=== PATIENT | male | born 1945 | race Caucasian/White ===

== ENCOUNTER 2019-01-15 09:08 | Inpatient (IN) | payer MEDICARE ==
[~2019-01-15] VITALS: Ht 180.3 cm; Wt 126.0 kg
[2019-01-15] MEDS ORDERED: diphenhydrAMINE 25 MG TAB (BENADRYL) PO PRN (09:45)
[2019-01-15] MEDS ORDERED: ALPRAZolam 0.25 MG (XANAX) TAB PO PRN (09:45)
[2019-01-15] MEDS ORDERED: CALCIUM CARBONATE 500 MG (TUMS) TAB.CHEW PO PRN (09:45)
[2019-01-15] MEDS ORDERED: guaiFENesin/CODEINE (ROBITUSSIN AC) 10ML UDC PO PRN (09:45)
[2019-01-15] MEDS ORDERED: LACTULOSE SYRUP 10GM/15ML (ENULOSE) 30ML UDC PO PRN (09:45)
[2019-01-15] MEDS ORDERED: HYDROcodone/APAP 5 MG/325 MG (LORTAB) TAB PO PRN (09:45)
[2019-01-15] MEDS ORDERED: LOPERAMIDE 2 MG (IMODIUM) TABLET PO PRN (09:45)
[2019-01-15] MEDS ORDERED: DOCUSATE SODIUM 100 MG (COLACE) CAP PO PRN (09:45)
[2019-01-15] MEDS ORDERED: FLEET ENEMA ADULT 1 EA BTL PR PRN (09:45)
[2019-01-15] MEDS ORDERED: BISACODYL 10 MG SUPP (DULCOLAX) PR PRN (09:45)
[2019-01-15] MEDS ORDERED: ONDANSETRON 4 MG (ZOFRAN) ORAL DISSOLVE TAB PO PRN (09:45)
[2019-01-15] MEDS ORDERED: MELATONIN 3 MG TABLET PO PRN (09:45)
--- NOTE | 2019-01-15 12:30 | NUR ---
Pt admitted to room 227 with an admitting diagnosis of S/P Back fusion from [facility], [place] via w/c, accompanied by , & PT. JODIE DONOHUE introduced to surroundings, call light, bed controls, phone, TV, temperature control, lights, meal times, smoking policy, visitor policy, side rail policy, bathrooms and showers. Patient Rights given to patient in the handbook. JODIE DONOHUE verbalizes understanding that [facility] is not responsible for the loss or damage to any personal effects or valuables that are kept in the patients posession during their hospitalization. The following Patient Care Plans were discussed with the PT: Discharge Planning, impaired Mobility, Self Care Deficit, Potential for fall/injury, Alteration in skin integrity. JODIE DONOHUE verbalizes understanding of Interdisciplinary Patient Education. Patient and/or family were informed about the Rapid Response Team and its purpose. Patient received Patient Rights Booklet, which includes Privacy Act Statement and Data Collection Information Summary.
[2019-01-15] MEDS ORDERED: OXYC1TAB87 PO (13:44)
[2019-01-15] MEDS ORDERED: BACL10TA PO (13:44)
[2019-01-15] MEDS ORDERED: LEVO25TA5 PO (13:44)
[2019-01-15] MEDS ORDERED: DOCU-244 PO (13:44)
[2019-01-15] MEDS ORDERED: GABA800T10 PO ×2 (13:44)
[2019-01-15] MEDS ORDERED: CHOL20003 PO (13:44)
--- NOTE | 2019-01-15 14:06 | NUR ---
UPDATED MED REC WITH THE DISCHARGE INSTRUCTIONS FROM [facility]. 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 I CALLED [facility] IN [place] AND THEY HAVE NOT FILLED ANYTHING MORE RECENTLY FOR THE PATIENT THAN WHAT IS SHOWN ON THE EXT MED HX. AT THIS TIME I WAS UNABLE TO VERIFY THE MEDS HE WAS FILLING PRIOR TO ADMISSION TO [facility] BUT REVIEWED THEM THEY WERE REPORTED AT THAT FACILITY.
--- NOTE | 2019-01-15 14:19 | Physical Therapy Evaluation ---
PT Evaluation-General Medical Diagnosis Admission Date Jan 15, 2019 at 12:30 Medical Diagnosis: Lumbar stenosis, L4-5, L5-S1, TLIF/laminectomy/bilateral facetectomies/PSIF Onset Date: Jan 13, 2019 Therapy Diagnosis Therapy Diagnosis: general weakness, abn gait, impaired balance Precautions Precautions/Isolations: Fall Prevention, Standard Precautions Referral Physician: Jackie Reason for Referral: Evaluation/Treatment Medical History Additional Medical History past cervical spine SX, psoriasis Reviewed History: Yes Social History Home: Single Level Current Living Status: Significant Other Entry Into Home: Stairs Without Railing PT Steps Into Home: 1 pt reports step into house is large enough to fit a walker on. Prior Prior Level of Function SCALE: Activities may be completed with or without assistive devices. 9-Wcxvgtaykp-tmtjdwm completes the activity by him/herself with no assistance from a helper. 5-Set-up or Clean-up Assistance-helper sets up or cleans up; patient completes activity. [place] assists only prior to or following the activity. 4-Supervision or Touching Assistance-helper provides verbal cues and/or touching/steadying and/or contact guard assistance as patient completes activity. Assistance may be provided throughout the activity or intermittently. 3-Partial/Moderate Assistance-helper does LESS THAN HALF the effort. [place] lifts, holds or supports trunk or limbs, but provides less than half the effort. 2-Substantial/Maximal Assistance-helper does MORE THAN HALF the effort. [place] lifts or holds trunk or limbs and provides more than half the effort. 9-Dllsyqehd-ankohw does ALL the effort. Patient does none of the effort to complete the activity. Or, the assistance of 2 or more helpers is required for the patient to complete the activity. If activity was not attempted, code reason: 7-Patient Refused. 9-Not Applicable-not attempted and the patient did not perform the activity before the current illness, exacerbation or injury. 10-Not Attempted due to Environmental Limitations-(lack of equipment, weather restraints, etc.). 88-Not Attempted due to Medical Conditions or Safety Concerns. Bed Mobility: 6 Transfers (B,C,W/C): 6 Gait: 3 Stairs: 3 Wheelchair Mobility: 6 Indoor Mobility (Ambulation): Needed Some Help Stairs: Needed Some Help Prior Devices Use: Manual wheelchair, Walker pt reports use of 4 wheel walker around the house as well as FWW and WC PT Evaluation-Current Subjective pt received from SO vehicle agrees to start therapy and reports 3-4/10 pain along the incisions in his back at this time. This session will be a CO-TX with OT secondary to pt's need for the skill of 2 therapists to maintain balance for functional activities as well as to coordinate UE and LE for proper placement for functional activities. Pt in recliner post-tx with SO present for duration of session. pt with call light, room phone, tray table in reach with all needs met at this time. Pt/Family Goals pt's goal is to decrease pain and get home to be indep. Objective Patient Orientation: Person, Place, Time, Situation Attachments: Drains, Bassett Catheter, IV [place] back brace ROM/Strength ROM Lower Extremities WFL, LLE slightly limited in dorsiflexion up to neutral Strength Lower Extremities B/L hip flexion about 3+/5 B/L knee extension 5/5 B/L knee flexion 4-/5 Integumentary/Posture Integumentary see nursing notes Bowel Incontinence: Yes Bladder Incontinence: Bassett Cath Sensory Vision: Functional Hearing: Functional Sensation Right Lower Extremit: Intact Sensation Left Lower Extremity: Intact Transfers Roll Left to Right (QC): 3 (modA) Sit to Lying (QC): 3 (modA) Lying to Sitting/Side of Bed(Q: 3 (modA) Sit to Stand (QC): 3 (maxA-CGA depending on surface height) Chair/Cnp-tv-Niwdk Xfer(QC): 3 (modA) Car Transfer (QC): 3 (modA) pt performs bed mobility using log roll technique with modA. Pt transfers bed to chair with standing and stepping modA Pt sit <-> stand was maxA from low surfaces and WC without pad but was improved to CGA when pad placed in WC or from lifted gym table height. Gait Does the Patient Walk?: Yes Mode of Locomotion: Both Anticipated Mode of Locomotion: Both Walk 10 feet (QC): 88 Walk 50 ft with 2 Turns(QC): 88 Walk 150 ft (QC): 88 Walking 10ft/uneven surface-QC: 88 Distance: 2' Gait Assistive Device: FWW Comments/Gait Description pt able to stand a take only a few shuffle steps from WC <-> bed/chair Wheelchair Training Does the Pt Use a Wheelchair?: Yes Distance: 150'x2 Wheel 50 ft with 2 turns (QC): 4 (SBA) Wheel 150 ft (QC): 4 (SBA) Type of Wheelchair: Manual Stairs 1 Step (curb) (QC): 88 4 Steps (QC): 88 12 Steps (QC): 88 Balance Sitting Static: Normal Sitting Dynamic: Good Standing Static: Fair Standing Dynamic: Fair Picking up an Object (QC): 88 Treatment pt performed transfer training, bed mobility training, wheelchair training, balance training, and education PT assisted with pt balance while OT accessed ADL, dressing, feeding. OT assisted with UE placement while PT assisted with LE placement for transfer and sit to stands. Assessment/Needs Pt had 2-3 episodes of L knee buckling while standing with the FWW this session. Pt has improved performance for sit to stands once the surface is raised but continues to need repeated cueing for UE placement for safety with transfers. Pt feels like twice he has had BM during session with once only being gas, pt reports incontinence in new since this surgery. Pt has dentures in place. Rehab Potential: Fair PT Short Term Goals Short Term Goals Time Frame: Jan 22, 2019 Sit to lyin (Cassie) Lying to sitting on side of be: 3 (Cassie) Sit to stand: 4 (CGA) Walk 10 feet: 3 (Cassie) PT Jail Goals Sample Steamer Goals PT Jail Goals Time Frame: Feb 05, 2019 Roll Left & Right (QC): 6 Sit to Lying (QC): 6 Lying-Sitting on Side/Bed(QC): 6 Sit to Stand (QC): 6 Chair/Whv-va-Rmujr Xfer(QC): 6 Toilet Transfer (QC): 6 Car Transfer (QC): 6 Does the Patient Walk: Yes Walk 10 feet (QC): 4 (CGA) Walk 50ft with 2 Turns (QC): 4 (CGA) Walk 150 ft (QC): 88 Walking 10ft on Uneven Surface: 4 (CGA) 1 Step (curb) (QC): 4 (CGA) 4 Steps (QC): 9 12 Steps (QC): 9 Picking up an Object (QC): 88 Does the Pt use WC or Scooter?: Yes Wheel 50 feet with 2 turns (QC: 6 Type: Manual Wheel 150 feet: 6 Type: Manual PT Plan Problem List Problem List: Activity Tolerance, Functional Strength, Safety, Balance, Gait, Transfer, Bed Mobility, ROM Treatment/Plan Treatment Plan: Continue Plan of Care Treatment Plan: Bed Mobility, Concurrent Therapy, Education, Functional Activity Xnader, Functional Strength, Group Therapy, Gait, Safety, Therapeutic Exercise, Transfers Treatment Duration: Feb 05, 2019 Frequency: At least 5 of 7 days/Wk (IRF) Estimated Hrs Per Day: 1.5 hours per day Patient and/or Family Agrees t: Yes Safety Risks/Education Patient Education: Gait Training, Transfer Techniques, Reviewed Precautions, Correct Positioning, W/C Management, Reviewed Don/Doff Brace, Safety Issues Teaching Recipient: Patient Teaching Methods: Demonstration, Discussion Response to Teaching: Return Demonstration, Reinforcement Needed Discharge Recommendations Plan pt will perform transfer and mobility training, balance training, skilled ambulation training, stair training, functional strength/endurance training, and education. Therapy Discharge Recommendati: Other, See Comments (home with SO) Time/GCodes Time In: 1200 Time Out: 1410 Total Billed Treatment Time: 90 Total Billed Treatment PT eval [id number] OT eval [id number] Co [place] 4571-3289 Co [place] 9037-3316 1 visit EVM 10' (1) [facility] 15' (1) FA 65' (4) IRENE MARTIN PT Jan 15, 2019 14:19 POS
--- NOTE | 2019-01-15 14:27 | Occupational Therapy Eval ---
OT Evaluation-General/PLF Medical Diagnosis Admission Date Jan 15, 2019 at 12:30 Medical Diagnosis: Lumbar stenosis, L4-5, L5-S1, TLIF/laminectomy/bilateral facetectomies/PSIF Onset Date: Jan 13, 2019 Therapy Diagnosis Therapy Diagnosis: Weakness, Decreased ADL skills Weight Bear Status Weight Bearing Restriction: Weight Bearing/Tolerated Back brace on when up. Back precautions. Referral Physician: Dr. Mejia Referral Reason: Activity Tolerance, Self Care, Evaluation/Treatment, Strengthening/ROM Medical History Additional Medical History Cervical surgery in 2016, psoriasis Current History Pt. sustained back surgery. Has back brace now to wear when OOB. Pt. has had weakness in right LE for some time. Pt. states that he is having less pain now since having surgery. Reviewed History: Yes Social History Home: Single Level Current Living Status: Significant Other Entry Into Home: Level Entry 1 curb step ADL-Prior Level of Function SCALE: Activities may be completed with or without assistive devices. 2-Bhixenxtfj-wcsaiuw completes the activity by him/herself with no assistance from a helper. 5-Set-up or Clean-up Assistance-helper sets up or cleans up; patient completes activity. [place] assists only prior to or following the activity. 4-Supervision or Touching Assistance-helper provides verbal cues and/or touching/steadying and/or contact guard assistance as patient completes activity. Assistance may be provided throughout the activity or intermittently. 3-Partial/Moderate Assistance-helper does LESS THAN HALF the effort. [place] lifts, holds or supports trunk or limbs, but provides less than half the effort. 2-Substantial/Maximal Assistance-helper does MORE THAN HALF the effort. [place] lifts or holds trunk or limbs and provides more than half the effort. 1-Wtvlednpp-sstqqk does ALL the effort. Patient does none of the effort to complete the activity. Or, the assistance of 2 or more helpers is required for the patient to complete the activity. If activity was not attempted, code reason: 7-Patient Refused. 9-Not Applicable-not attempted and the patient did not perform the activity before the current illness, exacerbation or injury. 10-Not Attempted due to Environmental Limitations-(lack of equipment, weather restraints, etc.). 88-Not Attempted due to Medical Conditions or Safety Concerns. ADL PLOF Comments Pt. states that he does not drive anymore. States that he has a technique at home that he uses to don socks and shoes. He uses a strong band to pull his feet up to him. However, he also has a sock aide that he uses sometimes. When he was having significant back pain, his significant other assists him. Self Care: Needed Some Help Functional Cognition: Independent DME/Equipment: Bath Chair, Tub/Shower DME/Equipment Comments Pt. uses 2 wheeled walker at home, but also has 4 wheeled walkers. 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 reports 3-10 in back. Appearance Pt. alert and oriented. Agrees to work with therapy. Mental Status/Objective Patient Orientation: Person, Place, Time, Situation Current Dentures/Partials: Yes Hand Dominance: Right Upper Extremity ROM Right UE- WFL Left UE- 90 degrees shoulder flexion. Upper Extremity Strength UE not tested due to back surgery. Pt missing distal half of left 2nd, third, fourth finger from previous accident. ADL-Treatment Eating (QC): 6 (Pt. took dentures out due to not fitting. No difficulty noted to eat full meal.) Oral Hygiene (QC): 5 (Pt. able to open fixodent tube and use on his dentures. Pt. able to apply teeth in mouth and fixate to roof. No difficulty noted.) Shower/Bathe Self (QC): 2 (Pt. incontinent of BM upon first arriving. Required max assistance to wash legs, rear bruno area, and feet. Pt. able to wash front p shaquille area and UE.) Upper Body Dressing (QC): 2 (Mod assist to doff shirt. Max assist to doff/don back brace.) Lower Body Dressing (QC): 2 (Max assist to doff/don slipper socks and brief. Max assist to doff pants.) On/Off Footwear (QC): 2 Toileting Hygiene (QC): 1 Toilet Transfer (QC): 2 Pt. participated in co-treatment due to skilled level of assistance needed. Pt. fatigued from car ride. At beginning of treatment, pt. required mod x 2 for sit-stand, but increasingly had easier time and required only min x 2. OT facilitated ADL treatment while PT focused on transfers and mobility. Pt. able to self propel wheelchair to and from gym. Pt. issued AE to practiced doffing/donning slipper socks. Required min assist for this. All needs met back in chair after propelling back to room. Education OT Patient Education: Correct positioning, Modified ADL techniques, Progress toward Goal/Update tx plan, Purpose of tx/functional activities, Reviewed precautions, Rehab process, Transfer techniques, Use of adapted equipment Teaching Recipient: Patient Teaching Methods: Demonstration, Discussion Response to Teaching: Verbalize Understanding, Return Demonstration OT Short Term Goals Short Term Goals Time Frame: Jan 22, 2019 Eatin Oral hygiene: 5 Toileting hygiene: 4 Shower/bathe self: 4 Upper body dressin Lower body dressin Putting on/taking off footwear: 4 OT Admissions Dean Goals Retirement Goals Time Frame: Jan 29, 2019 Eating (QC): 6 Oral Hygiene (QC): 6 Toileting Hygiene (QC): 6 Shower/Bathe Self (QC): 5 Upper Body Dressing (QC): 6 Lower Body Dressing (QC): 6 On/Off Footwear (QC): 6 Additional Goals: 1-Demonstrate ADL Tasks, 2-Verbalize Understanding, 3- ImproveStrength/Xander 1=Demonstrate adherence to instructed precautions during ADL tasks. 2=Patient will verbalize/demonstrate understanding of assistive devices/modifications for ADL. 3=Patient will improve strength/tolerance for activity to enable patient to perform ADL's. OT Education/Plan Problem List/Assessment Assessment: Decreased Activ Tolerance, Decreased UE Strength, Dependent Transfers, Impaired Bed Mobility, Impaired Funct Balance, Impaired I ADL's, Impaired Self-Care Skills, Restricted Funct UE ROM Discharge Recommendations Plan/Recommendations: Continue POC Therapy Discharge Recommendati: Post Acute OT Equpiment Recommendations-D/C: Hip Kit Treatment Plan/Plan of Care Treatment,Training & Education: Yes Patient would benefit from OT for education, treatment and training to promote independence in ADL's, mobility, safety and/or upper extremity function for ADL's. Plan of Care: ADL Retraining, Functional Mobility, Group Exercise/Act as Ind, UE Funct Exercise/Act Treatment Duration: Jan 29, 2019 Frequency: At least 5 of 7 days/Wk (IRF) Estimated Hrs Per Day: 1.5 hours per day Agreement: Yes Rehab Potential: Good Time/GCodes Start Time: 12:00 Stop Time: 14:10 Total Time Billed (hr/min): 90 Billed Treatment Time 6831-3955 PT eval, no charge [id number] 1, EVH x 10 minutes [id number] ADL x 10minutes- co-treat with PT [id number] 1, ADL x 35minutes, FA x 35minutes- co-treat with PT. Please see above note for findings and goals. JENNIFER ELLISON OT Jan 15, 2019 14:27 POS
--- NOTE | 2019-01-15 14:45 | ST Cognitive Linguistic Eval ---
Speech Evaluation-General Medical Diagnosis Lumbar Stenosis Onset Date: Jan 15, 2019 Therapy Diagnosis Therapy Diagnosis: Cognitive-communication Referral Referring Physician: Dr. Mejia Social History Current Living Status: Significant Other Speech PLF-Current Status Prior Level of Function Patient lived at home with his where she assisted him as needed with his daily needs. Subjective Patient was pleasant and cooperative with the cognitive assessment. Language Eval: Auditory Comprehends Simple Yes/No Ques: Functional Indent/Objects Multiple [place]: Functional Ident/Pics in Multiple [place]: Functional Follows 1-Step Commands: Functional Follows Complex Directions: Functional Follows General Conversations: Functional Language Eval: Verbal Language Completes Spontaneous Greeting: Functional Produces Auto, Serial Info: Functional Imitates Simple Words/Phrases: Functional Word Finding: Functional Requests Basic Needs: Functional States Basic Personal Info: Functional Expresses Complex Ideas: Functional Objective Cognitive Domain Attention: WNL Memory: Mild Problem Solving: Functional Executive Functions: WNL Visuospatial Skills: WNL Composite Severity Rating: WNL Clock Drawing Severity Rating: WNL Objective Formal/Standardized Tests [facility] Mental Status ([facility]) Results 27/30, within normal range of function Oral Motor/Speech Production Within Normal Limits Impression Patient is a pleasant 73 year old male who was admitted to the ARU s/p spinal surgery. Patient was given the UMS with a score of 27/30 obtained. This score falls in the normal range of function. Patient does not warrant further ST services at this time. Speech Patient Assess Expression of Ideas/Wants: Expression (4) Understanding Verbal Content: Understands (4) Brief Interview-Mental Status: Yes Repetition of Three Words: Three (3) Temporal Orientation: Year: Correct (3) Temporal Orientation: Month: Accurate within 5 days(2) Temporal Orientation: Day: Correct (1) Recall : Wear to say "Sock": Yes, no cue required (2) Recall : Color: Yes, no cue required (2) Recall : Bed: Yes, no cue required (2) Memory/Recall Ability: Current season, Location of own room, That he or she is in a hsp/hsp unit Speech-Plan Patient/Family Goals Patient/Family Goals: Patient plans on returning home with his upon rehab discharge. Treatment Plan Speech Therapy Treatment Plan: Discontinue ST Patient does not require further ST services. Treatment Duration: Jan 15, 2019 Frequency: 1 time per week Estimated Hrs Per Day: .25 hour per day Rehab Potential: Fair Barriers to Learning: None identified Pt/Family Agrees to Plan: Yes Safety Risks/Education Teaching Recipient: Patient, Significant Other Teaching Methods: Discussion Response to Teaching: Verbalize Understanding Education Topics Provided: Safety within his room, utilization of the call light as needed Time Speech Therapy Time In: 14:30 Speech Therapy Time Out: 14:45 Total Billed Time: 15 Billed Treatment Time 1, SPSNDMADELINE Abraham Jan 15, 2019 14:45 POS
[2019-01-15 14:55] VITALS: BP 112/72
[2019-01-15 16:28] VITALS: BP 97/59
[2019-01-15] MEDS: GABAPENTIN 400 MG (NEURONTIN) CAP PO SCH (20:17)
[2019-01-15] MEDS: VITAMIN D3 1,000 UNITS (CHOLECALCIFEROL) TABLET PO SCH (20:17)
[2019-01-15] MEDS: DOCUSATE SODIUM 100 MG (COLACE) CAP PO SCH (20:18)
[2019-01-15] MEDS: POLYETHYLENE GLYCOL 17 GM (MIRALAX) PACK PO SCH (20:18)
[2019-01-15] MEDS: SENNA W/DOCUSATE (SENOKOT S) TABLET PO SCH (20:18)
[2019-01-15] MEDS ORDERED: NON-FORMULARY MEDICATION 1 EA EA (Cholecalciferol (Vitamin D3) (Vitamin D3) 2,000 UNIT) PO SCH (21:00)
[2019-01-15] MEDS ORDERED: NON-FORMULARY MEDICATION 1 EA EA (Gabapentin 800 MG) PO SCH (21:00)
[2019-01-15] MEDS ORDERED: DOCUSATE SODIUM 100 MG (COLACE) CAP PO SCH (21:00)
[2019-01-15] MEDS ORDERED: NON-FORMULARY MEDICATION 1 EA EA (Docusate Sodium (Dok) 100 MG) PO SCH (21:00)
--- NOTE | 2019-01-15 22:24 | PM&R Post Admission Assessment ---
PM&R HP Date of Visit: Jan 15, 2019 Time of Visit: 12:50 History of Present Illness Chief complaint: Severe debility due to lumbar fusion and significant debility due to right leg radiculopathy prior to surgery. HPI: This is a 73yoWM who presents after an extensive lumbar fusion surgery by Dr. Smith at [facility] in [place], who presents to the inpatient rehab at POD# 3 in need of intensive therapy, in order to return home with his fiance. He does require the espinosa catheter maintain, due to resistant urinary retention following the surgery. Multiple meds were given, he will have the espinosa catheter maintained and Dr. Zimmerman will see him in consultation. He did have an early ileus that resolved with conservative management. Did not need a nasogastric tube but he is still having some watery stools with lack of substance so will monitor that aggressively. He denied any nausea. 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[employer]) Alcohol Use: Occasionally Uses Alcohol Beverage of Choice: Beer, Wine Recreational Drug Use: No Smoking Status: Former Smoker Former Smoker, Quit: Jan 15, 1989 Physical Abuse Screen: No Sexual Abuse: No Recent Foreign Travel: No Contact w/other who traveled: No Recent Hopitalizations: Yes Recent Infectious Disease Expo: No Immunizations Up To Date Date of Pneumonia Vaccine: Nov 14, 2018 Date of Influenza Vaccine: Nov 14, 2018 Seasonal Allergies Seasonal Allergies: Yes Past Medical History Surgeries: Orthopedic Currently Using CPAP: No Currently Using BIPAP: No Neurological: Neuropathy Gastrointestinal: Hepatitis Musculoskeletal: Degenerate Disk Disease, Arthritis, Chronic Back Pain, Fr actures Endocrine: Hypothyroidsim HEENT: Cataract Hearing Impairment: Denies History of Blood Disorders: No Adverse Reaction to Blood Stanley: No Family History Cardiovascular disease 19 FATHER (unknown) 19 MOTHER (unknown) Prior Level of Function Bed Mobility: 6 Transfers: 6 Gait: 3 Stairs: 3 Wheelchair Mobility: 6 Indoor Mobility (Ambulation): Needed Some Help Stairs: Needed Some Help Prior Devices Use: Manual wheelchair, Walker Self Care: Needed Some Help Functional Cognition: Independent 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 Drive Self: No Current Level of Fuctioning Roll Left to Right: 3 (modA) Sit to Lyin (modA LR) Lying to Sitting/Side of Bed: 3 (modA) Sit to Stand: 3 (maxA-CGA depending on surface height) Chair/Tjf-st-Slnwu Xfer: 3 (modA) Car Transfer: 3 (modA) Does the Patient Walk: Yes Mode of Locomotion: Both Anticipated Mode of Locomotion: Both Walk 10 feet: 88 Walk 50 ft with 2 Turns: 88 Walk 150 ft: 88 Walking 10ft on uneven surface: 88 Gait Assistive Device: FWW Does the Pt Use a Wheelchair: Yes Wheelchair Distance: 150'x2 Wheel 50 ft with 2 turns: 4 (SBA) Wheel 150 ft: 4 (SBA) Type of Wheelchair: Manual 1 Step (curb): 88 4 Steps: 88 12 Steps: 88 Picking up an Object: 88 Eatin (Pt. took dentures out due to not fitting. No difficulty noted to eat full meal.) Oral Hygiene: 5 (Pt. able to open fixodent tube and use on his dentures. Pt. able to apply teeth in mouth and fixate to roof. No difficulty noted.) Shower/Bathe Self: 2 (Pt. incontinent of BM upon first arriving. Required max assistance to wash legs, rear bruno area, and feet. Pt. able to wash front bruno area and UE.) Upper Body Dressin (Mod assist to doff shirt. Max assist to doff/don back brace.) Lower Body Dressin (Max assist to doff/don slipper socks and brief. Max assist to doff pants.) On/Off Footwear: 2 Toileting Hygiene: 1 Toilet Transfer: 2 PM&R Allergy/Meds/Data Review Allergies Coded Allergies: No Allergy Information Available (Unverified , 01/15/19) Home Medications Scheduled Cholecalciferol (Vitamin D3) (Vitamin D3), 2,000 UNIT PO BID, (Reported) Docusate Sodium (Dok), 100 MG PO BID, (Reported) Gabapentin (Gabapentin), 1,600 MG PO DAILY, (Reported) Gabapentin (Gabapentin), 800 MG PO 1200,2100, (Reported) Levothyroxine Sodium (Levothyroxine Sodium), 25 MCG PO DAILY, (Reported) Scheduled PRN Baclofen (Baclofen), 10 MG PO Q8H PRN for MUSCLE SPASMS, (Reported) Oxycodone HCl/Acetaminophen (Percocet 5-325 mg Tablet), 1-2 TAB PO Q6H PRN for PAIN-MODERATE (5-7), (Reported) Current Medications Current Medications Reviewed Review of Systems Constitutional: see HPI, malaise, weakness Gastrointestinal: constipation Genitourinary: other (retention requiring espinosa cath) Musculoskeletal: back pain Psychiatric/Neurological: Numbness All Other Systems Reviewed Negative Unless Noted: Yes Physical Exam Physical Exam Vital Signs Vital Signs - First Documented Capillary Refill : Height, Weight, BMI Height: '" Weight: lbs. oz. kg; 38.85 BMI Method: General Appearance: No Apparent Distress, WD/WN, Chronically ill, Obese Eyes: Bilateral Eye Normal Inspection, Bilateral Eye PERRL HEENT: PERRL/EOMI, Normal ENT Inspection, Pharynx Normal Neck: Full Range of Motion, Normal Inspection, Non Tender, Supple, Carotid Bruit Respiratory: Chest Non Tender, Lungs Clear, Normal Breath Sounds, No Accessory Muscle Use, No Respiratory Distress Cardiovascular: Regular Rate, Rhythm, No Edema, No Gallop, No JVD, No Murmur, Normal Peripheral Pulses Gastrointestinal: Normal Bowel Sounds, No Organomegaly, No Pulsatile Mass, Non Tender, Soft Back: Normal Inspection, No CVA Tenderness, No Vertebral Tenderness Extremity: Normal Capillary Refill, Normal Inspection, Normal Range of Motion, Non Tender, No Calf Tenderness, No Pedal Edema Neurologic/Psychiatric: Alert, Oriented x3, No Motor/Sensory Deficits, Normal 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/Affect, 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 as 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, Motor Weakness (leg weakness right greater than left 3/5) Skin: Normal Color, Warm/Dry Lymphatic: No Adenopathy PM&R Medical Assessment & Plan REHAB/MEDICAL ASSESSMENT AND PLAN: REHAB IMPAIRMENT GROUP: Lumbar fusion with severe neurological deficit ETIOLOGIC DIAGNOSIS: Lumbar fusion with severe neurological deficit The comorbidities that impact the patients function and/or functional outcome by: Severe neuropathy, hypothyroidism, urinary retention requiring espinosa cath REHAB PLAN: The patient is being admitted to our comprehensive inpatient rehabilitation facility and can tolerate the intensity of service consisting of at least: 180 minutes of therapy a day, 5 out of 7 days a week Rehab treatment will consist of: PT will help regain the ability to ambulate and OT will help regain independence in ADL's in order to return home The patient/family has a good understanding of our discharge process and will benefit from an interdisciplinary inpatient rehabilitation program. The patient has potential to make improvement and is in need of at least two of the following multidisciplinary therapies including but not limited to physical, occupational, speech, and prosthetics and orthotics. Additionally the patient will need services from respiratory, nutritional services, wound care, psychology, etc. (Customize this to each patient). Given the patients complex condition and risk of further medical complications, rehabilitation services cannot be safely or effectively provided at a lower level of care such as a [place] [facility] facility. BARRIERS TO DISCHARGE: Ability to ambulate due to large stature ESTIMATED LOS: 10 days DISPOSITION: Home RELEVANT CHANGES SINCE PREADMISSION SCREENING: I have compared the patients medical and functional status at the time of the preadmission screening and there are: no changes PROGNOSIS: Good REHABILITATION GOALS: 1. PT will help regain the ability to walk with walker and prevent falls and OT will help with the use of assistive devices in order to be able to return home All the above goals were reviewed with the patient and he/she is in agreement. By signing this document, I acknowledge that I have personally performed a full physical examination on this patient within 24 hours of admission to this inpatient rehabilitation facility and have determined the patient to be able to tolerate the above course of treatment at an intensive level for a reasonable period of time. I will be completing a detailed individualized Plan of Care for this patient by day #4 of the patients stay based upon the Preadmission Screen, the Post-Admission Evaluation, and the therapy evaluations. Admission Dx/Comorbidities: (1) S/P lumbar fusion ICD Codes: Z98.1 - Arthrodesis status (2) Hypothyroidism ICD Codes: E03.9 - Hypothyroidism, unspecified (3) Urinary retention ICD Codes: R33.9 - Retention of urine, unspecified (4) Espinosa catheter in place ICD Codes: Z96.0 - Presence of urogenital implants (5) Constipation ICD Codes: K59.00 - Constipation, unspecified (6) Neuropathy ICD Codes: G62.9 - Polyneuropathy, unspecified KEVIN FOX DO Jan 15, 2019 22:24 POS
[2019-01-16] MEDS: LEVOTHYROXINE 25 MCG (LEVOTHROID) TAB PO SCH (05:43)
[2019-01-16] MEDS: oxyCODONE/APAP 5/325MG (PERCOCET 5) TABLET PO PRN ×2 (05:46→18:29)
[2019-01-16 06:06] VITALS: BP 101/67
[2019-01-16 06:56] LABS: BASOPHILS % (AUTO) 1 % (0-10); EOSINOPHILS # (AUTO) 0.2 10^3/uL (0.0-0.3); EOSINOPHILS % (AUTO) 2 % (0-10); HEMATOCRIT 33 % (40-54); HEMOGLOBIN 10.7 G/DL (13.3-17.7); LYMPHOCYTES # (AUTO) 1.8 X 10^3 (1.0-4.0); LYMPHOCYTES % (AUTO) 21 % (12-44); MEAN CORPUSCULAR HEMOGLOBIN 31 PG (25-34); MEAN CORPUSCULAR HGB CONC 33 G/DL (32-36); MEAN CORPUSCULAR VOLUME 95 FL (80-99); MEAN PLATELET VOLUME 11.7 FL (7.4-10.4); MONOCYTES # (AUTO) 1.3 X 10^3 (0.0-1.0); MONOCYTES % (AUTO) 15 % (0-12); NEUTROPHILS # (AUTO) 5.3 X 10^3 (1.8-7.8); NEUTROPHILS % (AUTO) 62 % (42-75); PLATELET COUNT 167 10^3/uL (130-400); RED CELL DISTRIBUTION WIDTH 13.1 % (10.0-14.5); WHITE BLOOD COUNT 8.6 10^3/uL (4.3-11.0)
[2019-01-16 07:11] LABS: ALANINE AMINOTRANSFERASE 31 U/L (0-55); ALBUMIN 3.2 GM/DL (3.2-4.5); ALKALINE PHOSPHATASE 53 U/L (40-136); BILIRUBIN,TOTAL 0.6 MG/DL (0.1-1.0); BUN/CREATININE RATIO 25; CALCIUM 8.3 MG/DL (8.5-10.1); CARBON DIOXIDE 23 MMOL/L (21-32); CHLORIDE 102 MMOL/L (98-107); CREATININE SERUM 0.68 MG/DL (0.60-1.30); GFR ESTIMATED > 60; GLUCOSE 100 MG/DL (70-105); POTASSIUM 3.3 MMOL/L (3.6-5.0); SODIUM 134 MMOL/L (135-145); TOTAL PROTEIN 5.8 GM/DL (6.4-8.2)
[2019-01-16] MEDS ORDERED: NON-FORMULARY MEDICATION 1 EA EA (Gabapentin 1,600 MG) PO SCH (09:00)
--- NOTE | 2019-01-16 10:14 | Occupational Ther Daily Note ---
OT Current Status-Daily Note Subjective Pt seen supine in bed, alert/ oriented. Pt agreeable to OT tx session. Pt denies pain, states had pain meds prior to session. Mental Status/Objective Patient Orientation: Normal For Age Attachments: Drains, Bassett Catheter ADL-Treatment Therapy Code Descriptions/Definitions Functional [place] Measure: 0=Not Assessed/NA 4=Minimal Assistance 1=Total Assistance 5=Supervision or Setup 2=Maximal Assistance 6=Modified [place] 3=Moderate Assistance 7=Complete IndependenceSCALE: Activities may be completed with or without assistive devices. 0-Nhorlacthj-uargknr completes the activity by him/herself with no assistance from a helper. 5-Set-up or Clean-up Assistance-helper sets up or cleans up; patient completes activity. [place] assists only prior to or following the activity. 4-Supervision or Touching Assistance-helper provides verbal cues and/or touching/steadying and/or contact guard assistance as patient completes activity. Assistance may be provided throughout the activity or intermittently. 3-Partial/Moderate Assistance-helper does LESS THAN HALF the effort. [place] lifts, holds or supports trunk or limbs, but provides less than half the effort. 2-Substantial/Maximal Assistance-helper does MORE THAN HALF the effort. [place] lifts or holds trunk or limbs and provides more than half the effort. 7-Tdxrwulnx-qexjoj does ALL the effort. Patient does none of the effort to complete the activity. Or, the assistance of 2 or more helpers is required for the patient to complete the activity. If activity was not attempted, code reason: 7-Patient Refused. 9-Not Applicable-not attempted and the patient did not perform the activity before the current illness, exacerbation or injury. 10-Not Attempted due to Environmental Limitations-(lack of equipment, weather restraints, etc.). 88-Not Attempted due to Medical Conditions or Safety Concerns. Shower/Bathe Self (QC): 3 (Pt transfers to commode within shower, completes with CGA with FWW. Pt completes showering with long handled sponge, able to reach all areas excluding back and bottom. Pt requires assist drying BLE and back/ bottom.) Upper Body Dressing (QC): 4 (intermittent assist for back brace- requires cues for no twisting and modified donning educated. Pt demonstrates back with IND.) Lower Body Dressing (QC): 3 (Pt requires assist threading catheter through breif, completes breif donning with cheese grader while maintaining back precautions. Completes sit to stand and min A for pulling pants up in back in stance) Toileting Hygiene (QC): 2 (Pt completes toilet transfer, states need to BM. Pt compeltes, no BM just "gas". Pt completes sit to stand with min A from standard toilet, completes bottom hygiene with max A while pt standing at FWW. Clear mucous wiped from pt's bottom with wipes.) Toilet Transfer (QC): 3 (Min A to standard toilet. CGA from commode in shower.) on/ off footwear: 4 intermittent assist for sock aide management as pt not able to pull more than 5lbs of force. Sock aide had increased friction due to damp skin. Other Treatment Pt agreeable to OT tx session, requests showering. Nursing notified due to drain in back.Nursing states okay to shower without coverage. Pt states 2/3 back precautions, requires min cueing for lifting/ pulling precaution. Pt completes log roll, requires mod A from side lying to sit. Pt scoots EOB with increased time. Pt dons back brace with intermittent assist and cues. Pt completes sit to stand to FWW with min A x2 (nursing present), completes toileting and showering in bathroom. Pt requests shave, completes in w/c. Pt completes sit to stand from w/c to FWW, sits in recliner chair with CGA. Pt adjusted with pillows, call light in reach, all needs met. Education OT Patient Education: Correct positioning, Modified ADL techniques, Purpose of tx/functional activities, Reviewed precautions, Safety issues, Transfer techniques, Use of adapted equipment Teaching Recipient: Patient Teaching Methods: Demonstration, Discussion Response to Teaching: Verbalize Understanding, Return Demonstration OT Short Term Goals Short Term Goals Time Frame: Jan 22, 2019 Eatin Oral hygiene: 5 Toileting hygiene: 4 Shower/bathe self: 4 Upper body dressin Lower body dressin Putting on/taking off footwear: 4 OT Halfway Goals Halfway Goals Time Frame: Jan 29, 2019 Eating (QC): 6 Oral Hygiene (QC): 6 Toileting Hygiene (QC): 6 Shower/Bathe Self (QC): 5 Upper Body Dressing (QC): 6 Lower Body Dressing (QC): 6 On/Off Footwear (QC): 6 Additional Goals: 1-Demonstrate ADL Tasks, 2-Verbalize Understanding, 3- ImproveStrength/Xander 1=Demonstrate adherence to instructed precautions during ADL tasks. 2=Patient will verbalize/demonstrate understanding of assistive devices/modifications for ADL. 3=Patient will improve strength/tolerance for activity to enable patient to perform ADL's. OT Education/Plan Problem List/Assessment Assessment: Decreased Activ Tolerance, Decreased UE Strength, Dependent Tr ansfers, Impaired Bed Mobility, Impaired Coordination, Impaired Funct Balance, Impaired I ADL's, Impaired Self-Care Skills Discharge Recommendations Plan/Recommendations: Continue POC Equpiment Recommendations-D/C: Hip Kit Treatment Plan/Plan of Care Treatment,Training & Education: Yes Patient would benefit from OT for education, treatment and training to promote independence in ADL's, mobility, safety and/or upper extremity function for ADL's. Plan of Care: ADL Retraining, Functional Mobility, Group Exercise/Act as Ind, U E Funct Exercise/Act Treatment Duration: Jan 29, 2019 Frequency: At least 5 of 7 days/Wk (IRF) Estimated Hrs Per Day: 1.5 hours per day Agreement: Yes Rehab Potential: Good Time/GCodes Start Time: 08:00 Stop Time: 09:00 Total Time Billed (hr/min): 60 Billed Treatment Time 1, ADL 4 (60) CLARENCE BLAIR OTR Jan 16, 2019 10:14 POS
[2019-01-16] MEDS: VITAMIN D3 1,000 UNITS (CHOLECALCIFEROL) TABLET PO SCH ×2 (10:54→20:33)
[2019-01-16] MEDS: SENNA W/DOCUSATE (SENOKOT S) TABLET PO SCH ×2 (10:54→20:34)
[2019-01-16] MEDS: DOCUSATE SODIUM 100 MG (COLACE) CAP PO SCH ×2 (10:55→20:33)
[2019-01-16] MEDS: GABAPENTIN 400 MG (NEURONTIN) CAP PO SCH ×3 (10:55→20:33)
--- NOTE | 2019-01-16 10:57 | Physical Therapy Daily Note ---
PT Daily Note-Current Subjective pt in recliner pre-tx agrees to therapy and denies pain at this time. Appearance pt in bed post-tx with call light, phone, tray table in reach with all needs met at this time. Mental Status Patient Orientation: Person, Place, Time, Situation Attachments: Drains, Bassett Catheter aspen brace, Transfers SCALE: Activities may be completed with or without assistive devices. 7-Iohcnjknnw-ooxvxsd completes the activity by him/herself with no assistance from a helper. 5-Set-up or Clean-up Assistance-helper sets up or cleans up; patient completes activity. [place] assists only prior to or following the activity. 4-Supervision or Touching Assistance-helper provides verbal cues and/or touching/steadying and/or contact guard assistance as patient completes activity. Assistance may be provided throughout the activity or intermittently. 3-Partial/Moderate Assistance-helper does LESS THAN HALF the effort. [place] lifts, holds or supports trunk or limbs, but provides less than half the effort. 2-Substantial/Maximal Assistance-helper does MORE THAN HALF the effort. [place] lifts or holds trunk or limbs and provides more than half the effort. 9-Yqtdppliv-gakepu does ALL the effort. Patient does none of the effort to com plete the activity. Or, the assistance of 2 or more helpers is required for the patient to complete the activity. If activity was not attempted, code reason: 7-Patient Refused. 9-Not Applicable-not attempted and the patient did not perform the activity before the current illness, exacerbation or injury. 10-Not Attempted due to Environmental Limitations-(lack of equipment, weather restraints, etc.). 88-Not Attempted due to Medical Conditions or Safety Concerns. Sit to Lying (QC): 3 (modA) Sit to Stand (QC): 3 (Cassie-CGA) Toilet Transfer (QC): 4 (CGA) pt continues to have difficulty with standing from lower surfaces with improved ability from a raised surface. Gait Training Does the Patient Walk?: Yes Distance: 10'x3 Walk 10 feet (QC): 4 (CGA) Gait Assistive Device: Parallel Bars pt takes slow steps with narrow CONI and lands with foot flat contact. Wheelchair Training Does the Pt Use a Wheelchair?: Yes Wheel 50 ft with 2 turns (QC): 3 (min A for help around obstacles and doorways) Wheel 150 ft (QC): 3 (min A for help around obstacles and doorways) Type of Wheelchair: Manual Exercises Seated Therapy Exercises: Ankle pumps, Long arc quads, Hip flexion Seated Reps: 20 (10reps 2 sets) Treatments pt performed bed mobility and transfer training, skilled ambulation training, functional LE strengthening, and education. Assessment Current Status: Fair Progress pt is upset to his stomach and has a clear BM of about 20ml fluid, RN notified. pt had 2 episodes of each knee buckling during transfers. pt uses increased WB through UE into // bars but has no knee buckling during ambulation and is stable although he takes short choppy steps. PT Short Term Goals Short Term Goals Time Frame: Jan 22, 2019 Sit to lyin (Cassie) Lying to sitting on side of be: 3 (Cassie) Sit to stand: 4 (CGA) Walk 10 feet: 3 (Cassie) PT Sexual Assault Social Worker Goals Sexual Assault Social Worker Goals PT Sexual Assault Social Worker Goals Time Frame: Feb 05, 2019 Roll Left & Right (QC): 6 Sit to Lying (QC): 6 Lying-Sitting on Side/Bed(QC): 6 Sit to Stand (QC): 6 Chair/Whw-jk-Tfcna Xfer(QC): 6 Toilet Transfer (QC): 6 Car Transfer (QC): 6 Does the Patient Walk: Yes Walk 10 feet (QC): 4 (CGA) Walk 50ft with 2 Turns (QC): 4 (CGA) Walk 150 ft (QC): 88 Walking 10ft on Uneven Surface: 4 (CGA) 1 Step (curb) (QC): 4 (CGA) 4 Steps (QC): 9 12 Steps (QC): 9 Picking up an Object (QC): 88 Does the Pt use WC or Scooter?: Yes Wheel 50 feet with 2 turns (QC: 6 Type: Manual Wheel 150 feet: 6 Type: Manual PT Plan Problem List Problem List: Activity Tolerance, Functional Strength, Safety, Balance, Gait, Transfer, Bed Mobility, ROM Treatment/Plan Treatment Plan: Continue Plan of Care Treatment Plan: Bed Mobility, Concurrent Therapy, Education, Functional Activity Xander, Functional Strength, Group Therapy, Gait, Safety, Therapeutic Exercise, Transfers Treatment Duration: Feb 05, 2019 Frequency: At least 5 of 7 days/Wk (IRF) Estimated Hrs Per Day: 1.5 hours per day Patient and/or Family Agrees t: Yes Safety Risks/Education Patient Education: Gait Training, Transfer Techniques, Reviewed Precautions, Correct Positioning, W/C Management, Safety Issues Teaching Recipient: Patient Teaching Methods: Demonstration, Discussion Response to Teaching: Return Demonstration, Reinforcement Needed Time/GCodes Time In: 1000 Time Out: 1100 Total Billed Treatment Time: 60 Total Billed Treatment 1 visit [facility] 15' EX 15' FA 15' GT 15' IRENE MARTIN PT Jan 16, 2019 10:57 POS
--- NOTE | 2019-01-16 12:17 | Diagnostic Imaging Report ---
EXAMINATION: Abdomen supine and erect. INDICATION: Nausea. FINDINGS: Supine and erect views were obtained. There are no prior studies available for comparison. There is a fair amount of gas in the transverse colon and in the splenic flexure. There is some gas in the small bowel as well. The bowel gas pattern is nonspecific. This could be related to an ileus. Reportedly, the patient did have lumbar spine surgery on Saturday of this week. There is also a fair amount of fecal material in the ascending colon. There is no sign of fecal impaction, however. There is no mass or organomegaly identified. Four laminated gallstones are seen in the right mid abdomen. There are bilateral pedicle screws in place and interbody devices at what appears to be L4-L5 and L5-S1. Correlation with patient's history would be recommended. There is also a radiopaque line overlying the right mid abdomen. This is of uncertain etiology. The osseous structures are intact. There is a healed malaligned fracture of the proximal right femur. IMPRESSION: 1. The transverse colon and splenic flexure are distended by gas and there is some gas in the small bowel. This appearance is nonspecific but may be related to an ileus as opposed to bowel obstruction. If further evaluation is desired, then CT would be recommended. 2. There is cholelithiasis. If further evaluation of the gallbladder is desired, then ultrasound would be recommended. 3. There are postoperative changes involving the lumbosacral junction. There is also a radiopaque line overlying the right abdomen. Dictated by: Dictated on workstation # [id number]
--- NOTE | 2019-01-16 13:01 | PM&R Progress Note ---
Subjective HPI/CC On Admission Date Seen by Provider: Jan 16, 2019 Time Seen by Provider: 10:00 Subjective/Events-last exam Pt doing pretty well Bassett catheter maintained Dr. Ledezma consulted Bowels are just moving with water so will obtain an abdominal x ray and consult Dr. Ruiz for possible partial obstruction but denies any significant pain Feels like he is doing pretty well participating Reviewed labs Restarted all home meds Conferred with oriented Spoke with urology Review therapy notes Checked meds and labs Review of Systems General: Fatigue Gastrointestinal: Abdominal Pain, Constipation Objective Exam Vital Signs Vital Signs Date Time Temp Pulse Resp B/P (MAP) Pulse Ox O2 Delivery O2 Flow Rate FiO2 01/17/19 05:37 36.6 57 18 112/64 (80) 96 Room Air Capillary Refill : General Appearance: No Apparent Distress, WD/WN, Chronically ill, Obese HEENT: PERRL/EOMI, Normal ENT Inspection, Pharynx Normal Neck: Full Range of Motion, Normal Inspection, Non Tender, Supple, Carotid Bruit Respiratory: Chest Non Tender, Lungs Clear, Normal Breath Sounds, No Accessory Muscle Use, No Respiratory Distress Cardiovascular: Regular Rate, Rhythm, No Edema, No Gallop, No JVD, No Murmur, Normal Peripheral Pulses Gastrointestinal: Normal Bowel Sounds, No Organomegaly, No Pulsatile Mass, Non Tender, Soft Back: Normal Inspection, No CVA Tenderness, No Vertebral Tenderness Extremity: Normal Capillary Refill, Normal Inspection, Normal Range of Motion, Non Tender, No Calf Tenderness, No Pedal Edema Neurologic/Psychiatric: Alert, Oriented x3, No Motor/Sensory Deficits, Normal 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 FIM Transfers Therapy Code Descriptions/Definitions Functional [place] Measure: 0=Not Assessed/NA 4=Minimal Assistance 1=Total Assistance 5=Supervision or Setup 2=Maximal Assistance 6=Modified [place] 3=Moderate Assistance 7=Complete IndependenceSCALE: Activities may be completed with or without assistive devices. 8-Cagdeaqnka-rjgnyni completes the activity by him/herself with no assistance from a helper. 5-Set-up or Clean-up Assistance-helper sets up or cleans up; patient completes activity. [place] assists only prior to or following the activity. 4-Supervision or Touching Assistance-helper provides verbal cues and/or touching/steadying and/or contact guard assistance as patient completes activity. Assistance may be provided throughout the activity or intermittently. 3-Partial/Moderate Assistance-helper does LESS THAN HALF the effort. [place] lifts, holds or supports trunk or limbs, but provides less than half the effort. 2-Substantial/Maximal Assistance-helper does MORE THAN HALF the effort. [place] lifts or holds trunk or limbs and provides more than half the effort. 1-Blgomdhvj-fsfjoh does ALL the effort. Patient does none of the effort to comp lete the activity. Or, the assistance of 2 or more helpers is required for the patient to complete the activity. If activity was not attempted, code reason: 7-Patient Refused. 9-Not Applicable-not attempted and the patient did not perform the activity before the current illness, exacerbation or injury. 10-Not Attempted due to Environmental Limitations-(lack of equipment, weather restraints, etc.). 88-Not Attempted due to Medical Conditions or Safety Concerns. Roll Left to Right (QC): 3 (modA) Sit to Lying (QC): 3 (modA) Sit to Stand (QC): 3 (Cassie-CGA) Chair/Vwj-og-Xhgsv Xfer(QC): 3 (modA) Car Transfer (QC): 3 (modA) Gait Training Does the Patient Walk?: Yes Distance: 10'x3 Walk 10 feet (QC): 4 (CGA) Walk 50 ft with 2 Turns(QC): 88 Walk 150 ft (QC): 88 Walking 10ft/uneven surface-QC: 88 Gait Assistive Device: Parallel Bars Wheelchair Training Does the Pt Use a Wheelchair?: Yes Distance: 150'x2 Wheel 50 ft with 2 turns (QC): 3 (min A for help around obstacles and doorways) Wheel 150 ft (QC): 3 (min A for help around obstacles and doorways) Type of Wheelchair: Manual Stair Training 1 Step (curb) (QC): 88 4 Steps (QC): 88 12 Steps (QC): 88 Balance Picking up an Object (QC): 88 ADL-Treatment Oral Hygiene (QC): 5 (Pt. able to open fixodent tube and use on his dentures. Pt. able to apply teeth in mouth and fixate to roof. No difficulty noted.) Shower/Bathe Self (QC): 3 (Pt transfers to commode within shower, completes with CGA with FWW. Pt completes showering with long handled sponge, able to reach all areas excluding back and bottom. Pt requires assist drying BLE and back/ bottom.) Upper Body Dressing (QC): 4 (intermittent assist for back brace- requires cues for no twisting and modified donning educated. Pt demonstrates back with IND.) Lower Body Dressing (QC): 3 (Pt requires assist threading catheter through breif, completes breif donning with supervisor mold yard while maintaining back precautions. Completes sit to stand and min A for pulling pants up in back in stance) On/Off Footwear (QC): 2 Toileting Hygiene (QC): 2 (Pt completes toilet transfer, states need to BM. Pt compeltes, no BM just "gas". Pt completes sit to stand with min A from standard toilet, completes bottom hygiene with max A while pt standing at FWW. Clear mucous wiped from pt's bottom with wipes.) Toilet Transfer (QC): 3 (Min A to standard toilet. CGA from commode in shower.) Assessment/Plan Assessment and Plan Assess & Plan/Chief Complaint Assessment: Lumbar spine status post extensive surgery Postop ileus Urinary retention requiring Bassett catheter and urology consultation Severe neuropathy Hypothyroidism Chronic pain Plan: Bowel regimen per general surgery recommendations Pain control Home meds Urology is appreciated also Inpatient rehabilitation protocol (1) S/P lumbar fusion (2) Hypothyroidism (3) Urinary retention (4) Bassett catheter in place (5) Constipation (6) Neuropathy (7) Ileus KEVIN FOX DO Jan 16, 2019 13:01 POS
--- NOTE | 2019-01-16 13:02 | Individualized Plan of Care ---
Individualized Plan of Care Rehab Nursing IPOC Order Admission Date Jan 15, 2019 at 12:30 Current Orders Orders Admission Order(Inpt,Obs,Sdc) (01/15/19 09:43) Vital Signs: Per Unit Policy ( 08,16,00 (01/15/19 09:43) Andry Vo 09,21 (01/15/19 09:43) Sequential Compression Device Q4H (01/15/19 09:43) Bar Tender-Inpt Rehab Con (01/15/19 09:43) Rehab Nursing Orders-Ipoc (01/15/19 09:43) Physical Therapy Rehab Orders (01/15/19 09:43) Occupational Therapy Rehab Ord (01/15/19 09:43) Speech Therapy Rehab Orders (01/15/19 09:43) Cbc With Automated Diff (01/16/19 06:00) Comprehensive Metabolic Panel (01/16/19 06:00) General/Regular (01/15/19 Lunch) Intake & Output 06,14,22 (01/15/19 09:43) Precautions (Aru) (01/15/19 09:43) Weekly Weight WEEK (01/15/19 09:43) Rehab-Intensity Of Therapy (01/15/19 09:43) Acetaminophen Tablet (Tylenol Tablet) (01/15/19 09:45) Alprazolam Tablet (Xanax Tablet) (01/15/19 09:45) Calcium Carbonate Chew Tablet (Antacid C (01/15/19 09:45) Diphenhydramine Tablet (Benadryl Tablet) (01/15/19 09:45) Docusate Sodium Capsule (Colace Capsule) (01/15/19 21:00) Docusate Sodium Capsule (Colace Capsule) (01/15/19 09:45) Bisacodyl Suppository (Dulcolax Supposit (01/15/19 09:45) Lactulose Oral Solution (Enulose Oral So (01/15/19 09:45) Na Phos/Na Biphos Enema (Fleet Enema Levar (01/15/19 09:45) Guaifenesin/Codeine Syrup (Robitussin Ac (01/15/19 09:45) Hydrocodone/Apap 5/325 Tablet (Lortab 5 (01/15/19 09:45) Loperamide Tablet (Imodium Tablet) (01/15/19 09:45) Melatonin Tablet (Melatonin Tablet) (01/15/19 09:45) Polyethylene Glycol Powder Pkt (Miralax (01/15/19 21:00) Ondansetron Oral Dissolve Tab (Zofran (01/15/19 09:45) Senna S Tablet (Senokot S Tablet) (01/15/19 21:00) Tramadol Tablet (Ultram Tablet) (01/15/19 09:45) Initiate Admission Nursing Pro .admission (01/15/19 09:43) Code/Resuscitation (01/15/19 09:43) Consult Urology (01/15/19 09:43) Admission Arrival Bed Request (01/15/19 12:41) Patient Visit (01/15/19 ) Speech Sound Lang Comp (01/15/19 ) Patient Visit (01/15/19 ) Pt Eval Moderate Complexity (01/15/19 ) Wheelchair Mgmt/Propulsn 15min (01/15/19 ) Functional Activities, Ea 15 (01/15/19 ) Baclofen Tablet (Lioresal Tablet) (01/15/19 17:30) Levothyroxine Tablet (Synthroid Tablet) (01/16/19 06:30) Oxycodone/Apap 5/325mg Tablet (Percocet (01/15/19 17:30) (Nf) Cholecalciferol (Vitamin D3) (Vitam (01/15/19 21:00) (Nf) Docusate Sodium (Dok) (01/15/19 21:00) (Nf) Gabapentin (01/16/19 09:00) (Nf) Gabapentin (01/15/19 21:00) Gabapentin Capsule/Tablet (Neurontin Cap (01/16/19 09:00) Cholecalciferol Capsule/Tablet (Vitamin (01/15/19 21:00) Docusate Sodium Capsule (Colace Capsule) (01/15/19 21:00) Gabapentin Capsule/Tablet (Neurontin Cap (01/15/19 21:00) Ambulate 08,12,20 (01/15/19 18:18) Sequential Compression Device Q4H (01/15/19 18:18) Dvt/Vte Risk - Notifiy Physici Q4H (01/15/19 18:18) Abdomen, Flat & Upright/Decub (01/16/19 11:09) Patient Visit (01/16/19 ) Wheelchair Mgmt/Propulsn 15min (01/16/19 ) Functional Activities, Ea 15 (01/16/19 ) Exercise Therap, Ea 15 Min (01/16/19 ) Gait Training, Ea 15 Min (01/16/19 ) Tamsulosin Capsule (Flomax Capsule) (01/16/19 18:00) Consult General Surgery (01/16/19 14:51) Patient Visit (01/16/19 ) Therapeutic, Group (01/16/19 ) Rehab Nursing Orders: Ongoing Assess. of Cognitive Status, Ongoing Assess. of Function Status, Bladder Management, Bladder Scan, Bladder Training, Bowel Management, Bowel Training, Disease Management & Educaiton, DVT Prophylaxis, Fall Prevention, Fluid/Electrolyte/Nutrition Mgmt, Infection Prevention, Medication Management & Education, Management of Risks & Complications, Management of Skin Intergrity, Nutrition Management, Pain Management, Patient/Family Support, Safety Management Intensity of Therapy to be met Patient to be seen: 15 hrs over 7 cons. days PT IPOC Problem List: Activity Tolerance, Functional Strength, Safety, Balance, Gait, Transfer, Bed Mobility, ROM Treatment Plan: Continue Plan of Care Bed Mobility, Concurrent Therapy, Education, Functional Activity Xander, Functional Strength, Group Therapy, Gait, Safety, Therapeutic Exercise, Transfers Treatment Duration: Feb 05, 2019 Frequency: At least 5 of 7 days/Wk (IRF) Estimated Hrs Per Day: 1.5 hours per day OT IPOC Problems: Decreased Activ Tolerance, Decreased UE Strength, Dependent Transfers, Impaired Bed Mobility, Impaired Coordination, Impaired Funct Balance, Impaired I ADL's, Impaired Self-Care Skills OT Treatment, Training and Edu: Yes Plan of Care: ADL Retraining, Functional Mobility, Group Exercise/Act as Ind, UE Funct Exercise/Act Treatment Duration: Jan 29, 2019 Frequency: At least 5 of 7 days/Wk (IRF) Estimated Hrs Per Day: 1.[address] IPOC Speech Therapy Treatment Plan: Discontinue ST Treatment Duration: Jan 15, 2019 Frequency: 1 time per week Estimated Hrs Per Day: .25 hour per day Bar Tender/Case Mgmt Bar Tender/Case Managemen: Discharge Planning Dietitian/Textile Chemist Dietitian/Textile Chemist to monitor nutritional status and make changes and/or recommendations as needed and work with speech pathology on dietary upgrades as the occur. Physician IPOC Medical Issues being managed closely and that require the 24 hour availability of a physician: Recent complex spine surgery now with ileus and urinary retention requiring espinosa cath Medical Issues: Bowel/Bladder Function, DVT Prophylaxis, Falls Precautions, Fluid/Electrolyte/Nutrition Balance, Infection Protection, Pain Management Brief Synthesis of Preadmission Screen, Post-Admission Evaluation, and Therapy Evaluations: PT will help regain strength to be able to ambulate with walker OT will focus on regaining ADL's Medical Prognosis: Good Anticipated Length of Stay: 10 days KEVIN FOX DO Jan 16, 2019 13:02 POS
--- NOTE | 2019-01-16 13:56 | NUR ---
"RD ASSESSMENT PMHx: hypothyroidism; hepatitis PT INTERACTION: Pt was awake and pleasant during nutrition assessment. Pt states current appetite is pretty good and has been for some time. Note pt avg PO intake of 100% x1d, per chart review. Pt states following a regular diet at home, and has no issues with chewing/swallowing food at this time. Pt states some episodes of nausea that occur when he wakes in the morning. Pt states some episodes of constipation. Note last BM was 01/15, and pt currently on bowel regimen of colace BID; miralax BID; senna BID; and bisacodyl PRN, per chart review. Pt states recent intentional 22# wt loss x2-3mon. Note unable to determine recent wt hx, per chart review. ABNORMAL NUTRITION-RELATED LAB VALUES LOW: Na 134; K 3.3; Ca 8.3; Pro 5.8 HIGH: Est. kcal needs: 2397-5441 kcal | 15-18 kcal/kg Est. Pro needs: 126-152 g Pro | 1.0-1.2 g Pro/kg PES STATEMENT: Given pt's current PO intake, no nutrition diagnosis at this time (NO-1.1) INTERVENTION: Continue with current diet order of Regular diet. Will continue to follow and reassess as pt needs and status change. MONITOR/EVALUATE: PO Intake; Plan of Care; Hydration Status; Weight Status; Lab Values Enrique Hargrove, MS, RD, LD"
--- NOTE | 2019-01-16 14:27 | NUR ---
Pt and his , Megan are Oriental Orthodox and shared warmly about their dynamic dirk and various experiences of God being present with them in their suffering. Offered active listening and engaged in rapport building.
--- NOTE | 2019-01-16 14:39 | Therapy Group Daily Note ---
Therapy Daily Group Note Patient Education Topic Other List Below (proper handwashing, prevention of communicable disease, memory activity and stategies, ARU orientation and expectations) Exercises LE Seated Exercise, UE Exercise (bag toss) Session Ratio (pt:therapist): 4:1 Goal of Session: Education on ARU Expectations, Other (list) (educ proper handwashing, memory strategies and activity) Goal Met for this Session: Yes Pt Benefit of Group: Contributions to Others, Increased Functional Strength, Recognition of Peers, Socialization Other/Notes Pt. participated in group PT OT session. Pt. came and went via w/c and assist . Pts. introduced selves and shared their favorite Donna bardales . Pts were educated about the ARU practices and requirements. Education focused on proper handwashing and how to prevent communicable disease. Pts. enjoyed participating in a game requiring bag toss to images on floor and interacting to remember the matching image on opposing area of floor. Pt. to room with assist to bed , montemayor at hand and needs met Start Time: 13:00 Stop Time: 14:15 Total Billed Treatment Time: 75 Total Billed Treatment 1,GRP ADALBERTO CARMONA ALLIGATOR HUNTER Jan 16, 2019 14:39 POS
[2019-01-16] MEDS: POLYETHYLENE GLYCOL 17 GM (MIRALAX) PACK PO SCH ×2 (14:41→19:59)
[2019-01-16] MEDS: ACETAMINOPHEN 500 MG TAB (TYLENOL) PO PRN (16:02)
[2019-01-16 16:11] VITALS: BP 108/69
--- NOTE | 2019-01-16 16:26 | NUR ---
Initial assessment. Met patient and his spouse Ladan Mclean. Patient was admitted to ARU 01/15/19 post op lumbar fusion. Prior to hospitalization he was residing with Ladan and was independent with ADL's. DME: Has FWW and 4WW, BSC, shower chair, grab bars. Has TLSO post op. HHC: Initial discussion about agencies in service area in case this care plan is recommended. PCP: Dr. Fili Layne, [facility]. [phone] INSURED: Medicare. ADVANCED DIRECTIVE: Patient does not have one now, verbalized interest. Answered their questions to their satisfaction, continue to explore with them. The purpose of the weekly team conference was discussed, both displayed understanding. Continue intermittent review, visits, post hospital care planning.
--- NOTE | 2019-01-16 16:27 | Consultation - Surgery ---
History of Present Illness History of Present Illness Patient Consulted On(ana rosa/time) 01/16/19 16:21 Date Seen by Provider: Jan 16, 2019 Time Seen by Provider: 16:21 History of Present Illness consult requested by Dr. Mejia for abdominal distention. Patient is a 73 year old male who had lumbar spinal fusion 4 days ago. Patient states he has been doing well. patient has had slight increase of abdominal distention. Patient is not having any abdominal pain. He is passing some flatus and a small amount of clear liquid stool. 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 He is tolerating diet. Patient had abdominal x ray demonstrating slight distention of transverse colon and small bowel consistent with ileus. On occasion has a small amount of nausea, which resolves with drinking some sprite. Denies fever sweats chills shortness of breath or chest pain. Allergies and Home Medications Allergies Coded Allergies: No Allergy Information Available (Unverified , 01/15/19) Home Medications Cholecalciferol (Vitamin D3) 2,000 Unit Capsule, 2,000 UNIT PO BID, (Reported) Gabapentin 800 Mg Tablet, 1,600 MG PO DAILY, (Reported) TAKES 2 (800MG) TABLETS Gabapentin 800 Mg Tablet, 800 MG PO 1200,2100, (Reported) Levothyroxine Sodium 25 Mcg Tablet, 25 MCG PO DAILY, (Reported) Patient Home Medication List Home Medication List Reviewed: Yes Past Kusqwio-Hrtcui-Knemjh Hx Patient Social History Alcohol Use: Occasionally Uses Recreational Drug Use: No Smoking Status: Former Smoker Former Smoker, Quit: Jan 15, 1989 Recent Foreign Travel: No Contact w/Someone Who Travel: No Recent Infectious Disease Expo: No Recent Hopitalizations: Yes Physical Abuse Screen: No Sexual Abuse: No Immunizations Up To Date Date of Pneumonia Vaccine: Nov 14, 2018 Date of Influenza Vaccine: Nov 14, 2018 Seasonal Allergies Seasonal Allergies: Yes Surgeries Surgeries: Orthopedic Respiratory History of Respiratory Disorde: Yes (asthma as a child) Respiratory Disorders: Asthma Cardiovascular History of Cardiac Disorders: Yes Neurological History of Neurological Disord: No Neurological Disorders: Neuropathy Genitourinary History of Genitourinary Disor: Yes (enlarged prostate) Gastrointestinal History of Gastrointestinal Di: Yes (diarrhrea recently, hepatitis A age 23) Gastrointestinal Disorders: Hepatitis Musculoskeletal History of Musculoskeletal Dis: Yes (fx Rt leg, foot, neck) Musculoskeletal Disorders: Degenerate Disk Disease, Arthritis, Chronic Back Pain, Fractures Endocrine History of Endocrine Disorders: Yes Endocrine Disorders: Hypothyroidsim HEENT History of HEENT Disorders: Yes (cataract surgery OU) HEENT Disorders: Cataract Hearing Impairment: Denies Cancer History of Cancer: No Psychosocial History of Psychiatric Problem: No Integumentary History of Skin or Integumenta: No Blood Transfusions History of Blood Disorders: No Adverse Reaction to a Blood Tr: No Reviewed Nursing Assessment Reviewed/Agree w Nursing PMH: Yes Family Medical History Significant Family History: No Pertinent Family Hx Family Medial History: Cardiovascular disease 19 FATHER (unknown) 19 MOTHER (unknown) Review of Systems-General Constitutional: no symptoms reported EENTM: no symptoms reported Respiratory: no symptoms reported Cardiovascular: no symptoms reported Gastrointestinal: see HPI Genitourinary: see HPI Musculoskeletal: no symptoms reported Skin: no symptoms reported Psychiatric/Neurological: No Symptoms Reported Physical Exam-General Problems Physical Exam Vital Signs Vital Signs - First Documented Capillary Refill : General Appearance: WD/WN, no apparent distress, obese HEENT: PERRL/EOMI Neck: non-tender, supple Respiratory: chest non-tender, no respiratory distress, no accessory muscle use Cardiovascular: regular rate, rhythm Gastrointestinal: non tender, soft, no organomegaly, distended (minimally); No tenderness Rectal: deferred Extremities: non-tender, normal inspection, no pedal edema Neurologic/Psychiatric: alert, normal mood/affect, oriented x 3 Skin: normal color, warm/dry Lymphatic: no adenopathy Data Review Labs Laboratory Tests 01/16/19 06:37: White Blood Count 8.6, Red Blood Count 3.46L, Hemoglobin 10.7L, Hematocrit 33L, Mean Corpuscular Volume 95, Mean Corpuscular Hemoglobin 31, Mean Corpuscular Hemoglobin Concent 33, Red Cell Distribution Width 13.1, Platelet Count 167, Mean Platelet Volume 11.7H, Neutrophils (%) (Auto) 62, Lymphocytes (%) (Auto) 21, Monocytes (%) (Auto) 15H, Eosinophils (%) (Auto) 2, Basophils (%) (Auto) 1, Neutrophils # (Auto) 5.3, Lymphocytes # (Auto) 1.8, Monocytes # (Auto) 1.3H, Eosinophils # (Auto) 0.2, Basophils # (Auto) 0.0, Sodium Level 134L, Potassium Level 3.3L, Chloride Level 102, Carbon Dioxide Level 23, Anion Gap 9, Blood Urea Nitrogen 17, Creatinine 0.68, Estimat Glomerular Filtration Rate > 60, BUN/Creatinine Ratio 25, Glucose Level 100, Calcium Level 8.3L, Corrected Calcium 8.9, Total Bilirubin 0.6, Aspartate Amino Transf (AST/SGOT) 31, Alanine Aminotransferase (ALT/SGPT) 31, Alkaline Phosphatase 53, Total Protein 5.8L, Albumin 3.2 Assessment/Plan Assessment/Plan Assessment/Plan s/p lumbar fusion l4-s1 abdominal distention ileus urinary retention patient x ray reviewed and likely ileus post surgical. he is passing flatus with more activity likely will improved symptomatic management instructed patient to stick more to liquids for a day or so and advance, but if having nausea or emesis should back off. no surgical intervention espinosa for urinary retention Clinical Quality Measures DVT/VTE Risk/Contraindication: Risk Factor Score Per Nursin RFS Level Per Nursing on Admit: 4+=Very High TANIYA ARRIAGA DO Jan 16, 2019 16:27 POS
[2019-01-16 17:04] VITALS: BP 104/63
--- NOTE | 2019-01-16 18:23 | CONSULTATION REPORT ---
DATE OF SERVICE: 01/16/2019 ATTENDING PHYSICIAN: Chloe Mejia DO. SUMMARY: This 73-year-old white man recovering from extensive lumbar fusion in [facility] the intense rehabilitation therapy. He has been having persistent urinary retention and a catheter was placed in. He also has issues with his constipation. IMPRESSION: Urinary retention, obstructive and/or neurogenic. PLAN: Start him on Flomax today. Then, either Saturday or Saturday, we will do cystoscopy and we will examine him at that time. Job ID: [id number] DocumentID: [id number] Dictated Date: 01/16/2019 13:38:54 Clinical Research Administrator Date: 01/16/2019 18:23:14 Dictated By: HIPOLITO BOWENS MD
[2019-01-16] MEDS: TAMSULOSIN 0.4 MG (FLOMAX) CAP PO SCH (18:28)
[2019-01-17] MEDS: oxyCODONE/APAP 5/325MG (PERCOCET 5) TABLET PO PRN ×2 (02:58→11:25)
[2019-01-17] MEDS: LEVOTHYROXINE 25 MCG (LEVOTHROID) TAB PO SCH (05:25)
[2019-01-17 05:37] VITALS: BP 112/64
[2019-01-17] MEDS: SENNA W/DOCUSATE (SENOKOT S) TABLET PO SCH ×2 (08:58→20:38)
[2019-01-17] MEDS: DOCUSATE SODIUM 100 MG (COLACE) CAP PO SCH ×2 (08:58→20:38)
[2019-01-17] MEDS: GABAPENTIN 400 MG (NEURONTIN) CAP PO SCH ×3 (08:59→20:38)
[2019-01-17] MEDS: VITAMIN D3 1,000 UNITS (CHOLECALCIFEROL) TABLET PO SCH ×2 (08:59→20:42)
[2019-01-17] MEDS: POLYETHYLENE GLYCOL 17 GM (MIRALAX) PACK PO SCH ×2 (09:00→20:38)
--- NOTE | 2019-01-17 09:16 | Physical Therapy Daily Note ---
PT Daily Note-Current Subjective Pt agreeable to PT session. States he feels he is getting better and better every day. States he woke up this morning and could tell his R leg was much better and requesting to walk with walker today. Pain Numeric Pain Scale: 6 Comment: middle of back where incision is Appearance Pt sitting up in recliner with back brace on upon arrival. At end of session, pt supine in bed watching TV, call light, phone and bedside table within reach Mental Status Patient Orientation: Person, Place, Time, Eyes Open, Situation Attachments: Drains, Bassett Catheter back brace Transfers SCALE: Activities may be completed with or without assistive devices. 8-Fzfiqrpfil-rjsapth completes the activity by him/herself with no assistance from a helper. 5-Set-up or Clean-up Assistance-helper sets up or cleans up; patient completes activity. [place] assists only prior to or following the activity. 4-Supervision or Touching Assistance-helper provides verbal cues and/or touching/steadying and/or contact guard assistance as patient completes activity. Assistance may be provided throughout the activity or intermittently. 3-Partial/Moderate Assistance-helper does LESS THAN HALF the effort. [place] lifts, holds or supports trunk or limbs, but provides less than half the effort. 2-Substantial/Maximal Assistance-helper does MORE THAN HALF the effort. [place] lifts or holds trunk or limbs and provides more than half the effort. 2-Ivescjnpj-ijslmp does ALL the effort. Patient does none of the effort to complete the activity. Or, the assistance of 2 or more helpers is required for the patient to complete the activity. If activity was not attempted, code reason: 7-Patient Refused. 9-Not Applicable-not attempted and the patient did not perform the activity before the current illness, exacerbation or injury. 10-Not Attempted due to Environmental Limitations-(lack of equipment, weather restraints, etc.). 88-Not Attempted due to Medical Conditions or Safety Concerns. Roll Left & Right (QC): 4 (inst in log roll) Sit to Lying (QC): 3 (physical assist required with LE's, inst in log roll for back precautions) Sit to Stand (QC): 4 Gait Training Does the Patient Walk?: Yes Distance: 160 x2 Walk 10 feet (QC): 4 Walk 50 ft with 2 Turns(QC): 3 (scissoring cross over steps with turns, able to correctect with skilled verb inst) Walk 150 ft (QC): 4 Gait Persons Needed: 1 (had 2nd person following with w/c but ended not needed) Gait Assistive Device: FWW slight ataxic, min scissoring gait and crossover but able to correct self and be more aware throughout rest of gait distance Treatments education, safety, don/doff back brace, transfers, gait, balance, bed mobility, activity tolerance, functional mobility Assessment Current Status: Good Progress PT Short Term Goals Short Term Goals Time Frame: Jan 22, 2019 Sit to lyin (Cassie) Lying to sitting on side of be: 3 (Cassie) Sit to stand: 4 (CGA) Walk 10 feet: 3 (Cassie) PT Alf Goals Radial Arm Saw Operator Goals PT Radial Arm Saw Operator Goals Time Frame: Feb 05, 2019 Roll Left & Right (QC): 6 Sit to Lying (QC): 6 Lying-Sitting on Side/Bed(QC): 6 Sit to Stand (QC): 6 Chair/Xjk-sn-Vgvqa Xfer(QC): 6 Toilet Transfer (QC): 6 Car Transfer (QC): 6 Does the Patient Walk: Yes Walk 10 feet (QC): 4 (CGA) Walk 50ft with 2 Turns (QC): 4 (CGA) Walk 150 ft (QC): 88 Walking 10ft on Uneven Surface: 4 (CGA) 1 Step (curb) (QC): 4 (CGA) 4 Steps (QC): 9 12 Steps (QC): 9 Picking up an Object (QC): 88 Does the Pt use WC or Scooter?: Yes Wheel 50 feet with 2 turns (QC: 6 Type: Manual Wheel 150 feet: 6 Type: Manual PT Plan Treatment/Plan Treatment Plan: Continue Plan of Care Treatment Plan: Bed Mobility, Concurrent Therapy, Education, Functional Activity Xander, Functional Strength, Group Therapy, Gait, Safety, Therapeutic Exercise, Transfers Treatment Duration: Feb 05, 2019 Frequency: At least 5 of 7 days/Wk (IRF) Estimated Hrs Per Day: 1.5 hours per day Patient and/or Family Agrees t: Yes Safety Risks/Education Patient Education: Gait Training, Transfer Techniques, Reviewed Precautions, Correct Positioning, Safety Issues Teaching Recipient: Patient Teaching Methods: Demonstration, Discussion Response to Teaching: Verbalize Understanding, Return Demonstration Time/GCodes Time In: 914 Time Out: 938 Total Billed Treatment Time: 24 Total Billed Treatment 1 visit, GT x14 min, FA x10 min GRIS OLGUIN PTA Jan 17, 2019 09:16 POS
--- NOTE | 2019-01-17 10:00 | NUR ---
Pt states lower right leg has marked improvement in strength since surgery. Salazar wraps started due to edema.
[2019-01-17] MEDS: KCL 10 MEQ TAB (MICRO K) PO SCH (11:23)
--- NOTE | 2019-01-17 12:14 | PM&R Progress Note ---
Subjective HPI/CC On Admission Date Seen by Provider: Jan 17, 2019 Time Seen by Provider: 10:00 Subjective/Events-last exam Pt doing pretty well overall Bassett catheter maintained Dr. Ledezma consulted and will maintain Flomax and then DC catheter at the first of the week Bowels are still not really moving, Dr Khan will touch base Feels like he is doing pretty well participating in therapies Reviewed labs Restarted all home meds Conferred with oriented Spoke with urology Review therapy notes Checked meds and labs Review of Systems Gastrointestinal: Constipation Musculoskeletal: back pain Objective Exam Vital Signs Vital Signs Date Time Temp Pulse Resp B/P (MAP) Pulse Ox O2 Delivery O2 Flow Rate FiO2 01/18/19 09:00 Room Air 01/18/19 05:47 37.8 70 20 114/68 (83) 96 Capillary Refill : General Appearance: No Apparent Distress, WD/WN, Chronically ill, Obese HEENT: PERRL/EOMI, Normal ENT Inspection, Pharynx Normal Neck: Full Range of Motion, Normal Inspection, Non Tender, Supple, Carotid Bruit Respiratory: Chest Non Tender, Lungs Clear, Normal Breath Sounds, No Accessory Muscle Use, No Respiratory Distress Cardiovascular: Regular Rate, Rhythm, No Edema, No Gallop, No JVD, No Murmur, Normal Peripheral Pulses Gastrointestinal: Normal Bowel Sounds, No Organomegaly, No Pulsatile Mass, Non Tender, Soft Back: Normal Inspection, No CVA Tenderness, No Vertebral Tenderness Extremity: Normal Capillary Refill, Normal Inspection, Normal Range of Motion, Non Tender, No Calf Tenderness, No Pedal Edema Neurologic/Psychiatric: Alert, Oriented x3, No Motor/Sensory Deficits, Normal Mood/Affect, 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 FIM Transfers Therapy Code Descriptions/Definitions Functional [place] Measure: 0=Not Assessed/NA 4=Minimal Assistance 1=Total Assistance 5=Supervision or Setup 2=Maximal Assistance 6=Modified [place] 3=Moderate Assistance 7=Complete IndependenceSCALE: Activities may be completed with or without assistive devices. 8-Vhvibfbehf-miysxgq completes the activity by him/herself with no assistance fr om a helper. 5-Set-up or Clean-up Assistance-helper sets up or cleans up; patient completes activity. [place] assists only prior to or following the activity. 4-Supervision or Touching Assistance-helper provides verbal cues and/or touching/steadying and/or contact guard assistance as patient completes activity. Assistance may be provided throughout the activity or intermittently. 3-Partial/Moderate Assistance-helper does LESS THAN HALF the effort. [place] lifts, holds or supports trunk or limbs, but provides less than half the effort. 2-Substantial/Maximal Assistance-helper does MORE THAN HALF the effort. [place] lifts or holds trunk or limbs and provides more than half the effort. 8-Nlvsplgus-kslqzw does ALL the effort. Patient does none of the effort to complete the activity. Or, the assistance of 2 or more helpers is required for the patient to complete the activity. If activity was not attempted, code reason: 7-Patient Refused. 9-Not Applicable-not attempted and the patient did not perform the activity before the current illness, exacerbation or injury. 10-Not Attempted due to Environmental Limitations-(lack of equipment, weather restraints, etc.). 88-Not Attempted due to Medical Conditions or Safety Concerns. Roll Left to Right (QC): 4 (inst in log roll) Sit to Lying (QC): 3 (physical assist required with LE's, inst in log roll for back precautions) Sit to Stand (QC): 4 Chair/Ahn-is-Qkcce Xfer(QC): 3 (modA) Car Transfer (QC): 3 (modA) Gait Training Does the Patient Walk?: Yes Distance: 160 x2 Walk 10 feet (QC): 4 Walk 50 ft with 2 Turns(QC): 3 (scissoring cross over steps with turns, able to correctect with skilled verb inst) Walk 150 ft (QC): 4 Walking 10ft/uneven surface-QC: 88 Gait Persons Needed: 1 (had 2nd person following with w/c but ended not needed) Gait Assistive Device: FWW Wheelchair Training Does the Pt Use a Wheelchair?: Yes Distance: 150'x2 Wheel 50 ft with 2 turns (QC): 3 (min A for help around obstacles and doorways) Wheel 150 ft (QC): 3 (min A for help around obstacles and doorways) Type of Wheelchair: Manual Stair Training 1 Step (curb) (QC): 88 4 Steps (QC): 88 12 Steps (QC): 88 Balance Picking up an Object (QC): 88 ADL-Treatment Oral Hygiene (QC): 5 (Pt. able to open fixodent tube and use on his dentures. Pt. able to apply teeth in mouth and fixate to roof. No difficulty noted.) Shower/Bathe Self (QC): 3 (Pt transfers to commode within shower, completes with CGA with FWW. Pt completes showering with long handled sponge, able to reach all areas excluding back and bottom. Pt requires assist drying BLE and back/ bottom.) Upper Body Dressing (QC): 4 (intermittent assist for back brace- requires cues for no twisting and modified donning educated. Pt demonstrates back with IND.) Lower Body Dressing (QC): 3 (Pt requires assist threading catheter through breif, completes breif donning with toy painter while maintaining back precautions. Completes sit to stand and min A for pulling pants up in back in stance) On/Off Footwear (QC): 2 Toileting Hygiene (QC): 2 (Pt completes toilet transfer, states need to BM. Pt compeltes, no BM just "gas". Pt completes sit to stand with min A from standard toilet, completes bottom hygiene with max A while pt standing at FWW. Clear mucous wiped from pt's bottom with wipes.) Toilet Transfer (QC): 3 (Min A to standard toilet. CGA from commode in shower.) Assessment/Plan Assessment and Plan Assess & Plan/Chief Complaint Assessment: Lumbar spine status post extensive surgery Postop ileus Urinary retention requiring Bassett catheter and urology consultation Severe neuropathy Hypothyroidism Chronic pain Plan: Bowel regimen per general surgery recommendations Pain control Home meds Urology is appreciated also Inpatient rehabilitation protocol Cath DC on Saturday? (1) S/P lumbar fusion (2) Hypothyroidism (3) Urinary retention (4) Bassett catheter in place (5) Constipation (6) Neuropathy (7) Ileus KEVIN FOX DO Jan 17, 2019 12:14 POS
--- NOTE | 2019-01-17 12:29 | Progress Note - Surgery ---
Subjective Time Seen by a Provider: 12:14 Subjective/Events-last exam Pt seen and examined, states his belly is "a little tight" but doesn't think it is distended more than normal. He started passing some gas once he started walking and is having some clear liquid stools. Tolerating diet without nausea or vomiting. Review of Systems General: No Chills, No Night Sweats Pulmonary: No Dyspnea, No Cough Cardiovascular: No: Chest Pain, Palpitations Gastrointestinal: No: Nausea, Vomiting Genitourinary: Other (pt has espinosa in place because of retention) Objective Exam Vital Signs Date Time Temp Pulse Resp B/P (MAP) Pulse Ox O2 Delivery O2 Flow Rate FiO2 01/17/19 09:00 Room Air 01/17/19 05:37 36.6 57 18 112/64 (80) 96 Room Air 01/16/19 20:30 Room Air 01/16/19 17:04 38.2 74 18 104/63 (77) 95 01/16/19 16:11 38.0 67 16 108/69 (82) 93 Room Air 01/16/19 16:02 38.0 I & O 01/17/19 07:00 Intake Total 2330 ml Output Total 2950 ml Balance -620 ml Capillary Refill : General Appearance: No Apparent Distress, WD/WN, Obese HEENT: PERRL/EOMI, Pharynx Normal Respiratory: Chest Non Tender, Lungs Clear, Normal Breath Sounds, No Accessory Muscle Use, No Respiratory Distress Cardiovascular: Regular Rate, Rhythm, No Edema, No Murmur Gastrointestinal: non tender, soft, no organomegaly, distended (minimally); No tenderness Extremity: No Calf Tenderness, No Pedal Edema Neurologic/Psychiatric: Alert, Oriented x3, card 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 He is eating full diet without difficulty, should go back to liquids if he begins having nausea or emesis. Continue espinosa for urinary retention. Clinical Quality Measures DVT/VTE Risk/Contraindication: Risk Factor Score Per Nursin RFS Level Per Nursing on Admit: 4+=Very High SORAYA VASQUEZ DO Jan 17, 2019 12:29 POS
--- NOTE | 2019-01-17 13:30 | NUR ---
Dr Khan here to see pt. Order obtained to ambulate frequently due to aide in bowel motility.Pt states large amount of flatus/clear fluid from rectum, but no stool.
[2019-01-17 16:26] VITALS: BP 93/57
--- NOTE | 2019-01-17 16:30 | NUR ---
Notified Dr Mejia of Results. No new orders given. Family has brought in food for supper. Informed family that nurse needs to see food because of dysphagia diet. Addendum: 01/17/19 at 1840 by GRANT HUGHES RN wrong pt
[2019-01-17] MEDS: TAMSULOSIN 0.4 MG (FLOMAX) CAP PO SCH (17:50)
--- NOTE | 2019-01-17 18:00 | NUR ---
only small results from Ducolax Suppository. An SS enema given (300cc) with good results. Addendum: 01/17/19 at 1840 by GRANT HUGHES RN wrong pt
[2019-01-17] MEDS: BACLOFEN 10 MG (LIORESAL) TAB PO PRN (18:49)
[2019-01-18] MEDS: oxyCODONE/APAP 5/325MG (PERCOCET 5) TABLET PO PRN ×3 (00:40→20:09)
[2019-01-18 05:47] VITALS: BP 114/68
[2019-01-18] MEDS: LEVOTHYROXINE 25 MCG (LEVOTHROID) TAB PO SCH (06:02)
[2019-01-18] MEDS: KCL 10 MEQ TAB (MICRO K) PO SCH (06:02)
--- NOTE | 2019-01-18 08:00 | NUR ---
Krysten care done at this time. Penile foreskin swelling has increased at head of penis. Swollen/sore/reddened. Catheter is draining/patent/funmi urine/clear. Pt up to chair to eat breakfast. pt tolerated well. Vital signs taken. Linen changed. 02 reduced from 2.5l/m via nc to 2.0 l/m nc. with a 98% pulse ox. Addendum: 01/18/19 at 1052 by GRANT HUGHES RN wrong patient
[2019-01-18] MEDS: VITAMIN D3 1,000 UNITS (CHOLECALCIFEROL) TABLET PO SCH ×2 (09:48→20:10)
[2019-01-18] MEDS: DOCUSATE SODIUM 100 MG (COLACE) CAP PO SCH ×2 (09:48→20:10)
[2019-01-18] MEDS: SENNA W/DOCUSATE (SENOKOT S) TABLET PO SCH ×2 (09:48→20:09)
[2019-01-18] MEDS: GABAPENTIN 400 MG (NEURONTIN) CAP PO SCH ×3 (09:49→20:09)
[2019-01-18] MEDS: POLYETHYLENE GLYCOL 17 GM (MIRALAX) PACK PO SCH ×2 (09:50→20:10)
--- NOTE | 2019-01-18 10:00 | NUR ---
pt sleeping supine in bed. Pt denies pain at this time, but states he will take a pain med with shower. Pt has wraps to lower extremities. Edema non pitting +2 to lower extremities noted.
--- NOTE | 2019-01-18 11:46 | NUR ---
Dr Mejia here to see pt. Dr Mejia requested Dr Smith to be notified of continued drainage from Hemovac. Dr Smith was notified. New orders were given from Dr Smith to pull drain today. Dr Khan called to notify of continued flatus but no stool.
--- NOTE | 2019-01-18 12:04 | NUR ---
Dr Ledezma here to see pt at this time. Pt will be given consent for signature that allows Dr Ledezma to do Cystoscopy/Prostate Check on Saturday.
--- NOTE | 2019-01-18 12:06 | NUR ---
Dr Khan here to see pt. Order for SS enema to be done for aide in BM.
--- NOTE | 2019-01-18 12:13 | Progress Note - Surgery ---
Subjective Time Seen by a Provider: 12:05 Subjective/Events-last exam Pt seen and examined, eating lunch and denies abdominal pain. States still no BM, but passing gas and "no more of that mucous stuff". Review of Systems General: No Chills, No Night Sweats Pulmonary: No Dyspnea, No Cough Cardiovascular: No: Chest Pain Gastrointestinal: No: Nausea, Vomiting, Abdominal Pain Objective Exam Vital Signs Date Time Temp Pulse Resp B/P (MAP) Pulse Ox O2 Delivery O2 Flow Rate FiO2 01/18/19 09:00 Room Air 01/18/19 05:47 37.8 70 20 114/68 (83) 96 Room Air 01/17/19 20:30 Room Air 01/17/19 18:28 Room Air 01/17/19 16:26 37.4 72 14 93/57 (69) 97 Room Air I & O 01/18/19 07:00 Intake Total 3430 ml Output Total 4575 ml Balance -1145 ml Capillary Refill : General Appearance: No Apparent Distress, WD/WN, Obese HEENT: PERRL/EOMI, Pharynx Normal Respiratory: Lungs Clear, Normal Breath Sounds, No Accessory Muscle Use, No Re spiratory Distress Cardiovascular: Regular Rate, Rhythm, No Murmur Gastrointestinal: non tender, soft, no organomegaly, distended (minimally) Extremity: No Calf Tenderness, No Pedal Edema Neurologic/Psychiatric: Alert, Oriented x3, steam bone press tender II-XII Norm as Tested, Motor Weakness (leg weakness right greater than left 3/5) Skin: Normal Color, Warm/Dry, Tattoos/Piercings (multiple tattoos on his arms) Assessment/Plan Assessment/Plan Assessment/Plan Abdominal distention - most likely secondary to Ileus S/P lumbar fusion l4-s1 Urinary retention Will try a soap suds enema today and may benefit from Dulcolax suppository. Will contineu with Miralax and colace, pt again reminded to ambulate and can chew gum, both will help with Ileus. Continue espinosa for urinary retention. Clinical Quality Measures DVT/VTE Risk/Contraindication: Risk Factor Score Per Nursin RFS Level Per Nursing on Admit: 4+=Very High SORAYA VASQUEZ DO Jan 18, 2019 12:13 POS
--- NOTE | 2019-01-18 12:16 | Progress Note - Urology ---
Progress Note-Urology Progress Notes/Assess & Plan Progress/Assessment & Plan TOLERATES FLOMAX WELL. PLAN CYSTOSCOPY SATURDAY. FULLY EXPLAINED TO PATIENT Final Diagnosis URINE RETENTION HIPOLITO BWOENS MD Jan 18, 2019 12:16 POS
--- NOTE | 2019-01-18 12:19 | PM&R Progress Note ---
Subjective HPI/CC On Admission Date Seen by Provider: Jan 18, 2019 Time Seen by Provider: 11:00 Subjective/Events-last exam Leg edema much improved Hemovac is still draining quite a bit and will be updated to Dr. Smith 2+ edema persist Salazar wraps will be maintained General surgery recommends extensive walking to help with the ileus Soapsuds enema may be required will reach out to general surgery Reviewed labs Review therapy notes Checked meds and labs Review of Systems General: Fatigue Gastrointestinal: Constipation Musculoskeletal: back pain Objective Exam Vital Signs Vital Signs Date Time Temp Pulse Resp B/P (MAP) Pulse Ox O2 Delivery O2 Flow Rate FiO2 01/18/19 20:53 Room Air 01/18/19 17:17 37.2 66 18 109/67 (81) 95 Capillary Refill : General Appearance: No Apparent Distress, WD/WN, Chronically ill, Obese HEENT: PERRL/EOMI, Normal ENT Inspection, Pharynx Normal Neck: Full Range of Motion, Normal Inspection, Non Tender, Supple Respiratory: Chest Non Tender, Lungs Clear, Normal Breath Sounds, No Accessory Muscle Use, No Respiratory Distress Cardiovascular: Regular Rate, Rhythm, No Murmur Gastrointestinal: Normal Bowel Sounds, No Organomegaly, No Pulsatile Mass, Non Tender, Soft Back: Decreased Range of Motion Extremity: Normal Capillary Refill, Normal Inspection, Normal Range of Motion (decreased ROM legs), Non Tender, No Calf Tenderness, Pedal Edema Neurologic/Psychiatric: Alert, Oriented x3, Normal 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 FIM Transfers Therapy Code Descriptions/Definitions Functional [place] Measure: 0=Not Assessed/NA 4=Minimal Assistance 1=Total Assistance 5=Supervision or Setup 2=Maximal Assistance 6=Modified [place] 3=Moderate Assistance 7=Complete IndependenceSCALE: Activities may be completed with or without assistive devices. 8-Glrcmvevrk-ztenhvi completes the activity by him/herself with no assistance from a helper. 5-Set-up or Clean-up Assistance-helper sets up or cleans up; patient completes activity. [place] assists only prior to or following the activity. 4-Supervision or Touching Assistance-helper provides verbal cues and/or touching/steadying and/or contact guard assistance as patient completes activity. Assistance may be provided throughout the activity or intermittently. 3-Partial/Moderate Assistance-helper does LESS THAN HALF the effort. [place] lifts, holds or supports trunk or limbs, but provides less than half the effort. 2-Substantial/Maximal Assistance-helper does MORE THAN HALF the effort. [place] lifts or holds trunk or limbs and provides more than half the effort. 6-Pqptwdylc-edcatf does ALL the effort. Patient does none of the effort to com plete the activity. Or, the assistance of 2 or more helpers is required for the patient to complete the activity. If activity was not attempted, code reason: 7-Patient Refused. 9-Not Applicable-not attempted and the patient did not perform the activity before the current illness, exacerbation or injury. 10-Not Attempted due to Environmental Limitations-(lack of equipment, weather restraints, etc.). 88-Not Attempted due to Medical Conditions or Safety Concerns. Roll Left to Right (QC): 4 (inst in log roll) Sit to Lying (QC): 3 (physical assist required with LE's, inst in log roll for back precautions) Sit to Stand (QC): 4 Chair/Qku-ze-Huypv Xfer(QC): 3 (modA) Car Transfer (QC): 3 (modA) Gait Training Does the Patient Walk?: Yes Distance: 160 x2 Walk 10 feet (QC): 4 Walk 50 ft with 2 Turns(QC): 3 (scissoring cross over steps with turns, able to correctect with skilled verb inst) Walk 150 ft (QC): 4 Walking 10ft/uneven surface-QC: 88 Gait Persons Needed: 1 (had 2nd person following with w/c but ended not needed) Gait Assistive Device: FWW Wheelchair Training Does the Pt Use a Wheelchair?: Yes Distance: 150'x2 Wheel 50 ft with 2 turns (QC): 3 (min A for help around obstacles and doorways) Wheel 150 ft (QC): 3 (min A for help around obstacles and doorways) Type of Wheelchair: Manual Stair Training 1 Step (curb) (QC): 88 4 Steps (QC): 88 12 Steps (QC): 88 Balance Picking up an Object (QC): 88 ADL-Treatment Oral Hygiene (QC): 5 (Pt. able to open fixodent tube and use on his dentures. Pt. able to apply teeth in mouth and fixate to roof. No difficulty noted.) Shower/Bathe Self (QC): 3 (Pt transfers to commode within shower, completes with CGA with FWW. Pt completes showering with long handled sponge, able to reach all areas excluding back and bottom. Pt requires assist drying BLE and back/ bottom.) Upper Body Dressing (QC): 4 (intermittent assist for back brace- requires cues for no twisting and modified donning educated. Pt demonstrates back with IND.) Lower Body Dressing (QC): 3 (Pt requires assist threading catheter through breif, completes breif donning with chemical packager while maintaining back precautions. Completes sit to stand and min A for pulling pants up in back in stance) On/Off Footwear (QC): 2 Toileting Hygiene (QC): 2 (Pt completes toilet transfer, states need to BM. Pt compeltes, no BM just "gas". Pt completes sit to stand with min A from standard toilet, completes bottom hygiene with max A while pt standing at FWW. Clear mucous wiped from pt's bottom with wipes.) Toilet Transfer (QC): 3 (Min A to standard toilet. CGA from commode in shower.) Assessment/Plan Assessment and Plan Assess & Plan/Chief Complaint Assessment: Lumbar spine status post extensive surgery Postop ileus Urinary retention requiring Bassett catheter and urology consultation Severe neuropathy Hypothyroidism Chronic pain Plan: Bowel regimen per general surgery recommendations Pain control Home meds Urology is appreciated also Inpatient rehabilitation protocol (1) S/P lumbar fusion (2) Hypothyroidism (3) Urinary retention (4) Bassett catheter in place (5) Constipation (6) Neuropathy (7) Ileus KEVIN FOX DO Jan 18, 2019 12:18 POS
--- NOTE | 2019-01-18 15:21 | NUR ---
PT AMBULATING IN HALLS X 1 ASSIST. PT TOLERATED WELL
--- NOTE | 2019-01-18 15:58 | NUR ---
PT GIVEN SS ENEMA TO IMPROVE BM OUTPUT. PT TOLERATED WELL. PT HAD SMALL AMOUNT OF STOOL. PT BACK TO BED/STATES HE IS TIRED. PT WILL BE MONITORED FOR FURTHER BM OUTPUT.
[2019-01-18] MEDS: TAMSULOSIN 0.4 MG (FLOMAX) CAP PO SCH (17:06)
[2019-01-18] MEDS: BACLOFEN 10 MG (LIORESAL) TAB PO PRN (17:06)
[2019-01-18 17:17] VITALS: BP 109/67
[2019-01-19] MEDS: oxyCODONE/APAP 5/325MG (PERCOCET 5) TABLET PO PRN ×3 (04:34→17:34)
[2019-01-19] MEDS: KCL 10 MEQ TAB (MICRO K) PO SCH (06:05)
[2019-01-19] MEDS: LEVOTHYROXINE 25 MCG (LEVOTHROID) TAB PO SCH (06:05)
[2019-01-19 06:07] VITALS: BP 148/76
[2019-01-19 06:52] LABS: BASOPHILS % (AUTO) 0 % (0-10); EOSINOPHILS # (AUTO) 0.4 10^3/uL (0.0-0.3); EOSINOPHILS % (AUTO) 5 % (0-10); HEMATOCRIT 33 % (40-54); HEMOGLOBIN 10.5 G/DL (13.3-17.7); LYMPHOCYTES # (AUTO) 1.4 X 10^3 (1.0-4.0); LYMPHOCYTES % (AUTO) 15 % (12-44); MEAN CORPUSCULAR HEMOGLOBIN 30 PG (25-34); MEAN CORPUSCULAR HGB CONC 32 G/DL (32-36); MEAN CORPUSCULAR VOLUME 95 FL (80-99); MEAN PLATELET VOLUME 11.2 FL (7.4-10.4); MONOCYTES # (AUTO) 1.5 X 10^3 (0.0-1.0); MONOCYTES % (AUTO) 16 % (0-12); NEUTROPHILS % (AUTO) 64 % (42-75); PLATELET COUNT 258 10^3/uL (130-400); RED CELL DISTRIBUTION WIDTH 13.3 % (10.0-14.5); WHITE BLOOD COUNT 9.4 10^3/uL (4.3-11.0)
[2019-01-19 07:10] LABS: ALANINE AMINOTRANSFERASE 58 U/L (0-55); ALBUMIN 3.2 GM/DL (3.2-4.5); ALKALINE PHOSPHATASE 63 U/L (40-136); BILIRUBIN,TOTAL 0.4 MG/DL (0.1-1.0); BUN/CREATININE RATIO 16; CALCIUM 8.2 MG/DL (8.5-10.1); CARBON DIOXIDE 26 MMOL/L (21-32); CHLORIDE 99 MMOL/L (98-107); CREATININE SERUM 0.79 MG/DL (0.60-1.30); GFR ESTIMATED > 60; GLUCOSE 116 MG/DL (70-105); POTASSIUM 3.8 MMOL/L (3.6-5.0); SODIUM 134 MMOL/L (135-145); TOTAL PROTEIN 5.7 GM/DL (6.4-8.2)
[2019-01-19] MEDS: VITAMIN D3 1,000 UNITS (CHOLECALCIFEROL) TABLET PO SCH ×2 (08:50→21:29)
[2019-01-19] MEDS: BACLOFEN 10 MG (LIORESAL) TAB PO PRN ×2 (08:50→21:29)
[2019-01-19] MEDS: GABAPENTIN 400 MG (NEURONTIN) CAP PO SCH ×3 (08:50→21:30)
[2019-01-19] MEDS: DOCUSATE SODIUM 100 MG (COLACE) CAP PO SCH ×2 (09:47→21:29)
[2019-01-19] MEDS: POLYETHYLENE GLYCOL 17 GM (MIRALAX) PACK PO SCH ×2 (09:48→21:31)
[2019-01-19] MEDS: SENNA W/DOCUSATE (SENOKOT S) TABLET PO SCH ×2 (09:48→21:29)
--- NOTE | 2019-01-19 09:49 | PM&R Progress Note ---
Subjective HPI/CC On Admission Date Seen by Provider: Jan 19, 2019 Time Seen by Provider: 08:30 Subjective/Events-last exam Bowels are significantly n moving now Multiple bowels and complete evacuation after soap suds Sodium level 134 Baclofen helps more than narcotics Edema is much improved Overall progressing nicely Reviewed labs Review therapy notes Checked meds and labs Review of Systems General: Fatigue Musculoskeletal: back pain Neurological: Weakness, Numbness, Incoordination Objective Exam Vital Signs Vital Signs Date Time Temp Pulse Resp B/P (MAP) Pulse Ox O2 Delivery O2 Flow Rate FiO2 01/19/19 16:00 37.2 67 14 101/62 (75) 90 Room Air Capillary Refill : General Appearance: No Apparent Distress, WD/WN, Chronically ill, Obese HEENT: PERRL/EOMI, Normal ENT Inspection, Pharynx Normal Neck: Full Range of Motion, Normal Inspection, Non Tender, Supple Respiratory: Chest Non Tender, Lungs Clear, Normal Breath Sounds, No Accessory Muscle Use, No Respiratory Distress Cardiovascular: Regular Rate, Rhythm, No Edema, No Gallop, No JVD, No Murmur Gastrointestinal: Normal Bowel Sounds, No Organomegaly, No Pulsatile Mass, Non Tender, Soft Back: Decreased Range of Motion Extremity: Normal Capillary Refill, Normal Inspection, Normal Range of Motion (decreased ROM legs), Non Tender, No Calf Tenderness, Pedal Edema Neurologic/Psychiatric: Alert, Oriented x3, Normal Mood/Affect, event technician II-XII Norm as Tested, Motor Weakness (leg weakness right greater than left 3/5) Skin: Normal Color, Warm/Dry, Tattoos/Piercings (multiple tattoos on his arms) Lymphatic: No Adenopathy Results/Procedures Lab Laboratory Tests 01/19/19 05:38 Patient resulted labs reviewed. FIM Transfers Therapy Code Descriptions/Definitions Functional [place] Measure: 0=Not Assessed/NA 4=Minimal Assistance 1=Total Assistance 5=Supervision or Setup 2=Maximal Assistance 6=Modified [place] 3=Moderate Assistance 7=Complete IndependenceSCALE: Activities may be completed with or without assistive devices. 1-Euqozrazcc-ojiuvgs completes the activity by him/herself with no assistance from a helper. 5-Set-up or Clean-up Assistance-helper sets up or cleans up; patient completes a ctivity. [place] assists only prior to or following the activity. 4-Supervision or Touching Assistance-helper provides verbal cues and/or touching/steadying and/or contact guard assistance as patient completes activity. Assistance may be provided throughout the activity or intermittently. 3-Partial/Moderate Assistance-helper does LESS THAN HALF the effort. [place] lifts, holds or supports trunk or limbs, but provides less than half the effort. 2-Substantial/Maximal Assistance-helper does MORE THAN HALF the effort. [place] lifts or holds trunk or limbs and provides more than half the effort. 9-Sszughzdw-ghbsbn does ALL the effort. Patient does none of the effort to complete the activity. Or, the assistance of 2 or more helpers is required for the patient to complete the activity. If activity was not attempted, code reason: 7-Patient Refused. 9-Not Applicable-not attempted and the patient did not perform the activity before the current illness, exacerbation or injury. 10-Not Attempted due to Environmental Limitations-(lack of equipment, weather restraints, etc.). 88-Not Attempted due to Medical Conditions or Safety Concerns. Roll Left to Right (QC): 4 (inst in log roll) Sit to Lying (QC): 3 (physical assist required with LE's, inst in log roll for back precautions) Sit to Stand (QC): 4 Chair/Caj-ip-Sarzw Xfer(QC): 3 (modA) Car Transfer (QC): 3 (modA) Gait Training Does the Patient Walk?: Yes Distance: 160 x2 Walk 10 feet (QC): 4 Walk 50 ft with 2 Turns(QC): 3 (scissoring cross over steps with turns, able to correctect with skilled verb inst) Walk 150 ft (QC): 4 Walking 10ft/uneven surface-QC: 88 Gait Persons Needed: 1 (had 2nd person following with w/c but ended not needed) Gait Assistive Device: FWW Wheelchair Training Does the Pt Use a Wheelchair?: Yes Distance: 150'x2 Wheel 50 ft with 2 turns (QC): 3 (min A for help around obstacles and doorways) Wheel 150 ft (QC): 3 (min A for help around obstacles and doorways) Type of Wheelchair: Manual Stair Training 1 Step (curb) (QC): 88 4 Steps (QC): 88 12 Steps (QC): 88 Balance Picking up an Object (QC): 88 ADL-Treatment Oral Hygiene (QC): 5 (Pt. able to open fixodent tube and use on his dentures. Pt. able to apply teeth in mouth and fixate to roof. No difficulty noted.) Shower/Bathe Self (QC): 3 (Pt transfers to commode within shower, completes with CGA with FWW. Pt completes showering with long handled sponge, able to reach all areas excluding back and bottom. Pt requires assist drying BLE and back/ bottom.) Upper Body Dressing (QC): 4 (intermittent assist for back brace- requires cues for no twisting and modified donning educated. Pt demonstrates back with IND.) Lower Body Dressing (QC): 3 (Pt requires assist threading catheter through breif, completes breif donning with cover seamer while maintaining back precautions. Completes sit to stand and min A for pulling pants up in back in stance) On/Off Footwear (QC): 2 Toileting Hygiene (QC): 2 (Pt completes toilet transfer, states need to BM. Pt compeltes, no BM just "gas". Pt completes sit to stand with min A from standard toilet, completes bottom hygiene with max A while pt standing at FWW. Clear mucous wiped from pt's bottom with wipes.) Toilet Transfer (QC): 3 (Min A to standard toilet. CGA from commode in shower.) Assessment/Plan Assessment and Plan Assess & Plan/Chief Complaint Assessment: Lumbar spine status post extensive surgery Postop ileus now resolved after SSE Urinary retention requiring Bassett catheter and urology consultation Severe neuropathy Hypothyroidism Chronic pain Plan: Bowel regimen maintained Pain control Home meds Urology is appreciated also Inpatient rehabilitation protocol Cath DC after cystoscopy (1) S/P lumbar fusion (2) Hypothyroidism (3) Urinary retention (4) Bassett catheter in place (5) Constipation (6) Neuropathy (7) Ileus KEVIN FOX DO Jan 19, 2019 09:49 POS
--- NOTE | 2019-01-19 10:44 | Progress Note ---
RYAN CRUZ [employer] [facility] 01/19/19 1044: Progress Note Time: 0750 Subjective: Patient States that he is feeling good. Patient did not sleep well, due to interventions throughout the night to have BM Patient did have BM. Patient is ambulating. States it is going good but might have over done it and is sore in his hip. Patient will have cystoscopy Saturday Patient denies CV, Resp, GI, , HEENT symptoms Objective: General: W/N, W/D, No distress CV: RRR, Radial pulses 2/4 bilaterally, edema appears decreased. Resp: CTAB, No accessory Muscle Use, No respiratory distress GI: Not TTP, no distension, soft. Assessment: Resolved Post op Ileus decreased Edema S/P Fusion L4-S1 Urine Retention Plan: Continue pain management with baclofen Continue PT/OT with ambulation Cystoscopy Saturday to plan Catheter Removal Barriers To Home: - Patients goal is to decrease pain and return home independently. - Patients home is a 1 level house with a step large enough for walker. - Patient does report using walker and wheel chair around house. - Patient currently supine to sit does not require assisstance. - Patient leans heavily on walker. Overall, increasing ambulation and LE strength - Patient should continue strength training and education for proper form lifting and bending over. CHLOE FOX DO 01/19/192036: Supervisory-Addendum Brief Verification & Attestation Participated in pt care: history, MDM, physical Personally performed: exam, history, MDM, supervision of care Care discussed with: Medical Student Procedures: n/a Results interpretation: Verified all documentation Verification and Attestation of Medical Student E/M Service A medical student performed and documented this service in my presence. I reviewed and verified all information documented by the medical student and made modifications to such information, when appropriate. I personally performed the physical exam and medical decision making. Chloe Fox, Jan 19, 2019,20:36 RYAN CRUZ [employer] [facility] Jan 19, 2019 10:44 CHLOE JOHNSTON DO Jan 19, 2019 20:37 POS
--- NOTE | 2019-01-19 10:54 | Physical Therapy Daily Note ---
PT Daily Note-Current Subjective Patient in bed pre tx, agrees to PT, has 8/10 pain in his back but states he doesn't needs to ask nurse for pain meds, needs dressed lowers. During therapy he needs to have a BM, ambulates back to his room, needs max assist for pants down and up and for wiping. Appearance Patient in recliner post tx with nurse call, phone, tray, all needs met. Mental Status Patient Orientation: Person, Place, Situation Attachments: Bassett Catheter back brace Transfers SCALE: Activities may be completed with or without assistive devices. 7-Ccgmksktjr-qmpmqry completes the activity by him/herself with no assistance from a helper. 5-Set-up or Clean-up Assistance-helper sets up or cleans up; patient completes activity. [place] assists only prior to or following the activity. 4-Supervision or Touching Assistance-helper provides verbal cues and/or touc giorgi/steadying and/or contact guard assistance as patient completes activity. Assistance may be provided throughout the activity or intermittently. 3-Partial/Moderate Assistance-helper does LESS THAN HALF the effort. [place] lifts, holds or supports trunk or limbs, but provides less than half the effort. 2-Substantial/Maximal Assistance-helper does MORE THAN HALF the effort. [place] lifts or holds trunk or limbs and provides more than half the effort. 4-Zzvgsjlss-ksmuqc does ALL the effort. Patient does none of the effort to complete the activity. Or, the assistance of 2 or more helpers is required for the patient to complete the activity. If activity was not attempted, code reason: 7-Patient Refused. 9-Not Applicable-not attempted and the patient did not perform the activity before the current illness, exacerbation or injury. 10-Not Attempted due to Environmental Limitations-(lack of equipment, weather restraints, etc.). 88-Not Attempted due to Medical Conditions or Safety Concerns. Roll Left & Right (QC): 4 Lying to Sitting/Side of Bed(Q: 4 Sit to Stand (QC): 4 Chair/Qsg-xo-Jtqyz Xfer(QC): 4 Toilet Transfer (QC): 4 SBA for supine to sit, CGA for sit to stand and transfers. Patient required a lot of effort for supine to sit and cues but he could do it without assist. Gait Training Distance: 150'x2 Walk 10 feet (QC): 4 Walk 50 ft with 2 Turns(QC): 4 Walk 150 ft (QC): 4 Gait Persons Needed: 1 Gait Assistive Device: FWW CGA, slow, leans heavily on walker, uncoordinated steps bilaterally Exercises sit to stand x5 NuStep Minutes: 15 NuStep Workload: 5 Treatments dressing, toileting for BM, ambulation, LE strengthening Assessment Current Status: Fair Progress improving ambulation and LE strength PT Short Term Goals Short Term Goals Time Frame: Jan 22, 2019 Sit to lyin (Cassie) Lying to sitting on side of be: 3 (Cassie) Sit to stand: 4 (CGA) Walk 10 feet: 3 (Cassie) PT Usp Goals Geographic Information Scientist Goals PT Usp Goals Time Frame: Feb 05, 2019 Roll Left & Right (QC): 6 Sit to Lying (QC): 6 Lying-Sitting on Side/Bed(QC): 6 Sit to Stand (QC): 6 Chair/Mmo-ej-Qqzwj Xfer(QC): 6 Toilet Transfer (QC): 6 Car Transfer (QC): 6 Does the Patient Walk: Yes Walk 10 feet (QC): 4 (CGA) Walk 50ft with 2 Turns (QC): 4 (CGA) Walk 150 ft (QC): 88 Walking 10ft on Uneven Surface: 4 (CGA) 1 Step (curb) (QC): 4 (CGA) 4 Steps (QC): 9 12 Steps (QC): 9 Picking up an Object (QC): 88 Does the Pt use WC or Scooter?: Yes Wheel 50 feet with 2 turns (QC: 6 Type: Manual Wheel 150 feet: 6 Type: Manual PT Plan Problem List Problem List: Activity Tolerance, Functional Strength, Safety, Balance, Gait, Transfer, Bed Mobility, ROM Treatment/Plan Treatment Plan: Continue Plan of Care Treatment Plan: Bed Mobility, Concurrent Therapy, Education, Functional Activity Xander, Functional Strength, Group Therapy, Gait, Safety, Therapeutic E xercise, Transfers Treatment Duration: Feb 05, 2019 Frequency: At least 5 of 7 days/Wk (IRF) Estimated Hrs Per Day: 1.5 hours per day Patient and/or Family Agrees t: Yes Safety Risks/Education Patient Education: Gait Training, Transfer Techniques, Reviewed Precautions, Correct Positioning, Reviewed Don/Doff Brace, Safety Issues Teaching Recipient: Patient Teaching Methods: Demonstration, Discussion Response to Teaching: Reinforcement Needed Time/GCodes Time In: 1000 Time Out: 1100 Total Billed Treatment Time: 60 Total Billed Treatment 1 visit GT 15' EX 20' FA 25' IRENE MARTIN PT Jan 19, 2019 10:54 POS
--- NOTE | 2019-01-19 15:15 | Occupational Ther Daily Note ---
OT Current Status-Daily Note Subjective Pt. reports 10/10 back pain at one point during transfer. Nursing notified and gave pt. pain medication. Appearance Pt. up in chair. Agrees to work with OT. Mental Status/Objective Patient Orientation: Person, Place, Time, Situation ADL-Treatment Therapy Code Descriptions/Definitions Functional [place] Measure: 0=Not Assessed/NA 4=Minimal Assistance 1=Total Assistance 5=Supervision or Setup 2=Maximal Assistance 6=Modified [place] 3=Moderate Assistance 7=Complete IndependenceSCALE: Activities may be completed with or without assistive devices. 2-Enwabkgjbf-fhpfuks completes the activity by him/herself with no assistance from a helper. 5-Set-up or Clean-up Assistance-helper sets up or cleans up; patient completes activity. [place] assists only prior to or following the activity. 4-Supervision or Touching Assistance-helper provides verbal cues and/or touching/steadying and/or contact guard assistance as patient completes activity. Assistance may be provided throughout the activity or intermittently. 3-Partial/Moderate Assistance-helper does LESS THAN HALF the effort. [place] lifts, holds or supports trunk or limbs, but provides less than half the effort. 2-Substantial/Maximal Assistance-helper does MORE THAN HALF the effort. [place] lifts or holds trunk or limbs and provides more than half the effort. 5-Xsidxdekm-wowtwf does ALL the effort. Patient does none of the effort to complete the activity. Or, the assistance of 2 or more helpers is required for the patient to complete the activity. If activity was not attempted, code reason: 7-Patient Refused. 9-Not Applicable-not attempted and the patient did not perform the activity before the current illness, exacerbation or injury. 10-Not Attempted due to Environmental Limitations-(lack of equipment, weather restraints, etc.). 88-Not Attempted due to Medical Conditions or Safety Concerns. Oral Hygiene (QC): 5 (Set up while seated at sink to complete oral care.) Shower/Bathe Self (QC): 7 Upper Body Dressing (QC): 7 (Already dressed) Lower Body Dressing (QC): 7 Pt. sitting in chair when OT comes into room. Declines showering and dressing, as he is already dressed. Agrees to work with OT. Pt. reports that he rolled onto his left hip yesterday, and has had some aching pain since. Pt. stood and began to report pain in same area. Stood with mod assist and transferred to wheelchair with min assist. Pt. self propelled wheelchair to therapy gym. Tolerated this well. Practiced standing at parallel bar with cues to push from his wheelchair and stand upright. Pt. stands approximately 4 times, standing 1- 2 minutes each time. Cues given to stand upright, tuck bottom in, and bring shoulders back. Pt. has some difficulty getting out of "hunched" posture. Cues also given to reach back slowly and sit gently. Pt. self propelled back to room and transferred sit-stand with min assist, and to bed with min assist. Max assist given to transfer sit-supine. All needs met and pt. in bed. Education OT Patient Education: Correct positioning, Modified ADL techniques, Progress toward Goal/Update tx plan, Purpose of tx/functional activities, Reviewed precautions, Rehab process, Transfer techniques Teaching Recipient: Patient Teaching Methods: Demonstration, Discussion Response to Teaching: Verbalize Understanding, Return Demonstration OT Short Term Goals Short Term Goals Time Frame: Jan 22, 2019 Eatin Oral hygiene: 5 Toileting hygiene: 4 Shower/bathe self: 4 Upper body dressin Lower body dressin Putting on/taking off footwear: 4 OT Funeral Car Driver Goals Assisted Goals Time Frame: Jan 29, 2019 Eating (QC): 6 Oral Hygiene (QC): 6 Toileting Hygiene (QC): 6 Shower/Bathe Self (QC): 5 Upper Body Dressing (QC): 6 Lower Body Dressing (QC): 6 On/Off Footwear (QC): 6 Additional Goals: 1-Demonstrate ADL Tasks, 2-Verbalize Understanding, 3- ImproveStrength/Xander 1=Demonstrate adherence to instructed precautions during ADL tasks. 2=Patient will verbalize/demonstrate understanding of assistive devices/modifications for ADL. 3=Patient will improve strength/tolerance for activity to enable patient to perform ADL's. OT Education/Plan Problem List/Assessment Assessment: Decreased Activ Tolerance, Decreased UE Strength, Dependent Transfers, Impaired Bed Mobility, Impaired Funct Balance, Impaired I ADL's, Impaired Self-Care Skills Discharge Recommendations Plan/Recommendations: Continue POC Therapy Discharge Recommendati: Post Acute OT Equpiment Recommendations-D/C: Hip Kit Treatment Plan/Plan of Care Treatment,Training & Education: Yes Patient would benefit from OT for education, treatment and training to promote independence in ADL's, mobility, safety and/or upper extremity function for ADL's. Plan of Care: ADL Retraining, Functional Mobility, Group Exercise/Act as Ind, UE Funct Exercise/Act Treatment Duration: Jan 29, 2019 Frequency: At least 5 of 7 days/Wk (IRF) Estimated Hrs Per Day: 1.5 hours per day Agreement: Yes Rehab Potential: Good Time/GCodes Start Time: 11:00 Stop Time: 11:50 Total Time Billed (hr/min): 50 Billed Treatment Time 1, ADL x 30minutes, FA x 20minutes JENNIFER ELLISON OT Jan 19, 2019 15:15 POS
--- NOTE | 2019-01-19 15:23 | Occupational Ther Daily Note ---
OT Current Status-Daily Note Subjective No pain reported. Appearance Pt. in bed. Agrees to work with OT. Mental Status/Objective Patient Orientation: Person, Place, Time, Situation ADL-Treatment Therapy Code Descriptions/Definitions Functional [place] Measure: 0=Not Assessed/NA 4=Minimal Assistance 1=Total Assistance 5=Supervision or Setup 2=Maximal Assistance 6=Modified [place] 3=Moderate Assistance 7=Complete IndependenceSCALE: Activities may be completed with or without assistive devices. 3-Fzlzhomjmi-qmdbtqe completes the activity by him/herself with no assistance from a helper. 5-Set-up or Clean-up Assistance-helper sets up or cleans up; patient completes activity. [place] assists only prior to or following the activity. 4-Supervision or Touching Assistance-helper provides verbal cues and/or touching/steadying and/or contact guard assistance as patient completes activity. Assistance may be provided throughout the activity or intermittently. 3-Partial/Moderate Assistance-helper does LESS THAN HALF the effort. [place] lifts, holds or supports trunk or limbs, but provides less than half the effort. 2-Substantial/Maximal Assistance-helper does MORE THAN HALF the effort. [place] lifts or holds trunk or limbs and provides more than half the effort. 7-Cdzfuvhuo-pdmcmj does ALL the effort. Patient does none of the effort to complete the activity. Or, the assistance of 2 or more helpers is required for the patient to complete the activity. If activity was not attempted, code reason: 7-Patient Refused. 9-Not Applicable-not attempted and the patient did not perform the activity before the current illness, exacerbation or injury. 10-Not Attempted due to Environmental Limitations-(lack of equipment, weather restraints, etc.). 88-Not Attempted due to Medical Conditions or Safety Concerns. Other Treatment Pt. transferred supine-sit with SBA and increased time needed. Stood with walker and min assist and transferred to wheelchair with min assist. Pt. self propelled wheelchair to therapy gym and worked on sit-stands from walker level. OT raised walker approximately 5 inches. Placed mirror in front of him. Stood with cues to push up from wheelchair, and take his time. Pt. stands approximately 4 times, 1-2 minutes each time. Pt. is able to cue self to stand into upright posture in front of mirror with walker in front of him. Worked on weight shifts and taking steps in place. Transferred back to wheelchair and all needs met. Propelled back to room. Education OT Patient Education: Correct positioning, Modified ADL techniques, Progress toward Goal/Update tx plan, Purpose of tx/functional activities, Reviewed precautions, Rehab process, Transfer techniques Teaching Recipient: Patient Teaching Methods: Demonstration, Discussion Response to Teaching: Verbalize Understanding, Return Demonstration OT Short Term Goals Short Term Goals Time Frame: Jan 22, 2019 Eatin Oral hygiene: 5 Toileting hygiene: 4 Shower/bathe self: 4 Upper body dressin Lower body dressin Putting on/taking off footwear: 4 OT Custodial Goals Branding Machine Tender Goals Time Frame: Jan 29, 2019 Eating (QC): 6 Oral Hygiene (QC): 6 Toileting Hygiene (QC): 6 Shower/Bathe Self (QC): 5 Upper Body Dressing (QC): 6 Lower Body Dressing (QC): 6 On/Off Footwear (QC): 6 Additional Goals: 1-Demonstrate ADL Tasks, 2-Verbalize Understanding, 3- ImproveStrength/[place] 1=Demonstrate adherence to instructed precautions during ADL tasks. 2=Patient will verbalize/demonstrate understanding of assistive devices/modifications for ADL. 3=Patient will improve strength/tolerance for activity to enable patient to perform ADL's. OT Education/Plan Problem List/Assessment Assessment: Decreased Activ Tolerance, Decreased UE Strength, Dependent Transfers, Impaired Bed Mobility, Impaired I ADL's, Impaired Self-Care Skills Discharge Recommendations Plan/Recommendations: Continue POC Therapy Discharge Recommendati: Post Acute OT Equpiment Recommendations-D/C: Hip Kit Treatment Plan/Plan of Care Treatment,Training & Education: Yes Patient would benefit from OT for education, treatment and training to promote independence in ADL's, mobility, safety and/or upper extremity function for ADL's. Plan of Care: ADL Retraining, Functional Mobility, Group Exercise/Act as Ind, UE Funct Exercise/Act Treatment Duration: Jan 29, 2019 Frequency: At least 5 of 7 days/Wk (IRF) Estimated Hrs Per Day: 1.5 hours per day Agreement: Yes Rehab Potential: Good Time/GCodes Start Time: 13:20 Stop Time: 14:00 Total Time Billed (hr/min): 40 Billed Treatment Time 1, FA x 40minutes JENNIFER ELLISON OT Jan 19, 2019 15:23 POS
--- NOTE | 2019-01-19 15:28 | Physical Therapy Daily Note ---
PT Daily Note-Current Subjective Pt agreeable to PT session. States he is felling "pretty spiffy" at beginning of session, at end of session stating he is feeling pretty wiped out. Pain Numeric Pain Scale: 0-No Pain Appearance Pt sitting up in w/c at beginning of session, family member in pt's room. At end of session, per pt request, in bed with family member in room, call light, phone and bedside table within reach Mental Status Patient Orientation: Person, Place, Time, Eyes Open, Situation Transfers SCALE: Activities may be completed with or without assistive devices. 1-Wtquowmmlz-kifqbii completes the activity by him/herself with no assistance from a helper. 5-Set-up or Clean-up Assistance-helper sets up or cleans up; patient completes activity. [place] assists only prior to or following the activity. 4-Supervision or Touching Assistance-helper provides verbal cues and/or touching/steadying and/or contact guard assistance as patient completes activity. Assistance may be provided throughout the activity or intermittently. 3-Partial/Moderate Assistance-helper does LESS THAN HALF the effort. [place] lifts, holds or supports trunk or limbs, but provides less than half the effort. 2-Substantial/Maximal Assistance-helper does MORE THAN HALF the effort. [place] lifts or holds trunk or limbs and provides more than half the effort. 4-Fysinxumm-nxpmik does ALL the effort. Patient does none of the effort to complete the activity. Or, the assistance of 2 or more helpers is required for the patient to complete the activity. If activity was not attempted, code reason: 7-Patient Refused. 9-Not Applicable-not attempted and the patient did not perform the activity before the current illness, exacerbation or injury. 10-Not Attempted due to Environmental Limitations-(lack of equipment, weather restraints, etc.). 88-Not Attempted due to Medical Conditions or Safety Concerns. Roll Left & Right (QC): 5 Sit to Lying (QC): 3 Sit to Stand (QC): 4 Chair/Bxx-ab-Zbzbu Xfer(QC): 4 Gait Training Does the Patient Walk?: Yes Distance: 160 Walk 10 feet (QC): 4 Walk 50 ft with 2 Turns(QC): 4 Walk 150 ft (QC): 4 Gait Persons Needed: 1 Gait Assistive Device: FWW CGA, slow, leans heavily on walker, uncoordinated steps bilaterally Wheelchair Training Does the Pt Use a Wheelchair?: Yes Wheel 50 ft with 2 turns (QC): 5 Wheel 150 ft (QC): 5 Type of Wheelchair: Manual 160 ft, pt demonstrating proper and safe use of brakes, able to maneuver around furniture and objects, adjust and move foot pedals with increased time and effo rt required Exercises Standing: Heel/toe raises, Marching, Mini squats, Sit to Stand Standing Reps: 10 (x2 requiring rest breaks) Treatments education, safety, transfers, gait, strength, balance, WC mobility, activity tolerance, functional mobility, bed mobility, doffing back brace Assessment pt is very motivated but did fatigue quickly this session PT Short Term Goals Short Term Goals Time Frame: Jan 22, 2019 Sit to lyin (Cassie) Lying to sitting on side of be: 3 (Cassie) Sit to stand: 4 (CGA) Walk 10 feet: 3 (Cassie) PT Residential Goals Welt Butter Hand Goals PT Welt Butter Hand Goals Time Frame: Feb 05, 2019 Roll Left & Right (QC): 6 Sit to Lying (QC): 6 Lying-Sitting on Side/Bed(QC): 6 Sit to Stand (QC): 6 Chair/Cqh-fl-Odixe Xfer(QC): 6 Toilet Transfer (QC): 6 Car Transfer (QC): 6 Does the Patient Walk: Yes Walk 10 feet (QC): 4 (CGA) Walk 50ft with 2 Turns (QC): 4 (CGA) Walk 150 ft (QC): 88 Walking 10ft on Uneven Surface: 4 (CGA) 1 Step (curb) (QC): 4 (CGA) 4 Steps (QC): 9 12 Steps (QC): 9 Picking up an Object (QC): 88 Does the Pt use WC or Scooter?: Yes Wheel 50 feet with 2 turns (QC: 6 Type: Manual Wheel 150 feet: 6 Type: Manual PT Plan Treatment/Plan Treatment Plan: Continue Plan of Care Treatment Plan: Bed Mobility, Concurrent Therapy, Education, Functional Activity Xander, Functional Strength, Group Therapy, Gait, Safety, Therapeutic Exercise, Transfers Treatment Duration: Feb 05, 2019 Frequency: At least 5 of 7 days/Wk (IRF) Estimated Hrs Per Day: 1.5 hours per day Patient and/or Family Agrees t: Yes Safety Risks/Education Patient Education: Gait Training, Transfer Techniques, Reviewed Precautions, W/C Management, Safety Issues Teaching Recipient: Patient Teaching Methods: Discussion Response to Teaching: Verbalize Understanding Time/GCodes Time In: 1400 Time Out: 1430 Total Billed Treatment Time: 30 Total Billed Treatment 1 visit, EX x15 min, GT x15 min GRIS OLGUIN PTA Jan 19, 2019 15:28 POS
[2019-01-19 16:00] VITALS: BP 101/62
[2019-01-19] MEDS: TAMSULOSIN 0.4 MG (FLOMAX) CAP PO SCH (17:33)
--- NOTE | 2019-01-19 18:53 | Progress Note - Surgery ---
Subjective Time Seen by a Provider: 17:42 Subjective/Events-last exam Pt seen and examined, states he had multiple BM's today. Still tolerating diet and denies abdominal pain. Review of Systems General: No Chills, No Night Sweats Pulmonary: No Dyspnea, No Cough Cardiovascular: No: Chest Pain, Palpitations Gastrointestinal: No: Nausea, Vomiting Objective Exam Vital Signs Date Time Temp Pulse Resp B/P (MAP) Pulse Ox O2 Delivery O2 Flow Rate FiO2 01/19/19 16:00 37.2 67 14 101/62 (75) 90 Room Air 01/19/19 09:00 Room Air 01/19/19 06:07 37.8 67 22 148/76 (100) 97 Room Air 01/18/19 20:53 Room Air I & O 01/19/19 07:00 Intake Total 2560 ml Output Total 3450 ml Balance -890 ml Capillary Refill : General Appearance: No Apparent Distress, WD/WN, Obese HEENT: PERRL/EOMI, Pharynx Normal Respiratory: Chest Non Tender, Lungs Clear, Normal Breath Sounds, No Accessory Muscle Use, No Respiratory Distress Cardiovascular: Regular Rate, Rhythm, No Murmur Gastrointestinal: non tender, soft, no organomegaly Extremity: No Calf Tenderness, Pedal Edema Neurologic/Psychiatric: Alert, Oriented x3, Normal Mood/Affect, 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 as Tested, Motor Weakness (leg weakness right greater than left 3/5) Skin: Tattoos/Piercings (multiple tattoos on his arms) Results Lab Laboratory Tests 01/19/19 05:38: White Blood Count 9.4, Red Blood Count 3.51L, Hemoglobin 10.5L, Hematocrit 33L, Mean Corpuscular Volume 95, Mean Corpuscular Hemoglobin 30, Mean Corpuscular Hemoglobin Concent 32, Red Cell Distribution Width 13.3, Platelet Count 258, Mean Platelet Volume 11.2H, Neutrophils (%) (Auto) 64, Lymphocytes (%) (Auto) 15, Monocytes (%) (Auto) 16H, Eosinophils (%) (Auto) 5, Basophils (%) (Auto) 0, Neutrophils # (Auto) 6.0, Lymphocytes # (Auto) 1.4, Monocytes # (Auto) 1.5H, Eosinophils # (Auto) 0.4H, Basophils # (Auto) 0.0, Sodium Level 134L, Potassium Level 3.8, Chloride Level 99, Carbon Dioxide Level 26, Anion Gap 9, Blood Urea Nitrogen 13, Creatinine 0.79, Estimat Glomerular Filtration Rate > 60, BUN/Creatinine Ratio 16, Glucose Level 116H, Calcium Level 8.2L, Corrected Calcium 8.8, Total Bilirubin 0.4, Aspartate Amino Transf (AST/SGOT) 27, Alanine Aminotransferase (ALT/SGPT) 58H, Alkaline Phosphatase 63, Total Protein 5.7L, Albumin 3.2 Assessment/Plan Assessment/Plan Assessment/Plan Abdominal distention and Ileus - resolved S/P lumbar fusion l4-s1 Urinary retention Pt is finally having BM's, told to continue ambulation and ok to chew gum. Continue espinosa for urinary retention. I will sign off. Clinical Quality Measures DVT/VTE Risk/Contraindication: Risk Factor Score Per Nursin RFS Level Per Nursing on Admit: 4+=Very High SORAYA VASQUEZ DO Jan 19, 2019 18:53 POS
--- NOTE | 2019-01-19 21:30 | NUR ---
TOO EARLY FOR PERCOCET, SO MEDICATED WITH BACLOFEN FOR COMFORT. LEG EDEMA IMPROVED AND PATIENT REQUESTED MAURIZIO WRAPS BE REMOVED FOR THE NIGHT. FEELS BOWELS ARE FINALLY CLEANED OUT SINCE ENEMA YESTERDAY.
--- NOTE | 2019-01-20 01:15 | NUR ---
RECEIVED REPORT FROM PERLA RAGSDALE. THIS RN TO ASSUME CARE OF PT AT THIS TIME.
[2019-01-20] MEDS: oxyCODONE/APAP 5/325MG (PERCOCET 5) TABLET PO PRN ×3 (03:28→18:51)
[2019-01-20 05:56] VITALS: BP 113/67
--- NOTE | 2019-01-20 05:59 | Progress Note ---
[facility] 01/20/19 0559: Progress Note TIme: 0730 Subjective: Patient is doing good. Does complain of pain. Rates it as a 7 or 8 out of 10 Therapy notes states patient was fatigued after therapy. Patient did not get much sleep the night before Dr. Khan has signed off on patient. Patient is having cystoscopy procedure by Dr. Zimmerman today Objective: General: W/N, W/D, No acute distress. Pleasant male CV: RRR, 2/4 radial pulse bilaterally, Minimal edema (1+).. Resp: CTAB, no accessory muscle use, No respiratory distress GI: SOft, non distended, non-ttp Assessment: S/P L4-S1 lumbar fusion Urinary Retention Post - op ileus resolved Post-operative pain Plan: Continue Catheter Review Cystoscopy COntinue Pain management and monitor vitals Barriers: -Pain management - Exercises at home to maintain strength and endurance - removal of rugs an carpets CHLOE FOX DO 01/20/192057: Supervisory-Addendum Brief Verification & Attestation Participated in pt care: history, MDM, physical Personally performed: exam, history, MDM, supervision of care Care discussed with: Medical Student Procedures: n/a Results interpretation: Verified all documentation Verification and Attestation of Medical Student E/M Service A medical student performed and documented this service in my presence. I reviewed and verified all information documented by the medical student and made modifications to such information, when appropriate. I personally performed the physical exam and medical decision making. Chloe Fox, Jan 20, 2019,20:58 [facility] Jan 20, 2019 05:59 HCLOE JOHNSTON DO Jan 20, 2019 20:58 POS
[2019-01-20] MEDS: KCL 10 MEQ TAB (MICRO K) PO SCH (06:02)
[2019-01-20] MEDS: LEVOTHYROXINE 25 MCG (LEVOTHROID) TAB PO SCH (06:02)
--- NOTE | 2019-01-20 07:15 | Progress Note-Pre Operative ---
Pre-Operative Progress Note H&P Reviewed The H&P was reviewed, patient examined and no changes noted. Date Seen by Provider: Jan 20, 2019 Time Seen by Provider: 07:15 Date H&P Reviewed: Jan 20, 2019 Time H&P Reviewed: 07:15 Pre-Operative Diagnosis: URINE RETENTION HIPOLITO BOWENS MD Jan 20, 2019 07:15 POS
--- NOTE | 2019-01-20 07:21 | Progress Note-Post Operative ---
Post-Operative Progess Note Surgeon (s)/Commercial Credit Analyst (s) Surgeon HIPOLITO BOWENS MD Commercial Credit Analyst: NONE Pre-Operative Diagnosis URINE RETENTION Post-Operative Diagnosis SAME Procedure & Operative Findings Date of Procedure 01/20/19 Procedure Performed/Findings CYSTOSCOPY Anesthesia Type LOCAL Estimated Blood Loss Estimated blood loss (mL): NONE Specimens/Packing Specimens Removed NONE Packing: NONE HIPOLITO BOWENS MD Jan 20, 2019 07:21 POS
[2019-01-20] MEDS: SENNA W/DOCUSATE (SENOKOT S) TABLET PO SCH ×2 (08:06→21:33)
[2019-01-20] MEDS: DOCUSATE SODIUM 100 MG (COLACE) CAP PO SCH ×2 (08:06→21:33)
[2019-01-20] MEDS: BACLOFEN 10 MG (LIORESAL) TAB PO PRN ×2 (08:06→21:37)
[2019-01-20] MEDS: VITAMIN D3 1,000 UNITS (CHOLECALCIFEROL) TABLET PO SCH ×2 (08:06→21:33)
[2019-01-20] MEDS: GABAPENTIN 400 MG (NEURONTIN) CAP PO SCH ×3 (08:06→21:33)
[2019-01-20] MEDS: POLYETHYLENE GLYCOL 17 GM (MIRALAX) PACK PO SCH ×2 (09:07→21:37)
--- NOTE | 2019-01-20 09:56 | PM&R Progress Note ---
Subjective HPI/CC On Admission Date Seen by Provider: Jan 20, 2019 Time Seen by Provider: 08:30 Subjective/Events-last exam Cystoscopy today performed by Dr. Zimmerman, everything within normal limits and espinosa catheter was discontinued. Had a BM yesterday morning. Senna and Colace maintained. Baclofen and Percocet seem to be doing very well for the Pt. No drainage from the incision. Very appreciative of the care he has obtained while being in the inpatient rehab unit. Reviewed labs Review therapy notes Checked meds and labs Review of Systems General: Fatigue Genitourinary: Retention Musculoskeletal: back pain, leg pain Neurological: Weakness, Numbness, Incoordination Objective Exam Vital Signs Vital Signs Date Time Temp Pulse Resp B/P (MAP) Pulse Ox O2 Delivery O2 Flow Rate FiO2 01/20/19 15:50 37.4 69 16 117/72 (87) 94 Room Air Capillary Refill : General Appearance: No Apparent Distress, WD/WN, Chronically ill, Obese HEENT: PERRL/EOMI, Normal ENT Inspection, Pharynx Normal Neck: Full Range of Motion, Normal Inspection, Non Tender, Supple Respiratory: Chest Non Tender, Lungs Clear, Normal Breath Sounds, No Accessory Muscle Use, No Respiratory Distress Cardiovascular: Regular Rate, Rhythm, No Edema, No Gallop, No JVD, No Murmur Gastrointestinal: Normal Bowel Sounds, No Organomegaly, No Pulsatile Mass, Non Tender, Soft Back: Decreased Range of Motion Extremity: Normal Capillary Refill, Normal Inspection, Normal Range of Motion (decreased ROM legs), Non Tender, No Calf Tenderness, Pedal Edema Neurologic/Psychiatric: Alert, Oriented x3, Normal Mood/Affect, 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 FIM Transfers Therapy Code Descriptions/Definitions Functional [place] Measure: 0=Not Assessed/NA 4=Minimal Assistance 1=Total Assistance 5=Supervision or Setup 2=Maximal Assistance 6=Modified [place] 3=Moderate Assistance 7=Complete IndependenceSCALE: Activities may be completed with or without assistive devices. 6-Vdilkpjfad-vjhbgln completes the activity by him/herself with no assistance from a helper. 5-Set-up or Clean-up Assistance-helper sets up or cleans up; patient completes activity. [place] assists only prior to or following the activity. 4-Supervision or Touching Assistance-helper provides verbal cues and/or touching/steadying and/or contact guard assistance as patient completes activity. Assistance may be provided throughout the activity or intermittently. 3-Partial/Moderate Assistance-helper does LESS THAN HALF the effort. [place] lifts, holds or supports trunk or limbs, but provides less than half the effort. 2-Substantial/Maximal Assistance-helper does MORE THAN HALF the effort. [place] lifts or holds trunk or limbs and provides more than half the effort. 7-Hvwyibsvd-bvzgll does ALL the effort. Patient does none of the effort to complete the activity. Or, the assistance of 2 or more helpers is required for the patient to complete the activity. If activity was not attempted, code reason: 7-Patient Refused. 9-Not Applicable-not attempted and the patient did not perform the activity before the current illness, exacerbation or injury. 10-Not Attempted due to Environmental Limitations-(lack of equipment, weather restraints, etc.). 88-Not Attempted due to Medical Conditions or Safety Concerns. Roll Left to Right (QC): 5 Sit to Lying (QC): 3 Sit to Stand (QC): 4 Chair/Ajr-be-Qxmxr Xfer(QC): 4 Car Transfer (QC): 3 (modA) Gait Training Does the Patient Walk?: Yes Distance: 160 Walk 10 feet (QC): 4 Walk 50 ft with 2 Turns(QC): 4 Walk 150 ft (QC): 4 Walking 10ft/uneven surface-QC: 88 Gait Persons Needed: 1 Gait Assistive Device: FWW Wheelchair Training Does the Pt Use a Wheelchair?: Yes Distance: 150'x2 Wheel 50 ft with 2 turns (QC): 5 Wheel 150 ft (QC): 5 Type of Wheelchair: Manual Stair Training 1 Step (curb) (QC): 88 4 Steps (QC): 88 12 Steps (QC): 88 Balance Picking up an Object (QC): 88 ADL-Treatment Oral Hygiene (QC): 5 (Set up while seated at sink to complete oral care.) Shower/Bathe Self (QC): 7 Upper Body Dressing (QC): 7 (Already dressed) Lower Body Dressing (QC): 7 On/Off Footwear (QC): 2 Toileting Hygiene (QC): 2 (Pt completes toilet transfer, states need to BM. Pt compeltes, no BM just "gas". Pt completes sit to stand with min A from standard toilet, completes bottom hygiene with max A while pt standing at FWW. Clear mucous wiped from pt's bottom with wipes.) Toilet Transfer (QC): 3 (Min A to standard toilet. CGA from commode in shower.) Assessment/Plan Assessment and Plan Assess & Plan/Chief Complaint Assessment: Lumbar spine status post extensive surgery Postop ileus now resolved after SSE Urinary retention requiring Espinosa catheter and urology consultation Severe neuropathy Hypothyroidism Chronic pain Plan: Bowel regimen maintained Pain control Home meds Urology is appreciated also Inpatient rehabilitation protocol Cath DC after cystoscopy today Dramatic improvement in his overall status (1) S/P lumbar fusion (2) Hypothyroidism (3) Urinary retention (4) Espinosa catheter in place (5) Constipation (6) Neuropathy (7) Ileus KEVIN FOX DO Jan 20, 2019 09:56 POS
--- NOTE | 2019-01-20 10:36 | Occupational Ther Daily Note ---
OT Current Status-Daily Note Subjective [id number]: Pt seen in bed, agreeable to OT tx session. Pt denies current pain, expresses he had pain throughout the night but pain meds "kicked in" and he was able to sleep. Meds given prior to session. [id number]: Pt seen in bed, states no pain. States desire to shave this am. Mental Status/Objective Patient Orientation: Normal For Age Attachments: Bassett Catheter (first session, no longer 2nd session) ADL-Treatment Therapy Code Descriptions/Definitions Functional [place] Measure: 0=Not Assessed/NA 4=Minimal Assistance 1=Total Assistance 5=Supervision or Setup 2=Maximal Assistance 6=Modified [place] 3=Moderate Assistance 7=Complete IndependenceSCALE: Activities may be completed with or without assistive devices. 7-Sbtdrtsjyw-kwktjfy completes the activity by him/herself with no assistance from a helper. 5-Set-up or Clean-up Assistance-helper sets up or cleans up; patient completes activity. [place] assists only prior to or following the activity. 4-Supervision or Touching Assistance-helper provides verbal cues and/or touching/steadying and/or contact guard assistance as patient completes activity. Assistance may be provided throughout the activity or intermittently. 3-Partial/Moderate Assistance-helper does LESS THAN HALF the effort. [place] lifts, holds or supports trunk or limbs, but provides less than half the effort. 2-Substantial/Maximal Assistance-helper does MORE THAN HALF the effort. [place] lifts or holds trunk or limbs and provides more than half the effort. 4-Mytbvcslv-hlkxmn does ALL the effort. Patient does none of the effort to complete the activity. Or, the assistance of 2 or more helpers is required for the patient to complete the activity. If activity was not attempted, code reason: 7-Patient Refused. 9-Not Applicable-not attempted and the patient did not perform the activity before the current illness, exacerbation or injury. 10-Not Attempted due to Environmental Limitations-(lack of equipment, weather restraints, etc.). 88-Not Attempted due to Medical Conditions or Safety Concerns. Eating (QC): 6 (finished breakfast prior to session per pt. ) Oral Hygiene (QC): 7 (denies at the moment) Shower/Bathe Self (QC): 3 (Pt compeltes on commode within the shower. Pt able to reach all areas with LHS, requires additional assist with bottom hygiene due to BM prior to showering. ) Upper Body Dressing (QC): 5 (s/u) Lower Body Dressing (QC): 3 (Pt requires assist with LB dressing with threading catheter and bringing breifs past feet.) Toileting Hygiene (QC): 3 (Requires mod A for thoroughness of BM) Toilet Transfer (QC): 3 (Mod A for sit to stand from standard toilet with use of grab bars.) Other Treatment [id number]: Pt completes ADLs within room and returns to bed, bed mob with min A for LE movements. Pt reclines in bed, all needs met, call light in reach. 3668-3978: Bassett cath no longer present. Pt completes bed mob supine to sit with cues for correct log rolling techniques. Dons back brace with IND. Completes sit to stand to FWW and sit in w/c with CGA. Pt pushes chair to sink with IND, completes shaving task with IND. Pt pushed in w/c to therapy gym, completes UE exercises with 3# weights. Pt completes back flies with one arm at a time, shoulder int/ ext rotations, and wrist flexion/ ext exercises at 15 reps, 1 set. Pt returns to room, requests to lay down in bed. Pt completes bed mob with min A for LE [id number], sits reclined, call light in reach, all needs met. Education OT Patient Education: Correct positioning, Modified ADL techniques, Reviewed precautions, Safety issues, Transfer techniques, Use of adapted equipment Teaching Recipient: Patient Teaching Methods: Demonstration, Discussion Response to Teaching: Verbalize Understanding, Return Demonstration OT Short Term Goals Short Term Goals Time Frame: Jan 22, 2019 Eatin Oral hygiene: 5 Toileting hygiene: 4 Shower/bathe self: 4 Upper body dressin Lower body dressin Putting on/taking off footwear: 4 OT It Audit Manager Goals It Audit Manager Goals Time Frame: Jan 29, 2019 Eating (QC): 6 Oral Hygiene (QC): 6 Toileting Hygiene (QC): 6 Shower/Bathe Self (QC): 5 Upper Body Dressing (QC): 6 Lower Body Dressing (QC): 6 On/Off Footwear (QC): 6 Additional Goals: 1-Demonstrate ADL Tasks, 2-Verbalize Understanding, 3- ImproveStrength/Xander 1=Demonstrate adherence to instructed precautions during ADL tasks. 2=Patient will verbalize/demonstrate understanding of assistive devic es/modifications for ADL. 3=Patient will improve strength/tolerance for activity to enable patient to perform ADL's. OT Education/Plan Problem List/Assessment Assessment: Decreased Activ Tolerance, Impaired Bed Mobility, Impaired Funct Balance, Impaired I ADL's, Impaired Self-Care Skills Discharge Recommendations Plan/Recommendations: Continue POC Treatment Plan/Plan of Care Treatment,Training & Education: Yes Patient would benefit from OT for education, treatment and training to promote independence in ADL's, mobility, safety and/or upper extremity function for ADL's. Plan of Care: ADL Retraining, Functional Mobility, Group Exercise/Act as Ind, UE Funct Exercise/Act Treatment Duration: Jan 29, 2019 Frequency: At least 5 of 7 days/Wk (IRF) Estimated Hrs Per Day: 1.5 hours per day Agreement: Yes Rehab Potential: Good Time/GCodes Start Time: 08:00 (2nd start time: 1100) Stop Time: 09:00 (2nd stop time: 1130) Total Time Billed (hr/min): 90 Billed Treatment Time [id number]: 1, ADL 4 (60) [id number]: 1, ADL, EX (30) CLARENCE BLAIR OTR Jan 20, 2019 10:36 POS
--- NOTE | 2019-01-20 10:57 | Physical Therapy Daily Note ---
PT Daily Note-Current Subjective Patient in bed pre tx, agrees to PT, has 8/10 pain and nurse notified and he got pain meds. Patient needs dressed lowers. He needs to have a BM, ambulates to the restroom, max assist for pants and wiping. Appearance Patient in bed post tx with nurse call, phone, tray, all needs met. Mental Status Patient Orientation: Person, Place, Situation back brace Transfers SCALE: Activities may be completed with or without assistive devices. 8-Lftndozqoo-epuqqxm completes the activity by him/herself with no assistance from a helper. 5-Set-up or Clean-up Assistance-helper sets up or cleans up; patient completes activity. [place] assists only prior to or following the activity. 4-Supervision or Touching Assistance-helper provides verbal cues and/or touching/steadying and/or contact guard assistance as patient completes activity. Assistance may be provided throughout the activity or intermittently. 3-Partial/Moderate Assistance-helper does LESS THAN HALF the effort. [place] lifts, holds or supports trunk or limbs, but provides less than half the effort. 2-Substantial/Maximal Assistance-helper does MORE THAN HALF the effort. [place] lifts or holds trunk or limbs and provides more than half the effort. 2-Sgjlamcya-shemql does ALL the effort. Patient does none of the effort to complete the activity. Or, the assistance of 2 or more helpers is required for the patient to complete the activity. If activity was not attempted, code reason: 7-Patient Refused. 9-Not Applicable-not attempted and the patient did not perform the activity before the current illness, exacerbation or injury. 10-Not Attempted due to Environmental Limitations-(lack of equipment, weather restraints, etc.). 88-Not Attempted due to Medical Conditions or Safety Concerns. Roll Left & Right (QC): 4 Sit to Lying (QC): 3 Sit to Stand (QC): 4 Chair/Rtk-ux-Lnnxa Xfer(QC): 4 Toilet Transfer (QC): 4 occasional cues for hand placement and safety Gait Training Distance: 100', 50' Walk 10 feet (QC): 4 Walk 50 ft with 2 Turns(QC): 4 Gait Assistive Device: FWW CGA, slow and uncoordinated stepping Wheelchair Training Does the Pt Use a Wheelchair?: Yes Wheel 50 ft with 2 turns (QC): 4 Type of Wheelchair: Manual 150' SBA Exercises NuStep Minutes: 12 NuStep Workload: 5 Treatments bed mobility and transfers, ambulation, LE exercise, toileting, dressing Assessment Current Status: Fair Progress improving ambulation and transfers, however he had a harder time today due to pain PT Short Term Goals Short Term Goals Time Frame: Jan 22, 2019 Sit to lyin (Cassie) Lying to sitting on side of be: 3 (Cassie) Sit to stand: 4 (CGA) Walk 10 feet: 3 (Cassie) PT Mcfp Goals Mail Clerk Bills Goals PT Mail Clerk Bills Goals Time Frame: Feb 05, 2019 Roll Left & Right (QC): 6 Sit to Lying (QC): 6 Lying-Sitting on Side/Bed(QC): 6 Sit to Stand (QC): 6 Chair/Wyg-bb-Kodqz Xfer(QC): 6 Toilet Transfer (QC): 6 Car Transfer (QC): 6 Does the Patient Walk: Yes Walk 10 feet (QC): 4 (CGA) Walk 50ft with 2 Turns (QC): 4 (CGA) Walk 150 ft (QC): 88 Walking 10ft on Uneven Surface: 4 (CGA) 1 Step (curb) (QC): 4 (CGA) 4 Steps (QC): 9 12 Steps (QC): 9 Picking up an Object (QC): 88 Does the Pt use WC or Scooter?: Yes Wheel 50 feet with 2 turns (QC: 6 Type: Manual Wheel 150 feet: 6 Type: Manual PT Plan Problem List Problem List: Activity Tolerance, Functional Strength, Safety, Balance, Gait, Transfer, Bed Mobility, ROM Treatment/Plan Treatment Plan: Continue Plan of Care Treatment Plan: Bed Mobility, Concurrent Therapy, Education, Functional Activity Xander, Functional Strength, Group Therapy, Gait, Safety, Therapeutic Exercise, Transfers Treatment Duration: Feb 05, 2019 Frequency: At least 5 of 7 days/Wk (IRF) Estimated Hrs Per Day: 1.5 hours per day Patient and/or Family Agrees t: Yes Safety Risks/Education Patient Education: Gait Training, Transfer Techniques, Correct Positioning, W/C Management, Reviewed Don/Doff Brace, Safety Issues Teaching Recipient: Patient Teaching Methods: Demonstration, Discussion Response to Teaching: Reinforcement Needed Time/GCodes Time In: 1000 Time Out: 1100 Total Billed Treatment Time: 60 Total Billed Treatment 1 visit EX 12' FA 48' IRENE MARTIN PT Jan 20, 2019 10:57 POS
--- NOTE | 2019-01-20 13:26 | Physical Therapy Daily Note ---
PT Daily Note-Current Subjective Patient in bed pre tx, agrees to PT, has 7/10 pain in back. Appearance Patient in recliner post tx with nurse call, phone, tray, in room. Mental Status Patient Orientation: Normal For Age back brace Transfers SCALE: Activities may be completed with or without assistive devices. 0-Xboxcdazmr-jitjrwc completes the activity by him/herself with no assistance from a helper. 5-Set-up or Clean-up Assistance-helper sets up or cleans up; patient completes activity. [place] assists only prior to or following the activity. 4-Supervision or Touching Assistance-helper provides verbal cues and/or touching/steadying and/or contact guard assistance as patient completes activity. Assistance may be provided throughout the activity or intermittently. 3-Partial/Moderate Assistance-helper does LESS THAN HALF the effort. [place] lifts, holds or supports trunk or limbs, but provides less than half the effort. 2-Substantial/Maximal Assistance-helper does MORE THAN HALF the effort. [place] l ifts or holds trunk or limbs and provides more than half the effort. 2-Bjsokjwrg-fwwiij does ALL the effort. Patient does none of the effort to complete the activity. Or, the assistance of 2 or more helpers is required for the patient to complete the activity. If activity was not attempted, code reason: 7-Patient Refused. 9-Not Applicable-not attempted and the patient did not perform the activity before the current illness, exacerbation or injury. 10-Not Attempted due to Environmental Limitations-(lack of equipment, weather restraints, etc.). 88-Not Attempted due to Medical Conditions or Safety Concerns. Roll Left & Right (QC): 3 Lying to Sitting/Side of Bed(Q: 3 Sit to Stand (QC): 4 Chair/Ffg-py-Lnvlk Xfer(QC): 4 Toilet Transfer (QC): 4 After coming back to his room, patient needs to use the restroom to try to have a BM, needs max assist with pants and wiping. Gait Training Distance: 150'x2 Walk 10 feet (QC): 4 Walk 50 ft with 2 Turns(QC): 4 Walk 150 ft (QC): 4 Gait Assistive Device: FWW CGA, slow, antalgic, uncoordinated steps, some scissoring, leans heavily on walker Treatments ambulation, bed mobility and transfers, toileting Assessment Current Status: Fair Progress improving ambulation PT Short Term Goals Short Term Goals Time Frame: Jan 22, 2019 Sit to lyin (Cassie) Lying to sitting on side of be: 3 (Cassie) Sit to stand: 4 (CGA) Walk 10 feet: 3 (Cassie) PT Periodontal Assistant Goals Periodontal Assistant Goals PT Periodontal Assistant Goals Time Frame: Feb 05, 2019 Roll Left & Right (QC): 6 Sit to Lying (QC): 6 Lying-Sitting on Side/Bed(QC): 6 Sit to Stand (QC): 6 Chair/Jdk-uz-Cncoe Xfer(QC): 6 Toilet Transfer (QC): 6 Car Transfer (QC): 6 Does the Patient Walk: Yes Walk 10 feet (QC): 4 (CGA) Walk 50ft with 2 Turns (QC): 4 (CGA) Walk 150 ft (QC): 88 Walking 10ft on Uneven Surface: 4 (CGA) 1 Step (curb) (QC): 4 (CGA) 4 Steps (QC): 9 12 Steps (QC): 9 Picking up an Object (QC): 88 Does the Pt use WC or Scooter?: Yes Wheel 50 feet with 2 turns (QC: 6 Type: Manual Wheel 150 feet: 6 Type: Manual PT Plan Problem List Problem List: Activity Tolerance, Functional Strength, Safety, Balance, Gait, Transfer, Bed Mobility, ROM Treatment/Plan Treatment Plan: Continue Plan of Care Treatment Plan: Bed Mobility, Concurrent Therapy, Education, Functional Activity Xander, Functional Strength, Group Therapy, Gait, Safety, Therapeutic Exercise, Transfers Treatment Duration: Feb 05, 2019 Frequency: At least 5 of 7 days/Wk (IRF) Estimated Hrs Per Day: 1.5 hours per day Patient and/or Family Agrees t: Yes Safety Risks/Education Patient Education: Gait Training, Transfer Techniques, Correct Positioning, Reviewed Don/Doff Brace, Safety Issues Teaching Recipient: Patient Teaching Methods: Demonstration, Discussion Response to Teaching: Reinforcement Needed Time/GCodes Time In: 1300 Time Out: 1330 Total Billed Treatment Time: 30 Total Billed Treatment 1 visit GT 20' FA 10' IRENE MARTIN PT Jan 20, 2019 13:26 POS
[2019-01-20 15:50] VITALS: BP 117/72
[2019-01-20] MEDS: TAMSULOSIN 0.4 MG (FLOMAX) CAP PO SCH (18:20)
[2019-01-21] MEDS: oxyCODONE/APAP 5/325MG (PERCOCET 5) TABLET PO PRN ×3 (02:59→17:05)
[2019-01-21 05:13] VITALS: BP 138/74
[2019-01-21] MEDS: LEVOTHYROXINE 25 MCG (LEVOTHROID) TAB PO SCH (06:30)
[2019-01-21] MEDS: KCL 10 MEQ TAB (MICRO K) PO SCH (06:30)
--- NOTE | 2019-01-21 06:49 | Progress Note ---
[facility] 01/21/19 0649: Progress Note Time: 0750 Subjective: Patient reports feeling better and heading in the right direction Patient does have pain rated 7 or 8 out of 10 Patient denies pain on urination Patient still passing sánchez Cystoscopy post-op diagnosis - urinary retention. Patient reports improvement in urination Objective: General: Alert and Oriented x3, no acute distress, W/N, W/D, Pleasant, Good mood CV: RRR, no murmurs, Radial pulses 2/4 bilaterally, edema decreased. Resp: CTAB, No respiratory distress, no accessory muscle use, Chest nontender GI: Soft, non distended, non tender Assessment: S/P lumbar fusion Post op ileus resolved Urinary retention Resolved, post op pain Plan: Continue pain management Continue laxatives Discharge. Unsure of discharge date. Will be discharged at home with spouse. Patient needs more time. CHLOE FOX DO 01/21/197: Supervisory-Addendum Brief Verification & Attestation Participated in pt care: history, MDM, physical Personally performed: exam, history, MDM, supervision of care Care discussed with: Medical Student Procedures: n/a Results interpretation: Verified all documentation Verification and Attestation of Medical Student E/M Service A medical student performed and documented this service in my presence. I reviewed and verified all information documented by the medical student and made modifications to such information, when appropriate. I personally performed the physical exam and medical decision making. Chloe Fox, Jan 21, 2019,21:07 [facility] Jan 21, 2019 06:49 CHLOE JOHNSTON DO Jan 21, 2019 21:07 POS
[2019-01-21] MEDS: VITAMIN D3 1,000 UNITS (CHOLECALCIFEROL) TABLET PO SCH ×2 (08:31→21:17)
[2019-01-21] MEDS: GABAPENTIN 400 MG (NEURONTIN) CAP PO SCH ×3 (08:32→21:18)
[2019-01-21] MEDS: DOCUSATE SODIUM 100 MG (COLACE) CAP PO SCH ×2 (08:32→21:17)
[2019-01-21] MEDS: BACLOFEN 10 MG (LIORESAL) TAB PO PRN ×2 (08:32→21:20)
[2019-01-21] MEDS: SENNA W/DOCUSATE (SENOKOT S) TABLET PO SCH ×2 (08:32→21:17)
[2019-01-21] MEDS: POLYETHYLENE GLYCOL 17 GM (MIRALAX) PACK PO SCH ×2 (09:00→11:26)
--- NOTE | 2019-01-21 09:19 | Progress Note - Urology ---
Progress Note-Urology Progress Notes/Assess & Plan Progress/Assessment & Plan VOIDING WELL. PVR 22CC. WE WILL SEE PRN Final Diagnosis URINE RETENTION HIPOLITO BOWENS MD Jan 21, 2019 09:19 POS
--- NOTE | 2019-01-21 09:55 | PM&R Progress Note ---
Subjective HPI/CC On Admission Date Seen by Provider: Jan 21, 2019 Time Seen by Provider: 08:45 Subjective/Events-last exam Pt voiding well without catheter now after cystectomy and espinosa catheter discontinuation after cystectomy Hip pain is significant probably due to walking differently after surgery Voltaren gel and K pad will be started Will recheck him since he had made major improvements Percocet and Ultram seem to be helping Reviewed labs Review therapy notes Checked meds and labs Review of Systems General: Fatigue Musculoskeletal: back pain, leg pain Objective Exam Vital Signs Vital Signs Date Time Temp Pulse Resp B/P (MAP) Pulse Ox O2 Delivery O2 Flow Rate FiO2 01/21/19 18:23 37.8 63 18 106/65 (79) 98 Room Air Capillary Refill : General Appearance: No Apparent Distress, WD/WN, Chronically ill, Obese HEENT: PERRL/EOMI, Normal ENT Inspection, Pharynx Normal Neck: Full Range of Motion, Normal Inspection, Non Tender, Supple Respiratory: Chest Non Tender, Lungs Clear, Normal Breath Sounds, No Accessory Muscle Use, No Respiratory Distress Cardiovascular: Regular Rate, Rhythm, No Edema, No Gallop, No JVD, No Murmur Gastrointestinal: Normal Bowel Sounds, No Organomegaly, No Pulsatile Mass, Non Tender, Soft Back: Decreased Range of Motion Extremity: Normal Capillary Refill, Normal Inspection, Normal Range of Motion (decreased ROM legs), Non Tender, No Calf Tenderness, Pedal Edema Neurologic/Psychiatric: Alert, Oriented x3, Normal Mood/Affect, hitting coach II-XII Norm as Tested, Motor Weakness (leg weakness right greater than left 3/5) Skin: Normal Color, Warm/Dry, Tattoos/Piercings (multiple tattoos on his arms) Lymphatic: No Adenopathy Results/Procedures Lab Patient resulted labs reviewed. FIM Transfers Therapy Code Descriptions/Definitions Functional [place] Measure: 0=Not Assessed/NA 4=Minimal Assistance 1=Total Assistance 5=Supervision or Setup 2=Maximal Assistance 6=Modified [place] 3=Moderate Assistance 7=Complete IndependenceSCALE: Activities may be completed with or without assistive devices. 2-Qcrdhgqcys-eoqxzvc completes the activity by him/herself with no assistance from a helper. 5-Set-up or Clean-up Assistance-helper sets up or cleans up; patient completes activity. [place] assists only prior to or following the activity. 4-Supervision or Touching Assistance-helper provides verbal cues and/or touching/steadying and/or contact guard assistance as patient completes activity. Assistance may be provided throughout the activity or intermittently. 3-Partial/Moderate Assistance-helper does LESS THAN HALF the effort. [place] lifts, holds or supports trunk or limbs, but provides less than half the effort. 2-Substantial/Maximal Assistance-helper does MORE THAN HALF the effort. [place] lifts or holds trunk or limbs and provides more than half the effort. 7-Hzcxkcbto-rtynlw does ALL the effort. Patient does none of the effort to complete the activity. Or, the assistance of 2 or more helpers is required for the patient to complete the activity. If activity was not attempted, code reason: 7-Patient Refused. 9-Not Applicable-not attempted and the patient did not perform the activity before the current illness, exacerbation or injury. 10-Not Attempted due to Environmental Limitations-(lack of equipment, weather restraints, etc.). 88-Not Attempted due to Medical Conditions or Safety Concerns. Roll Left to Right (QC): 3 Sit to Lying (QC): 3 Sit to Stand (QC): 4 Chair/Grg-rv-Lgdgw Xfer(QC): 4 Car Transfer (QC): 3 (modA) Gait Training Does the Patient Walk?: Yes Distance: 150'x2 Walk 10 feet (QC): 4 Walk 50 ft with 2 Turns(QC): 4 Walk 150 ft (QC): 4 Walking 10ft/uneven surface-QC: 88 Gait Persons Needed: 1 Gait Assistive Device: FWW Wheelchair Training Does the Pt Use a Wheelchair?: Yes Distance: 150'x2 Wheel 50 ft with 2 turns (QC): 4 Wheel 150 ft (QC): 5 Type of Wheelchair: Manual Stair Training 1 Step (curb) (QC): 88 4 Steps (QC): 88 12 Steps (QC): 88 Balance Picking up an Object (QC): 88 ADL-Treatment Eating (QC): 6 (finished breakfast prior to session per pt. ) Oral Hygiene (QC): 7 (denies at the moment) Shower/Bathe Self (QC): 3 (Pt compeltes on commode within the shower. Pt able to reach all areas with LHS, requires additional assist with bottom hygiene due to BM prior to showering. ) Upper Body Dressing (QC): 5 (s/u) Lower Body Dressing (QC): 3 (Pt requires assist with LB dressing with threading catheter and bringing breifs past feet.) On/Off Footwear (QC): 2 Toileting Hygiene (QC): 3 (Requires mod A for thoroughness of BM) Toilet Transfer (QC): 3 (Mod A for sit to stand from standard toilet with use of grab bars.) Assessment/Plan Assessment and Plan Assess & Plan/Chief Complaint Assessment: Lumbar spine status post extensive surgery Postop ileus now resolved after SSE Urinary retention requiring Espinosa catheter and urology consultation Severe neuropathy Hypothyroidism Chronic pain Hip and back pain Plan: Bowel regimen maintained Pain control Home meds Urology is appreciated also Inpatient rehabilitation protocol Cath DC after cystoscopy 2 days ago Dramatic improvement in his overall status Kpad and Voltaren gel prn to hip (1) S/P lumbar fusion (2) Hypothyroidism (3) Urinary retention (4) Espinosa catheter in place (5) Constipation (6) Neuropathy (7) Ileus KEVIN FOX DO Jan 21, 2019 09:55 POS
--- NOTE | 2019-01-21 10:07 | Occupational Ther Daily Note ---
OT Current Status-Daily Note Subjective Pt seen supine in bed, breakfast completed. Pt states minimal pain in pelvis, states he has been working a lot of different mm and been working on posture. Pt agreeable to OT tx session. Mental Status/Objective Patient Orientation: Normal For Age ADL-Treatment Therapy Code Descriptions/Definitions Functional [place] Measure: 0=Not Assessed/NA 4=Minimal Assistance 1=Total Assistance 5=Supervision or Setup 2=Maximal Assistance 6=Modified [place] 3=Moderate Assistance 7=Complete IndependenceSCALE: Activities may be completed with or without assistive devices. 1-Eduqxxlopm-bxmfrzj completes the activity by him/herself with no assistance from a helper. 5-Set-up or Clean-up Assistance-helper sets up or cleans up; patient completes activity. [place] assists only prior to or following the activity. 4-Supervision or Touching Assistance-helper provides verbal cues and/or touching/steadying and/or contact guard assistance as patient completes activity. Assistance may be provided throughout the activity or intermittently. 3-Partial/Moderate Assistance-helper does LESS THAN HALF the effort. [place] lifts, holds or supports trunk or limbs, but provides less than half the effort. 2-Substantial/Maximal Assistance-helper does MORE THAN HALF the effort. [place] lifts or holds trunk or limbs and provides more than half the effort. 8-Ullqjlqvz-qllhkb does ALL the effort. Patient does none of the effort to complete the activity. Or, the assistance of 2 or more helpers is required for the patient to complete the activity. If activity was not attempted, code reason: 7-Patient Refused. 9-Not Applicable-not attempted and the patient did not perform the activity before the current illness, exacerbation or injury. 10-Not Attempted due to Environmental Limitations-(lack of equipment, weather restraints, etc.). 88-Not Attempted due to Medical Conditions or Safety Concerns. Eating (QC): 6 Oral Hygiene (QC): 6 (completes while seated in w/c.) Shower/Bathe Self (QC): 7 Upper Body Dressing (QC): 5 (s/u. pt able to don/ doff shirt and back brace with items handed to pt) Lower Body Dressing (QC): 4 (CGA in stance (pants)) Toileting Hygiene (QC): 2 (Pt requires assist with wiping after attempted BM) Toilet Transfer (QC): 3 (min A from commode to stand, utilization of grab bars.) on/off footwear: 6- use of sock aide. Other Treatment Pt completes ADLs in room, dressing EOB and oral hygiene in w/c in front of mirror. Pt completes with c/o pain after attempted BM, states pain in pelvis. Pt returns to sit in recliner chair, completes PROM to full range/ AAROM up wall and use of other UE/ AROM of LUE to warm up for theraband exercises. Pt comple ira 10 sets of back flies, bicep curls, triceps, and shoulder flexion/ scaption exercises while seated in recliner chair. pt demonstrates ability to complete with min verbal/ gestural cues. Pt remains in recliner chair, call light in reach, all needs met. Education OT Patient Education: Correct positioning, Exercise program, Home exercise program, Modified ADL techniques, Purpose of tx/functional activities, Reviewed precautions, Safety issues, Use of adapted equipment Teaching Recipient: Patient Teaching Methods: Demonstration, Discussion Response to Teaching: Verbalize Understanding, Return Demonstration OT Short Term Goals Short Term Goals Time Frame: Jan 22, 2019 Eatin (met) Oral hygiene: 5 (met) Toileting hygiene: 4 Shower/bathe self: 4 Upper body dressin Lower body dressin Putting on/taking off footwear: 4 OT Fpc Goals Fpc Goals Time Frame: Jan 29, 2019 Eating (QC): 6 (met) Oral Hygiene (QC): 6 (met) Toileting Hygiene (QC): 6 Shower/Bathe Self (QC): 5 Upper Body Dressing (QC): 6 Lower Body Dressing (QC): 6 On/Off Footwear (QC): 6 (met) Additional Goals: 1-Demonstrate ADL Tasks, 2-Verbalize Understanding, 3- ImproveStrength/Xander 1=Demonstrate adherence to instructed precautions during ADL tasks. 2=Patient will verbalize/demonstrate understanding of assistive devices/modifications for ADL. 3=Patient will improve strength/tolerance for activity to enable patient to perform ADL's. OT Education/Plan Problem List/Assessment Assessment: Decreased Activ Tolerance, Dependent Transfers, Impaired Funct Balance, Impaired I ADL's, Impaired Self-Care Skills Discharge Recommendations Plan/Recommendations: Continue POC Equpiment Recommendations-D/C: Records Clerk, Sock Aide Treatment Plan/Plan of Care Treatment,Training & Education: Yes Patient would benefit from OT for education, treatment and training to promote independence in ADL's, mobility, safety and/or upper extremity function for ADL's. Plan of Care: ADL Retraining, Functional Mobility, Group Exercise/Act as Ind, UE Funct Exercise/Act Treatment Duration: Jan 29, 2019 Frequency: At least 5 of 7 days/Wk (IRF) Estimated Hrs Per Day: 1.5 hours per day Agreement: Yes Rehab Potential: Good Time/GCodes Start Time: 08:00 Stop Time: 09:00 Total Time Billed (hr/min): 60 Billed Treatment Time 1, ADL 3 (45), EX (15)=60 CLARENCE BLAIR OTR Jan 21, 2019 10:07 POS
--- NOTE | 2019-01-21 11:03 | Physical Therapy Daily Note ---
PT Daily Note-Current Subjective Pt. agrees to Rx. C/o he is having pain in his pelvis and down his leg today maranda with gait and weight bearing. Pt. had difficulty and could not get all the way back to the room after the Rx and needed to w/c back Pain Numeric Pain Scale: 4 Location: Left Location Body Site: Hip Pain Description: Stabbing Mental Status Patient Orientation: Normal For Age Transfers SCALE: Activities may be completed with or without assistive devices. 1-Ouppzxmywz-vynlnao completes the activity by him/herself with no assistance from a helper. 5-Set-up or Clean-up Assistance-helper sets up or cleans up; patient completes activity. [place] assists only prior to or following the activity. 4-Supervision or Touching Assistance-helper provides verbal cues and/or touching/steadying and/or contact guard assistance as patient completes activity. Assistance may be provided throughout the activity or intermittently. 3-Partial/Moderate Assistance-helper does LESS THAN HALF the effort. [place] lifts, holds or supports trunk or limbs, but provides less than half the effort. 2-Substantial/Maximal Assistance-helper does MORE THAN HALF the effort. [place] lifts or holds trunk or limbs and provides more than half the effort. 1-Auegrlglr-txenlf does ALL the effort. Patient does none of the effort to complete the activity. Or, the assistance of 2 or more helpers is required for the patient to complete the activity. If activity was not attempted, code reason: 7-Patient Refused. 9-Not Applicable-not attempted and the patient did not perform the activity before the current illness, exacerbation or injury. 10-Not Attempted due to Environmental Limitations-(lack of equipment, weather restraints, etc.). 88-Not Attempted due to Medical Conditions or Safety Concerns. Roll Left & Right (QC): 5 Sit to Lying (QC): 4 Lying to Sitting/Side of Bed(Q: 4 Sit to Stand (QC): 5 Chair/Qjw-gh-Xhmiu Xfer(QC): 4 Toilet Transfer (QC): 4 emphasis on sit to sup log roll and safety Gait Training Does the Patient Walk?: Yes Walk 10 feet (QC): 4 Walk 50 ft with 2 Turns(QC): 4 Walk 150 ft (QC): 3 Gait Persons Needed: 1 Gait Assistive Device: FWW Pt. with antalgic gait and narrow CONI and crossovers at times with noted instability at times as pt. suddenly drops and needs assist to prevent fall and w/ was needed Wheelchair Training Does the Pt Use a Wheelchair?: Yes Wheel 50 ft with 2 turns (QC): 5 Exercises Supine Ex: Bridging, Ankle pumps, Quad Set, Rolling, Glut sets, Heel Slides, Scooting (ssist), Hip abd/add Supine Reps: 15 Seated Therapy Exercises: Ankle pumps, Sit to stand, Chair press-ups, Hip flexion Seated Reps: 15 NuStep Minutes: 10 NuStep Workload: 5 Treatments on toilet after Rx with assist for pants down Assessment Current Status: Good Progress limited gait this date by pain that suddenly causes pt. to lose strength and control in LEs and have dropping episode requiring him to sit quickly PT Short Term Goals Short Term Goals Time Frame: Jan 22, 2019 Sit to lyin (Cassie) Lying to sitting on side of be: 3 (Cassie) Sit to stand: 4 (CGA) Walk 10 feet: 3 (Cassie) PT Correction Goals Correction Goals PT Correction Goals Time Frame: Feb 05, 2019 Roll Left & Right (QC): 6 Sit to Lying (QC): 6 Lying-Sitting on Side/Bed(QC): 6 Sit to Stand (QC): 6 Chair/Swg-uh-Hgimu Xfer(QC): 6 Toilet Transfer (QC): 6 Car Transfer (QC): 6 Does the Patient Walk: Yes Walk 10 feet (QC): 4 (CGA) Walk 50ft with 2 Turns (QC): 4 (CGA) Walk 150 ft (QC): 88 Walking 10ft on Uneven Surface: 4 (CGA) 1 Step (curb) (QC): 4 (CGA) 4 Steps (QC): 9 12 Steps (QC): 9 Picking up an Object (QC): 88 Does the Pt use WC or Scooter?: Yes Wheel 50 feet with 2 turns (QC: 6 Type: Manual Wheel 150 feet: 6 Type: Manual PT Plan Treatment/Plan Treatment Plan: Continue Plan of Care Treatment Plan: Bed Mobility, Concurrent Therapy, Education, Functional Activity Xander, Functional Strength, Group Therapy, Gait, Safety, Therapeutic Exercise, Transfers Treatment Duration: Feb 05, 2019 Frequency: At least 5 of 7 days/Wk (IRF) Estimated Hrs Per Day: 1.5 hours per day Patient and/or Family Agrees t: Yes Safety Risks/Education Patient Education: Gait Training, Transfer Techniques, Correct Positioning, Disease Process, Safety Issues Teaching Recipient: Patient Teaching Methods: Demonstration, Discussion Response to Teaching: Verbalize Understanding, Return Demonstration, Reinforcement Needed Time/GCodes Time In: 1000 Time Out: 1100 Total Billed Treatment Time: 60 Total Billed Treatment 1,EX30m,Gt15m,FA15m ADALBERTO [place]A [place] COUNCILMAN Jan 21, 2019 11:03 POS
--- NOTE | 2019-01-21 14:43 | Therapy Group Daily Note ---
Therapy Daily Group Note Patient Education Topic Other List Below (transfers) Exercises LE Seated Exercise, UE Exercise Session Ratio (pt:therapist): 4:1 Goal of Session: UE/LE Strengthing, Safety with Transfers Goal Met for this Session: Yes Pt Benefit of Group: Contributions to Others, F/U Use of Strategies @Home, Increased Functional Safety, Increased Functional Strength, Improved Cognition, Recognition of Peers, Socialization Other/Notes Pt maneuvered w/c to <--> from [facility] for OT/PT group. Group consisted of introductions (name, place living, [place] memory), socialization, pt led UE/LE seated exercises and education for safe transfers. Pt introduced self appropriately and actively listened to peers. 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 Pt able to read exercise card and lead peers in one exercise then was able to complete other exercises. Pt acknowledged understanding of safe transfers utilizing AE for bathroom, automobile and chairs by contributing ideas and own experiences. After therapy, pt lying in bed with call light/phone in reach. All needs met in room. Start Time: 13:00 Stop Time: 14:15 Total Billed Treatment Time: 75 Total Billed Treatment 1-GRP ASHER DRIVER Jan 21, 2019 14:43 POS
--- NOTE | 2019-01-21 15:02 | NUR ---
Weekly Team Conference Met with patient to review rehab team conference summary, he is in agreement to a continued stay with next review 01/28/19. Continue intermittent assessment of patient LOF and needs relative to post hospital care plan.
[2019-01-21] MEDS: TAMSULOSIN 0.4 MG (FLOMAX) CAP PO SCH (17:04)
[2019-01-21 18:23] VITALS: BP 106/65
[2019-01-22] MEDS: oxyCODONE/APAP 5/325MG (PERCOCET 5) TABLET PO PRN ×4 (01:58→23:56)
[2019-01-22 06:13] VITALS: BP 113/57
[2019-01-22] MEDS: LEVOTHYROXINE 25 MCG (LEVOTHROID) TAB PO SCH (06:45)
[2019-01-22] MEDS: KCL 10 MEQ TAB (MICRO K) PO SCH (06:45)
--- NOTE | 2019-01-22 08:30 | NUR ---
DR. FOX NOTIFIED OF INTERMITTENT FEVERS. LAB WORK, UA, AND I.S. ORDERED.
[2019-01-22] MEDS: VITAMIN D3 1,000 UNITS (CHOLECALCIFEROL) TABLET PO SCH ×2 (08:52→21:26)
[2019-01-22] MEDS: GABAPENTIN 400 MG (NEURONTIN) CAP PO SCH ×3 (08:52→21:26)
[2019-01-22] MEDS: SENNA W/DOCUSATE (SENOKOT S) TABLET PO SCH ×2 (08:53→21:39)
[2019-01-22] MEDS: DOCUSATE SODIUM 100 MG (COLACE) CAP PO SCH ×2 (08:53→21:39)
[2019-01-22] MEDS: POLYETHYLENE GLYCOL 17 GM (MIRALAX) PACK PO SCH ×2 (08:53→21:39)
[2019-01-22 09:25] LABS: HEMOGLOBIN 11.2 G/DL (13.3-17.7); RED CELL DISTRIBUTION WIDTH 13.1 % (10.0-14.5); WHITE BLOOD COUNT 7.2 10^3/uL (4.3-11.0)
--- NOTE | 2019-01-22 09:37 | PM&R Progress Note ---
Subjective HPI/CC On Admission Date Seen by Provider: Jan 22, 2019 Time Seen by Provider: 08:30 Subjective/Events-last exam Pt voiding well but doesn't feel well. Occasional incontinence since the espinosa was removed. Will wrap legs with wide ivan wraps since they weren't wrapped yesterday. Has had an isolated fever and he just doesn't feel right so will check labs including a UA. Using IS of which he didn't really use much yesterday. Reviewed labs Review therapy notes Checked meds and labs Review of Systems General: Fatigue Musculoskeletal: back pain, leg pain Neurological: Weakness, Numbness, Incoordination Objective Exam Vital Signs Vital Signs Date Time Temp Pulse Resp B/P (MAP) Pulse Ox O2 Delivery O2 Flow Rate FiO2 01/23/19 18:36 37.8 80 20 129/76 (93) 97 Room Air Capillary Refill : General Appearance: No Apparent Distress, WD/WN, Chronically ill, Obese HEENT: PERRL/EOMI, Normal ENT Inspection, Pharynx Normal Neck: Full Range of Motion, Normal Inspection, Non Tender, Supple Respiratory: Chest Non Tender, Lungs Clear, Normal Breath Sounds, No Accessory Muscle Use, No Respiratory Distress Cardiovascular: Regular Rate, Rhythm, No Edema, No Gallop, No JVD, No Murmur Gastrointestinal: Normal Bowel Sounds, No Organomegaly, No Pulsatile Mass, Non Tender, Soft Back: Decreased Range of Motion Extremity: Normal Capillary Refill, Normal Inspection, Normal Range of Motion (decreased ROM legs), Non Tender, No Calf Tenderness, Pedal Edema Neurologic/Psychiatric: Alert, Oriented x3, Normal Mood/Affect, hog raiser II-XII Norm as Tested, Motor Weakness (leg weakness right greater than left 3/5) Skin: Normal Color, Warm/Dry, Tattoos/Piercings (multiple tattoos on his arms) Lymphatic: No Adenopathy Results/Procedures Lab Patient resulted labs reviewed. FIM Transfers Therapy Code Descriptions/Definitions Functional [place] Measure: 0=Not Assessed/NA 4=Minimal Assistance 1=Total Assistance 5=Supervision or Setup 2=Maximal Assistance 6=Modified [place] 3=Moderate Assistance 7=Complete IndependenceSCALE: Activities may be completed with or without assistive devices. 6-Seqyzfjqnx-nznfopb completes the activity by him/herself with no assistance from a helper. 5-Set-up or Clean-up Assistance-helper sets up or cleans up; patient completes activity. [place] assists only prior to or following the activity. 4-Supervision or Touching Assistance-helper provides verbal cues and/or touching/steadying and/or contact guard assistance as patient completes activity. Assistance may be provided throughout the activity or intermittently. 3-Partial/Moderate Assistance-helper does LESS THAN HALF the effort. [place] lifts, holds or supports trunk or limbs, but provides less than half the effort. 2-Substantial/Maximal Assistance-helper does MORE THAN HALF the effort. [place] lifts or holds trunk or limbs and provides more than half the effort. 1-Blpxecmro-eapjah does ALL the effort. Patient does none of the effort to complete the activity. Or, the assistance of 2 or more helpers is required for the patient to complete the activity. If activity was not attempted, code reason: 7-Patient Refused. 9-Not Applicable-not attempted and the patient did not perform the activity b efore the current illness, exacerbation or injury. 10-Not Attempted due to Environmental Limitations-(lack of equipment, weather restraints, etc.). 88-Not Attempted due to Medical Conditions or Safety Concerns. Roll Left to Right (QC): 5 Sit to Lying (QC): 4 Sit to Stand (QC): 5 Chair/Zmj-ka-Aoagr Xfer(QC): 4 Car Transfer (QC): 3 (modA) Gait Training Does the Patient Walk?: Yes Distance: 150'x2 Walk 10 feet (QC): 4 Walk 50 ft with 2 Turns(QC): 4 Walk 150 ft (QC): 3 Walking 10ft/uneven surface-QC: 88 Gait Persons Needed: 1 Gait Assistive Device: FWW Wheelchair Training Does the Pt Use a Wheelchair?: Yes Distance: 150'x2 Wheel 50 ft with 2 turns (QC): 5 Wheel 150 ft (QC): 5 Type of Wheelchair: Manual Stair Training 1 Step (curb) (QC): 88 4 Steps (QC): 88 12 Steps (QC): 88 Balance Picking up an Object (QC): 88 ADL-Treatment Eating (QC): 6 Oral Hygiene (QC): 6 (completes while seated in w/c.) Shower/Bathe Self (QC): 7 Upper Body Dressing (QC): 5 (s/u. pt able to don/ doff shirt and back brace with items handed to pt) Lower Body Dressing (QC): 4 (CGA in stance (pants)) On/Off Footwear (QC): 2 Toileting Hygiene (QC): 2 (Pt requires assist with wiping after attempted BM) Toilet Transfer (QC): 3 (min A from commode to stand, utilization of grab bars.) Assessment/Plan Assessment and Plan Assess & Plan/Chief Complaint Assessment: Lumbar spine status post extensive surgery Postop ileus now resolved after SSE Urinary retention requiring Espinosa catheter and urology consultation Severe neuropathy Hypothyroidism Chronic pain Hip and back pain increasing Plan: Bowel regimen maintained Pain control Home meds Urology is appreciated also Inpatient rehabilitation protocol Cath DC after cystoscopy 2 days ago Dramatic improvement in his overall status Kpad and Voltaren gel prn to hip (1) S/P lumbar fusion (2) Hypothyroidism (3) Urinary retention (4) Espniosa catheter in place (5) Constipation (6) Neuropathy (7) Ileus KEVIN FOX DO Jan 22, 2019 09:37 POS
[2019-01-22 09:40] LABS: ALANINE AMINOTRANSFERASE 46 U/L (0-55); ALBUMIN 3.4 GM/DL (3.2-4.5); ALKALINE PHOSPHATASE 78 U/L (40-136); BILIRUBIN,TOTAL 0.5 MG/DL (0.1-1.0); BUN/CREATININE RATIO 16; CALCIUM 8.7 MG/DL (8.5-10.1); CARBON DIOXIDE 27 MMOL/L (21-32); CHLORIDE 100 MMOL/L (98-107); GFR ESTIMATED > 60; GLUCOSE 129 MG/DL (70-105); POTASSIUM 4.1 MMOL/L (3.6-5.0); SODIUM 137 MMOL/L (135-145); TOTAL PROTEIN 6.3 GM/DL (6.4-8.2)
--- NOTE | 2019-01-22 11:02 | Occupational Ther Daily Note ---
OT Current Status-Daily Note Subjective Pt seen in bed, agreeable to OT tx session though states "stiffness" of hip. Mental Status/Objective Patient Orientation: Normal For Age ADL-Treatment Therapy Code Descriptions/Definitions Functional [place] Measure: 0=Not Assessed/NA 4=Minimal Assistance 1=Total Assistance 5=Supervision or Setup 2=Maximal Assistance 6=Modified [place] 3=Moderate Assistance 7=Complete IndependenceSCALE: Activities may be completed with or without assistive devices. 2-Zidvrchqus-nqqtyzk completes the activity by him/herself with no assistance from a helper. 5-Set-up or Clean-up Assistance-helper sets up or cleans up; patient completes activity. [place] assists only prior to or following the activity. 4-Supervision or Touching Assistance-helper provides verbal cues and/or touching/steadying and/or contact guard assistance as patient completes activity. Assistance may be provided throughout the activity or intermittently. 3-Partial/Moderate Assistance-helper does LESS THAN HALF the effort. [place] lifts, holds or supports trunk or limbs, but provides less than half the effort. 2-Substantial/Maximal Assistance-helper does MORE THAN HALF the effort. [place] lifts or holds trunk or limbs and provides more than half the effort. 4-Hogrwzykl-ovhihn does ALL the effort. Patient does none of the effort to complete the activity. Or, the assistance of 2 or more helpers is required for the patient to complete the activity. If activity was not attempted, code reason: 7-Patient Refused. 9-Not Applicable-not attempted and the patient did not perform the activity before the current illness, exacerbation or injury. 10-Not Attempted due to Environmental Limitations-(lack of equipment, weather restraints, etc.). 88-Not Attempted due to Medical Conditions or Safety Concerns. Eating (QC): 6 Oral Hygiene (QC): 6 (completes while seated in w/c.) Shower/Bathe Self (QC): 4 (Pt completes on shower chair, no assist with showering on this date. Pt requires cues for utilization of semiconductor processing group leader to dry legs with towel and maintenance of back precautions while drying off.) Upper Body Dressing (QC): 5 (s/u) Lower Body Dressing (QC): 3 (Pt requires cues for use of semiconductor processing group leader for breif and pant donning. Pt requires assist with pulling up over hips due to fatigue.) Toileting Hygiene (QC): 4 (CGA in stance.) Toilet Transfer (QC): 4 (SBA) on/ off footwear: 4- intermittent assist and cues for use of sock aide and semiconductor processing group leader to line sock aide up. Pt requires cues at initiation for maintenance of back precautions. Other Treatment Pt completes bed mob with IND, sit to stand with CGA. Pt toilets and requests shower bench rather than commode in shower. Pt completes shower, dries with min A. Pt dresses brief/ sock / UB donning in shower, requires max cues for problem- solving on sit to stand out of shower, pt able to mobilize feet/ hips while maintaining back precautions to edge of shower chair and sit to stand with min A with use of grab bar. Pt returns to w/c to complete pant donning. Pt sit to stand from w/c with CGA. Pt completes dentures while in sit in w/c, nursing requests back to bed for nursing. Pt returns to bed with mod A for LE mobility and maintenance of log-roll technique. Pt states increased fatigue, situated to comfort, call light in reach, all needs met. Education OT Patient Education: Correct positioning, Modified ADL techniques, Purpose of tx/functional activities, Reviewed precautions, Safety issues, Transfer techniques, Use of adapted equipment Teaching Recipient: Patient Teaching Methods: Demonstration, Discussion Response to Teaching: Verbalize Understanding, Return Demonstration, Reinforcement Needed OT Short Term Goals Short Term Goals Time Frame: Jan 22, 2019 Eatin (met) Oral hygiene: 5 (met) Toileting hygiene: 4 (met) Shower/bathe self: 4 (met) Upper body dressin (met) Lower body dressin Putting on/taking off footwear: 4 (met) OT Benefits Representative Goals [facility] Goals Time Frame: Jan 29, 2019 Eating (QC): 6 (met) Oral Hygiene (QC): 6 (met) Toileting Hygiene (QC): 6 Shower/Bathe Self (QC): 5 Upper Body Dressing (QC): 6 Lower Body Dressing (QC): 6 On/Off Footwear (QC): 6 (met) Additional Goals: 1-Demonstrate ADL Tasks, 2-Verbalize Understanding, 3- ImproveStrength/Xander 1=Demonstrate adherence to instructed precautions during ADL tasks. 2=Patient will verbalize/demonstrate understanding of assistive devices/modifications for ADL. 3=Patient will improve strength/tolerance for activity to enable patient to perform ADL's. OT Education/Plan Problem List/Assessment Assessment: Decreased Activ Tolerance, Decreased UE Strength, Dependent Transfers, Impaired Bed Mobility, Impaired Funct Balance, Impaired I ADL's, Impaired Self-Care Skills Discharge Recommendations Plan/Recommendations: Continue POC Treatment Plan/Plan of Care Treatment,Training & Education: Yes Patient would benefit from OT for education, treatment and training to promote independence in ADL's, mobility, safety and/or upper extremity function for ADL's. Plan of Care: ADL Retraining, Functional Mobility, Group Exercise/Act as Ind, UE Funct Exercise/Act Treatment Duration: Jan 29, 2019 Frequency: At least 5 of 7 days/Wk (IRF) Estimated Hrs Per Day: 1.5 hours per day Agreement: Yes Rehab Potential: Good Time/GCodes Start Time: 09:30 Stop Time: 11:00 Total Time Billed (hr/min): 90 Billed Treatment Time 1, ADL 6 (90) CLARENCE BLAIR OTR Jan 22, 2019 11:02 POS
[2019-01-22] MEDS: BACLOFEN 10 MG (LIORESAL) TAB PO PRN ×2 (11:15→21:26)
--- NOTE | 2019-01-22 11:57 | Physical Therapy Daily Note ---
PT Daily Note-Current Subjective Patient in bed pre tx, agrees to PT, has 8-9/10 pain, states he has already had pain meds, nurse is going to check to see if he can have anything else. Appearance Patient in WC at bedside post tx with nurse call, phone, tray, all needs met. Mental Status Patient Orientation: Normal For Age back brace Transfers SCALE: Activities may be completed with or without assistive devices. 4-Yxgccvcjfw-wkdroub completes the activity by him/herself with no assistance from a helper. 5-Set-up or Clean-up Assistance-helper sets up or cleans up; patient completes activity. [place] assists only prior to or following the activity. 4-Supervision or Touching Assistance-helper provides verbal cues and/or touching/steadying and/or contact guard assistance as patient completes activity. Assistance may be provided throughout the activity or intermittently. 3-Partial/Moderate Assistance-helper does LESS THAN HALF the effort. [place] lifts, holds or supports trunk or limbs, but provides less than half the effort. 2-Substantial/Maximal Assistance-helper does MORE THAN HALF the effort. [place] lifts or holds trunk or limbs and provides more than half the effort. 4-[place]-anoulu does ALL the effort. Patient does none of the effort to complete the activity. Or, the assistance of 2 or more helpers is required for the patient to complete the activity. If activity was not attempted, code reason: 7-Patient Refused. 9-Not Applicable-not attempted and the patient did not perform the activity before the current illness, exacerbation or injury. 10-Not Attempted due to Environmental Limitations-(lack of equipment, weather restraints, etc.). 88-Not Attempted due to Medical Conditions or Safety Concerns. Roll Left & Right (QC): 4 Lying to Sitting/Side of Bed(Q: 3 Sit to Stand (QC): 4 Chair/Gic-wd-Ufboh Xfer(QC): 4 CGA for sit to stand and transfers, min assist for supine to sit, much more pain with movement today Gait Training Distance: 40' Walk 10 feet (QC): 4 Gait Assistive Device: FWW Very antalgic, patient could not ambulate more than 40' due to the pain. Wheelchair Training Does the Pt Use a Wheelchair?: Yes Wheel 50 ft with 2 turns (QC): 4 Wheel 150 ft (QC): 4 Type of Wheelchair: Manual 150'x2 Exercises Seated Therapy Exercises: Ankle pumps, Long arc quads (alternating for 3 min), Hip flexion, Hip abd/add (with RTB and pillow) NuStep Minutes: 15 NuStep Workload: 5 Treatments bed mobility and transfers, ambulation, LE exercise, WC mobility Assessment Current Status: Fair Progress improving but had trouble with general mobility today due to pain PT Short Term Goals Short Term Goals Time Frame: Jan 22, 2019 Sit to lyin (Cassie) Lying to sitting on side of be: 3 (Cassie) Sit to stand: 4 (CGA) Walk 10 feet: 3 (Cassie) PT Jail Goals Jail Goals PT Jail Goals Time Frame: Feb 05, 2019 Roll Left & Right (QC): 6 Sit to Lying (QC): 6 Lying-Sitting on Side/Bed(QC): 6 Sit to Stand (QC): 6 Chair/Daa-io-Kflkj Xfer(QC): 6 Toilet Transfer (QC): 6 Car Transfer (QC): 6 Does the Patient Walk: Yes Walk 10 feet (QC): 4 (CGA) Walk 50ft with 2 Turns (QC): 4 (CGA) Walk 150 ft (QC): 88 Walking 10ft on Uneven Surface: 4 (CGA) 1 Step (curb) (QC): 4 (CGA) 4 Steps (QC): 9 12 Steps (QC): 9 Picking up an Object (QC): 88 Does the Pt use WC or Scooter?: Yes Wheel 50 feet with 2 turns (QC: 6 Type: Manual Wheel 150 feet: 6 Type: Manual PT Plan Problem List Problem List: Activity Tolerance, Functional Strength, Safety, Balance, Gait, Transfer, Bed Mobility, ROM Treatment/Plan Treatment Plan: Continue Plan of Care Treatment Plan: Bed Mobility, Concurrent Therapy, Education, Functional Activity Xander, Functional Strength, Group Therapy, Gait, Safety, Therapeutic Exercise, Transfers Treatment Duration: Feb 05, 2019 Frequency: At least 5 of 7 days/Wk (IRF) Estimated Hrs Per Day: 1.5 hours per day Patient and/or Family Agrees t: Yes Safety Risks/Education Patient Education: Gait Training, Transfer Techniques, Correct Positioning, W/C Management, Reviewed Don/Doff Brace, Safety Issues Teaching Recipient: Patient Teaching Methods: Demonstration, Discussion Response to Teaching: Reinforcement Needed Time/GCodes Time In: 1100 Time Out: 1200 Total Billed Treatment Time: 60 Total Billed Treatment 1 visit [facility] 15' FA 15' EX 30' IRENE MARTIN PT Jan 22, 2019 11:57 POS
[2019-01-22 11:58] LABS: BILIRUBIN,URINE NEGATIVE (NEGATIVE); CLARITY,URINE CLEAR; COLOR,URINE YELLOW; GLUCOSE, URINE (UA) NEGATIVE (NEGATIVE); KETONES,URINE NEGATIVE (NEGATIVE); LEUKOCYTE ESTERASE ,URINE NEGATIVE (NEGATIVE); NITRITE,URINE NEGATIVE (NEGATIVE); PH,URINE 6.5 (5-9); PROTEIN,URINE NEGATIVE (NEGATIVE)
--- NOTE | 2019-01-22 12:05 | Progress Note-Pre Operative ---
Pre-Operative Progress Note H&P Reviewed The H&P was reviewed, patient examined and no changes noted. Date Seen by Provider: Jan 22, 2019 Time Seen by Provider: 11:45 Date H&P Reviewed: Jan 20, 2019 Time H&P Reviewed: 07:15 Pre-Operative Diagnosis: URINE RETENTION HIPOLITO BOWENS MD Jan 22, 2019 12:05 POS
--- NOTE | 2019-01-22 12:05 | Progress Note-Post Operative ---
Post-Operative Progess Note Surgeon (s)/Stock Room Manager (s) Surgeon HIPOLITO BOWENS MD Stock Room Manager: NONE Pre-Operative Diagnosis URINE RETENTION Post-Operative Diagnosis SAME Procedure & Operative Findings Date of Procedure 01/22/19 Procedure Performed/Findings CYSTOSCOPY Anesthesia Type LOCAL Estimated Blood Loss Estimated blood loss (mL): NONE Specimens/Packing Specimens Removed NONE Packing: NONE HIPOLITO BOWENS MD Jan 22, 2019 12:05 POS
[2019-01-22 12:10] LABS: BACTERIA,URINE NEGATIVE /HPF; WBC,URINE RARE /HPF
--- NOTE | 2019-01-22 14:00 | NUR ---
DR. BOWENS NOTIFIED OF 97 CC POST VOID RESIDUAL. NO NEW ORDERS.
--- NOTE | 2019-01-22 14:03 | Physical Therapy Daily Note ---
PT Daily Note-Current Subjective Patient in wheelchair pre tx, agrees to PT, has 8/10 pain in back with activity. Appearance Patient BTB post tx with nurse call, phone, tray, all needs met. Mental Status Patient Orientation: Person, Place, Situation back brace Transfers SCALE: Activities may be completed with or without assistive devices. 8-Umrfyicxha-nknlghc completes the activity by him/herself with no assistance from a helper. 5-Set-up or Clean-up Assistance-helper sets up or cleans up; patient completes activity. [place] assists only prior to or following the activity. 4-Supervision or Touching Assistance-helper provides verbal cues and/or touching/steadying and/or contact guard assistance as patient completes activity. Assistance may be provided throughout the activity or intermittently. 3-Partial/Moderate Assistance-helper does LESS THAN HALF the effort. [place] lifts, holds or supports trunk or limbs, but provides less than half the effort. 2-Substantial/Maximal Assistance-helper does MORE THAN HALF the effort. [place] lifts or holds trunk or limbs and provides more than half the effort. 0-Lzvjzubvc-yekluw does ALL the effort. Patient does none of the effort to complete the activity. Or, the assistance of 2 or more helpers is required for the patient to complete the activity. If activity was not attempted, code reason: 7-Patient Refused. 9-Not Applicable-not attempted and the patient did not perform the activity before the current illness, exacerbation or injury. 10-Not Attempted due to Environmental Limitations-(lack of equipment, weather restraints, etc.). 88-Not Attempted due to Medical Conditions or Safety Concerns. Roll Left & Right (QC): 4 Sit to Lying (QC): 3 (mod A) Sit to Stand (QC): 3 Chair/Tlq-yv-Ehbgd Xfer(QC): 3 Toilet Transfer (QC): 3 Patient propelled WC to therapy gym, states he has to use the restroom, propels back to his room and transfers to toilet. Patient has a much harder time with transfers today, has knee buckling but he is able to catch himself with his arms. Needs max assist for pants Gait Training attempted ambulation from his toilet back to the bed but knee buckling prevented this Wheelchair Training Does the Pt Use a Wheelchair?: Yes Wheel 50 ft with 2 turns (QC): 4 Wheel 150 ft (QC): 4 Type of Wheelchair: Manual SBA, 150'x2 Treatments WC mobility, toileting, transfers, bed mobility Assessment Current Status: Poor Progress patient has developed knee buckling, making ambulation impossible PT Short Term Goals Short Term Goals Time Frame: Jan 22, 2019 Sit to lyin (Cassie) Lying to sitting on side of be: 3 (Cassie) Sit to stand: 4 (CGA) Walk 10 feet: 3 (Cassie) PT Roving Inspector Goals Roving Inspector Goals PT Nursing Home Goals Time Frame: Feb 05, 2019 Roll Left & Right (QC): 6 Sit to Lying (QC): 6 Lying-Sitting on Side/Bed(QC): 6 Sit to Stand (QC): 6 Chair/Rwk-vw-Ynyfu Xfer(QC): 6 Toilet Transfer (QC): 6 Car Transfer (QC): 6 Does the Patient Walk: Yes Walk 10 feet (QC): 4 (CGA) Walk 50ft with 2 Turns (QC): 4 (CGA) Walk 150 ft (QC): 88 Walking 10ft on Uneven Surface: 4 (CGA) 1 Step (curb) (QC): 4 (CGA) 4 Steps (QC): 9 12 Steps (QC): 9 Picking up an Object (QC): 88 Does the Pt use WC or Scooter?: Yes Wheel 50 feet with 2 turns (QC: 6 Type: Manual Wheel 150 feet: 6 Type: Manual PT Plan Problem List Problem List: Activity Tolerance, Functional Strength, Safety, Balance, Gait, Transfer, Bed Mobility, ROM Treatment/Plan Treatment Plan: Continue Plan of Care Treatment Plan: Bed Mobility, Concurrent Therapy, Education, Functional Activity Xander, Functional Strength, Group Therapy, Gait, Safety, Therapeutic Exercise, Transfers Treatment Duration: Feb 05, 2019 Frequency: At least 5 of 7 days/Wk (IRF) Estimated Hrs Per Day: 1.5 hours per day Patient and/or Family Agrees t: Yes Safety Risks/Education Patient Education: Transfer Techniques, Correct Positioning, W/C Management, Safety Issues Teaching Recipient: Patient Teaching Methods: Demonstration, Discussion Response to Teaching: Reinforcement Needed Time/GCodes Time In: 1330 Time Out: 1400 Total Billed Treatment Time: 30 Total Billed Treatment 1 visit [facility] 15' FA 15' IRENE MARTIN PT Jan 22, 2019 14:03 POS
--- NOTE | 2019-01-22 15:30 | NUR ---
DR. DOWNS NOTIFIED OF P.T.'S CONCERN THAT PATIENT IS HAVING SHARP, SHOOTING LOW BACK PAINS UPON AMBULATION AND IT'S CAUSING KNEES TO BUCKLE. STATES NO NEED FOR IMAGES AT THIS TIME. NO NEW ORDERS.
[2019-01-22 17:00] VITALS: BP 113/72
[2019-01-22] MEDS: TAMSULOSIN 0.4 MG (FLOMAX) CAP PO SCH (17:07)
[2019-01-22] MEDS ORDERED: methylPREDNISolone 125 MG (Solu-MEDROL) VIAL IM NR (18:30)
--- NOTE | 2019-01-22 18:30 | NUR ---
COMPLAIN BACK PAIN SO SEVERE WAS NOT ABLE TO AMBULATE TO BATHROOM. USED BEDSIDE COMMODE. STATES "IF I FEEL LIKE THIS IN THE MORNING, I WON'T BE ABLE TO DO THERAPY". DR. FOX NOTIFIED AND ORDER RECEIVED FOR SOLUMEDROL.
--- NOTE | 2019-01-23 06:08 | Progress Note ---
[facility] 01/23/19 0608: Progress Note Time: 0800 Subjective: Patient feels much better today after receiving a steroid shot. Patient is still urinating and having bowel movements Patient was having an episode of pain before having weakness Patient states pain is above and below waistline Objective: General: Alert and orientedx3, Pleasant mood, W/N, W/D, CV: RRR, No edema, Radial Pulse 2/4 bilaterally. Resp: CTAB, No accessory Muscle Use, GI: Soft, Non distended, no TTP Assessment: Post op inflammation resolved with steroid injection post op ileus resolved post op urinary retention resolved post op back pain Plan: Continue PT and OT Continue pain management. CHLOE FOX DO 01/23/19 2144: Supervisory-Addendum Brief Verification & Attestation Participated in pt care: history, MDM, physical Personally performed: exam, history, MDM, supervision of care Care discussed with: Medical Student Procedures: n/a Results interpretation: Verified all documentation Verification and Attestation of Medical Student E/M Service A medical student performed and documented this service in my presence. I reviewed and verified all information documented by the medical student and made modifications to such information, when appropriate. I personally performed the physical exam and medical decision making. Chloe Fox, Jan 23, 2019,21:44 [facility] Jan 23, 2019 06:08 CHLOE JOHNSTON DO Jan 23, 2019 21:44 POS
[2019-01-23] MEDS: KCL 10 MEQ TAB (MICRO K) PO SCH (06:18)
[2019-01-23] MEDS: oxyCODONE/APAP 5/325MG (PERCOCET 5) TABLET PO PRN ×2 (06:18→14:51)
[2019-01-23] MEDS: LEVOTHYROXINE 25 MCG (LEVOTHROID) TAB PO SCH (06:18)
[2019-01-23 06:22] VITALS: BP 137/77
[2019-01-23] MEDS: VITAMIN D3 1,000 UNITS (CHOLECALCIFEROL) TABLET PO SCH ×2 (08:40→21:15)
[2019-01-23] MEDS: GABAPENTIN 400 MG (NEURONTIN) CAP PO SCH ×3 (08:40→21:15)
[2019-01-23] MEDS: DOCUSATE SODIUM 100 MG (COLACE) CAP PO SCH ×2 (08:40→21:15)
[2019-01-23] MEDS: BACLOFEN 10 MG (LIORESAL) TAB PO PRN ×2 (08:40→21:25)
[2019-01-23] MEDS: POLYETHYLENE GLYCOL 17 GM (MIRALAX) PACK PO SCH ×2 (08:43→21:15)
[2019-01-23] MEDS: SENNA W/DOCUSATE (SENOKOT S) TABLET PO SCH ×2 (08:44→21:16)
--- NOTE | 2019-01-23 09:00 | NUR ---
STATES LOW BACK PAIN MUCH IMPROVED SINCE SOLUMEDROL YESTERDAY EVENING. STATES SLEPT GOOD AND READY TO TRY THERAPY AGAIN TODAY. LOW GRADE TEMP.
--- NOTE | 2019-01-23 09:37 | Occupational Ther Daily Note ---
OT Current Status-Daily Note Subjective Pt seen in bed, agreeable to OT tx session. Pt states he was very fatigued yesterday afternoon and could hardly make it to the commode, states he is feeling much better on this date. Mental Status/Objective Patient Orientation: Normal For Age ADL-Treatment Therapy Code Descriptions/Definitions Functional [place] Measure: 0=Not Assessed/NA 4=Minimal Assistance 1=Total Assistance 5=Supervision or Setup 2=Maximal Assistance 6=Modified [place] 3=Moderate Assistance 7=Complete IndependenceSCALE: Activities may be completed with or without assistive devices. 4-Zkhlbisqch-ljqhcyi completes the activity by him/herself with no assistance from a helper. 5-Set-up or Clean-up Assistance-helper sets up or cleans up; patient completes activity. [place] assists only prior to or following the activity. 4-Supervision or Touching Assistance-helper provides verbal cues and/or touching/steadying and/or contact guard assistance as patient completes activity. Assistance may be provided throughout the activity or intermittently. 3-Partial/Moderate Assistance-helper does LESS THAN HALF the effort. [place] lifts, holds or supports trunk or limbs, but provides less than half the effort. 2-Substantial/Maximal Assistance-helper does MORE THAN HALF the effort. [place] lifts or holds trunk or limbs and provides more than half the effort. 2-Ntfhfgbbt-zaezri does ALL the effort. Patient does none of the effort to complete the activity. Or, the assistance of 2 or more helpers is required for the patient to complete the activity. If activity was not attempted, code reason: 7-Patient Refused. 9-Not Applicable-not attempted and the patient did not perform the activity before the current illness, exacerbation or injury. 10-Not Attempted due to Environmental Limitations-(lack of equipment, weather restraints, etc.). 88-Not Attempted due to Medical Conditions or Safety Concerns. 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 ) on/ off footwear: 6 with sock aide. Other Treatment Pt states works from home and is available for assist when needed. Pt states she is getting a new sock aide and commode for pt. Pt explains bedroom s/u, states has bed rail on R side of bed which assists him in lowering down with control and situating self in bed. Pt completes dressing EOB, desires oral hygiene and shaving. Pt walks with FWW to sink, sits in w/c for grooming tasks. Pt pushed in w/c to therapy gym, completes standing tolerance exercise while complete fine motor/ pincer activity. Pt reaches with R hand to complete R sided gathering of pegs, pt maintains back precautions. Pt states difficulty with fine motor movements, able to complete 3 pegs within the time period. Pt requests sit, states L posterior hip had sharp pain; pt requests to lay down. Pt pushed back to room, states he is in pain but denies OT request pain medications. Pt sit to stand with CGA to bed, returns to bed with mod A for LE return to bed. Pt denies need for drink, left in bed with call light in reach, all needs met. Education OT Patient Education: Correct positioning, Exercise program, Reviewed precautions, Safety issues, Transfer techniques Teaching Recipient: Patient Teaching Methods: Demonstration, Discussion Response to Teaching: Verbalize Understanding, Return Demonstration OT Short Term Goals Short Term Goals Time Frame: Jan 22, 2019 Eatin (met) Oral hygiene: 5 (met) Toileting hygiene: 4 (met) Shower/bathe self: 4 (met) Upper body dressin (met) Lower body dressin Putting on/taking off footwear: 4 (met) OT Cad Administrator Goals Halfway Goals Time Frame: Jan 29, 2019 Eating (QC): 6 (met) Oral Hygiene (QC): 6 (met) Toileting Hygiene (QC): 6 Shower/Bathe Self (QC): 5 Upper Body Dressing (QC): 6 Lower Body Dressing (QC): 6 On/Off Footwear (QC): 6 (met) Additional Goals: 1-Demonstrate ADL Tasks, 2-Verbalize Understanding, 3- ImproveStrength/Xander 1=Demonstrate adherence to instructed precautions during ADL tasks. 2=Patient will verbalize/demonstrate understanding of assistive devices/modifications for ADL. 3=Patient will improve strength/tolerance for activity to enable patient to perform ADL's. OT Education/Plan Problem List/Assessment Assessment: Decreased Activ Tolerance, Impaired Coordination, Impaired Funct Balance, Impaired I ADL's, Impaired Self-Care Skills Discharge Recommendations Plan/Recommendations: Continue POC Therapy Discharge Recommendati: Home & Family Treatment Plan/Plan of Care Treatment,Training & Education: Yes Patient would benefit from OT for education, treatment and training to promote independence in ADL's, mobility, safety and/or upper extremity function for ADL's. Plan of Care: ADL Retraining, Functional Mobility, Group Exercise/Act as Ind, UE Funct Exercise/Act Treatment Duration: Jan 29, 2019 Frequency: At least 5 of 7 days/Wk (IRF) Estimated Hrs Per Day: 1.5 hours per day Agreement: Yes Rehab Potential: Good Time/GCodes Start Time: 09:00 Stop Time: 10:00 Total Time Billed (hr/min): 60 Billed Treatment Time 1, ADL 3 (45), EX (15)= 60 CLARENCE BLAIR OTR Jan 23, 2019 09:37 POS
--- NOTE | 2019-01-23 10:51 | PM&R Progress Note ---
Subjective HPI/CC On Admission Date Seen by Provider: Jan 23, 2019 Time Seen by Provider: 09:30 Subjective/Events-last exam Solu-Medrol injection of 125 mg really helped him I had conferred with Dr. Smith and that is what he recommended Patient feels much better and feels like he is really progressing Incentive spirometer is helpful Very low-grade sporadic fever noted but no source Check meds and labs Reviewed therapies Reviewed labs Review therapy notes Checked meds and labs Review of Systems Musculoskeletal: neck pain, back pain, leg pain Objective Exam Vital Signs Vital Signs Date Time Temp Pulse Resp B/P (MAP) Pulse Ox O2 Delivery O2 Flow Rate FiO2 01/23/19 18:36 37.8 80 20 129/76 (93) 97 Room Air Capillary Refill : General Appearance: No Apparent Distress, WD/WN, Chronically ill, Obese HEENT: PERRL/EOMI, Normal ENT Inspection, Pharynx Normal Neck: Full Range of Motion, Normal Inspection, Non Tender, Supple Respiratory: Chest Non Tender, Lungs Clear, Normal Breath Sounds, No Accessory Muscle Use, No Respiratory Distress Cardiovascular: Regular Rate, Rhythm, No Edema, No Gallop, No JVD, No Murmur Gastrointestinal: Normal Bowel Sounds, No Organomegaly, No Pulsatile Mass, Non Tender, Soft Back: Decreased Range of Motion Extremity: Normal Capillary Refill, Normal Inspection, Normal Range of Motion (decreased ROM legs), Non Tender, No Calf Tenderness, Pedal Edema Neurologic/Psychiatric: Alert, Oriented x3, Normal Mood/Affect, 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 FIM Transfers Therapy Code Descriptions/Definitions Functional [place] Measure: 0=Not Assessed/NA 4=Minimal Assistance 1=Total Assistance 5=Supervision or Setup 2=Maximal Assistance 6=Modified [place] 3=Moderate Assistance 7=Complete IndependenceSCALE: Activities may be completed with or without assistive devices. 6-Rxlhjxxyig-qpsabuu completes the activity by him/herself with no assistance from a helper. 5-Set-up or Clean-up Assistance-helper sets up or cleans up; patient completes activity. [place] assists only prior to or following the activity. 4-Supervision or Touching Assistance-helper provides verbal cues and/or touching/steadying and/or contact guard assistance as patient completes activity. Assistance may be provided throughout the activity or intermittently. 3-Partial/Moderate Assistance-helper does LESS THAN HALF the effort. [place] lifts, holds or supports trunk or limbs, but provides less than half the effort. 2-Substantial/Maximal Assistance-helper does MORE THAN HALF the effort. [place] lifts or holds trunk or limbs and provides more than half the effort. 1-Proyvruvf-qfzyer does ALL the effort. Patient does none of the effort to complete the activity. Or, the assistance of 2 or more helpers is required for the patient to complete the activity. If activity was not attempted, code reason: 7-Patient Refused. 9-Not Applicable-not attempted and the patient did not perform the activity before the current illness, exacerbation or injury. 10-Not Attempted due to Environmental Limitations-(lack of equipment, weather restraints, etc.). 88-Not Attempted due to Medical Conditions or Safety Concerns. Roll Left to Right (QC): 4 Sit to Lying (QC): 3 (mod A) Sit to Stand (QC): 3 Chair/Zai-kv-Blqah Xfer(QC): 3 Car Transfer (QC): 3 (modA) Gait Training Does the Patient Walk?: Yes Distance: 40' Walk 10 feet (QC): 4 Walk 50 ft with 2 Turns(QC): 4 Walk 150 ft (QC): 3 Walking 10ft/uneven surface-QC: 88 Gait Persons Needed: 1 Gait Assistive Device: FWW Wheelchair Training Does the Pt Use a Wheelchair?: Yes Distance: 150'x2 Wheel 50 ft with 2 turns (QC): 4 Wheel 150 ft (QC): 4 Type of Wheelchair: Manual Stair Training 1 Step (curb) (QC): 88 4 Steps (QC): 88 12 Steps (QC): 88 Balance Picking up an Object (QC): 88 ADL-Treatment Eating (QC): 6 (completed eating prior to session.) Oral Hygiene (QC): 6 (completes in w/c in front of sink.) Shower/Bathe Self (QC): 7 Upper Body Dressing (QC): 6 (chooses clothing items, completes with ind.) Lower Body Dressing (QC): 3 (Pt requires mod A for cues for back precautions and 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 ) On/Off Footwear (QC): 2 Toileting Hygiene (QC): 4 (CGA in stance.) Toilet Transfer (QC): 4 (SBA) Assessment/Plan Assessment and Plan Assess & Plan/Chief Complaint Assessment: Lumbar spine status post extensive surgery Postop ileus now resolved after SSE Urinary retention requiring Bassett catheter and urology consultation Severe neuropathy Hypothyroidism Chronic pain Hip and back pain improved with steroid injection Plan: Bowel regimen maintained Pain control Home meds Urology is appreciated also Inpatient rehabilitation protocol Cath DC after cystoscopy 2 days ago Dramatic improvement in his overall status Kpad and Voltaren gel prn to hip Steroid injection was very helpful and I updated Dr Smith (1) S/P lumbar fusion (2) Hypothyroidism (3) Urinary retention (4) Bassett catheter in place (5) Constipation (6) Neuropathy (7) Ileus KEVIN FOX DO Jan 23, 2019 10:50 POS
--- NOTE | 2019-01-23 11:11 | Physical Therapy Daily Note ---
PT Daily Note-Current Subjective Pt agreeable to PT session. States he feels like he tweeked or pulled something in post L hip area earlier during OT session. Appearance Pt in bed awake and alert upon arrival. Pt requesting and assisted to bathroom. Mental Status Patient Orientation: Person, Place, Time, Eyes Open, Situation Transfers SCALE: Activities may be completed with or without assistive devices. 6-Psrmxgqknu-rqipkby completes the activity by him/herself with no assistance from a helper. 5-Set-up or Clean-up Assistance-helper sets up or cleans up; patient completes activity. [place] assists only prior to or following the activity. 4-Supervision or Touching Assistance-helper provides verbal cues and/or touching/steadying and/or contact guard assistance as patient completes activity. Assistance may be provided throughout the activity or intermittently. 3-Partial/Moderate Assistance-helper does LESS THAN HALF the effort. [place] lifts, holds or supports trunk or limbs, but provides less than half the effort. 2-Substantial/Maximal Assistance-helper does MORE THAN HALF the effort. [place] lifts or holds trunk or limbs and provides more than half the effort. 3-Cevxblgvm-vjgixz does ALL the effort. Patient does none of the effort to complete the activity. Or, the assistance of 2 or more helpers is required for the patient to complete the activity. If activity was not attempted, code reason: 7-Patient Refused. 9-Not Applicable-not attempted and the patient did not perform the activity before the current illness, exacerbation or injury. 10-Not Attempted due to Environmental Limitations-(lack of equipment, weather restraints, etc.). 88-Not Attempted due to Medical Conditions or Safety Concerns. Sit to Lying (QC): 3 (requiring physical A with LE's) Lying to Sitting/Side of Bed(Q: 4 (HOB slightly elevated, use of bedrail, increased effort required) Sit to Stand (QC): 4 Gait Training Does the Patient Walk?: Yes Distance: 160 x2 Walk 10 feet (QC): 4 Walk 50 ft with 2 Turns(QC): 4 Walk 150 ft (QC): 4 Gait Persons Needed: 1 Gait Assistive Device: FWW heavily relying upon walker with UE's, NBOS, occasional scissoring gait, knees flexed, unsteady Exercises Seated Therapy Exercises: Ankle pumps (decreased strength PF), Sit to stand, Long arc quads, Hip flexion, Hip abd/add Seated Reps: 10 (x2) NuStep Minutes: 15 (inst to decrease ER LLE) NuStep Workload: 5 (seat 10, arms 12) Treatments education, safety, transfers, gait, toileting, strength, balance, activity tolerance, functional mobility Assessment Current Status: Good Progress PT Short Term Goals Short Term Goals Time Frame: Jan 22, 2019 Sit to lyin (Cassie) Lying to sitting on side of be: 3 (Cassie) Sit to stand: 4 (CGA) Walk 10 feet: 3 (Cassie) PT Chcf Goals Chcf Goals PT Chcf Goals Time Frame: Feb 05, 2019 Roll Left & Right (QC): 6 Sit to Lying (QC): 6 Lying-Sitting on Side/Bed(QC): 6 Sit to Stand (QC): 6 Chair/Eth-nu-Wkdjo Xfer(QC): 6 Toilet Transfer (QC): 6 Car Transfer (QC): 6 Does the Patient Walk: Yes Walk 10 feet (QC): 4 (CGA) Walk 50ft with 2 Turns (QC): 4 (CGA) Walk 150 ft (QC): 88 Walking 10ft on Uneven Surface: 4 (CGA) 1 Step (curb) (QC): 4 (CGA) 4 Steps (QC): 9 12 Steps (QC): 9 Picking up an Object (QC): 88 Does the Pt use WC or Scooter?: Yes Wheel 50 feet with 2 turns (QC: 6 Type: Manual Wheel 150 feet: 6 Type: Manual PT Plan Treatment/Plan Treatment Plan: Continue Plan of Care Treatment Plan: Bed Mobility, Concurrent Therapy, Education, Functional Activity Xander, Functional Strength, Group Therapy, Gait, Safety, Therapeutic Exercise, Transfers Treatment Duration: Feb 05, 2019 Frequency: At least 5 of 7 days/Wk (IRF) Estimated Hrs Per Day: 1.5 hours per day Patient and/or Family Agrees t: Yes Safety Risks/Education Patient Education: Gait Training, Transfer Techniques, Reviewed Precautions, Reviewed Don/Doff Brace, Safety Issues Teaching Recipient: Patient Teaching Methods: Demonstration, Discussion Response to Teaching: Verbalize Understanding, Return Demonstration Time/GCodes Time In: 1100 Time Out: 1200 Total Billed Treatment Time: 60 Total Billed Treatment 1 visit, EX x25 min, GT x20 min, FA x15 min CLAU,[employer] TE[employer] Jan 23, 2019 11:10 POS
--- NOTE | 2019-01-23 11:39 | NUR ---
provided prayer and Communion.
--- NOTE | 2019-01-23 13:48 | NUR ---
"RD ASSESSMENT PMHx: hypothyroidism; hepatitis PT INTERACTION: Pt was awake and pleasant for nutrition follow-up. Pt states he is eating well. Note pt avg PO intake of 92% x5d, per chart review. Pt states no recent issues with n/v/c/d since last assessment. Note last BM was 01/22 (x2), and pt currently on bowel regimen of miralax BID; senna BID; colace BID; and bisacodyl PRN, per chart review. ABNORMAL NUTRITION-RELATED LAB VALUES LOW: Pro 6.3 HIGH: glu 129 Est. kcal needs: 6729-4779 kcal | 15-18 kcal/kg Est. Pro needs: 100-124 g Pro | 0.8-1.0 g Pro/kg PES STATEMENT: Given pt's current PO intake, no nutrition diagnosis at this time (NO-1.1) INTERVENTION: Continue with current diet order of Regular diet. Will continue to follow and reassess as pt needs and status change. MONITOR/EVALUATE: PO Intake; Plan of Care; Hydration Status; Weight Status; Lab Values Enrique Hargrove, MS, RD, LD"
--- NOTE | 2019-01-23 14:45 | NUR ---
BACK PAIN REMAINS IMPROVED, BUT STILL GETTING "HITCHES" IN BACK. DR. FOX NOTIFIED AND SOLUMEDROL WILL BE REPEATED.
[2019-01-23] MEDS ORDERED: methylPREDNISolone 125 MG (Solu-MEDROL) VIAL IM NR (15:00)
--- NOTE | 2019-01-23 15:52 | Therapy Group Daily Note ---
Therapy Daily Group Note Patient Education Topic Other List Below (pain) Exercises LE Seated Exercise, UE Exercise Session Ratio (pt:therapist): 3:1 Goal of Session: UE/LE Strengthing, Other (list) (pain) Goal Met for this Session: Yes Pt Benefit of Group: Contributions to Others, Increased Functional Strength, Improved Cognition, Recognition of Peers, Socialization Other/Notes Pt ambulated using FWW to [facility] for OT/PT group. Group consisted of introductions (name, place, life challenges), socialization, UE/LE seated exercises and education on pain. Pt introduced self appropriately and listened to peers. Pt listened attentively and contributed to conversations. Pt able to acknowledge understanding of topics by personal stories and own strategies. Pt complete UE/LE seated exercises. After therapy, pt lying in bed with call light/phone reach. All needs met in room. Start Time: 13:00 Stop Time: 14:15 Total Billed Treatment Time: 75 Total Billed Treatment 1-GRP ASHER DRIVER Jan 23, 2019 15:52 POS
--- NOTE | 2019-01-23 18:30 | NUR ---
STATES BACK PAIN "ABOUT BACK TO WHERE IT WAS BEFORE". NO FURTHER SHARP PAINS. A MUCH BETTER DAY.
[2019-01-23 18:36] VITALS: BP 129/76
[2019-01-23] MEDS: TAMSULOSIN 0.4 MG (FLOMAX) CAP PO SCH (19:04)
[2019-01-24] MEDS: oxyCODONE/APAP 5/325MG (PERCOCET 5) TABLET PO PRN ×2 (02:37→17:50)
[2019-01-24] MEDS: KCL 10 MEQ TAB (MICRO K) PO SCH (06:00)
[2019-01-24] MEDS: LEVOTHYROXINE 25 MCG (LEVOTHROID) TAB PO SCH (06:00)
[2019-01-24 06:07] VITALS: BP 127/70
--- NOTE | 2019-01-24 08:47 | Physical Therapy Daily Note ---
PT Daily Note-Current Subjective No pain per pt. Agreeable to PT. Pt states his (R) LE strength has already improved a lot since his surgery. Pt requests BR privileges. Pt requests to be left on toilet at this time. Nurse aid notified pt on on toilet Transfers SCALE: Activities may be completed with or without assistive devices. 1-Uxbsdrxkfc-aetvstf completes the activity by him/herself with no assistance from a helper. 5-Set-up or Clean-up Assistance-helper sets up or cleans up; patient completes activity. [place] assists only prior to or following the activity. 4-Supervision or Touching Assistance-helper provides verbal cues and/or touching/steadying and/or contact guard assistance as patient completes activity. Assistance may be provided throughout the activity or intermittently. 3-Partial/Moderate Assistance-helper does LESS THAN HALF the effort. [place] lifts, holds or supports trunk or limbs, but provides less than half the effort. 2-Substantial/Maximal Assistance-helper does MORE THAN HALF the effort. [place] lifts or holds trunk or limbs and provides more than half the effort. 0-Adsprpezk-stploq does ALL the effort. Patient does none of the effort to complete the activity. Or, the assistance of 2 or more helpers is required for the patient to complete the activity. If activity was not attempted, code reason: 7-Patient Refused. 9-Not Applicable-not attempted and the patient did not perform the activity before the current illness, exacerbation or injury. 10-Not Attempted due to Environmental Limitations-(lack of equipment, weather restraints, etc.). 88-Not Attempted due to Medical Conditions or Safety Concerns. Gait Training Gait Assistive Device: FWW Exercises Seated Therapy Exercises: Ankle pumps, Long arc quads Treatments Pt transfered to EOB mod (I). Pt donned sweats and back brace at EOB with min A. Pt stood CGA and ambulated with FWW to toilet x 15ft. Pt doffed pants and undergarment (I). Pt requested time on toilet. Pt instructed to pull cord when done. Nurse aid notified and agreeable to help pt. Assessment Current Status: Good Progress Pt mobility improving per pt. Pt continues to be a fall risk due to weakness in (R) LE and narrow CONI. Pt in BR with plan to pull call light when done. Nurse aid aware and is to help pt. PT Short Term Goals Short Term Goals Time Frame: Jan 22, 2019 Sit to lyin (Cassie) Lying to sitting on side of be: 3 (Cassie) Sit to stand: 4 (CGA) Walk 10 feet: 3 (Cassie) PT Mobile Ui Designer Goals Mobile Ui Designer Goals PT Mobile Ui Designer Goals Time Frame: Feb 05, 2019 Roll Left & Right (QC): 6 Sit to Lying (QC): 6 Lying-Sitting on Side/Bed(QC): 6 Sit to Stand (QC): 6 Chair/Rpb-kb-Yehbk Xfer(QC): 6 Toilet Transfer (QC): 6 Car Transfer (QC): 6 Does the Patient Walk: Yes Walk 10 feet (QC): 4 (CGA) Walk 50ft with 2 Turns (QC): 4 (CGA) Walk 150 ft (QC): 88 Walking 10ft on Uneven Surface: 4 (CGA) 1 Step (curb) (QC): 4 (CGA) 4 Steps (QC): 9 12 Steps (QC): 9 Picking up an Object (QC): 88 Does the Pt use WC or Scooter?: Yes Wheel 50 feet with 2 turns (QC: 6 Type: Manual Wheel 150 feet: 6 Type: Manual PT Plan Treatment/Plan Treatment Plan: Continue Plan of Care Treatment Plan: Bed Mobility, Concurrent Therapy, Education, Functional Activity Xander, Functional Strength, Group Therapy, Gait, Safety, Therapeutic Exercise, Transfers Treatment Duration: Feb 05, 2019 Frequency: At least 5 of 7 days/Wk (IRF) Estimated Hrs Per Day: 1.5 hours per day Patient and/or Family Agrees t: Yes Time/GCodes Time In: 815 Time Out: 830 Total Billed Treatment Time: 15 Total Billed Treatment 1, 15min DVAE SALAS CPTA Jan 24, 2019 08:47 POS
[2019-01-24] MEDS: VITAMIN D3 1,000 UNITS (CHOLECALCIFEROL) TABLET PO SCH ×2 (09:52→20:01)
[2019-01-24] MEDS: DOCUSATE SODIUM 100 MG (COLACE) CAP PO SCH ×3 (09:52→20:02)
[2019-01-24] MEDS: SENNA W/DOCUSATE (SENOKOT S) TABLET PO SCH ×3 (09:52→20:01)
[2019-01-24] MEDS: GABAPENTIN 400 MG (NEURONTIN) CAP PO SCH ×3 (09:52→20:01)
[2019-01-24] MEDS: POLYETHYLENE GLYCOL 17 GM (MIRALAX) PACK PO SCH ×2 (10:52→20:02)
--- NOTE | 2019-01-24 12:44 | PM&R Progress Note ---
Subjective HPI/CC On Admission Date Seen by Provider: Jan 24, 2019 Time Seen by Provider: 12:15 Subjective/Events-last exam Solu-Medrol injection of 125 mg really helped him so I gave him another one yesterday evening too and that really helped him also I had conferred with Dr. Smith and updated him on his improvement Patient feels much better and feels like he is really progressing Incentive spirometer is helpful and he is using it regularly Very low-grade sporadic fever noted but no source Appt with Dr Smith Saturday and we will likely change that due to disruption in his therapy hours since he is gaining so much ground Edema improved BM 01/24/19 Check meds and labs Reviewed therapies Reviewed labs Review therapy notes Checked meds and labs Review of Systems General: Fatigue Musculoskeletal: back pain, leg pain Objective Exam Vital Signs Vital Signs Date Time Temp Pulse Resp B/P (MAP) Pulse Ox O2 Delivery O2 Flow Rate FiO2 01/24/19 17:34 37.4 63 18 113/69 (84) 97 Room Air Capillary Refill : General Appearance: No Apparent Distress, WD/WN, Chronically ill, Obese HEENT: PERRL/EOMI, Normal ENT Inspection, Pharynx Normal Neck: Full Range of Motion, Normal Inspection, Non Tender, Supple Respiratory: Chest Non Tender, Lungs Clear, Normal Breath Sounds, No Accessory Muscle Use, No Respiratory Distress Cardiovascular: Regular Rate, Rhythm, No Edema, No Gallop, No JVD, No Murmur Gastrointestinal: Normal Bowel Sounds, No Organomegaly, No Pulsatile Mass, Non Tender, Soft Back: Decreased Range of Motion Extremity: Normal Capillary Refill, Normal Inspection, Normal Range of Motion (decreased ROM legs), Non Tender, No Calf Tenderness, Pedal Edema Neurologic/Psychiatric: Alert, Oriented x3, Normal 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 FIM Transfers Therapy Code Descriptions/Definitions Functional [place] Measure: 0=Not Assessed/NA 4=Minimal Assistance 1=Total Assistance 5=Supervision or Setup 2=Maximal Assistance 6=Modified [place] 3=Moderate Assistance 7=Complete IndependenceSCALE: Activities may be completed with or without assistive devices. 0-Ylpcfujsed-hglhmak completes the activity by him/herself with no assistance from a helper. 5-Set-up or Clean-up Assistance-helper sets up or cleans up; patient completes activity. [place] assists only prior to or following the activity. 4-Supervision or Touching Assistance-helper provides verbal cues and/or touching/steadying and/or contact guard assistance as patient completes activity. Assistance may be provided throughout the activity or intermittently. 3-Partial/Moderate Assistance-helper does LESS THAN HALF the effort. [place] lifts, holds or supports trunk or limbs, but provides less than half the effort. 2-Substantial/Maximal Assistance-helper does MORE THAN HALF the effort. [place] lifts or holds trunk or limbs and provides more than half the effort. 1-Uueiwmnbt-kqifze does ALL the effort. Patient does none of the effort to complete the activity. Or, the assistance of 2 or more helpers is required for the patient to complete the activity. If activity was not attempted, code reason: 7-Patient Refused. 9-Not Applicable-not attempted and the patient did not perform the activity before the current illness, exacerbation or injury. 10-Not Attempted due to Environmental Limitations-(lack of equipment, weather restraints, etc.). 88-Not Attempted due to Medical Conditions or Safety Concerns. Roll Left to Right (QC): 4 Sit to Lying (QC): 3 (requiring physical A with LE's) Sit to Stand (QC): 4 Chair/Noj-na-Exvet Xfer(QC): 3 Car Transfer (QC): 3 (modA) Gait Training Does the Patient Walk?: Yes Distance: 160 x2 Walk 10 feet (QC): 4 Walk 50 ft with 2 Turns(QC): 4 Walk 150 ft (QC): 4 Walking 10ft/uneven surface-QC: 88 Gait Persons Needed: 1 Gait Assistive Device: FWW Wheelchair Training Does the Pt Use a Wheelchair?: Yes Distance: 150'x2 Wheel 50 ft with 2 turns (QC): 4 Wheel 150 ft (QC): 4 Type of Wheelchair: Manual Stair Training 1 Step (curb) (QC): 88 4 Steps (QC): 88 12 Steps (QC): 88 Balance Picking up an Object (QC): 88 ADL-Treatment Eating (QC): 6 (completed eating prior to session.) Oral Hygiene (QC): 6 (completes in w/c in front of sink.) Shower/Bathe Self (QC): 7 Upper Body Dressing (QC): 6 (chooses clothing items, completes with ind.) Lower Body Dressing (QC): 3 (Pt requires mod A for cues for back precautions and use of shuttle repairer and pulling pants towards knees once threaded due to socks and pulling up over hips. ) On/Off Footwear (QC): 2 Toileting Hygiene (QC): 4 (CGA in stance.) Toilet Transfer (QC): 4 (SBA) Assessment/Plan Assessment and Plan Assess & Plan/Chief Complaint Assessment: Lumbar spine status post extensive surgery Postop ileus now resolved after SSE Urinary retention requiring Bassett catheter and urology consultation Severe neuropathy Hypothyroidism Chronic pain Hip and back pain improved with steroid injection x 2 Plan: Bowel regimen maintained Pain control Home meds Urology is appreciated also Inpatient rehabilitation protocol Cath DC after cystoscopy 2 days ago Dramatic improvement in his overall status Kpad and Voltaren gel prn to hip Steroid injection was very helpful and I updated Dr Smith (1) S/P lumbar fusion (2) Hypothyroidism (3) Urinary retention (4) Bassett catheter in place (5) Constipation (6) Neuropathy (7) Ileus KEVIN FOX DO Jan 24, 2019 12:44 POS
[2019-01-24] MEDS: DICLOFENAC 1% GEL 100 GM (VOLTAREN) TUBE TOP PRN (12:55)
[2019-01-24] MEDS: BACLOFEN 10 MG (LIORESAL) TAB PO PRN (17:00)
[2019-01-24 17:34] VITALS: BP 113/69
[2019-01-24] MEDS: TAMSULOSIN 0.4 MG (FLOMAX) CAP PO SCH (17:45)
[2019-01-25] MEDS: KCL 10 MEQ TAB (MICRO K) PO SCH (05:42)
[2019-01-25] MEDS: LEVOTHYROXINE 25 MCG (LEVOTHROID) TAB PO SCH (05:42)
[2019-01-25] MEDS: oxyCODONE/APAP 5/325MG (PERCOCET 5) TABLET PO PRN ×3 (05:43→18:25)
[2019-01-25 06:05] VITALS: BP 110/68
[2019-01-25] MEDS: POLYETHYLENE GLYCOL 17 GM (MIRALAX) PACK PO SCH ×2 (09:00→21:42)
[2019-01-25] MEDS: GABAPENTIN 400 MG (NEURONTIN) CAP PO SCH ×3 (09:58→21:38)
[2019-01-25] MEDS: SENNA W/DOCUSATE (SENOKOT S) TABLET PO SCH ×2 (09:58→21:42)
[2019-01-25] MEDS: DOCUSATE SODIUM 100 MG (COLACE) CAP PO SCH ×2 (09:58→21:41)
[2019-01-25] MEDS: BACLOFEN 10 MG (LIORESAL) TAB PO PRN (09:59)
[2019-01-25] MEDS: VITAMIN D3 1,000 UNITS (CHOLECALCIFEROL) TABLET PO SCH ×2 (09:59→21:38)
--- NOTE | 2019-01-25 11:25 | PM&R Progress Note ---
Subjective HPI/CC On Admission Date Seen by Provider: Jan 25, 2019 Time Seen by Provider: 11:30 Subjective/Events-last exam Patient doing pretty well, still having periodic pain left hip but tolerated well Appt with Dr Smith Leni and we will likely change that due to disruption in his therapy hours since he is gaining so much ground Edema improved no MAURIZIO wraps on today BM 01/25/19 today Check meds and labs Reviewed therapies Reviewed labs Review therapy notes Review of Systems General: Fatigue Musculoskeletal: back pain, leg pain Objective Exam Vital Signs Vital Signs Date Time Temp Pulse Resp B/P (MAP) Pulse Ox O2 Delivery O2 Flow Rate FiO2 01/25/19 18:00 37.2 59 18 114/70 (85) 95 Room Air Capillary Refill : General Appearance: No Apparent Distress, WD/WN, Chronically ill, Obese HEENT: PERRL/EOMI, Normal ENT Inspection, Pharynx Normal Neck: Full Range of Motion, Normal Inspection, Non Tender, Supple Respiratory: Chest Non Tender, Lungs Clear, Normal Breath Sounds, No Accessory Muscle Use, No Respiratory Distress Cardiovascular: Regular Rate, Rhythm, No Edema, No Gallop, No JVD, No Murmur Gastrointestinal: Normal Bowel Sounds, No Organomegaly, No Pulsatile Mass, Non Tender, Soft Back: Decreased Range of Motion Extremity: Normal Capillary Refill, Normal Inspection, Normal Range of Motion (decreased ROM legs), Non Tender, No Calf Tenderness, Pedal Edema Neurologic/Psychiatric: Alert, Oriented x3, Normal Mood/Affect, 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 FIM Transfers Therapy Code Descriptions/Definitions Functional [place] Measure: 0=Not Assessed/NA 4=Minimal Assistance 1=Total Assistance 5=Supervision or Setup 2=Maximal Assistance 6=Modified [place] 3=Moderate Assistance 7=Complete IndependenceSCALE: Activities may be completed with or without assistive devices. 6-Lxdemjosjb-dcsrxaj completes the activity by him/herself with no assistance from a helper. 5-Set-up or Clean-up Assistance-helper sets up or cleans up; patient completes activity. [place] assists only prior to or following the activity. 4-Supervision or Touching Assistance-helper provides verbal cues and/or touching /steadying and/or contact guard assistance as patient completes activity. Assistance may be provided throughout the activity or intermittently. 3-Partial/Moderate Assistance-helper does LESS THAN HALF the effort. [place] lifts, holds or supports trunk or limbs, but provides less than half the effort. 2-Substantial/Maximal Assistance-helper does MORE THAN HALF the effort. [place] lifts or holds trunk or limbs and provides more than half the effort. 9-Fflpkcmzc-pcjudu does ALL the effort. Patient does none of the effort to complete the activity. Or, the assistance of 2 or more helpers is required for the patient to complete the activity. If activity was not attempted, code reason: 7-Patient Refused. 9-Not Applicable-not attempted and the patient did not perform the activity before the current illness, exacerbation or injury. 10-Not Attempted due to Environmental Limitations-(lack of equipment, weather restraints, etc.). 88-Not Attempted due to Medical Conditions or Safety Concerns. Roll Left to Right (QC): 4 Sit to Lying (QC): 3 (requiring physical A with LE's) Sit to Stand (QC): 4 Chair/Jos-ev-Leumh Xfer(QC): 3 Car Transfer (QC): 3 (modA) Gait Training Does the Patient Walk?: Yes Distance: 160 x2 Walk 10 feet (QC): 4 Walk 50 ft with 2 Turns(QC): 4 Walk 150 ft (QC): 4 Walking 10ft/uneven surface-QC: 88 Gait Persons Needed: 1 Gait Assistive Device: FWW Wheelchair Training Does the Pt Use a Wheelchair?: Yes Distance: 150'x2 Wheel 50 ft with 2 turns (QC): 4 Wheel 150 ft (QC): 4 Type of Wheelchair: Manual Stair Training 1 Step (curb) (QC): 88 4 Steps (QC): 88 12 Steps (QC): 88 Balance Picking up an Object (QC): 88 ADL-Treatment Eating (QC): 6 (completed eating prior to session.) Oral Hygiene (QC): 6 (completes in w/c in front of sink.) Shower/Bathe Self (QC): 7 Upper Body Dressing (QC): 6 (chooses clothing items, completes with ind.) Lower Body Dressing (QC): 3 (Pt requires mod A for cues for back precautions and use of group sales coordinator and pulling pants towards knees once threaded due to socks and pulling up over hips. ) On/Off Footwear (QC): 2 Toileting Hygiene (QC): 4 (CGA in stance.) Toilet Transfer (QC): 4 (SBA) Assessment/Plan Assessment and Plan Assess & Plan/Chief Complaint Assessment: Lumbar spine status post extensive surgery Postop ileus now resolved after SSE Urinary retention requiring Bassett catheter and urology consultation Severe neuropathy Hypothyroidism Chronic pain Hip and back pain improved with steroid injection x 2 Plan: Bowel regimen maintained Pain control Home meds Urology is appreciated also Inpatient rehabilitation protocol Cath DC after cystoscopy 2 days ago Dramatic improvement in his overall status Kpad and Voltaren gel prn to hip Steroid injection was very helpful and I updated Dr Smith (1) S/P lumbar fusion (2) Hypothyroidism (3) Urinary retention (4) Bassett catheter in place (5) Constipation (6) Neuropathy (7) Ileus KEVIN FOX DO Jan 25, 2019 11:25 POS
[2019-01-25 18:00] VITALS: BP 114/70
[2019-01-25] MEDS: TAMSULOSIN 0.4 MG (FLOMAX) CAP PO SCH (18:24)
[2019-01-25] MEDS: DICLOFENAC 1% GEL 100 GM (VOLTAREN) TUBE TOP PRN (18:26)
--- NOTE | 2019-01-25 19:05 | NUR ---
resting quietly in bed, pain level 0/10 on flacc scale
--- NOTE | 2019-01-25 19:33 | NUR ---
bedside report received from MARINO DUNCAN, assume care of pt
--- NOTE | 2019-01-25 21:38 | NUR ---
pt refused miralax, Colace & Senthonyot
[2019-01-26] MEDS: LEVOTHYROXINE 25 MCG (LEVOTHROID) TAB PO SCH (06:25)
[2019-01-26] MEDS: KCL 10 MEQ TAB (MICRO K) PO SCH (06:25)
[2019-01-26] MEDS: oxyCODONE/APAP 5/325MG (PERCOCET 5) TABLET PO PRN ×3 (06:26→22:03)
--- NOTE | 2019-01-26 06:26 | NUR ---
pt c/o pain level 7/10 on numeric scale, Percocet 2 tab given
[2019-01-26 06:27] LABS: BASOPHILS % (AUTO) 0 % (0-10); EOSINOPHILS # (AUTO) 0.5 10^3/uL (0.0-0.3); EOSINOPHILS % (AUTO) 4 % (0-10); HEMATOCRIT 38 % (40-54); HEMOGLOBIN 11.7 G/DL (13.3-17.7); LYMPHOCYTES # (AUTO) 2.1 X 10^3 (1.0-4.0); LYMPHOCYTES % (AUTO) 20 % (12-44); MEAN CORPUSCULAR HEMOGLOBIN 30 PG (25-34); MEAN CORPUSCULAR HGB CONC 31 G/DL (32-36); MEAN CORPUSCULAR VOLUME 99 FL (80-99); MEAN PLATELET VOLUME 10.1 FL (7.4-10.4); MONOCYTES # (AUTO) 1.4 X 10^3 (0.0-1.0); MONOCYTES % (AUTO) 13 % (0-12); NEUTROPHILS # (AUTO) 6.7 X 10^3 (1.8-7.8); NEUTROPHILS % (AUTO) 63 % (42-75); PLATELET COUNT 399 10^3/uL (130-400); RED CELL DISTRIBUTION WIDTH 13.5 % (10.0-14.5); WHITE BLOOD COUNT 10.6 10^3/uL (4.3-11.0)
[2019-01-26 06:42] VITALS: BP 124/80
[2019-01-26 06:45] LABS: ALANINE AMINOTRANSFERASE 53 U/L (0-55); ALBUMIN 3.4 GM/DL (3.2-4.5); ALKALINE PHOSPHATASE 103 U/L (40-136); BILIRUBIN,TOTAL 0.4 MG/DL (0.1-1.0); BUN/CREATININE RATIO 24; CALCIUM 8.7 MG/DL (8.5-10.1); CARBON DIOXIDE 29 MMOL/L (21-32); CHLORIDE 102 MMOL/L (98-107); GFR ESTIMATED > 60; GLUCOSE 83 MG/DL (70-105); POTASSIUM 4.2 MMOL/L (3.6-5.0); SODIUM 139 MMOL/L (135-145)
--- NOTE | 2019-01-26 07:16 | NUR ---
rates pain level 3/10 on numeric scale
--- NOTE | 2019-01-26 07:30 | NUR ---
bedside report given to CAS DUNCAN
--- NOTE | 2019-01-26 08:22 | PM&R Progress Note ---
Subjective HPI/CC On Admission Date Seen by Provider: Jan 26, 2019 Time Seen by Provider: 08:30 Subjective/Events-last exam Appointment with Dr. Smith tomorrow and we will evaluate whether he needs to go to that appointment and disrupt his therapy schedule or if Dr. Smith wants to see him Feels like he's got a lot more to do but he is working very hard Dr. Zimmerman will see him for his urinary frequency Labs were normal Check meds and labs Reviewed therapies Reviewed labs Review therapy notes Review of Systems General: Fatigue Genitourinary: Frequency Musculoskeletal: back pain, leg pain Objective Exam Vital Signs Vital Signs Date Time Temp Pulse Resp B/P (MAP) Pulse Ox O2 Delivery O2 Flow Rate FiO2 01/26/19 21:00 Room Air 01/26/19 18:00 37.4 63 18 123/68 (86) 95 Capillary Refill : General Appearance: No Apparent Distress, WD/WN, Chronically ill, Obese HEENT: PERRL/EOMI, Normal ENT Inspection, Pharynx Normal Neck: Full Range of Motion, Normal Inspection, Non Tender, Supple Respiratory: Chest Non Tender, Lungs Clear, Normal Breath Sounds, No Accessory Muscle Use, No Respiratory Distress Cardiovascular: Regular Rate, Rhythm, No Edema, No Gallop, No JVD, No Murmur Gastrointestinal: Normal Bowel Sounds, No Organomegaly, No Pulsatile Mass, Non Tender, Soft Back: Decreased Range of Motion Extremity: Normal Capillary Refill, Normal Inspection, Normal Range of Motion (decreased ROM legs), Non Tender, No Calf Tenderness, Pedal Edema Neurologic/Psychiatric: Alert, Oriented x3, Normal Mood/Affect, 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 FIM Transfers Therapy Code Descriptions/Definitions Functional [place] Measure: 0=Not Assessed/NA 4=Minimal Assistance 1=Total Assistance 5=Supervision or Setup 2=Maximal Assistance 6=Modified [place] 3=Moderate Assistance 7=Complete IndependenceSCALE: Activities may be completed with or without assistive devices. 2-Vpdxwdkhpt-swmezbn completes the activity by him/herself with no assistance from a helper. 5-Set-up or Clean-up Assistance-helper sets up or cleans up; patient completes activity. [place] assists only prior to or following the activity. 4-Supervision or Touching Assistance-helper provides verbal cues and/or touching/steadying and/or contact guard assistance as patient completes activity. Assistance may be provided throughout the activity or intermittently. 3-Partial/Moderate Assistance-helper does LESS THAN HALF the effort. [place] lifts, holds or supports trunk or limbs, but provides less than half the effort. 2-Substantial/Maximal Assistance-helper does MORE THAN HALF the effort. [place] lifts or holds trunk or limbs and provides more than half the effort. 3-Rbapfgkhr-jyshal does ALL the effort. Patient does none of the effort to complete the activity. Or, the assistance of 2 or more helpers is required for the patient to complete the activity. If activity was not attempted, code reason: 7-Patient Refused. 9-Not Applicable-not attempted and the patient did not perform the activity before the current illness, exacerbation or injury. 10-Not Attempted due to Environmental Limitations-(lack of equipment, weather restraints, etc.). 88-Not Attempted due to Medical Conditions or Safety Concerns. Roll Left to Right (QC): 4 Sit to Lying (QC): 3 (requiring physical A with LE's) Sit to Stand (QC): 4 Chair/Prd-bo-Fzrfn Xfer(QC): 3 Car Transfer (QC): 3 (modA) Gait Training Does the Patient Walk?: Yes Distance: 160 x2 Walk 10 feet (QC): 4 Walk 50 ft with 2 Turns(QC): 4 Walk 150 ft (QC): 4 Walking 10ft/uneven surface-QC: 88 Gait Persons Needed: 1 Gait Assistive Device: FWW Wheelchair Training Does the Pt Use a Wheelchair?: Yes Distance: 150'x2 Wheel 50 ft with 2 turns (QC): 4 Wheel 150 ft (QC): 4 Type of Wheelchair: Manual Stair Training 1 Step (curb) (QC): 88 4 Steps (QC): 88 12 Steps (QC): 88 Balance Picking up an Object (QC): 88 ADL-Treatment Eating (QC): 6 (completed eating prior to session.) Oral Hygiene (QC): 6 (completes in w/c in front of sink.) Shower/Bathe Self (QC): 7 Upper Body Dressing (QC): 6 (chooses clothing items, completes with ind.) Lower Body Dressing (QC): 3 (Pt requires mod A for cues for back precautions and use of fish rod maker and pulling pants towards knees once threaded due to socks and pulling up over hips. ) On/Off Footwear (QC): 2 Toileting Hygiene (QC): 4 (CGA in stance.) Toilet Transfer (QC): 4 (SBA) Assessment/Plan Assessment and Plan Assess & Plan/Chief Complaint Assessment: Lumbar spine status post extensive surgery Postop ileus now resolved after SSE Urinary retention requiring Bassett catheter and urology consultation Severe neuropathy Hypothyroidism Chronic pain Hip and back pain improved with steroid injection x 2 Urinary frequency Plan: Bowel regimen maintained Pain control Home meds Urology is appreciated also Inpatient rehabilitation protocol Cath DC after cystoscopy 2 days ago Dramatic improvement in his overall status Kpad and Voltaren gel prn to hip Steroid injection was very helpful and I updated Dr Smith (1) S/P lumbar fusion (2) Hypothyroidism (3) Urinary retention (4) Bassett catheter in place (5) Constipation (6) Neuropathy (7) Ileus KEVIN FOX DO Jan 26, 2019 08:22 POS
[2019-01-26] MEDS: BACLOFEN 10 MG (LIORESAL) TAB PO PRN ×2 (09:22→18:43)
[2019-01-26] MEDS: GABAPENTIN 400 MG (NEURONTIN) CAP PO SCH ×3 (09:22→20:59)
[2019-01-26] MEDS: VITAMIN D3 1,000 UNITS (CHOLECALCIFEROL) TABLET PO SCH ×2 (09:22→20:58)
[2019-01-26] MEDS: SENNA W/DOCUSATE (SENOKOT S) TABLET PO SCH ×2 (09:23→21:01)
[2019-01-26] MEDS: DOCUSATE SODIUM 100 MG (COLACE) CAP PO SCH ×2 (09:23→21:01)
[2019-01-26] MEDS: POLYETHYLENE GLYCOL 17 GM (MIRALAX) PACK PO SCH ×2 (09:23→21:00)
--- NOTE | 2019-01-26 09:30 | Occupational Ther Daily Note ---
OT Current Status-Daily Note Subjective Pt seen in bed, agreeable to OT tx session. Pt states anxiousness over potentially soon d/c date, states he would like to continue working on ADLs. Mental Status/Objective Patient Orientation: Normal For Age ADL-Treatment Therapy Code Descriptions/Definitions Functional [place] Measure: 0=Not Assessed/NA 4=Minimal Assistance 1=Total Assistance 5=Supervision or Setup 2=Maximal Assistance 6=Modified [place] 3=Moderate Assistance 7=Complete IndependenceSCALE: Activities may be completed with or without assistive devices. 1-Nrjsivfylr-sgvysqp completes the activity by him/herself with no assistance from a helper. 5-Set-up or Clean-up Assistance-helper sets up or cleans up; patient completes activity. [place] assists only prior to or following the activity. 4-Supervision or Touching Assistance-helper provides verbal cues and/or touching/steadying and/or contact guard assistance as patient completes activity. Assistance may be provided throughout the activity or intermittently. 3-Partial/Moderate Assistance-helper does LESS THAN HALF the effort. [place] lifts, holds or supports trunk or limbs, but provides less than half the effort. 2-Substantial/Maximal Assistance-helper does MORE THAN HALF the effort. [place] lifts or holds trunk or limbs and provides more than half the effort. 0-Fthljoqxd-hdxufr does ALL the effort. Patient does none of the effort to complete the activity. Or, the assistance of 2 or more helpers is required for the patient to complete the activity. If activity was not attempted, code reason: 7-Patient Refused. 9-Not Applicable-not attempted and the patient did not perform the activity before the current illness, exacerbation or injury. 10-Not Attempted due to Environmental Limitations-(lack of equipment, weather restraints, etc.). 88-Not Attempted due to Medical Conditions or Safety Concerns. Eating (QC): 6 Shower/Bathe Self (QC): 5 (Pt completes showering tasks on shower chair with s/u. Dries self with IND.) Upper Body Dressing (QC): 6 (In shower chair, completes UB dressing and back brace with IND.) Lower Body Dressing (QC): 4 (Pt completes breif doff/ donning with sprinkler installer/ dressing stick with SBA; requires intermittent assist with sock aide due to damp skin. Pt educated on use of slippers with backs for safety post-showering due to increased time and difficulty with sock aide donning. Use of corn starch attempted to ease donning- difficulty donning continued. Pt completes pant donning with SBA.) Toileting Hygiene (QC): 2 (Pt states main concern is toilet hygiene, pt attempts to reach bottom post-BM with hands, then educated on toilet tongs. Pt attempts but due to fatigue and mentality, pt states he would rather wait till tomorrow to tackle toileting. Pt cleaned up with max A in stance.) Toilet Transfer (QC): 4 (SBA to commode.) Other Treatment Pt requests assist with urinal, pt urinates ~25 ml. Pt completes, and requests again, urinates an additional 75ml. Pt log roll from bed with IND. Sit to stand with back brace on with SUP. Pt requests showering and toileting tasks. Pt completes all with increased time, increased fatigue post-showering. Pt requires cues for use of AE for pant donning. Pt anxious about home environment, states he wants to be IND with toilet hygiene before home. Pt educated on AE, denies use at the moment. Pt requires reminders of his progress throughout tx. Pt left in bed with call light in reach, all needs met, nursing present. Education OT Patient Education: Correct positioning, Energy conservation, Modified ADL techniques, Progress toward Goal/Update tx plan, Transfer techniques, Use of adapted equipment Teaching Recipient: Patient Teaching Methods: Demonstration, Discussion Response to Teaching: Verbalize Understanding, Return Demonstration OT Short Term Goals Short Term Goals Time Frame: Jan 22, 2019 Eatin (met) Oral hygiene: 5 (met) Toileting hygiene: 4 (met) Shower/bathe self: 4 (met) Upper body dressin (met) Lower body dressin Putting on/taking off footwear: 4 (met) OT Half-Way Goals Half-Way Goals Time Frame: Jan 29, 2019 Eating (QC): 6 (met) Oral Hygiene (QC): 6 (met) Toileting Hygiene (QC): 6 Shower/Bathe Self (QC): 5 (met) Upper Body Dressing (QC): 6 (et) Lower Body Dressing (QC): 6 On/Off Footwear (QC): 6 (met) Additional Goals: 1-Demonstrate ADL Tasks, 2-Verbalize Understanding, 3-Im proveStrength/Xander 1=Demonstrate adherence to instructed precautions during ADL tasks. 2=Patient will verbalize/demonstrate understanding of assistive devices/modifications for ADL. 3=Patient will improve strength/tolerance for activity to enable patient to perform ADL's. OT Education/Plan Problem List/Assessment Assessment: Decreased Activ Tolerance, Impaired Funct Balance, Impaired I ADL's, Impaired Self-Care Skills Discharge Recommendations Plan/Recommendations: Continue POC Treatment Plan/Plan of Care Treatment,Training & Education: Yes Patient would benefit from OT for education, treatment and training to promote independence in ADL's, mobility, safety and/or upper extremity function for ADL's. Plan of Care: ADL Retraining, Functional Mobility, Group Exercise/Act as Ind, UE Funct Exercise/Act Treatment Duration: Jan 29, 2019 Frequency: At least 5 of 7 days/Wk (IRF) Estimated Hrs Per Day: 1.5 hours per day Agreement: Yes Rehab Potential: Good Time/GCodes Start Time: 08:00 Stop Time: 09:30 Total Time Billed (hr/min): 90 Billed Treatment Time 1, ADL 6 (90) CLARENCE BLAIR OTR Jan 26, 2019 09:30 POS
--- NOTE | 2019-01-26 10:08 | Physical Therapy Daily Note ---
PT Daily Note-Current Subjective Patient in bed pre tx, agrees to PT, has 7/10 pain in back. Appearance Patient BTB post tx with nurse call, phone, tray, all needs met. Mental Status Patient Orientation: Person, Place, Situation back brace Transfers SCALE: Activities may be completed with or without assistive devices. 7-Dprrtjwudv-aoksfsy completes the activity by him/herself with no assistance from a helper. 5-Set-up or Clean-up Assistance-helper sets up or cleans up; patient completes activity. [place] assists only prior to or following the activity. 4-Supervision or Touching Assistance-helper provides verbal cues and/or touching/steadying and/or contact guard assistance as patient completes activity. Assistance may be provided throughout the activity or intermittently. 3-Partial/Moderate Assistance-helper does LESS THAN HALF the effort. [place] lifts, holds or supports trunk or limbs, but provides less than half the effort. 2-Substantial/Maximal Assistance-helper does MORE THAN HALF the effort. [place] lifts or holds trunk or limbs and provides more than half the effort. 1-Qmcrhlfgm-zzamma does ALL the effort. Patient does none of the effort to complete the activity. Or, the assistance of 2 or more helpers is required for the patient to complete the activity. If activity was not attempted, code reason: 7-Patient Refused. 9-Not Applicable-not attempted and the patient did not perform the activity before the current illness, exacerbation or injury. 10-Not Attempted due to Environmental Limitations-(lack of equipment, weather restraints, etc.). 88-Not Attempted due to Medical Conditions or Safety Concerns. Roll Left & Right (QC): 3 Sit to Lying (QC): 3 (mod A) Lying to Sitting/Side of Bed(Q: 3 Sit to Stand (QC): 4 Chair/Nyk-cr-Xmwjk Xfer(QC): 4 sit to stand and transfers CGA, cues for hand placement Gait Training Distance: 150'x2 Walk 10 feet (QC): 4 Walk 50 ft with 2 Turns(QC): 4 Walk 150 ft (QC): 4 Gait Assistive Device: FWW CGA, slow, leans heavily on walker, uncoordinated steps, slides feet across the floor Exercises NuStep Minutes: 15 NuStep Workload: 5 Treatments bed mobility and transfers, ambulation, LE exercises Assessment Current Status: Fair Progress improved ambulation PT Short Term Goals Short Term Goals Time Frame: Jan 22, 2019 Sit to lyin (Cassie) Lying to sitting on side of be: 3 (Cassie) Sit to stand: 4 (CGA) Walk 10 feet: 3 (Cassie) PT Jail Goals Jail Goals PT Condenser Cleaner Goals Time Frame: Feb 05, 2019 Roll Left & Right (QC): 6 Sit to Lying (QC): 6 Lying-Sitting on Side/Bed(QC): 6 Sit to Stand (QC): 6 Chair/Rob-ow-Xmhru Xfer(QC): 6 Toilet Transfer (QC): 6 Car Transfer (QC): 6 Does the Patient Walk: Yes Walk 10 feet (QC): 4 (CGA) Walk 50ft with 2 Turns (QC): 4 (CGA) Walk 150 ft (QC): 88 Walking 10ft on Uneven Surface: 4 (CGA) 1 Step (curb) (QC): 4 (CGA) 4 Steps (QC): 9 12 Steps (QC): 9 Picking up an Object (QC): 88 Does the Pt use WC or Scooter?: Yes Wheel 50 feet with 2 turns (QC: 6 Type: Manual Wheel 150 feet: 6 Type: Manual PT Plan Problem List Problem List: Activity Tolerance, Functional Strength, Safety, Balance, Gait, Transfer Treatment/Plan Treatment Plan: Continue Plan of Care Treatment Plan: Bed Mobility, Concurrent Therapy, Education, Functional Activity Xander, Functional Strength, Group Therapy, Gait, Safety, Therapeutic Exercise, Transfers Treatment Duration: Feb 05, 2019 Frequency: At least 5 of 7 days/Wk (IRF) Estimated Hrs Per Day: 1.5 hours per day Patient and/or Family Agrees t: Yes Safety Risks/Education Patient Education: Gait Training, Transfer Techniques, Correct Positioning, Reviewed Don/Doff Brace, Safety Issues Teaching Recipient: Patient Teaching Methods: Demonstration, Discussion Response to Teaching: Reinforcement Needed Time/GCodes Time In: 0930 Time Out: 1015 Total Billed Treatment Time: 45 Total Billed Treatment 1 visit EX 15' FA 10' GT 20' IRENE MARTIN PT Jan 26, 2019 10:08 POS
--- NOTE | 2019-01-26 13:28 | NUR ---
provided prayer and Communion.
--- NOTE | 2019-01-26 16:13 | Physical Therapy Daily Note ---
PT Daily Note-Current Subjective Agrees to PT. Reports he feels he is getting stronger. Transfers SCALE: Activities may be completed with or without assistive devices. 5-Fpknimqnbo-twuqjeo completes the activity by him/herself with no assistance from a helper. 5-Set-up or Clean-up Assistance-helper sets up or cleans up; patient completes activity. [place] assists only prior to or following the activity. 4-Supervision or Touching Assistance-helper provides verbal cues and/or touching/steadying and/or contact guard assistance as patient completes activity. Assistance may be provided throughout the activity or intermittently. 3-Partial/Moderate Assistance-helper does LESS THAN HALF the effort. [place] lifts, holds or supports trunk or limbs, but provides less than half the effort. 2-Substantial/Maximal Assistance-helper does MORE THAN HALF the effort. [place] lifts or holds trunk or limbs and provides more than half the effort. 9-Tddtfmywb-maxdjc does ALL the effort. Patient does none of the effort to complete the activity. Or, the assistance of 2 or more helpers is required for the patient to complete the activity. If activity was not attempted, code reason: 7-Patient Refused. 9-Not Applicable-not attempted and the patient did not perform the activity before the current illness, exacerbation or injury. 10-Not Attempted due to Environmental Limitations-(lack of equipment, weather restraints, etc.). 88-Not Attempted due to Medical Conditions or Safety Concerns. Treatments Gait training 150 ft x 4 reps with FWW with CGA. Sit to stand x 5 x 2 sets with FWw with skilled cues for safety and sequencing. Education on progression of activity. Toileted with SBA for toilet transfer and dep for bruno care. Sit to supine with min assist for legs. Pt in bed post treatment with needs met. Assessment Current Status: Good Progress Narrow CONI with gait with occas scissoring, which SO reports is improved. PT Short Term Goals Short Term Goals Time Frame: Jan 22, 2019 Sit to lyin (Cassie) Lying to sitting on side of be: 3 (Cassie) Sit to stand: 4 (CGA) Walk 10 feet: 3 (Cassie) PT Paper Products Inspector Goals Paper Products Inspector Goals PT Senior Care Goals Time Frame: Feb 05, 2019 Roll Left & Right (QC): 6 Sit to Lying (QC): 6 Lying-Sitting on Side/Bed(QC): 6 Sit to Stand (QC): 6 Chair/Xfl-sg-Cmeyg Xfer(QC): 6 Toilet Transfer (QC): 6 Car Transfer (QC): 6 Does the Patient Walk: Yes Walk 10 feet (QC): 4 (CGA) Walk 50ft with 2 Turns (QC): 4 (CGA) Walk 150 ft (QC): 88 Walking 10ft on Uneven Surface: 4 (CGA) 1 Step (curb) (QC): 4 (CGA) 4 Steps (QC): 9 12 Steps (QC): 9 Picking up an Object (QC): 88 Does the Pt use WC or Scooter?: Yes Wheel 50 feet with 2 turns (QC: 6 Type: Manual Wheel 150 feet: 6 Type: Manual PT Plan Problem List Problem List: Activity Tolerance, Functional Strength, Safety, Balance, Gait, Transfer, Bed Mobility Treatment/Plan Treatment Plan: Continue Plan of Care Treatment Plan: Bed Mobility, Concurrent Therapy, Education, Functional Acti vity X[place], Functional Strength, Group Therapy, Gait, Safety, Therapeutic Exercise, Transfers Treatment Duration: Feb 05, 2019 Frequency: At least 5 of 7 days/Wk (IRF) Estimated Hrs Per Day: 1.5 hours per day Patient and/or Family Agrees t: Yes Safety Risks/Education Patient Education: Safety Issues Teaching Recipient: Patient Teaching Methods: Discussion Response to Teaching: Return Demonstration Time/GCodes Time In: 1345 Time Out: 1430 Total Billed Treatment Time: 45 Total Billed Treatment visit GT 15 EX 15 FA 15 ASHER ALEJANDRE PT Jan 26, 2019 16:13 POS
[2019-01-26 18:00] VITALS: BP 123/68
[2019-01-26] MEDS: TAMSULOSIN 0.4 MG (FLOMAX) CAP PO SCH (18:40)
--- NOTE | 2019-01-26 19:38 | NUR ---
bedside report received from CAS DUNCAN, assume care of pt
--- NOTE | 2019-01-26 20:58 | NUR ---
pt refused Colace, mirlenyx & Valerieot
--- NOTE | 2019-01-26 22:03 | NUR ---
c/o hip pain level 5/10 on numeric scale, Percocet 2 tabs given
--- NOTE | 2019-01-26 22:40 | NUR ---
rates pain at 2/10 on numeric scale
[2019-01-27] MEDS: oxyCODONE/APAP 5/325MG (PERCOCET 5) TABLET PO PRN ×3 (05:04→19:56)
--- NOTE | 2019-01-27 05:04 | NUR ---
c/o back & hip pain level 7/10 on numeric scale, Percocet 2 tabs given
--- NOTE | 2019-01-27 05:40 | NUR ---
resting quietly in bed, pain level 0/10 on flacc scale
[2019-01-27 06:00] VITALS: BP 111/63
[2019-01-27] MEDS: LEVOTHYROXINE 25 MCG (LEVOTHROID) TAB PO SCH (06:27)
[2019-01-27] MEDS: KCL 10 MEQ TAB (MICRO K) PO SCH (06:27)
--- NOTE | 2019-01-27 07:27 | NUR ---
bedside report given to NELLIE DUNCAN
[2019-01-27] MEDS: SENNA W/DOCUSATE (SENOKOT S) TABLET PO SCH ×2 (08:07→20:09)
[2019-01-27] MEDS: DOCUSATE SODIUM 100 MG (COLACE) CAP PO SCH ×2 (08:07→20:08)
[2019-01-27] MEDS: POLYETHYLENE GLYCOL 17 GM (MIRALAX) PACK PO SCH ×2 (08:07→20:08)
[2019-01-27] MEDS: VITAMIN D3 1,000 UNITS (CHOLECALCIFEROL) TABLET PO SCH ×2 (08:07→20:07)
[2019-01-27] MEDS: GABAPENTIN 400 MG (NEURONTIN) CAP PO SCH ×3 (08:07→20:08)
--- NOTE | 2019-01-27 09:34 | Physical Therapy Daily Note ---
PT Daily Note-Current Subjective Pt agreeable to PT session. States he is feeling more confident. Pain Numeric Pain Scale: 6 (has had pain meds) Comment: "just above my glutes but not all the way up into my lower back" Appearance Pt sitting up in recliner just finished with OT upon arrival. Pt requesting and assisted to restroom, SBA to CGA, min A only with pulling down brief. At end of session, pt supine in bed with call light, phone and bedside table within reach. Mental Status Patient Orientation: Person, Place, Time, Eyes Open, Situation back support brace Transfers SCALE: Activities may be completed with or without assistive devices. 1-Dwbwidzerw-tgplrdt completes the activity by him/herself with no assistance from a helper. 5-Set-up or Clean-up Assistance-helper sets up or cleans up; patient completes activity. [place] assists only prior to or following the activity. 4-Supervision or Touching Assistance-helper provides verbal cues and/or touching/steadying and/or contact guard assistance as patient completes activity. Assistance may be provided throughout the activity or intermittently. 3-Partial/Moderate Assistance-helper does LESS THAN HALF the effort. [place] lifts, holds or supports trunk or limbs, but provides less than half the effort. 2-Substantial/Maximal Assistance-helper does MORE THAN HALF the effort. [place] lifts or holds trunk or limbs and provides more than half the effort. 7-Swmajybat-loljeu does ALL the effort. Patient does none of the effort to complete the activity. Or, the assistance of 2 or more helpers is required for the patient to complete the activity. If activity was not attempted, code reason: 7-Patient Refused. 9-Not Applicable-not attempted and the patient did not perform the activity before the current illness, exacerbation or injury. 10-Not Attempted due to Environmental Limitations-(lack of equipment, weather restraints, etc.). 88-Not Attempted due to Medical Conditions or Safety Concerns. Roll Left & Right (QC): 5 Sit to Lying (QC): 3 (physical A required with BLE's into bed) Sit to Stand (QC): 4 skilled inst required for hand placement and safety during sit to and from stand transfers Gait Training Does the Patient Walk?: Yes Distance: 250, 150 Walk 10 feet (QC): 4 Walk 50 ft with 2 Turns(QC): 4 Walk 150 ft (QC): 4 Gait Persons Needed: 1 Gait Assistive Device: FWW heavily relying on walker with UE's, slight fwd flexed trunk, decreased step height, fatigue with increased gait distance, NBOS, scissoring gait episode x1 self corrected Exercises NuStep Minutes: 15 NuStep Workload: 6 (seat 9, arms 9, A with LE's onto pedals, inst to decrease L hip ER) Treatments education, safety, transfers, gait, bed mobility, toileting, activity tolerance, balance, strength, functional mobility Assessment Current Status: Good Progress PT Short Term Goals Short Term Goals Time Frame: Jan 22, 2019 Sit to lyin (Cassie) Lying to sitting on side of be: 3 (Cassie) Sit to stand: 4 (CGA) Walk 10 feet: 3 (Cassie) PT Well Tender Goals Assisted Goals PT Well Tender Goals Time Frame: Feb 05, 2019 Roll Left & Right (QC): 6 Sit to Lying (QC): 6 Lying-Sitting on Side/Bed(QC): 6 Sit to Stand (QC): 6 Chair/Lfs-id-Aduyv Xfer(QC): 6 Toilet Transfer (QC): 6 Car Transfer (QC): 6 Does the Patient Walk: Yes Walk 10 feet (QC): 4 (CGA) Walk 50ft with 2 Turns (QC): 4 (CGA) Walk 150 ft (QC): 88 Walking 10ft on Uneven Surface: 4 (CGA) 1 Step (curb) (QC): 4 (CGA) 4 Steps (QC): 9 12 Steps (QC): 9 Picking up an Object (QC): 88 Does the Pt use WC or Scooter?: Yes Wheel 50 feet with 2 turns (QC: 6 Type: Manual Wheel 150 feet: 6 Type: Manual PT Plan Treatment/Plan Treatment Plan: Continue Plan of Care Treatment Plan: Bed Mobility, Concurrent Therapy, Education, Functional Act ivity [place], Functional Strength, Group Therapy, Gait, Safety, Therapeutic Exercise, Transfers Treatment Duration: Feb 05, 2019 Frequency: At least 5 of 7 days/Wk (IRF) Estimated Hrs Per Day: 1.5 hours per day Patient and/or Family Agrees t: Yes Safety Risks/Education Patient Education: Gait Training, Transfer Techniques, Reviewed Precautions, Correct Positioning, Reviewed Don/Doff Brace, Safety Issues Teaching Recipient: Patient Teaching Methods: Demonstration, Discussion Response to Teaching: Verbalize Understanding, Return Demonstration, Reinforcement Needed Time/GCodes Time In: 930 Time Out: 1015 Total Billed Treatment Time: 45 Total Billed Treatment 1 visit, GT x15 min, EX x15 min, FA x15 min GRIS OLGUIN PTA Jan 27, 2019 09:34 POS
--- NOTE | 2019-01-27 10:33 | PM&R Progress Note ---
Subjective HPI/CC On Admission Date Seen by Provider: Jan 27, 2019 Time Seen by Provider: 09:00 Subjective/Events-last exam Rescheduled Appt with Dr. Smith. Bowels are moving okay. Left hip better but stretching it out. Overall dramatically improved from admission. Check meds and labs Reviewed therapies Reviewed labs Review therapy notes Review of Systems General: Fatigue Genitourinary: Frequency Musculoskeletal: back pain, leg pain Objective Exam Vital Signs Vital Signs Date Time Temp Pulse Resp B/P (MAP) Pulse Ox O2 Delivery O2 Flow Rate FiO2 01/28/19 09:00 Room Air 01/28/19 06:24 37.0 67 22 108/68 (81) 97 Capillary Refill : General Appearance: No Apparent Distress, WD/WN, Chronically ill, Obese HEENT: PERRL/EOMI, Normal ENT Inspection, Pharynx Normal Neck: Full Range of Motion, Normal Inspection, Non Tender, Supple Respiratory: Chest Non Tender, Lungs Clear, Normal Breath Sounds, No Accessory Muscle Use, No Respiratory Distress Cardiovascular: Regular Rate, Rhythm, No Edema, No Gallop, No JVD, No Murmur Gastrointestinal: Normal Bowel Sounds, No Organomegaly, No Pulsatile Mass, Non Tender, Soft Back: Decreased Range of Motion Extremity: Normal Capillary Refill, Normal Inspection, Normal Range of Motion (decreased ROM legs), Non Tender, No Calf Tenderness, Pedal Edema Neurologic/Psychiatric: Alert, Oriented x3, Normal Mood/Affect, 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 FIM Transfers Therapy Code Descriptions/Definitions Functional [place] Measure: 0=Not Assessed/NA 4=Minimal Assistance 1=Total Assistance 5=Supervision or Setup 2=Maximal Assistance 6=Modified [place] 3=Moderate Assistance 7=Complete IndependenceSCALE: Activities may be completed with or without assistive devices. 8-Ljytcyzdie-xjncuhx completes the activity by him/herself with no assistance from a helper. 5-Set-up or Clean-up Assistance-helper sets up or cleans up; patient completes activity. [place] assists only prior to or following the activity. 4-Supervision or Touching Assistance-helper provides verbal cues and/or touching/steadying and/or contact guard assistance as patient completes activity. Assistance may be provided throughout the activity or intermittently. 3-Partial/Moderate Assistance-helper does LESS THAN HALF the effort. [place] lifts, holds or supports trunk or limbs, but provides less than half the effort. 2-Substantial/Maximal Assistance-helper does MORE THAN HALF the effort. [place] lifts or holds trunk or limbs and provides more than half the effort. 6-Eeusyujsm-bebuos does ALL the effort. Patient does none of the effort to complete the activity. Or, the assistance of 2 or more helpers is required for the patient to complete the activity. If activity was not attempted, code reason: 7-Patient Refused. 9-Not Applicable-not attempted and the patient did not perform the activity before the current illness, exacerbation or injury. 10-Not Attempted due to Environmental Limitations-(lack of equipment, weather restraints, etc.). 88-Not Attempted due to Medical Conditions or Safety Concerns. Roll Left to Right (QC): 5 Sit to Lying (QC): 3 (physical A required with BLE's into bed) Sit to Stand (QC): 4 Chair/Zxs-zq-Izzdk Xfer(QC): 4 Car Transfer (QC): 3 (modA) Gait Training Does the Patient Walk?: Yes Distance: 150'x2 Walk 10 feet (QC): 4 Walk 50 ft with 2 Turns(QC): 4 Walk 150 ft (QC): 4 Walking 10ft/uneven surface-QC: 88 Gait Persons Needed: 1 Gait Assistive Device: FWW Wheelchair Training Does the Pt Use a Wheelchair?: Yes Distance: 150'x2 Wheel 50 ft with 2 turns (QC): 4 Wheel 150 ft (QC): 4 Type of Wheelchair: Manual Stair Training 1 Step (curb) (QC): 88 4 Steps (QC): 88 12 Steps (QC): 88 Balance Picking up an Object (QC): 88 ADL-Treatment Eating (QC): 6 Oral Hygiene (QC): 6 (completes in w/c in front of sink.) Shower/Bathe Self (QC): 5 (Pt completes showering tasks on shower chair with s/u. Dries self with IND.) Upper Body Dressing (QC): 6 (In shower chair, completes UB dressing and back brace with IND.) Lower Body Dressing (QC): 4 (Pt completes breif doff/ donning with framing inspector/ dressing stick with SBA; requires intermittent assist with sock aide due to damp skin. Pt educated on use of slippers with backs for safety post-showering due to increased time and difficulty with sock aide donning. Use of corn starch attempted to ease donning- difficulty donning continued. Pt completes pant donni ng with SBA.) On/Off Footwear (QC): 2 Toileting Hygiene (QC): 2 (Pt states main concern is toilet hygiene, pt attempts to reach bottom post-BM with hands, then educated on toilet tongs. Pt attempts but due to fatigue and mentality, pt states he would rather wait till tomorrow to tackle toileting. Pt cleaned up with max A in stance.) Toilet Transfer (QC): 4 (SBA to commode.) Assessment/Plan Assessment and Plan Assess & Plan/Chief Complaint Assessment: Lumbar spine status post extensive surgery Postop ileus now resolved after SSE Urinary retention requiring Bassett catheter and urology consultation Severe neuropathy Hypothyroidism Chronic pain Hip and back pain improved with steroid injection x 2 Urinary frequency Plan: Bowel regimen maintained Pain control Home meds Urology is appreciated also Inpatient rehabilitation protocol Cath DC after cystoscopy Dramatic improvement in his overall status Kpad and Voltaren gel prn to hip Steroid injection was very helpful and I updated Dr Smith Rescheduled appointment with Dr. Smith (1) S/P lumbar fusion (2) Hypothyroidism (3) Urinary retention (4) Bassett catheter in place (5) Constipation (6) Neuropathy (7) Ileus KEVIN FOX DO Jan 27, 2019 10:33
--- NOTE | 2019-01-27 11:14 | Occupational Ther Daily Note ---
OT Current Status-Daily Note Subjective Pt agreeable to therapy. Reports 6/10 pain in left hip and low back ADL-Treatment Pt in restroom when therapist arrives. Pt sit to stand from toilet with SBA. Pt sat at sink to complete grooming tasks. Pt washed hands, completed oral care, and shaved independently. Pt declined shower this morning, states he had one yesterday.Pt already has clean shirt and brace in place. Pt donned pants using mass communications professor to start over feet. Stood with supervision for balance during pant hike. Pt also completed toileting at end of session. Reviewed use of toileting aid. Pt able to complete toileting hygiene with toileting aid, but requested assist to ensure thorough hygiene. Pt able to manage clothing with SBA. Therapy Code Descriptions/Definitions Functional [place] Measure: 0=Not Assessed/NA 4=Minimal Assistance 1=Total Assistance 5=Supervision or Setup 2=Maximal Assistance 6=Modified [place] 3=Moderate Assistance 7=Complete IndependenceSCALE: Activities may be completed with or without assistive devices. 7-Jvpcvilcfa-pgrvdzk completes the activity by him/herself with no assistance from a helper. 5-Set-up or Clean-up Assistance-helper sets up or cleans up; patient completes activity. [place] assists only prior to or following the activity. 4-Supervision or Touching Assistance-helper provides verbal cues and/or touching/steadying and/or contact guard assistance as patient completes activity. Assistance may be provided throughout the activity or intermittently. 3-Partial/Moderate Assistance-helper does LESS THAN HALF the effort. [place] lifts, holds or supports trunk or limbs, but provides less than half the effort. 2-Substantial/Maximal Assistance-helper does MORE THAN HALF the effort. [place] lifts or holds trunk or limbs and provides more than half the effort. 9-Zaiurlcqt-aojszm does ALL the effort. Patient does none of the effort to complete the activity. Or, the assistance of 2 or more helpers is required for the patient to complete the activity. If activity was not attempted, code reason: 7-Patient Refused. 9-Not Applicable-not attempted and the patient did not perform the activity before the current illness, exacerbation or injury. 10-Not Attempted due to Environmental Limitations-(lack of equipment, weather restraints, etc.). 88-Not Attempted due to Medical Conditions or Safety Concerns. Oral Hygiene (QC): 6 Lower Body Dressing (QC): 4 Toileting Hygiene (QC): 3 Toilet Transfer (QC): 4 Other Treatment Gait to therapy gym with FWW, slow pace. Skilled cues for walker use and safety. Arm bike x8 minutes to increase overall strength and activity tolerance needed for functional task completion. Pt performed task with minimal resistance and slow pace. No rest breaks needed. Pt completed four bilateral UE exercises x10 reps with dowel maria luz to increase AROM and strength for ADL tasks. Rest breaks between exercises. Graded clothespins task with bilateral hands to increase diversional therapist's assistant/pinch strength. Pt completed task with increased time. Pt completed standing ha bag toss to increase standing balance needed for functional tasks. Pt completed task with CGA for balance. One seated rest break taken. Pt returned to room, sitting in chair with needs met after session, PT present. Education OT Patient Education: Modified ADL techniques Teaching Recipient: Patient Teaching Methods: Discussion Response to Teaching: Verbalize Understanding OT Short Term Goals Short Term Goals Time Frame: Jan 22, 2019 Eatin (met) Oral hygiene: 5 (met) Toileting hygiene: 4 (met) Shower/bathe self: 4 (met) Upper body dressin (met) Lower body dressin Putting on/taking off footwear: 4 (met) OT Choir Leader Goals Choir Leader Goals Time Frame: Jan 29, 2019 Eating (QC): 6 (met) Oral Hygiene (QC): 6 (met) Toileting Hygiene (QC): 6 Shower/Bathe Self (QC): 5 (met) Upper Body Dressing (QC): 6 (et) Lower Body Dressing (QC): 6 On/Off Footwear (QC): 6 (met) Additional Goals: 1-Demonstrate ADL Tasks, 2-Verbalize Understanding, 3- ImproveStrength/Xander 1=Demonstrate adherence to instructed precautions during ADL tasks. 2=Patient will verbalize/demonstrate understanding of assistive devices/modifications for ADL. 3=Patient will improve strength/tolerance for activity to enable patient to perform ADL's. OT Education/Plan Discharge Recommendations Plan/Recommendations: Continue POC Treatment Plan/Plan of Care Patient would benefit from OT for education, treatment and training to promote independence in ADL's, mobility, safety and/or upper extremity function for ADL's. Plan of Care: ADL Retraining, Functional Mobility, Group Exercise/Act as Ind, UE Funct Exercise/Act Treatment Duration: Jan 29, 2019 Frequency: At least 5 of 7 days/Wk (IRF) Estimated Hrs Per Day: 1.5 hours per day Agreement: Yes Rehab Potential: Good Time/GCodes Start Time: 08:00 Stop Time: 09:30 Total Time Billed (hr/min): 90 Billed Treatment Time 1 visit, ADLx3(40minutes), EXx2(30minutes), FA(20minutes) BENJAMIN THOMPSON OT Jan 27, 2019 11:14 POS
--- NOTE | 2019-01-27 12:39 | NUR ---
APPOINTMENT WITH DR. DOWNS RESCHEDULED FOR 02/10/19 AT 1:45 PM IN [place].
--- NOTE | 2019-01-27 13:50 | Physical Therapy Daily Note ---
PT Daily Note-Current Subjective Pt agreeable to PT session. Pain Numeric Pain Scale: 3 Comment: low back Appearance Pt supine in bed, easily aroused, upon arrival. Pt requesting and assisted to bathroom. At end of session, pt in bed with call light, phone and bedside table within reach Mental Status Patient Orientation: Normal For Age back support brace Transfers SCALE: Activities may be completed with or without assistive devices. 0-Tzmmomycxl-ezcfmcd completes the activity by him/herself with no assistance from a helper. 5-Set-up or Clean-up Assistance-helper sets up or cleans up; patient completes activity. [place] assists only prior to or following the activity. 4-Supervision or Touching Assistance-helper provides verbal cues and/or touching/steadying and/or contact guard assistance as patient completes act ivity. Assistance may be provided throughout the activity or intermittently. 3-Partial/Moderate Assistance-helper does LESS THAN HALF the effort. [place] lifts, holds or supports trunk or limbs, but provides less than half the effort. 2-Substantial/Maximal Assistance-helper does MORE THAN HALF the effort. [place] lifts or holds trunk or limbs and provides more than half the effort. 3-Aqkhnlfbw-znyiwu does ALL the effort. Patient does none of the effort to complete the activity. Or, the assistance of 2 or more helpers is required for the patient to complete the activity. If activity was not attempted, code reason: 7-Patient Refused. 9-Not Applicable-not attempted and the patient did not perform the activity before the current illness, exacerbation or injury. 10-Not Attempted due to Environmental Limitations-(lack of equipment, weather restraints, etc.). 88-Not Attempted due to Medical Conditions or Safety Concerns. Roll Left & Right (QC): 5 Sit to Lying (QC): 3 Lying to Sitting/Side of Bed(Q: 4 Sit to Stand (QC): 4 Toilet Transfer (QC): 4 Gait Training Does the Patient Walk?: Yes Distance: 150 x2 Walk 10 feet (QC): 4 Walk 50 ft with 2 Turns(QC): 4 Walk 150 ft (QC): 4 Gait Persons Needed: 1 Gait Assistive Device: FWW occasional episodes of knee buckling this session, increased fatigue noted, x3 episodes of scissoring gait, NBOS, briefly follows skilled instruction to increase CONI and step height Exercises Supine Ex: Ankle pumps Seated Therapy Exercises: Ankle pumps, Long arc quads, Hip flexion, Hip abd/add Seated Reps: 20 Standing: Hip Abduction, Heel/toe raises, Marching, Mini squats Standing Reps: 10 (x2 sets) Treatments education, safety, bed mobility, toileting, bruno care supervision, dressing of paints and brief with min A, transfers, gait, activity tolerance, functional mobility, strength, balance Assessment Current Status: Good Progress PT Short Term Goals Short Term Goals Time Frame: Jan 22, 2019 Sit to lyin (Cassie) Lying to sitting on side of be: 3 (Cassie) Sit to stand: 4 (CGA) Walk 10 feet: 3 (Cassie) PT Chcf Goals Chcf Goals PT Clothes Wringer Goals Time Frame: Feb 05, 2019 Roll Left & Right (QC): 6 Sit to Lying (QC): 6 Lying-Sitting on Side/Bed(QC): 6 Sit to Stand (QC): 6 Chair/Ptf-fv-Rpwfy Xfer(QC): 6 Toilet Transfer (QC): 6 Car Transfer (QC): 6 Does the Patient Walk: Yes Walk 10 feet (QC): 4 (CGA) Walk 50ft with 2 Turns (QC): 4 (CGA) Walk 150 ft (QC): 88 Walking 10ft on Uneven Surface: 4 (CGA) 1 Step (curb) (QC): 4 (CGA) 4 Steps (QC): 9 12 Steps (QC): 9 Picking up an Object (QC): 88 Does the Pt use WC or Scooter?: Yes Wheel 50 feet with 2 turns (QC: 6 Type: Manual Wheel 150 feet: 6 Type: Manual PT Plan Treatment/Plan Treatment Plan: Continue Plan of Care Treatment Plan: Bed Mobility, Concurrent Therapy, Education, Functional Ac tivity X[place], Functional Strength, Group Therapy, Gait, Safety, Therapeutic Exercise, Transfers Treatment Duration: Feb 05, 2019 Frequency: At least 5 of 7 days/Wk (IRF) Estimated Hrs Per Day: 1.5 hours per day Patient and/or Family Agrees t: Yes Safety Risks/Education Patient Education: Gait Training, Transfer Techniques, Reviewed Precautions, Reviewed Don/Doff Brace, Safety Issues Teaching Recipient: Patient Teaching Methods: Demonstration, Discussion Response to Teaching: Verbalize Understanding, Return Demonstration, Reinforcement Needed Time/GCodes Time In: 1345 Time Out: 1430 Total Billed Treatment Time: 45 Total Billed Treatment 1 visit, FA x10 min, GT x15 min, EX x20 min GRIS OLGUIN CLINICAL SPECIALIST MEDICAL DEVICE Jan 27, 2019 13:50 POS
[2019-01-27] MEDS: TAMSULOSIN 0.4 MG (FLOMAX) CAP PO SCH (17:15)
[2019-01-27 18:00] VITALS: BP 115/70
--- NOTE | 2019-01-27 19:19 | NUR ---
bedside report received from NELLIE DUNCAN, assume care of pt
--- NOTE | 2019-01-27 19:56 | NUR ---
c/o back & hip pain level 7/10 on numeric scale, percocet 5/325 2 tabs given, pt refused Colace, miralax & Senokot
--- NOTE | 2019-01-27 20:20 | NUR ---
rates pain level 3/10 on numeric scale
--- NOTE | 2019-01-27 22:11 | NUR ---
pt anxious over voiding tried to bladder scan pt but pt would not lie still, xanax 0.25mg given, pt taked to bathroom having alot of gas belching & passing gas
--- NOTE | 2019-01-27 23:00 | NUR ---
back from bathroom, bladder scan shows 93ml, pt calmer now
[2019-01-28 06:24] VITALS: BP 108/68
[2019-01-28] MEDS: KCL 10 MEQ TAB (MICRO K) PO SCH (06:25)
[2019-01-28] MEDS: LEVOTHYROXINE 25 MCG (LEVOTHROID) TAB PO SCH (06:25)
[2019-01-28] MEDS: GABAPENTIN 400 MG (NEURONTIN) CAP PO SCH ×3 (08:48→21:33)
[2019-01-28] MEDS: VITAMIN D3 1,000 UNITS (CHOLECALCIFEROL) TABLET PO SCH ×2 (08:48→21:33)
[2019-01-28] MEDS: oxyCODONE/APAP 5/325MG (PERCOCET 5) TABLET PO PRN ×2 (08:49→18:41)
[2019-01-28] MEDS: BACLOFEN 10 MG (LIORESAL) TAB PO PRN (08:49)
[2019-01-28] MEDS: SENNA W/DOCUSATE (SENOKOT S) TABLET PO SCH ×2 (09:00→21:31)
[2019-01-28] MEDS: POLYETHYLENE GLYCOL 17 GM (MIRALAX) PACK PO SCH ×2 (09:00→21:32)
[2019-01-28] MEDS: DOCUSATE SODIUM 100 MG (COLACE) CAP PO SCH ×2 (09:00→21:32)
--- NOTE | 2019-01-28 10:11 | Occupational Ther Daily Note ---
OT Current Status-Daily Note Subjective Pt agreeable to treatment. Reports 7/10 back pain. RN provided pain medication. ADL-Treatment Pt in restroom when therapist arrives. Pt requires assist for thorough toileting hygiene. Transfer to walk in shower with supervision for safety. Pt completed seated bathing using hand held shower and long handled sponge. Pt able to wash all areas after set up. Pt donned pullover shirt and back brace with set up. Pt used dental ceramist to thread bilateral LE into Depends and pants. Stood with supervision for balance during pant hike. Don socks with set up using sock aid. Grooming tasks completed seated at sink. Pt combed hair, completed oral care, and shaved independently. Transfer to [facility] over toilet with supervision. Pt able to complete clothing management after urinating. Pt transferred to B with FWW. Sit to supine with assist for LE. Pt resting in bed with needs met after session. Therapy Code Descriptions/Definitions Functional [place] Measure: 0=Not Assessed/NA 4=Minimal Assistance 1=Total Assistance 5=Supervision or Setup 2=Maximal Assistance 6=Modified [place] 3=Moderate Assistance 7=Complete IndependenceSCALE: Activities may be completed with or without assistive devices. 6-Mhimtcudyk-mfxcalo completes the activity by him/herself with no assistance from a helper. 5-Set-up or Clean-up Assistance-helper sets up or cleans up; patient completes activity. [place] assists only prior to or following the activity. 4-Supervision or Touching Assistance-helper provides verbal cues and/or touching/steadying and/or contact guard assistance as patient completes activity. Assistance may be provided throughout the activity or intermittently. 3-Partial/Moderate Assistance-helper does LESS THAN HALF the effort. [place] lifts, holds or supports trunk or limbs, but provides less than half the effort. 2-Substantial/Maximal Assistance-helper does MORE THAN HALF the effort. [place] lifts or holds trunk or limbs and provides more than half the effort. 5-Addhmlqyc-rkscjr does ALL the effort. Patient does none of the effort to complete the activity. Or, the assistance of 2 or more helpers is required for the patient to complete the activity. If activity was not attempted, code reason: 7-Patient Refused. 9-Not Applicable-not attempted and the patient did not perform the activity before the current illness, exacerbation or injury. 10-Not Attempted due to Environmental Limitations-(lack of equipment, weather restraints, etc.). 88-Not Attempted due to Medical Conditions or Safety Concerns. Oral Hygiene (QC): 6 Shower/Bathe Self (QC): 5 Upper Body Dressing (QC): 5 Lower Body Dressing (QC): 4 (SBA) Toileting Hygiene (QC): 3 Toilet Transfer (QC): 4 (SBA) OT Short Term Goals Short Term Goals Time Frame: Jan 22, 2019 Eatin (met) Oral hygiene: 5 (met) Toileting hygiene: 4 (met) Shower/bathe self: 4 (met) Upper body dressin (met) Lower body dressin Putting on/taking off footwear: 4 (met) OT Hemstitching Machine Operator Goals Hemstitching Machine Operator Goals Time Frame: Jan 29, 2019 Eating (QC): 6 (met) Oral Hygiene (QC): 6 (met) Toileting Hygiene (QC): 6 Shower/Bathe Self (QC): 5 (met) Upper Body Dressing (QC): 6 (et) Lower Body Dressing (QC): 6 On/Off Footwear (QC): 6 (met) Additional Goals: 1-Demonstrate ADL Tasks, 2-Verbalize Understanding, 3- ImproveStrength/[place] 1=Demonstrate adherence to instructed precautions during ADL tasks. 2=Patient will verbalize/demonstrate understanding of assistive devices/modifications for ADL. 3=Patient will improve strength/tolerance for activity to enable patient to perform ADL's. OT Education/Plan Discharge Recommendations Plan/Recommendations: Continue POC Treatment Plan/Plan of Care Patient would benefit from OT for education, treatment and training to promote independence in ADL's, mobility, safety and/or upper extremity function for ADL's. Plan of Care: ADL Retraining, Functional Mobility, Group Exercise/Act as Ind, UE Funct Exercise/Act Treatment Duration: Jan 29, 2019 Frequency: At least 5 of 7 days/Wk (IRF) Estimated Hrs Per Day: 1.5 hours per day Agreement: Yes Rehab Potential: Good Time/GCodes Start Time: 08:00 Stop Time: 09:00 Total Time Billed (hr/min): 60 Billed Treatment Time 1 visit, ADLx4(60minutes) BENJAMIN THOMPSON OT Jan 28, 2019 10:11
--- NOTE | 2019-01-28 10:35 | PM&R Progress Note ---
Subjective HPI/CC On Admission Date Seen by Provider: Jan 28, 2019 Time Seen by Provider: 08:30 Subjective/Events-last exam Bowels are moving okay Took a Xanax last night because he felt like he couldn't urinate Will give Pyridium Q6hrs prn for that sensation but Dr. Zimmerman assessed the pt to have no issues Noticed the twisting action activates the hip pain but majority of the time he is doing well Check meds and labs Reviewed therapies Reviewed labs Review therapy notes Review of Systems General: Fatigue Musculoskeletal: back pain, leg pain Objective Exam Vital Signs Vital Signs Date Time Temp Pulse Resp B/P (MAP) Pulse Ox O2 Delivery O2 Flow Rate FiO2 01/28/19 18:00 37.8 65 20 114/71 (85) 95 Room Air Capillary Refill : General Appearance: No Apparent Distress, WD/WN, Chronically ill, Obese HEENT: PERRL/EOMI, Normal ENT Inspection, Pharynx Normal Neck: Full Range of Motion, Normal Inspection, Non Tender, Supple Respiratory: Chest Non Tender, Lungs Clear, Normal Breath Sounds, No Accessory Muscle Use, No Respiratory Distress Cardiovascular: Regular Rate, Rhythm, No Edema, No Gallop, No JVD, No Murmur Gastrointestinal: Normal Bowel Sounds, No Organomegaly, No Pulsatile Mass, Non Tender, Soft Back: Decreased Range of Motion Extremity: Normal Capillary Refill, Normal Inspection, Normal Range of Motion (decreased ROM legs), Non Tender, No Calf Tenderness, Pedal Edema Neurologic/Psychiatric: Alert, Oriented x3, Normal Mood/Affect, eight arm operator II-XII Norm as Tested, Motor Weakness (leg weakness right greater than left 3/5) Skin: Normal Color, Warm/Dry, Tattoos/Piercings (multiple tattoos on his arms) Lymphatic: No Adenopathy Results/Procedures Lab Patient resulted labs reviewed. FIM Transfers Therapy Code Descriptions/Definitions Functional [place] Measure: 0=Not Assessed/NA 4=Minimal Assistance 1=Total Assistance 5=Supervision or Setup 2=Maximal Assistance 6=Modified [place] 3=Moderate Assistance 7=Complete IndependenceSCALE: Activities may be completed with or without assistive devices. 1-Iduajmqtmk-ruhutag completes the activity by him/herself with no assistance from a helper. 5-Set-up or Clean-up Assistance-helper sets up or cleans up; patient completes activity. [place] assists only prior to or following the activity. 4-Supervision or Touching Assistance-helper provides verbal cues and/or touching/steadying and/or contact guard assistance as patient completes activity. Assistance may be provided throughout the activity or intermittently. 3-Partial/Moderate Assistance-helper does LESS THAN HALF the effort. [place] lifts, holds or supports trunk or limbs, but provides less than half the effort. 2-Substantial/Maximal Assistance-helper does MORE THAN HALF the effort. [place] lifts or holds trunk or limbs and provides more than half the effort. 9-Ocropcycl-qjsngw does ALL the effort. Patient does none of the effort to complete the activity. Or, the assistance of 2 or more helpers is required for the patient to complete the activity. If activity was not attempted, code reason: 7-Patient Refused. 9-Not Applicable-not attempted and the patient did not perform the activity before the current illness, exacerbation or injury. 10-Not Attempted due to Environmental Limitations-(lack of equipment, weather restraints, etc.). 88-Not Attempted due to Medical Conditions or Safety Concerns. Roll Left to Right (QC): 5 Sit to Lying (QC): 3 Sit to Stand (QC): 4 Chair/Reo-mi-Kgrjj Xfer(QC): 4 Car Transfer (QC): 3 (modA) Gait Training Does the Patient Walk?: Yes Distance: 150 x2 Walk 10 feet (QC): 4 Walk 50 ft with 2 Turns(QC): 4 Walk 150 ft (QC): 4 Walking 10ft/uneven surface-QC: 88 Gait Persons Needed: 1 Gait Assistive Device: FWW Wheelchair Training Does the Pt Use a Wheelchair?: Yes Distance: 150'x2 Wheel 50 ft with 2 turns (QC): 4 Wheel 150 ft (QC): 4 Type of Wheelchair: Manual Stair Training 1 Step (curb) (QC): 88 4 Steps (QC): 88 12 Steps (QC): 88 Balance Picking up an Object (QC): 88 ADL-Treatment Eating (QC): 6 Oral Hygiene (QC): 6 Shower/Bathe Self (QC): 5 Upper Body Dressing (QC): 5 Lower Body Dressing (QC): 4 (SBA) On/Off Footwear (QC): 2 Toileting Hygiene (QC): 3 Toilet Transfer (QC): 4 (SBA) Assessment/Plan Assessment and Plan Assess & Plan/Chief Complaint Assessment: Lumbar spine status post extensive surgery Postop ileus now resolved after SSE Urinary retention requiring Bassett catheter and urology consultation Severe neuropathy Hypothyroidism Chronic pain Hip and back pain improved with steroid injection x 2 Urinary frequency Plan: Bowel regimen maintained Pain control Home meds Urology is appreciated also Inpatient rehabilitation protocol Cath DC after cystoscopy 2 days ago Dramatic improvement in his overall status Kpad and Voltaren gel prn to hip Begin DC planning (1) S/P lumbar fusion (2) Hypothyroidism (3) Urinary retention (4) Bassett catheter in place (5) Constipation (6) Neuropathy (7) Ileus KEVIN FOX DO Jan 28, 2019 10:35
--- NOTE | 2019-01-28 10:50 | Physical Therapy Daily Note ---
PT Daily Note-Current Subjective Pt. agrees to Rx. States he has had some pain today that has made him feel like his legs would not hold him up but he will give it a good try Pain Location: Medial Location Body Site: Back Pain Description: Ache Mental Status Patient Orientation: Normal For Age Attachments: Other-See Comments (back brace donned indep) Transfers SCALE: Activities may be completed with or without assistive devices. 8-Rjswobdslz-vuvooyk completes the activity by him/herself with no assistance from a helper. 5-Set-up or Clean-up Assistance-helper sets up or cleans up; patient completes activity. [place] assists only prior to or following the activity. 4-Supervision or Touching Assistance-helper provides verbal cues and/or touching/steadying and/or contact guard assistance as patient completes activity. Assistance may be provided throughout the activity or intermittently. 3-Partial/Moderate Assistance-helper does LESS THAN HALF the effort. [place] lifts, holds or supports trunk or limbs, but provides less than half the effort. 2-Substantial/Maximal Assistance-helper does MORE THAN HALF the effort. [place] lifts or holds trunk or limbs and provides more than half the effort. 8-Wdkjdzajo-yuvgut does ALL the effort. Patient does none of the effort to complete the activity. Or, the assistance of 2 or more helpers is required for the patient to complete the activity. If activity was not attempted, code reason: 7-Patient Refused. 9-Not Applicable-not attempted and the patient did not perform the activity before the current illness, exacerbation or injury. 10-Not Attempted due to Environmental Limitations-(lack of equipment, weather restraints, etc.). 88-Not Attempted due to Medical Conditions or Safety Concerns. Roll Left & Right (QC): 6 Sit to Lying (QC): 5 Lying to Sitting/Side of Bed(Q: 5 Sit to Stand (QC): 6 Chair/Mty-id-Jvfpv Xfer(QC): 6 sup to sit and sit to sup practiced log roll several times in gym on firm patsy face with pt. accomplishing this 3 xs all SBA Gait Training Does the Patient Walk?: Yes Walk 10 feet (QC): 5 Walk 50 ft with 2 Turns(QC): 5 Walk 150 ft (QC): 5 Gait Persons Needed: 1 Gait Assistive Device: FWW w/c close behind secondary to pts c/o. much education and work on broader CONI maranda at turns. Pt. corrected this with this education and was safer with observa tion Exercises Supine Ex: Ankle pumps, Quad Set, Rolling, Short Arc Quads, Scooting, Hip abd/a dd Supine Reps: 15 NuStep Minutes: 10 NuStep Workload: 6 Assessment Current Status: Good Progress gives full effort , at risk for falls but uses FWW with heavy wt bearing on UEs and improved gait pattern PT Short Term Goals Short Term Goals Time Frame: Jan 22, 2019 Sit to lyin (Cassie) Lying to sitting on side of be: 3 (Cassie) Sit to stand: 4 (CGA) Walk 10 feet: 3 (Cassie) PT Detention Goals Detention Goals PT Detention Goals Time Frame: Feb 05, 2019 Roll Left & Right (QC): 6 Sit to Lying (QC): 6 Lying-Sitting on Side/Bed(QC): 6 Sit to Stand (QC): 6 Chair/Iqp-da-Ghatl Xfer(QC): 6 Toilet Transfer (QC): 6 Car Transfer (QC): 6 Does the Patient Walk: Yes Walk 10 feet (QC): 4 (CGA) Walk 50ft with 2 Turns (QC): 4 (CGA) Walk 150 ft (QC): 88 Walking 10ft on Uneven Surface: 4 (CGA) 1 Step (curb) (QC): 4 (CGA) 4 Steps (QC): 9 12 Steps (QC): 9 Picking up an Object (QC): 88 Does the Pt use WC or Scooter?: Yes Wheel 50 feet with 2 turns (QC: 6 Type: Manual Wheel 150 feet: 6 Type: Manual PT Plan Treatment/Plan Treatment Plan: Continue Plan of Care Treatment Plan: Bed Mobility, Concurrent Therapy, Education, Functional Activity Xander, Functional Strength, Group Therapy, Gait, Safety, Therapeutic Exercise, Transfers Treatment Duration: Feb 05, 2019 Frequency: At least 5 of 7 days/Wk (IRF) Estimated Hrs Per Day: 1.5 hours per day Patient and/or Family Agrees t: Yes Safety Risks/Education Patient Education: Gait Training, Transfer Techniques, Correct Positioning, Disease Process, Safety Issues Teaching Methods: Demonstration, Discussion Response to Teaching: Verbalize Understanding, Return Demonstration, Reinforcement Needed Time/GCodes Time In: 1000 Time Out: 1100 Total Billed Treatment Time: 60 Total Billed Treatment 1,GT25m,EX20m,FA15m ADALBERTO CARMONA MIXING PICKER TENDER Jan 28, 2019 10:50
--- NOTE | 2019-01-28 11:46 | NUR ---
provided prayer and Communion.
--- NOTE | 2019-01-28 15:17 | Therapy Group Daily Note ---
Therapy Daily Group Note Patient Education Topic Other List Below (memory) Exercises LE Seated Exercise, UE Exercise Session Ratio (pt:therapist): 3:1 Goal of Session: Memory Strategies, UE/LE Strengthing Goal Met for this Session: Yes Pt Benefit of Group: Contributions to Others, Increased Functional Strength, Improved Cognition, Recognition of Peers, Socialization Other/Notes Pt attended OT/PT group this pm. Pt ambulated to [facility] with FWW. Pt introduced self to group for socialization and actively listened to peers. Pt was able to lead one seated UE exercise and then completed peer led UE/LE exercises to increase strength for functional tasks. Education consisted of memory and strategies. Pt acknowledged understanding of educational topic by giving gestures in affirmative and providing own personal strategies. Pt participated appropriately in group memory activity. Pt returned to room by w/c and was in bed with girlfriend present after session. Start Time: 13:00 Stop Time: 14:15 Total Billed Treatment Time: 75 Total Billed Treatment 1 visit, GRP(75minutes) BENJAMIN THOMPSON OT Jan 28, 2019 15:17
[2019-01-28 18:00] VITALS: BP 114/71
[2019-01-28] MEDS: TAMSULOSIN 0.4 MG (FLOMAX) CAP PO SCH (18:40)
[2019-01-28] MEDS ORDERED: PHENAZOPYRIDINE 100 MG (PYRIDIUM) TABLET PO PRN (18:45)
[2019-01-29] MEDS: LEVOTHYROXINE 25 MCG (LEVOTHROID) TAB PO SCH (05:43)
[2019-01-29 05:47] VITALS: BP 123/71
[2019-01-29] MEDS: KCL 10 MEQ TAB (MICRO K) PO SCH (07:05)
[2019-01-29] MEDS: oxyCODONE/APAP 5/325MG (PERCOCET 5) TABLET PO PRN (07:07)
[2019-01-29] MEDS: DOCUSATE SODIUM 100 MG (COLACE) CAP PO SCH ×2 (09:18→19:26)
[2019-01-29] MEDS: SENNA W/DOCUSATE (SENOKOT S) TABLET PO SCH ×2 (09:19→19:27)
[2019-01-29] MEDS: POLYETHYLENE GLYCOL 17 GM (MIRALAX) PACK PO SCH ×2 (09:19→19:26)
[2019-01-29] MEDS: VITAMIN D3 1,000 UNITS (CHOLECALCIFEROL) TABLET PO SCH ×2 (09:20→20:04)
[2019-01-29] MEDS: GABAPENTIN 400 MG (NEURONTIN) CAP PO SCH ×3 (09:21→20:04)
--- NOTE | 2019-01-29 09:35 | Occupational Ther Daily Note ---
OT Current Status-Daily Note Subjective Pt sleeping in bed, woke to name. Pt agrees to therapy. Pt was nauseous earlier in AM, when pt woke he stated he felt better. No c/o pain. Mental Status/Objective Patient Orientation: Person, Place, Time, Situation ADL-Treatment Declined shower today. With HOB elevated and using bed rails for supine to EOB. Using front end software engineer, pt donned pants over feet then CGA in standing to hike pants. Using dressing stick, pt doffed socks. Min A for sit to stand. Pt maneuvered w/c to bathroom to sit at sink to complete grooming and oral care. Pt requested to use BSC. CGA for transfer to toilet using grabbars. CGA to manipulate pants. Therapy Code Descriptions/Definitions Functional [place] Measure: 0=Not Assessed/NA 4=Minimal Assistance 1=Total Assistance 5=Supervision or Setup 2=Maximal Assistance 6=Modified [place] 3=Moderate Assistance 7=Complete IndependenceSCALE: Activities may be completed with or without assistive devices. 4-Zvifbzobkc-gwvvjyc completes the activity by him/herself with no assistance from a helper. 5-Set-up or Clean-up Assistance-helper sets up or cleans up; patient completes activity. [place] assists only prior to or following the activity. 4-Supervision or Touching Assistance-helper provides verbal cues and/or touching/steadying and/or contact guard assistance as patient completes activity. Assistance may be provided throughout the activity or intermittently. 3-Partial/Moderate Assistance-helper does LESS THAN HALF the effort. [place] lifts, holds or supports trunk or limbs, but provides less than half the effort. 2-Substantial/Maximal Assistance-helper does MORE THAN HALF the effort. [place] lifts or holds trunk or limbs and provides more than half the effort. 4-Lgxwymmdm-mhhnda does ALL the effort. Patient does none of the effort to complete the activity. Or, the assistance of 2 or more helpers is required for the patient to complete the activity. If activity was not attempted, code reason: 7-Patient Refused. 9-Not Applicable-not attempted and the patient did not perform the activity before the current illness, exacerbation or injury. 10-Not Attempted due to Environmental Limitations-(lack of equipment, weather restraints, etc.). 88-Not Attempted due to Medical Conditions or Safety Concerns. Oral Hygiene (QC): 6 (Sitting at sink, pt completed own oral care and grooming) Lower Body Dressing (QC): 3 Toileting Hygiene (QC): 4 Toilet Transfer (QC): 4 Other Treatment Pt propelled w/c to therapy gym. Pt completed arm bike for 10 min at 20 wagner resistance to increase strength and activity tolerance for daily functional t asks. Pt then propelled back to room and transferred into bed with SBA after session. Call light/phone in reach. All needs met in room. OT Short Term Goals Short Term Goals Time Frame: Jan 22, 2019 Eatin (met) Oral hygiene: 5 (met) Toileting hygiene: 4 (met) Shower/bathe self: 4 (met) Upper body dressin (met) Lower body dressin Putting on/taking off footwear: 4 (met) OT Senior Living Goals Weight Analyst Goals Time Frame: Jan 29, 2019 Eating (QC): 6 (met) Oral Hygiene (QC): 6 (met) Toileting Hygiene (QC): 6 Shower/Bathe Self (QC): 5 (met) Upper Body Dressing (QC): 6 (et) Lower Body Dressing (QC): 6 On/Off Footwear (QC): 6 (met) Additional Goals: 1-Demonstrate ADL Tasks, 2-Verbalize Understanding, 3-ImproveStrength/Xander 1=Demonstrate adherence to instructed precautions during ADL tasks. 2=Patient will verbalize/demonstrate understanding of assistive devices/modifications for ADL. 3=Patient will improve strength/tolerance for activity to enable patient to perform ADL's. OT Education/Plan Problem List/Assessment Assessment: Decreased Activ Tolerance, Decreased UE Strength, Impaired Coordination, Impaired Funct Balance, Impaired Self-Care Skills Discharge Recommendations Plan/Recommendations: Continue POC Treatment Plan/Plan of Care Patient would benefit from OT for education, treatment and training to promote independence in ADL's, mobility, safety and/or upper extremity function for ADL's. Plan of Care: ADL Retraining, Functional Mobility, Group Exercise/Act as Ind, UE Funct Exercise/Act Treatment Duration: Jan 29, 2019 Frequency: At least 5 of 7 days/Wk (IRF) Estimated Hrs Per Day: 1.5 hours per day Agreement: Yes Rehab Potential: Good Time/GCodes Start Time: 09:00 Stop Time: 10:00 Total Time Billed (hr/min): 60 Billed Treatment Time 1 visit-ADL 3 (50 min) EX 1 (10 min) ASHER DRIVER Jan 29, 2019 09:35
--- NOTE | 2019-01-29 10:13 | PM&R Progress Note ---
Subjective HPI/CC On Admission Date Seen by Provider: Jan 29, 2019 Time Seen by Provider: 09:00 Subjective/Events-last exam Had a large BM this morning. Had a low-grade fever but now resolved. Doing very well overall. Weak a little bit in his legs after the large BM. Check meds and labs Reviewed therapies Reviewed labs Review therapy notes Review of Systems Musculoskeletal: back pain, leg pain Objective Exam Vital Signs Vital Signs Date Time Temp Pulse Resp B/P (MAP) Pulse Ox O2 Delivery O2 Flow Rate FiO2 01/30/19 06:13 36.9 64 16 123/73 (90) 96 Room Air Capillary Refill : General Appearance: No Apparent Distress, WD/WN, Chronically ill, Obese HEENT: PERRL/EOMI, Normal ENT Inspection, Pharynx Normal Neck: Full Range of Motion, Normal Inspection, Non Tender, Supple Respiratory: Chest Non Tender, Lungs Clear, Normal Breath Sounds, No Accessory Muscle Use, No Respiratory Distress Cardiovascular: Regular Rate, Rhythm, No Edema, No Gallop, No JVD, No Murmur Gastrointestinal: Normal Bowel Sounds, No Organomegaly, No Pulsatile Mass, Non Tender, Soft Back: Decreased Range of Motion Extremity: Normal Capillary Refill, Normal Inspection, Normal Range of Motion (decreased ROM legs), Non Tender, No Calf Tenderness, Pedal Edema Neurologic/Psychiatric: Alert, Oriented x3, Normal Mood/Affect, hat body inspector II-XII Norm as Tested, Motor Weakness (leg weakness right greater than left 3/5) Skin: Normal Color, Warm/Dry, Tattoos/Piercings (multiple tattoos on his arms) Lymphatic: No Adenopathy Results/Procedures Lab Patient resulted labs reviewed. FIM Transfers Therapy Code Descriptions/Definitions Functional [place] Measure: 0=Not Assessed/NA 4=Minimal Assistance 1=Total Assistance 5=Supervision or Setup 2=Maximal Assistance 6=Modified [place] 3=Moderate Assistance 7=Complete IndependenceSCALE: Activities may be completed with or without assistive devices. 8-Hemtzqxfjr-prbzlfi completes the activity by him/herself with no assistance from a helper. 5-Set-up or Clean-up Assistance-helper sets up or cleans up; patient completes activity. [place] assists only prior to or following the activity. 4-Supervision or Touching Assistance-helper provides verbal cues and/or touching/steadying and/or contact guard assistance as patient completes activity. Assistance may be provided throughout the activity or intermittently. 3-Partial/Moderate Assistance-helper does LESS THAN HALF the effort. [place] lifts, holds or supports trunk or limbs, but provides less than half the effort. 2-Substantial/Maximal Assistance-helper does MORE THAN HALF the effort. [place] lifts or holds trunk or limbs and provides more than half the effort. 0-Amxwrnavv-tkckxq does ALL the effort. Patient does none of the effort to com plete the activity. Or, the assistance of 2 or more helpers is required for the patient to complete the activity. If activity was not attempted, code reason: 7-Patient Refused. 9-Not Applicable-not attempted and the patient did not perform the activity before the current illness, exacerbation or injury. 10-Not Attempted due to Environmental Limitations-(lack of equipment, weather restraints, etc.). 88-Not Attempted due to Medical Conditions or Safety Concerns. Roll Left to Right (QC): 6 Sit to Lying (QC): 5 Sit to Stand (QC): 6 Chair/Rbc-ql-Qdkxa Xfer(QC): 6 Car Transfer (QC): 3 (modA) Gait Training Does the Patient Walk?: Yes Distance: 150 x2 Walk 10 feet (QC): 5 Walk 50 ft with 2 Turns(QC): 5 Walk 150 ft (QC): 5 Walking 10ft/uneven surface-QC: 88 Gait Persons Needed: 1 Gait Assistive Device: FWW Wheelchair Training Does the Pt Use a Wheelchair?: Yes Distance: 150'x2 Wheel 50 ft with 2 turns (QC): 4 Wheel 150 ft (QC): 4 Type of Wheelchair: Manual Stair Training 1 Step (curb) (QC): 88 4 Steps (QC): 88 12 Steps (QC): 88 Balance Picking up an Object (QC): 88 ADL-Treatment Eating (QC): 6 Oral Hygiene (QC): 6 Shower/Bathe Self (QC): 5 Upper Body Dressing (QC): 5 Lower Body Dressing (QC): 4 (SBA) On/Off Footwear (QC): 2 Toileting Hygiene (QC): 3 Toilet Transfer (QC): 4 (SBA) Assessment/Plan Assessment and Plan Assess & Plan/Chief Complaint Assessment: Lumbar spine status post extensive surgery Postop ileus now resolved after SSE Urinary retention requiring Bassett catheter and urology consultation Severe neuropathy Hypothyroidism Chronic pain Hip and back pain improved with steroid injection x 2 Urinary frequency Plan: Bowel regimen maintained Pain control Home meds Urology is appreciated also Inpatient rehabilitation protocol Cath DC after cystoscopy 2 days ago Dramatic improvement in his overall status Kpad and Voltaren gel prn to hip Begin DC planning (1) S/P lumbar fusion (2) Hypothyroidism (3) Urinary retention (4) Bassett catheter in place (5) Constipation (6) Neuropathy (7) Ileus KEVIN FOX DO Jan 29, 2019 10:12
--- NOTE | 2019-01-29 10:58 | Physical Therapy Daily Note ---
PT Daily Note-Current Subjective Patient in therapy gym pre tx, agrees to PT, has unrated pain in back. Appearance Patient in bed post tx with nurse call, phone,tray, all needs met. Mental Status Patient Orientation: Person, Place, Situation back brace Transfers SCALE: Activities may be completed with or without assistive devices. 5-Bsgqogjobh-upnfdwt completes the activity by him/herself with no assistance from a helper. 5-Set-up or Clean-up Assistance-helper sets up or cleans up; patient completes activity. [place] assists only prior to or following the activity. 4-Supervision or Touching Assistance-helper provides verbal cues and/or touching/steadying and/or contact guard assistance as patient completes activity. Assistance may be provided throughout the activity or intermittently. 3-Partial/Moderate Assistance-helper does LESS THAN HALF the effort. [place] lifts, holds or supports trunk or limbs, but provides less than half the effort. 2-Substantial/Maximal Assistance-helper does MORE THAN HALF the effort. [place] lifts or holds trunk or limbs and provides more than half the effort. 8-Xfodrpmyx-kftioa does ALL the effort. Patient does none of the effort to complete the activity. Or, the assistance of 2 or more helpers is required for the patient to complete the activity. If activity was not attempted, code reason: 7-Patient Refused. 9-Not Applicable-not attempted and the patient did not perform the activity before the current illness, exacerbation or injury. 10-Not Attempted due to Environmental Limitations-(lack of equipment, weather restraints, etc.). 88-Not Attempted due to Medical Conditions or Safety Concerns. Roll Left & Right (QC): 6 Sit to Lying (QC): 3 Sit to Stand (QC): 4 Chair/Ykq-kk-Imvkw Xfer(QC): 4 Toilet Transfer (QC): 4 mod assist for sit to lying (needs assist with both legs), CGA for sit to stand and transfers, good use of hand placement. Patient had to be toileted once for a BM, needs mod assist for pants and needs assist wiping. Gait Training Distance: 120', 50' Walk 10 feet (QC): 4 Walk 50 ft with 2 Turns(QC): 4 Gait Assistive Device: FWW CGA, antalgic, some scissoring, uncoordinated steps Wheelchair Training Does the Pt Use a Wheelchair?: Yes Wheel 50 ft with 2 turns (QC): 6 Wheel 150 ft (QC): 6 Type of Wheelchair: Manual Exercises Standing: Heel/toe raises Standing Reps: 15 NuStep Minutes: 15 NuStep Workload: 6 Treatments bed mobility and transfers, ambulation, WC mobility, LE exercise, toileting Assessment Current Status: Poor Progress slow, if any progress PT Short Term Goals Short Term Goals Time Frame: Jan 22, 2019 Sit to lyin (Cassie) Lying to sitting on side of be: 3 (Cassie) Sit to stand: 4 (CGA) Walk 10 feet: 3 (Cassie) PT Penitentiary Goals Penitentiary Goals PT Penitentiary Goals Time Frame: Feb 05, 2019 Roll Left & Right (QC): 6 Sit to Lying (QC): 6 Lying-Sitting on Side/Bed(QC): 6 Sit to Stand (QC): 6 Chair/Gst-vr-Wjsxn Xfer(QC): 6 Toilet Transfer (QC): 6 Car Transfer (QC): 6 Does the Patient Walk: Yes Walk 10 feet (QC): 4 (CGA) Walk 50ft with 2 Turns (QC): 4 (CGA) Walk 150 ft (QC): 88 Walking 10ft on Uneven Surface: 4 (CGA) 1 Step (curb) (QC): 4 (CGA) 4 Steps (QC): 9 12 Steps (QC): 9 Picking up an Object (QC): 88 Does the Pt use WC or Scooter?: Yes Wheel 50 feet with 2 turns (QC: 6 Type: Manual Wheel 150 feet: 6 Type: Manual PT Plan Problem List Problem List: Activity Tolerance, Functional Strength, Safety, Balance, Gait, Transfer, Bed Mobility, ROM Treatment/Plan Treatment Plan: Continue Plan of Care Treatment Plan: Bed Mobility, Concurrent Therapy, Education, Functional Activity Xander, Functional Strength, Group Therapy, Gait, Safety, Therapeutic Exercise, Transfers Treatment Duration: Feb 05, 2019 Frequency: At least 5 of 7 days/Wk (IRF) Estimated Hrs Per Day: 1.5 hours per day Patient and/or Family Agrees t: Yes Safety Risks/Education Patient Education: Gait Training, Transfer Techniques, Correct Positioning, W/C Management, Reviewed Don/Doff Brace, Safety Issues Teaching Recipient: Patient Teaching Methods: Demonstration, Discussion Response to Teaching: Reinforcement Needed Time/GCodes Time In: 1000 Time Out: 1100 Total Billed Treatment Time: 60 Total Billed Treatment 1 visit GT 15' EX 20' FA 25' IRENE MARTIN PT Jan 29, 2019 10:58
[2019-01-29] MEDS: BACLOFEN 10 MG (LIORESAL) TAB PO PRN (12:50)
--- NOTE | 2019-01-29 14:24 | Occupational Ther Daily Note ---
OT Current Status-Daily Note Subjective Pt alert, lying in bed. Pt states that he just isn't feeling normal. Took BP, 111/54, reported to nrsg. Pt agrees to therapy. Mental Status/Objective Patient Orientation: Person, Place, Time, Situation ADL-Treatment Using strap cutting machine operator, pt donned pants over feet then CGA in standing to hike pants. CGA for sit to stand. Pt requested to use BSC. CGA for transfer to toilet using grabbars. CGA to manipulate pants. Min A for EOB to supine. After therapy, pt lying in bed with call light/phone in reach. All needs met in room. Therapy Code Descriptions/Definitions Functional [place] Measure: 0=Not Assessed/NA 4=Minimal Assistance 1=Total Assistance 5=Supervision or Setup 2=Maximal Assistance 6=Modified [place] 3=Moderate Assistance 7=Complete IndependenceSCALE: Activities may be completed with or without assistive devices. 0-Opgnegvkbk-stysyod completes the activity by him/herself with no assistance from a helper. 5-Set-up or Clean-up Assistance-helper sets up or cleans up; patient completes activity. [place] assists only prior to or following the activity. 4-Supervision or Touching Assistance-helper provides verbal cues and/or touching/steadying and/or contact guard assistance as patient completes activity. Assistance may be provided throughout the activity or intermittently. 3-Partial/Moderate Assistance-helper does LESS THAN HALF the effort. [place] lifts, holds or supports trunk or limbs, but provides less than half the effort. 2-Substantial/Maximal Assistance-helper does MORE THAN HALF the effort. [place] lifts or holds trunk or limbs and provides more than half the effort. 7-Mrmylrbmd-zjmhec does ALL the effort. Patient does none of the effort to complete the activity. Or, the assistance of 2 or more helpers is required for the patient to complete the activity. If activity was not attempted, code reason: 7-Patient Refused. 9-Not Applicable-not attempted and the patient did not perform the activity before the current illness, exacerbation or injury. 10-Not Attempted due to Environmental Limitations-(lack of equipment, weather restraints, etc.). 88-Not Attempted due to Medical Conditions or Safety Concerns. Lower Body Dressing (QC): 3 Toileting Hygiene (QC): 4 Toilet Transfer (QC): 4 OT Short Term Goals Short Term Goals Time Frame: Jan 22, 2019 Eatin (met) Oral hygiene: 5 (met) Toileting hygiene: 4 (met) Shower/bathe self: 4 (met) Upper body dressin (met) Lower body dressin Putting on/taking off footwear: 4 (met) OT Food Critic Goals Food Critic Goals Time Frame: Jan 29, 2019 Eating (QC): 6 (met) Oral Hygiene (QC): 6 (met) Toileting Hygiene (QC): 6 Shower/Bathe Self (QC): 5 (met) Upper Body Dressing (QC): 6 (et) Lower Body Dressing (QC): 6 On/Off Footwear (QC): 6 (met) Additional Goals: 1-Demonstrate ADL Tasks, 2-Verbalize Understanding, 3- ImproveStrength/Xander 1=Demonstrate adherence to instructed precautions during ADL tasks. 2=Patient will verbalize/demonstrate understanding of assistive devices/modifications for ADL. 3=Patient will improve strength/tolerance for activity to enable patient to perform ADL's. OT Education/Plan Problem List/Assessment Assessment: Decreased Activ Tolerance, Impaired Coordination, Impaired Funct Balance, Impaired Self-Care Skills Discharge Recommendations Plan/Recommendations: Continue POC Treatment Plan/Plan of Care Patient would benefit from OT for education, treatment and training to promote independence in ADL's, mobility, safety and/or upper extremity function for ADL's. Plan of Care: ADL Retraining, Functional Mobility, Group Exercise/Act as Ind, UE Funct Exercise/Act Treatment Duration: Jan 29, 2019 Frequency: At least 5 of 7 days/Wk (IRF) Estimated Hrs Per Day: 1.5 hours per day Agreement: Yes Rehab Potential: Good Time/GCodes Start Time: 13:00 Stop Time: 13:30 Total Time Billed (hr/min): 30 Billed Treatment Time 1 visit-ADL 2 (30 min) ASHER DRIVER Jan 29, 2019 14:23
--- NOTE | 2019-01-29 14:31 | Physical Therapy Daily Note ---
PT Daily Note-Current Subjective Agreeable to PT Transfers SCALE: Activities may be completed with or without assistive devices. 7-Gqnnckxhnl-gwpypby completes the activity by him/herself with no assistance from a helper. 5-Set-up or Clean-up Assistance-helper sets up or cleans up; patient completes activity. [place] assists only prior to or following the activity. 4-Supervision or Touching Assistance-helper provides verbal cues and/or touching/steadying and/or contact guard assistance as patient completes activity. Assistance may be provided throughout the activity or intermittently. 3-Partial/Moderate Assistance-helper does LESS THAN HALF the effort. [place] lifts, holds or supports trunk or limbs, but provides less than half the effort. 2-Substantial/Maximal Assistance-helper does MORE THAN HALF the effort. [place] lifts or holds trunk or limbs and provides more than half the effort. 0-Dsqlekjfp-jyclft does ALL the effort. Patient does none of the effort to complete the activity. Or, the assistance of 2 or more helpers is required for the patient to complete the activity. If activity was not attempted, code reason: 7-Patient Refused. 9-Not Applicable-not attempted and the patient did not perform the activity before the current illness, exacerbation or injury. 10-Not Attempted due to Environmental Limitations-(lack of equipment, weather restraints, etc.). 88-Not Attempted due to Medical Conditions or Safety Concerns. Treatments Supine to/from sit with bedrail with effort with SBA. Sit to stand with SBA and cues for hand placement. Pt ambulated 120 ft x 2 with FWW with SB-CGA with skilled cues to widen his CONI. Sit to stand 2 x 5 reps with FWW with CGA. Pt in bed post treatment with needs met. Assessment Current Status: Good Progress Tranfers improved. Bed mobility improving. Gait progressing. Still narrow CONI with occas near scissoring, but pt aware and works to keep base wider. PT Short Term Goals Short Term Goals Time Frame: Jan 22, 2019 Sit to lyin (Cassie) Lying to sitting on side of be: 3 (Cassie) Sit to stand: 4 (CGA) Walk 10 feet: 3 (Cassie) PT [facility]dc Goals [place] Goals PT [place] Goals Time Frame: Feb 05, 2019 Roll Left & Right (QC): 6 Sit to Lying (QC): 6 Lying-Sitting on Side/Bed(QC): 6 Sit to Stand (QC): 6 Chair/Nhm-fq-Diebp Xfer(QC): 6 Toilet Transfer (QC): 6 Car Transfer (QC): 6 Does the Patient Walk: Yes Walk 10 feet (QC): 4 (CGA) Walk 50ft with 2 Turns (QC): 4 (CGA) Walk 150 ft (QC): 88 Walking 10ft on Uneven Surface: 4 (CGA) 1 Step (curb) (QC): 4 (CGA) 4 Steps (QC): 9 12 Steps (QC): 9 Picking up an Object (QC): 88 Does the Pt use WC or Scooter?: Yes Wheel 50 feet with 2 turns (QC: 6 Type: Manual Wheel 150 feet: 6 Type: Manual PT Plan Problem List Problem List: Activity Tolerance, Functional Strength, Safety, Balance, Gait, Transfer, Bed Mobility Treatment/Plan Treatment Plan: Continue Plan of Care Treatment Plan: Bed Mobility, Concurrent Therapy, Education, Functional Activ ity Xander, Functional Strength, Group Therapy, Gait, Safety, Therapeutic Exercise, Transfers Treatment Duration: Feb 05, 2019 Frequency: At least 5 of 7 days/Wk (IRF) Estimated Hrs Per Day: 1.5 hours per day Patient and/or Family Agrees t: Yes Safety Risks/Education Patient Education: Safety Issues Teaching Recipient: Patient Teaching Methods: Discussion Response to Teaching: Verbalize Understanding Time/GCodes Time In: 1330 Time Out: 1400 Total Billed Treatment Time: 30 Total Billed Treatment visit FA 15 GT 15 ASHER ALEJANDRE PT Jan 29, 2019 14:30
[2019-01-29] MEDS: TAMSULOSIN 0.4 MG (FLOMAX) CAP PO SCH (17:23)
--- NOTE | 2019-01-29 17:35 | NUR ---
Weekly Team Conference Reviewed weekly team conference summary with patient. He is in agreement to an estimated discharge date of 02/03/19. HHC: Recommended for RN, PT, OT. Will coordinate with patient preferred agency in service area. Plan continues to be return home with spouse. Continue to follow for discharge planning.
[2019-01-29 17:50] VITALS: BP 104/62
[2019-01-30] MEDS: KCL 10 MEQ TAB (MICRO K) PO SCH (06:11)
[2019-01-30] MEDS: LEVOTHYROXINE 25 MCG (LEVOTHROID) TAB PO SCH (06:11)
[2019-01-30 06:13] VITALS: BP 123/73
[2019-01-30] MEDS: oxyCODONE/APAP 5/325MG (PERCOCET 5) TABLET PO PRN ×2 (06:34→14:44)
[2019-01-30] MEDS: VITAMIN D3 1,000 UNITS (CHOLECALCIFEROL) TABLET PO SCH ×2 (08:42→20:35)
[2019-01-30] MEDS: GABAPENTIN 400 MG (NEURONTIN) CAP PO SCH ×3 (08:43→20:35)
[2019-01-30] MEDS: DOCUSATE SODIUM 100 MG (COLACE) CAP PO SCH ×2 (08:45→20:36)
[2019-01-30] MEDS: POLYETHYLENE GLYCOL 17 GM (MIRALAX) PACK PO SCH ×2 (08:46→20:36)
[2019-01-30] MEDS: SENNA W/DOCUSATE (SENOKOT S) TABLET PO SCH ×2 (08:46→20:36)
--- NOTE | 2019-01-30 10:10 | Occupational Ther Daily Note ---
OT Current Status-Daily Note Subjective Pt in bed, agrees to treatment. Pt reports 5/10 back pain. ADL-Treatment Pt requests shower this morning. Supine to sit with SBA. Gait to restroom with FWW. Transfer to [facility] over toilet with SBA using grab bars for safety. Pt able to complete toileting with SBA. Transfer to walk in shower with supervision. Pt doffed clothing using adaptive equipment to doff socks and Depends. Seated bathing completed after set up. Pt used long handled sponge to wash lower body. Don pullover shirt and back brace with set up. Pt used tin stacker to thread LE into Depends and pants. Stood with supervision for balance during pant hike. Pt donned socks with set up using sock aid. Grooming tasks completed while seated. Pt completed oral care, shaved, and combed hair independently. Pt transferred to bed, resting with needs met after session. Therapy Code Descriptions/Definitions Functional [place] Measure: 0=Not Assessed/NA 4=Minimal Assistance 1=Total Assistance 5=Supervision or Setup 2=Maximal Assistance 6=Modified [place] 3=Moderate Assistance 7=Complete IndependenceSCALE: Activities may be completed with or without assistive devices. 0-Vbzolbzxur-xndcfar completes the activity by him/herself with no assistance from a helper. 5-Set-up or Clean-up Assistance-helper sets up or cleans up; patient completes activity. [place] assists only prior to or following the activity. 4-Supervision or Touching Assistance-helper provides verbal cues and/or touching/steadying and/or contact guard assistance as patient completes activity. Assistance may be provided throughout the activity or intermittently. 3-Partial/Moderate Assistance-helper does LESS THAN HALF the effort. [place] lifts, holds or supports trunk or limbs, but provides less than half the effort. 2-Substantial/Maximal Assistance-helper does MORE THAN HALF the effort. [place] lifts or holds trunk or limbs and provides more than half the effort. 4-Dvhrubjss-jhnpsc does ALL the effort. Patient does none of the effort to complete the activity. Or, the assistance of 2 or more helpers is required for the patient to complete the activity. If activity was not attempted, code reason: 7-Patient Refused. 9-Not Applicable-not attempted and the patient did not perform the activity before the current illness, exacerbation or injury. 10-Not Attempted due to Environmental Limitations-(lack of equipment, weather restraints, etc.). 88-Not Attempted due to Medical Conditions or Safety Concerns. Oral Hygiene (QC): 6 Shower/Bathe Self (QC): 5 Upper Body Dressing (QC): 5 Lower Body Dressing (QC): 4 On/Off Footwear: 5 Toileting Hygiene (QC): 4 Toilet Transfer (QC): 4 Education OT Patient Education: Modified ADL techniques Teaching Recipient: Patient Teaching Methods: Discussion Response to Teaching: Verbalize Understanding OT Short Term Goals Short Term Goals Time Frame: Jan 22, 2019 Eatin (met) Oral hygiene: 5 (met) Toileting hygiene: 4 (met) Shower/bathe self: 4 (met) Upper body dressin (met) Lower body dressin Putting on/taking off footwear: 4 (met) OT Jail Goals Behavioral Sciences Instructor Goals Time Frame: Jan 29, 2019 Eating (QC): 6 (met) Oral Hygiene (QC): 6 (met) Toileting Hygiene (QC): 6 Shower/Bathe Self (QC): 5 (met) Upper Body Dressing (QC): 6 (et) Lower Body Dressing (QC): 6 On/Off Footwear (QC): 6 (met) Additional Goals: 1-Demonstrate ADL Tasks, 2-Verbalize Understanding, 3- ImproveStrength/[place]ander 1=Demonstrate adherence to instructed precautions during ADL tasks. 2=Patient will verbalize/demonstrate understanding of assistive devices/modifications for ADL. 3=Patient will improve strength/tolerance for activity to enable patient to perform ADL's. OT Education/Plan Discharge Recommendations Plan/Recommendations: Continue POC Treatment Plan/Plan of Care Patient would benefit from OT for education, treatment and training to promote independence in ADL's, mobility, safety and/or upper extremity function for ADL's. Plan of Care: ADL Retraining, Functional Mobility, Group Exercise/Act as Ind, UE Funct Exercise/Act Treatment Duration: Jan 29, 2019 Frequency: At least 5 of 7 days/Wk (IRF) Estimated Hrs Per Day: 1.5 hours per day Agreement: Yes Rehab Potential: Good Time/GCodes Start Time: 08:00 Stop Time: 09:00 Total Time Billed (hr/min): 60 Billed Treatment Time 1 visit, ADLx4(60minutes) BENJAMIN THOMPSON OT Jan 30, 2019 10:10
--- NOTE | 2019-01-30 10:52 | PM&R Progress Note ---
Subjective HPI/CC On Admission Date Seen by Provider: Jan 30, 2019 Time Seen by Provider: 09:15 Subjective/Events-last exam Pt doing very well On Flomax now Will discharge on Donna susan Had a BM today Overall progressing nicely Will do outpatient PT Check meds and labs Reviewed labs Review therapy notes Review of Systems Genitourinary: Frequency Musculoskeletal: back pain, leg pain, foot pain Objective Exam Vital Signs Vital Signs Date Time Temp Pulse Resp B/P (MAP) Pulse Ox O2 Delivery O2 Flow Rate FiO2 01/30/19 17:39 37.4 61 20 116/72 (87) 94 Room Air Capillary Refill : General Appearance: No Apparent Distress, WD/WN, Chronically ill, Obese HEENT: PERRL/EOMI, Normal ENT Inspection, Pharynx Normal Neck: Full Range of Motion, Normal Inspection, Non Tender, Supple Respiratory: Chest Non Tender, Lungs Clear, Normal Breath Sounds, No Accessory Muscle Use, No Respiratory Distress Cardiovascular: Regular Rate, Rhythm, No Edema, No Gallop, No JVD, No Murmur Gastrointestinal: Normal Bowel Sounds, No Organomegaly, No Pulsatile Mass, Non Tender, Soft Back: Decreased Range of Motion Extremity: Normal Capillary Refill, Normal Inspection, Normal Range of Motion (decreased ROM legs), Non Tender, No Calf Tenderness, Pedal Edema Neurologic/Psychiatric: Alert, Oriented x3, Normal Mood/Affect, 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 FIM Transfers Therapy Code Descriptions/Definitions Functional [place] Measure: 0=Not Assessed/NA 4=Minimal Assistance 1=Total Assistance 5=Supervision or Setup 2=Maximal Assistance 6=Modified [place] 3=Moderate Assistance 7=Complete IndependenceSCALE: Activities may be completed with or without assistive devices. 0-Wvonryywfm-brfhkeh completes the activity by him/herself with no assistance from a helper. 5-Set-up or Clean-up Assistance-helper sets up or cleans up; patient completes activity. [place] assists only prior to or following the activity. 4-Supervision or Touching Assistance-helper provides verbal cues and/or touch ing/steadying and/or contact guard assistance as patient completes activity. Assistance may be provided throughout the activity or intermittently. 3-Partial/Moderate Assistance-helper does LESS THAN HALF the effort. [place] lifts, holds or supports trunk or limbs, but provides less than half the effort. 2-Substantial/Maximal Assistance-helper does MORE THAN HALF the effort. [place] lifts or holds trunk or limbs and provides more than half the effort. 4-Emnvfwpys-znbinv does ALL the effort. Patient does none of the effort to complete the activity. Or, the assistance of 2 or more helpers is required for the patient to complete the activity. If activity was not attempted, code reason: 7-Patient Refused. 9-Not Applicable-not attempted and the patient did not perform the activity before the current illness, exacerbation or injury. 10-Not Attempted due to Environmental Limitations-(lack of equipment, weather restraints, etc.). 88-Not Attempted due to Medical Conditions or Safety Concerns. Roll Left to Right (QC): 6 Sit to Lying (QC): 3 Sit to Stand (QC): 4 Chair/Aet-ip-Qbbxp Xfer(QC): 4 Car Transfer (QC): 3 (modA) Gait Training Does the Patient Walk?: Yes Distance: 120', 50' Walk 10 feet (QC): 4 Walk 50 ft with 2 Turns(QC): 4 Walk 150 ft (QC): 5 Walking 10ft/uneven surface-QC: 88 Gait Persons Needed: 1 Gait Assistive Device: FWW Wheelchair Training Does the Pt Use a Wheelchair?: Yes Distance: 150'x2 Wheel 50 ft with 2 turns (QC): 6 Wheel 150 ft (QC): 6 Type of Wheelchair: Manual Stair Training 1 Step (curb) (QC): 88 4 Steps (QC): 88 12 Steps (QC): 88 Balance Picking up an Object (QC): 88 ADL-Treatment Eating (QC): 6 Oral Hygiene (QC): 6 Shower/Bathe Self (QC): 5 Upper Body Dressing (QC): 5 Lower Body Dressing (QC): 4 On/Off Footwear (QC): 5 Toileting Hygiene (QC): 4 Toilet Transfer (QC): 4 Assessment/Plan Assessment and Plan Assess & Plan/Chief Complaint Assessment: Lumbar spine status post extensive surgery Postop ileus now resolved after SSE Urinary retention requiring Bassett catheter and urology consultation Severe neuropathy Hypothyroidism Chronic pain Hip and back pain improved with steroid injection x 2 Urinary frequency Plan: Bowel regimen maintained Pain control Home meds Urology is appreciated also Inpatient rehabilitation protocol Cath DC after cystoscopy Dramatic improvement in his overall status Kpad and Voltaren gel prn to hip DC 02/03/19 (1) S/P lumbar fusion (2) Hypothyroidism (3) Urinary retention (4) Bassett catheter in place (5) Constipation (6) Neuropathy (7) Ileus KEVIN FOX DO Jan 30, 2019 10:52
--- NOTE | 2019-01-30 10:56 | Physical Therapy Daily Note ---
PT Daily Note-Current Subjective Patient in bed pre tx, agrees to PT, rates pain in back 4/10. Appearance Patient in bed post tx with nurse call, phone, tray, all needs met. Mental Status Patient Orientation: Person, Place, Situation back brace Transfers SCALE: Activities may be completed with or without assistive devices. 7-Notqbbfsyw-dgeosbu completes the activity by him/herself with no assistance from a helper. 5-Set-up or Clean-up Assistance-helper sets up or cleans up; patient completes activity. [place] assists only prior to or following the activity. 4-Supervision or Touching Assistance-helper provides verbal cues and/or touc giorgi/steadying and/or contact guard assistance as patient completes activity. Assistance may be provided throughout the activity or intermittently. 3-Partial/Moderate Assistance-helper does LESS THAN HALF the effort. [place] lifts, holds or supports trunk or limbs, but provides less than half the effort. 2-Substantial/Maximal Assistance-helper does MORE THAN HALF the effort. [place] lifts or holds trunk or limbs and provides more than half the effort. 6-Sargplqfq-gumibn does ALL the effort. Patient does none of the effort to complete the activity. Or, the assistance of 2 or more helpers is required for the patient to complete the activity. If activity was not attempted, code reason: 7-Patient Refused. 9-Not Applicable-not attempted and the patient did not perform the activity before the current illness, exacerbation or injury. 10-Not Attempted due to Environmental Limitations-(lack of equipment, weather restraints, etc.). 88-Not Attempted due to Medical Conditions or Safety Concerns. Roll Left & Right (QC): 4 Sit to Lying (QC): 3 Lying to Sitting/Side of Bed(Q: 4 Sit to Stand (QC): 4 Chair/Bpr-cb-Cjyow Xfer(QC): 4 Toilet Transfer (QC): 4 Patient performs supine to sit with SBA, sit to supine mod assist, sit to stand and transfers with CGA, good use of hands for safety. Patient needed to use the restroom for a BM after getting back to his room and needs max assist for pants and to wipe, only had gas. Gait Training Distance: 150'x2 Walk 10 feet (QC): 4 Walk 50 ft with 2 Turns(QC): 4 Walk 150 ft (QC): 4 Gait Persons Needed: 1 Gait Assistive Device: FWW slow, antalgic, uncoordinated steps, some scissoring especially when turning Exercises Seated Therapy Exercises: Ankle pumps, Hip flexion, Hip abd/add (with RTB and pillow) Seated Reps: 20 Standing: Hip Abduction, Heel/toe raises, Marching, Mini squats Standing Reps: 15 LAQ alternating for 5 min Treatments bed mobility and transfers, ambulation, LE exercise Assessment Current Status: Fair Progress improved ambulation PT Short Term Goals Short Term Goals Time Frame: Jan 22, 2019 Sit to lyin (Cassie) Lying to sitting on side of be: 3 (Cassie) Sit to stand: 4 (CGA) Walk 10 feet: 3 (Cassie) PT Nursing Home Goals 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 PT Nursing Home Goals Time Frame: Feb 05, 2019 Roll Left & Right (QC): 6 Sit to Lying (QC): 6 Lying-Sitting on Side/Bed(QC): 6 Sit to Stand (QC): 6 Chair/Yle-om-Rkset Xfer(QC): 6 Toilet Transfer (QC): 6 Car Transfer (QC): 6 Does the Patient Walk: Yes Walk 10 feet (QC): 4 (CGA) Walk 50ft with 2 Turns (QC): 4 (CGA) Walk 150 ft (QC): 88 Walking 10ft on Uneven Surface: 4 (CGA) 1 Step (curb) (QC): 4 (CGA) 4 Steps (QC): 9 12 Steps (QC): 9 Picking up an Object (QC): 88 Does the Pt use WC or Scooter?: Yes Wheel 50 feet with 2 turns (QC: 6 Type: Manual Wheel 150 feet: 6 Type: Manual PT Plan Problem List Problem List: Activity Tolerance, Functional Strength, Safety, Balance, Gait, Transfer, Bed Mobility, ROM Treatment/Plan Treatment Plan: Continue Plan of Care Treatment Plan: Bed Mobility, Concurrent Therapy, Education, Functional Act ivity Xander, Functional Strength, Group Therapy, Gait, Safety, Therapeutic Exercise, Transfers Treatment Duration: Feb 05, 2019 Frequency: At least 5 of 7 days/Wk (IRF) Estimated Hrs Per Day: 1.5 hours per day Patient and/or Family Agrees t: Yes Safety Risks/Education Patient Education: Gait Training, Transfer Techniques, Correct Positioning, Reviewed Don/Doff Brace, Safety Issues Teaching Recipient: Patient Teaching Methods: Demonstration, Discussion Response to Teaching: Reinforcement Needed Time/GCodes Time In: 1000 Time Out: 1100 Total Billed Treatment Time: 60 Total Billed Treatment 1 visit GT 20' EX 30' FA 10' IRENE MARTIN PT Jan 30, 2019 10:56
--- NOTE | 2019-01-30 13:45 | NUR ---
provided prayer and Communion.
--- NOTE | 2019-01-30 14:29 | Therapy Group Daily Note ---
Therapy Daily Group Note Patient Education Topic Other List Below (components of balance, functional safety) Exercises LE Seated Exercise, UE Exercise Session Ratio (pt:therapist): 4:1 Goal of Session: UE/LE Strengthing, Safety with Transfers, Other (list) (balance basics) Goal Met for this Session: Yes Pt Benefit of Group: Contributions to Others, Increased Functional Safety, Socialization Other/Notes Pt. participated in group PT OT session this date. Pt. ambulated to and from with CGA FWW. Pts. introduced selves and shared their [place] vacation as well as their Donna food and preparation traditions. Pts were educated in basic ARU expectations maranda 3 hr requirement etc. Education focus was balance, its c omponents , what influences balance as well as ways to stay safe at home and while TRFing and walking. Seated balance and U&L extremity exercises were demonstrated with pts participating as tolerated. Pt. to room after group with call montemayor at hand Start Time: 13:00 Stop Time: 14:20 Total Billed Treatment Time: 80 Total Billed Treatment 1,GRP ADALBERTO CARMONA PRESIDENT AND CHIEF COMMERCIAL OFFICER Jan 30, 2019 14:29
--- NOTE | 2019-01-30 15:57 | NUR ---
"RD ASSESSMENT PMHx: hypothyroidism; hepatitis PT INTERACTION: Pt was awake and pleasant during nutrition assessment. Pt states eating well since last assessment. Note pt avg PO intake of 95% x3d, per chart review. Pt states no recent issues with n/v/c/d since last assessment. Note last BM was 01/29 and pt currently on bowel regimen of colace BID; senna BID; and miralax BID, per chart review. ABNORMAL NUTRITION-RELATED LAB VALUES LOW: Pro 6.0 HIGH: BUN 19 Est. kcal needs: 3872-1520 kcal | 15-18 kcal/kg Est. Pro needs: 101-127 g Pro | 0.8-1.0 g Pro/kg PES STATEMENT: Given pt's current PO intake, no nutrition diagnosis at this time (NO-1.1) INTERVENTION: Continue with current diet order of Regular diet. Will continue to follow and reassess as pt needs and status change. MONITOR/EVALUATE: PO Intake; Plan of Care; Hydration Status; Weight Status; Lab Values Enrique Hargrove, MS, RD, LD"
[2019-01-30 17:39] VITALS: BP 116/72
[2019-01-30] MEDS: TAMSULOSIN 0.4 MG (FLOMAX) CAP PO SCH (18:43)
[2019-01-31] MEDS: oxyCODONE/APAP 5/325MG (PERCOCET 5) TABLET PO PRN ×2 (03:14→20:36)
[2019-01-31 06:15] VITALS: BP 124/74
[2019-01-31] MEDS: LEVOTHYROXINE 25 MCG (LEVOTHROID) TAB PO SCH (06:19)
[2019-01-31] MEDS: KCL 10 MEQ TAB (MICRO K) PO SCH (06:19)
--- NOTE | 2019-01-31 07:52 | Physical Therapy Daily Note ---
PT Daily Note-Current Subjective Pt agreeable to PT session. States stomach not feeling very well this morning. Pain Numeric Pain Scale: 4 Location: Posterior Location Body Site: Back Comment: and glutes, spikes to 7/10 depending on activity Appearance Pt in bed upon arrival, awake and alert. Pt requesting and assisted to bathroom x2 episodes, dependent with bruno care due to pt having difficulty with use of wiping aide this morning. Supervision standing at toilet to pull down briefs, mod A donning new brief and sweatpants. Pt requesting and assisted to bed at end of session, call light, phone and bedside table within reach Mental Status Patient Orientation: Normal For Age back support brace Transfers SCALE: Activities may be completed with or without assistive devices. 8-Wwnizxrvbe-ossfzso completes the activity by him/herself with no assistance from a helper. 5-Set-up or Clean-up Assistance-helper sets up or cleans up; patient completes activity. [place] assists only prior to or following the activity. 4-Supervision or Touching Assistance-helper provides verbal cues and/or touching/steadying and/or contact guard assistance as patient completes activity. Assistance may be provided throughout the activity or intermittently. 3-Partial/Moderate Assistance-helper does LESS THAN HALF the effort. [place] lifts, holds or supports trunk or limbs, but provides less than half the effort. 2-Substantial/Maximal Assistance-helper does MORE THAN HALF the effort. [place] lifts or holds trunk or limbs and provides more than half the effort. 1-Qoexesqlm-stwexz does ALL the effort. Patient does none of the effort to complete the activity. Or, the assistance of 2 or more helpers is required for the patient to complete the activity. If activity was not attempted, code reason: 7-Patient Refused. 9-Not Applicable-not attempted and the patient did not perform the activity before the current illness, exacerbation or injury. 10-Not Attempted due to Environmental Limitations-(lack of equipment, weather restraints, etc.). 88-Not Attempted due to Medical Conditions or Safety Concerns. Roll Left & Right (QC): 5 Sit to Lying (QC): 3 (continues to require A with LE's into bed) Lying to Sitting/Side of Bed(Q: 4 (SBA, HOB elevated and use of bedrail, slow transition, improving with log roll technique) Sit to Stand (QC): 5 Toilet Transfer (QC): 5 Gait Training Does the Patient Walk?: Yes Distance: 148 Walk 10 feet (QC): 4 Walk 50 ft with 2 Turns(QC): 4 Walk 150 ft (QC): 4 Gait Persons Needed: 1 Gait Assistive Device: FWW NBOS, occasional unsteadiness self corrected, no LOB, scissoring gait maranda with turns, able to briefly maintain wider CONI with skilled inst for gait quality and safety Wheelchair Training Wheel 50 ft with 2 turns (QC): 5 Wheel 150 ft (QC): 5 Type of Wheelchair: Manual 148 ft Exercises Supine Ex: Ankle pumps (20), Quad Set (10), Heel Slides (7, able to perform with great effort but without assist, fatigue), Straight leg raise (RLE x10 AAROM, LLE x2 AAROM too much hip pain), Hip abd/add (10, AAROM LLE due to hip pain) Treatments bed mobility, education, safety, toileting, bruno care, transfers, gait, w/c mobility, activity tolerance, balance, strength, functional mobility Assessment Current Status: Good Progress PT Short Term Goals Short Term Goals Time Frame: Jan 22, 2019 Sit to lyin (Cassie) Lying to sitting on side of be: 3 (Cassie) Sit to stand: 4 (CGA) Walk 10 feet: 3 (Cassie) PT [facility] Goals [facility] Goals PT Spout Worker Goals Time Frame: Feb 05, 2019 Roll Left & Right (QC): 6 Sit to Lying (QC): 6 Lying-Sitting on Side/Bed(QC): 6 Sit to Stand (QC): 6 Chair/Yur-jf-Gqmzi Xfer(QC): 6 Toilet Transfer (QC): 6 Car Transfer (QC): 6 Does the Patient Walk: Yes Walk 10 feet (QC): 4 (CGA) Walk 50ft with 2 Turns (QC): 4 (CGA) Walk 150 ft (QC): 88 Walking 10ft on Uneven Surface: 4 (CGA) 1 Step (curb) (QC): 4 (CGA) 4 Steps (QC): 9 12 Steps (QC): 9 Picking up an Object (QC): 88 Does the Pt use WC or Scooter?: Yes Wheel 50 feet with 2 turns (QC: 6 Type: Manual Wheel 150 feet: 6 Type: Manual PT Plan Treatment/Plan Treatment Plan: Continue Plan of Care Treatment Plan: Bed Mobility, Concurrent Therapy, Education, Functional Activity Xander, Functional Strength, Group Therapy, Gait, Safety, Therapeutic Exercise, Transfers Treatment Duration: Feb 05, 2019 Frequency: At least 5 of 7 days/Wk (IRF) Estimated Hrs Per Day: 1.5 hours per day Patient and/or Family Agrees t: Yes Safety Risks/Education Patient Education: Gait Training, Transfer Techniques, Reviewed Precautions, Correct Positioning, Reviewed Don/Doff Brace, Safety Issues Teaching Recipient: Patient Teaching Methods: Demonstration, Discussion Response to Teaching: Verbalize Understanding, Return Demonstration Time/GCodes Time In: 745 Time Out: 830 Total Billed Treatment Time: 45 Total Billed Treatment 1 visit, EX x10 min, GT x15 min, FA x20 min GRIS OLGUIN PTA Jan 31, 2019 07:52
[2019-01-31] MEDS: POLYETHYLENE GLYCOL 17 GM (MIRALAX) PACK PO SCH ×2 (08:59→20:36)
[2019-01-31] MEDS: DOCUSATE SODIUM 100 MG (COLACE) CAP PO SCH ×2 (08:59→20:36)
[2019-01-31] MEDS: GABAPENTIN 400 MG (NEURONTIN) CAP PO SCH ×3 (09:00→20:36)
[2019-01-31] MEDS: VITAMIN D3 1,000 UNITS (CHOLECALCIFEROL) TABLET PO SCH ×2 (09:00→20:36)
[2019-01-31] MEDS: SENNA W/DOCUSATE (SENOKOT S) TABLET PO SCH ×2 (09:00→20:36)
--- NOTE | 2019-01-31 10:00 | NUR ---
MAURIZIO WRAPS PLACED ON LOWER LEGS BILATERALLY/PT TOLERATED WELL.
--- NOTE | 2019-01-31 10:44 | Occupational Ther Daily Note ---
OT Current Status-Daily Note Subjective Pt alert, lying in bed. Pt stated that he has not felt good and had diarrhea 2x's during PT session. Pt agrees to therapy. Nrsg in room with HEBERT entered. Mental Status/Objective Patient Orientation: Person, Place, Time, Situation ADL-Treatment Therapy Code Descriptions/Definitions Functional [place] Measure: 0=Not Assessed/NA 4=Minimal Assistance 1=Total Assistance 5=Supervision or Setup 2=Maximal Assistance 6=Modified Victor 3=Moderate Assistance 7=Complete IndependenceSCALE: Activities may be completed with or without assistive devices. 6-Yzrldmwkgd-ozzwsdc completes the activity by him/herself with no assistance from a helper. 5-Set-up or Clean-up Assistance-helper sets up or cleans up; patient completes activity. [place] assists only prior to or following the activity. 4-Supervision or Touching Assistance-helper provides verbal cues and/or touching/steadying and/or contact guard assistance as patient completes activity. Assistance may be provided throughout the activity or intermittently. 3-Partial/Moderate Assistance-helper does LESS THAN HALF the effort. [place] lifts, holds or supports trunk or limbs, but provides less than half the effort. 2-Substantial/Maximal Assistance-helper does MORE THAN HALF the effort. [place] lifts or holds trunk or limbs and provides more than half the effort. 9-Mqqeydgat-opkbgy does ALL the effort. Patient does none of the effort to complete the activity. Or, the assistance of 2 or more helpers is required for the patient to complete the activity. If activity was not attempted, code reason: 7-Patient Refused. 9-Not Applicable-not attempted and the patient did not perform the activity before the current illness, exacerbation or injury. 10-Not Attempted due to Environmental Limitations-(lack of equipment, weather restraints, etc.). 88-Not Attempted due to Medical Conditions or Safety Concerns. On/Off Footwear: 5 (After set up, pt able to don/doff socks with sock aide.) Toileting Hygiene (QC): 3 (Assist to hike pants up upper legs due to pants fell down to far on LE's. Pt able to hike pants/briefs over feet. Pt urinated and able to cleanse self.) Toilet Transfer (QC): 4 (CGA using grabbars and FWW.) Other Treatment Supine to EOB mod I then sat EOB by self. Pt able to don/doff back brace by self. Transferred from EOB to w/c with CGA for safety using FWW. Arm bike completed for 15 min at 20 wagner resistance to increase strength and activity tolerance for daily functional tasks. Pt demonstrated WFL UE AROM against gravity throughout session. After therapy, pt propelled w/c out to [facility] area for OT/PT group. All needs met. OT Short Term Goals Short Term Goals Time Frame: Jan 22, 2019 Eatin (met) Oral hygiene: 5 (met) Toileting hygiene: 4 (met) Shower/bathe self: 4 (met) Upper body dressin (met) Lower body dressin Putting on/taking off footwear: 4 (met) OT Intermediate Goals Intermediate Goals Time Frame: Jan 29, 2019 Eating (QC): 6 (met) Oral Hygiene (QC): 6 (met) Toileting Hygiene (QC): 6 Shower/Bathe Self (QC): 5 (met) Upper Body Dressing (QC): 6 (et) Lower Body Dressing (QC): 6 On/Off Footwear (QC): 6 (met) Additional Goals: 1-Demonstrate ADL Tasks, 2-Verbalize Understanding, 3-ImproveStrength/Xander 1=Demonstrate adherence to instructed precautions during ADL tasks. 2=Patient will verbalize/demonstrate understanding of assistive devices/modifications for ADL. 3=Patient will improve strength/tolerance for activity to enable patient to perform ADL's. OT Education/Plan Problem List/Assessment Assessment: Decreased UE Strength, Impaired Coordination, Impaired Funct Balance, Restricted Funct UE ROM Discharge Recommendations Plan/Recommendations: Continue POC Treatment Plan/Plan of Care Patient would benefit from OT for education, treatment and training to promote independence in ADL's, mobility, safety and/or upper extremity function for ADL's. Plan of Care: ADL Retraining, Functional Mobility, Group Exercise/Act as Ind, UE Funct Exercise/Act Treatment Duration: Jan 29, 2019 Frequency: At least 5 of 7 days/Wk (IRF) Estimated Hrs Per Day: 1.5 hours per day Agreement: Yes Rehab Potential: Good Time/GCodes Start Time: 09:00 Stop Time: 10:00 Total Time Billed (hr/min): 60 Billed Treatment Time 1 visit-EX 2 (25 min) ADL 1 (20 min) FA 1 (15 min) ASHER DRIVER Jan 31, 2019 10:44
--- NOTE | 2019-01-31 12:03 | Therapy Group Daily Note ---
Therapy Daily Group Note Patient Education Topic Exercises, Other List Below Exercises LE Seated Exercise, Balance, Sit to/from Stand, Walking, ROM, Stretching, Gross Motor, Fine Motor, UE Exercise Session Ratio (pt:therapist): 3:1 Goal of Session: Memory Strategies, UE/LE Strengthing, Other (list) To increase overall strength and independence. To improve UE/LE strength. To increase standing balance. To participate in socialization activity and conversatoin with peers. Goal Met for this Session: Yes Pt Benefit of Group: Contributions to Others, Increased Functional Safety, Increased Functional Strength, Recognition of Peers, Socialization Good socialization with group during gift exchange, exercises and discussions. Worked on sit-stand and balance training, as well as UE/LE exercises for improved strength. Start Time: 10:00 Stop Time: 11:15 Total Billed Treatment Time: 75 Total Billed Treatment 1, Group GRIS OLGUIN PTA Jan 31, 2019 12:02
--- NOTE | 2019-01-31 12:30 | NUR ---
DR FOX HERE TO SEE PT/NO NEW ORDERS
--- NOTE | 2019-01-31 12:35 | PM&R Progress Note ---
Subjective HPI/CC On Admission Date Seen by Provider: Jan 31, 2019 Time Seen by Provider: 12:15 Subjective/Events-last exam Pt doing very well On Flomax now and seems to be doing well Will discharge on [place] susan Had a BM today and regular now Overall progressing nicely Left hip pain persists it is likely muscular since xray of left hip was done at [facility] and it was negative per patient Will do outpatient PT Check meds and labs Reviewed labs Review therapy notes Review of Systems General: Fatigue Musculoskeletal: back pain, leg pain Objective Exam Vital Signs Vital Signs Date Time Temp Pulse Resp B/P (MAP) Pulse Ox O2 Delivery O2 Flow Rate FiO2 01/31/19 16:25 37.4 62 16 121/79 (93) 96 Room Air Capillary Refill : General Appearance: No Apparent Distress, WD/WN, Chronically ill, Obese HEENT: PERRL/EOMI, Normal ENT Inspection, Pharynx Normal Neck: Full Range of Motion, Normal Inspection, Non Tender, Supple Respiratory: Chest Non Tender, Lungs Clear, Normal Breath Sounds, No Accessory Muscle Use, No Respiratory Distress Cardiovascular: Regular Rate, Rhythm, No Edema, No Gallop, No JVD, No Murmur Gastrointestinal: Normal Bowel Sounds, No Organomegaly, No Pulsatile Mass, Non Tender, Soft Back: Decreased Range of Motion Extremity: Normal Capillary Refill, Normal Inspection, Normal Range of Motion (decreased ROM legs), Non Tender, No Calf Tenderness, Pedal Edema Neurologic/Psychiatric: Alert, Oriented x3, Normal Mood/Affect, 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 FIM Transfers Therapy Code Descriptions/Definitions Functional [place] Measure: 0=Not Assessed/NA 4=Minimal Assistance 1=Total Assistance 5=Supervision or Setup 2=Maximal Assistance 6=Modified [place] 3=Moderate Assistance 7=Complete IndependenceSCALE: Activities may be completed with or without assistive devices. 9-Fazwjincbw-luaazas completes the activity by him/herself with no assistance from a helper. 5-Set-up or Clean-up Assistance-helper sets up or cleans up; patient completes activity. [place] assists only prior to or following the activity. 4-Supervision or Touching Assistance-helper provides verbal cues and/or touching/steadying and/or contact guard assistance as patient completes activity. Assistance may be provided throughout the activity or intermittently. 3-Partial/Moderate Assistance-helper does LESS THAN HALF the effort. [place] lifts, holds or supports trunk or limbs, but provides less than half the effort. 2-Substantial/Maximal Assistance-helper does MORE THAN HALF the effort. [place] lifts or holds trunk or limbs and provides more than half the effort. 1-Bbdbxyoxd-zhhiln does ALL the effort. Patient does none of the effort to complete the activity. Or, the assistance of 2 or more helpers is required for the patient to complete the activity. If activity was not attempted, code reason: 7-Patient Refused. 9-Not Applicable-not attempted and the patient did not perform the activity before the current illness, exacerbation or injury. 10-Not Attempted due to Environmental Limitations-(lack of equipment, weather restraints, etc.). 88-Not Attempted due to Medical Conditions or Safety Concerns. Roll Left to Right (QC): 5 Sit to Lying (QC): 3 (continues to require A with LE's into bed) Sit to Stand (QC): 5 Chair/Jev-sq-Fuhof Xfer(QC): 4 Car Transfer (QC): 3 (modA) Gait Training Does the Patient Walk?: Yes Distance: 148 Walk 10 feet (QC): 4 Walk 50 ft with 2 Turns(QC): 4 Walk 150 ft (QC): 4 Walking 10ft/uneven surface-QC: 88 Gait Persons Needed: 1 Gait Assistive Device: FWW Wheelchair Training Does the Pt Use a Wheelchair?: Yes Distance: 150'x2 Wheel 50 ft with 2 turns (QC): 5 Wheel 150 ft (QC): 5 Type of Wheelchair: Manual Stair Training 1 Step (curb) (QC): 88 4 Steps (QC): 88 12 Steps (QC): 88 Balance Picking up an Object (QC): 88 ADL-Treatment Eating (QC): 6 Oral Hygiene (QC): 6 Shower/Bathe Self (QC): 5 Upper Body Dressing (QC): 5 Lower Body Dressing (QC): 4 On/Off Footwear (QC): 5 (After set up, pt able to don/doff socks with sock aide.) Toileting Hygiene (QC): 3 (Assist to hike pants up upper legs due to pants fell down to far on LE's. Pt able to hike pants/briefs over feet. Pt urinated and able to cleanse self.) Toilet Transfer (QC): 4 (CGA using grabbars and FWW.) Assessment/Plan Assessment and Plan Assess & Plan/Chief Complaint Assessment: Lumbar spine status post extensive surgery Postop ileus now resolved after SSE Urinary retention requiring Bassett catheter and urology consultation Severe neuropathy Hypothyroidism Chronic pain Hip and back pain improved with steroid injection x 2 Urinary frequency Plan: Bowel regimen maintained Pain control Home meds Urology is appreciated also Inpatient rehabilitation protocol Cath DC after cystoscopy Dramatic improvement in his overall status Kpad and Voltaren gel prn to hip DC 02/03/19 (1) S/P lumbar fusion (2) Hypothyroidism (3) Urinary retention (4) Bassett catheter in place (5) Constipation (6) Neuropathy (7) Ileus KEVIN FOX DO Jan 31, 2019 12:35
[2019-01-31] MEDS: ACETAMINOPHEN 500 MG TAB (TYLENOL) PO PRN (15:20)
[2019-01-31 16:25] VITALS: BP 121/79
[2019-01-31] MEDS: TAMSULOSIN 0.4 MG (FLOMAX) CAP PO SCH (17:03)
[2019-02-01] MEDS: BACLOFEN 10 MG (LIORESAL) TAB PO PRN (02:50)
[2019-02-01] MEDS: ACETAMINOPHEN 500 MG TAB (TYLENOL) PO PRN (05:02)
[2019-02-01 05:36] VITALS: BP 107/70
[2019-02-01] MEDS: KCL 10 MEQ TAB (MICRO K) PO SCH (06:26)
[2019-02-01] MEDS: LEVOTHYROXINE 25 MCG (LEVOTHROID) TAB PO SCH (06:27)
[2019-02-01] MEDS: POLYETHYLENE GLYCOL 17 GM (MIRALAX) PACK PO SCH ×2 (07:39→19:29)
[2019-02-01] MEDS: GABAPENTIN 400 MG (NEURONTIN) CAP PO SCH ×3 (08:40→20:19)
[2019-02-01] MEDS: VITAMIN D3 1,000 UNITS (CHOLECALCIFEROL) TABLET PO SCH ×2 (08:40→20:19)
[2019-02-01] MEDS: SENNA W/DOCUSATE (SENOKOT S) TABLET PO SCH ×2 (08:41→19:29)
[2019-02-01] MEDS: DOCUSATE SODIUM 100 MG (COLACE) CAP PO SCH ×2 (08:41→19:28)
--- NOTE | 2019-02-01 09:00 | NUR ---
ivan wraps placed to lower legs bilaterally
--- NOTE | 2019-02-01 10:00 | NUR ---
DR FOX TO ROOM TO SEE PT/ NO NEW ORDERS AT THIS TIME
--- NOTE | 2019-02-01 12:19 | PM&R Progress Note ---
Subjective HPI/CC On Admission Date Seen by Provider: Feb 01, 2019 Time Seen by Provider: 12:00 Subjective/Events-last exam Pt doing very well On Flomax now and seems to be doing well Will discharge on [place] and he is really looking forward to that Had a BM today and regular now, last 01/31 Overall progressing nicely Left hip pain persists it is likely muscular since xray of left hip was done at [id number] and it was negative per patient Will do outpatient PT Check meds and labs Reviewed labs Review therapy notes Review of Systems Musculoskeletal: back pain, leg pain Objective Exam Vital Signs Vital Signs Date Time Temp Pulse Resp B/P (MAP) Pulse Ox O2 Delivery O2 Flow Rate FiO2 02/01/19 17:07 37.6 68 18 108/69 (82) 96 Room Air Capillary Refill : General Appearance: No Apparent Distress, WD/WN, Chronically ill, Obese HEENT: PERRL/EOMI, Normal ENT Inspection, Pharynx Normal Neck: Full Range of Motion, Normal Inspection, Non Tender, Supple Respiratory: Chest Non Tender, Lungs Clear, Normal Breath Sounds, No Accessory Muscle Use, No Respiratory Distress Cardiovascular: Regular Rate, Rhythm, No Edema, No Gallop, No JVD, No Murmur Gastrointestinal: Normal Bowel Sounds, No Organomegaly, No Pulsatile Mass, Non Tender, Soft Back: Decreased Range of Motion Extremity: Normal Capillary Refill, Normal Inspection, Normal Range of Motion (decreased ROM legs), Non Tender, No Calf Tenderness, Pedal Edema Neurologic/Psychiatric: Alert, Oriented x3, Normal Mood/Affect, 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 FIM Transfers Therapy Code Descriptions/Definitions Functional [place] Measure: 0=Not Assessed/NA 4=Minimal Assistance 1=Total Assistance 5=Supervision or Setup 2=Maximal Assistance 6=Modified [place] 3=Moderate Assistance 7=Complete IndependenceSCALE: Activities may be completed with or without assistive devices. 5-Dxarvexmlz-tbirnkt completes the activity by him/herself with no assistance from a helper. 5-Set-up or Clean-up Assistance-helper sets up or cleans up; patient completes activity. [place] assists only prior to or following the activity. 4-Supervision or Touching Assistance-helper provides verbal cues and/or touching/steadying and/or contact guard assistance as patient completes activity. Assistance may be provided throughout the activity or intermittently. 3-Partial/Moderate Assistance-helper does LESS THAN HALF the effort. [place] lifts, holds or supports trunk or limbs, but provides less than half the effort. 2-Substantial/Maximal Assistance-helper does MORE THAN HALF the effort. [place] lifts or holds trunk or limbs and provides more than half the effort. 9-Hrjazpdae-mnazzl does ALL the effort. Patient does none of the effort to complete the activity. Or, the assistance of 2 or more helpers is required for the patient to complete the activity. If activity was not attempted, code reason: 7-Patient Refused. 9-Not Applicable-not attempted and the patient did not perform the activity before the current illness, exacerbation or injury. 10-Not Attempted due to Environmental Limitations-(lack of equipment, weather restraints, etc.). 88-Not Attempted due to Medical Conditions or Safety Concerns. Roll Left to Right (QC): 5 Sit to Lying (QC): 3 (continues to require A with LE's into bed) Sit to Stand (QC): 5 Chair/Zkq-po-Cfroi Xfer(QC): 4 Car Transfer (QC): 3 (modA) Gait Training Does the Patient Walk?: Yes Distance: 148 Walk 10 feet (QC): 4 Walk 50 ft with 2 Turns(QC): 4 Walk 150 ft (QC): 4 Walking 10ft/uneven surface-QC: 88 Gait Persons Needed: 1 Gait Assistive Device: FWW Wheelchair Training Does the Pt Use a Wheelchair?: Yes Distance: 150'x2 Wheel 50 ft with 2 turns (QC): 5 Wheel 150 ft (QC): 5 Type of Wheelchair: Manual Stair Training 1 Step (curb) (QC): 88 4 Steps (QC): 88 12 Steps (QC): 88 Balance Picking up an Object (QC): 88 ADL-Treatment Eating (QC): 6 Oral Hygiene (QC): 6 Shower/Bathe Self (QC): 5 Upper Body Dressing (QC): 5 Lower Body Dressing (QC): 4 On/Off Footwear (QC): 5 (After set up, pt able to don/doff socks with sock aide.) Toileting Hygiene (QC): 3 (Assist to hike pants up upper legs due to pants fell down to far on LE's. Pt able to hike pants/briefs over feet. Pt urinated and able to cleanse self.) Toilet Transfer (QC): 4 (CGA using grabbars and FWW.) Assessment/Plan Assessment and Plan Assess & Plan/Chief Complaint Assessment: Lumbar spine status post extensive surgery Postop ileus now resolved after SSE Urinary retention requiring Bassett catheter and urology consultation Severe neuropathy Hypothyroidism Chronic pain Hip and back pain improved with steroid injection x 2 Urinary frequency Plan: Bowel regimen maintained Pain control Home meds Urology is appreciated also Inpatient rehabilitation protocol Cath DC after cystoscopy Dramatic improvement in his overall status Kpad and Voltaren gel prn to hip DC 02/03/19 (1) S/P lumbar fusion (2) Hypothyroidism (3) Urinary retention (4) Bassett catheter in place (5) Constipation (6) Neuropathy (7) Ileus KEVIN FOX DO Feb 01, 2019 12:19
[2019-02-01 17:07] VITALS: BP 108/69
[2019-02-01] MEDS: TAMSULOSIN 0.4 MG (FLOMAX) CAP PO SCH (17:39)
[2019-02-01] MEDS: oxyCODONE/APAP 5/325MG (PERCOCET 5) TABLET PO PRN (20:20)
[2019-02-02] MEDS: LEVOTHYROXINE 25 MCG (LEVOTHROID) TAB PO SCH (05:31)
[2019-02-02] MEDS: KCL 10 MEQ TAB (MICRO K) PO SCH (05:31)
[2019-02-02 05:42] VITALS: BP 120/73
[2019-02-02 06:47] LABS: BASOPHILS # (AUTO) 0.1 10^3/uL (0.0-0.1); BASOPHILS % (AUTO) 1 % (0-10); EOSINOPHILS # (AUTO) 0.2 10^3/uL (0.0-0.3); EOSINOPHILS % (AUTO) 3 % (0-10); HEMATOCRIT 38 % (40-54); HEMOGLOBIN 11.8 G/DL (13.3-17.7); LYMPHOCYTES # (AUTO) 1.8 X 10^3 (1.0-4.0); LYMPHOCYTES % (AUTO) 24 % (12-44); MEAN CORPUSCULAR HEMOGLOBIN 30 PG (25-34); MEAN CORPUSCULAR HGB CONC 31 G/DL (32-36); MEAN CORPUSCULAR VOLUME 96 FL (80-99); MEAN PLATELET VOLUME 11.1 FL (7.4-10.4); MONOCYTES % (AUTO) 13 % (0-12); NEUTROPHILS # (AUTO) 4.4 X 10^3 (1.8-7.8); NEUTROPHILS % (AUTO) 58 % (42-75); PLATELET COUNT 273 10^3/uL (130-400); RED CELL DISTRIBUTION WIDTH 13.4 % (10.0-14.5); WHITE BLOOD COUNT 7.5 10^3/uL (4.3-11.0)
[2019-02-02 06:59] LABS: ALANINE AMINOTRANSFERASE 53 U/L (0-55); ALBUMIN 3.4 GM/DL (3.2-4.5); ALKALINE PHOSPHATASE 114 U/L (40-136); BILIRUBIN,TOTAL 0.5 MG/DL (0.1-1.0); BUN/CREATININE RATIO 18; CALCIUM 8.5 MG/DL (8.5-10.1); CARBON DIOXIDE 25 MMOL/L (21-32); CHLORIDE 104 MMOL/L (98-107); CREATININE SERUM 0.78 MG/DL (0.60-1.30); GFR ESTIMATED > 60; GLUCOSE 104 MG/DL (70-105); POTASSIUM 3.6 MMOL/L (3.6-5.0); SODIUM 138 MMOL/L (135-145); TOTAL PROTEIN 6.1 GM/DL (6.4-8.2)
[2019-02-02] MEDS: VITAMIN D3 1,000 UNITS (CHOLECALCIFEROL) TABLET PO SCH ×2 (08:20→20:09)
[2019-02-02] MEDS: GABAPENTIN 400 MG (NEURONTIN) CAP PO SCH ×3 (08:21→20:09)
[2019-02-02] MEDS: POLYETHYLENE GLYCOL 17 GM (MIRALAX) PACK PO SCH ×2 (08:22→23:35)
[2019-02-02] MEDS: SENNA W/DOCUSATE (SENOKOT S) TABLET PO SCH ×2 (08:22→23:35)
[2019-02-02] MEDS: DOCUSATE SODIUM 100 MG (COLACE) CAP PO SCH ×2 (08:22→23:35)
--- NOTE | 2019-02-02 09:05 | Occupational Ther Daily Note ---
OT Current Status-Daily Note Subjective Pt alert, lying in bed. Pt agrees to therapy. ADL-Treatment Pt agrees to shower this morning. Supine to sit with SBA. Gait to restroom with FWW. Transfer [facility] [place] toilet with SBA using grab bars for safety. Pt able to complete toileting with SBA, has toilet tongs to assist with cleansing. Transfer to walk in shower with supervision. Pt doffed clothing using adaptive equipment to doff socks and Depends. Seated bathing completed using AE. Pt used long handled sponge to wash lower body. Don pullover shirt and back brace with set up. Pt used boom truck driver to thread LE into Depends and pants. Stood with supervision for balance during pant hike. Pt donned socks using sock aid. Grooming tasks completed while seated. Pt completed oral care, shaved, and combed hair independently. Pt transferred to bed with min A at end of session. Call light/phone in reach. All needs met in room. Therapy Code Descriptions/Definitions Functional [place] Measure: 0=Not Assessed/NA 4=Minimal Assistance 1=Total Assistance 5=Supervision or Setup 2=Maximal Assistance 6=Modified [place] 3=Moderate Assistance 7=Complete IndependenceSCALE: Activities may be completed with or without assistive devices. 9-Aauusbvjnb-cdnxepq completes the activity by him/herself with no assistance from a helper. 5-Set-up or Clean-up Assistance-helper sets up or cleans up; patient completes activity. [place] assists only prior to or following the activity. 4-Supervision or Touching Assistance-helper provides verbal cues and/or touching/steadying and/or contact guard assistance as patient completes activity. Assistance may be provided throughout the activity or intermittently. 3-Partial/Moderate Assistance-helper does LESS THAN HALF the effort. [place] lifts, holds or supports trunk or limbs, but provides less than half the effort. 2-Substantial/Maximal Assistance-helper does MORE THAN HALF the effort. [place] lifts or holds trunk or limbs and provides more than half the effort. 0-Jgegskzgx-mxfnvm does ALL the effort. Patient does none of the effort to complete the activity. Or, the assistance of 2 or more helpers is required for the patient to complete the activity. If activity was not attempted, code reason: 7-Patient Refused. 9-Not Applicable-not attempted and the patient did not perform the activity before the current illness, exacerbation or injury. 10-Not Attempted due to Environmental Limitations-(lack of equipment, weather restraints, etc.). 88-Not Attempted due to Medical Conditions or Safety Concerns. Eating (QC): 6 (Dentures. Completes own meal set up and uses regular utensils to eat.) Oral Hygiene (QC): 6 Shower/Bathe Self (QC): 6 Upper Body Dressing (QC): 5 Lower Body Dressing (QC): 4 On/Off Footwear: 6 Toileting Hygiene (QC): 4 Toilet Transfer (QC): 4 OT Short Term Goals Short Term Goals Time Frame: Jan 22, 2019 Eatin (met) Oral hygiene: 5 (met) Toileting hygiene: 4 (met) Shower/bathe self: 4 (met) Upper body dressin (met) Lower body dressin Putting on/taking off footwear: 4 (met) OT Chcf Goals Chcf Goals Time Frame: Jan 29, 2019 Eating (QC): 6 (met) Oral Hygiene (QC): 6 (met) Toileting Hygiene (QC): 6 Shower/Bathe Self (QC): 5 (met) Upper Body Dressing (QC): 6 (et) Lower Body Dressing (QC): 6 On/Off Footwear (QC): 6 (met) Additional Goals: 1-Demonstrate ADL Tasks, 2-Verbalize Understanding, 3- ImproveStrength/Xander 1=Demonstrate adherence to instructed precautions during ADL tasks. 2=Patient will verbalize/demonstrate understanding of assistive devices/modifications for ADL. 3=Patient will improve strength/tolerance for activity to enable patient to perform ADL's. OT Education/Plan Problem List/Assessment Assessment: Impaired Funct Balance, Impaired Self-Care Skills Discharge Recommendations Plan/Recommendations: Continue POC Treatment Plan/Plan of Care Patient would benefit from OT for education, treatment and training to promote independence in ADL's, mobility, safety and/or upper extremity function for ADL's. Plan of Care: ADL Retraining, Functional Mobility, Group Exercise/Act as Ind, UE Funct Exercise/Act Treatment Duration: Jan 29, 2019 Frequency: At least 5 of 7 days/Wk (IRF) Estimated Hrs Per Day: 1.5 hours per day Agreement: Yes Rehab Potential: Good Time/GCodes Start Time: 07:30 Stop Time: 09:00 Total Time Billed (hr/min): 90 Billed Treatment Time 1 visit-ADL 6 (90 min) ASHER DRIVER Feb 02, 2019 09:05
--- NOTE | 2019-02-02 09:09 | PM&R Progress Note ---
Subjective HPI/CC On Admission Date Seen by Provider: Feb 02, 2019 Time Seen by Provider: 09:15 Subjective/Events-last exam Pt doing very well On Flomax now and seems to be doing well and I already sent in refill for that at [place] Will discharge tomorrow BM ok and he takes some stuff at home so he does not need Rxes Overall progressing nicely Left hip pain persists it is likely muscular since xray of left hip was done [id number] and it was negative per patient Will do outpatient PT Check meds and labs Reviewed labs Review therapy notes Review of Systems Musculoskeletal: back pain, leg pain Objective Exam Vital Signs Vital Signs Date Time Temp Pulse Resp B/P (MAP) Pulse Ox O2 Delivery O2 Flow Rate FiO2 02/02/19 18:34 36.8 60 18 120/67 (84) 96 Room Air Capillary Refill : General Appearance: No Apparent Distress, WD/WN, Chronically ill, Obese HEENT: PERRL/EOMI, Normal ENT Inspection, Pharynx Normal Neck: Full Range of Motion, Normal Inspection, Non Tender, Supple Respiratory: Chest Non Tender, Lungs Clear, Normal Breath Sounds, No Accessory Muscle Use, No Respiratory Distress Cardiovascular: Regular Rate, Rhythm, No Edema, No Gallop, No JVD, No Murmur Gastrointestinal: Normal Bowel Sounds, No Organomegaly, No Pulsatile Mass, Non Tender, Soft Back: Decreased Range of Motion Extremity: Normal Capillary Refill, Normal Inspection, Normal Range of Motion (decreased ROM legs), Non Tender, No Calf Tenderness, Pedal Edema Neurologic/Psychiatric: Alert, Oriented x3, Normal Mood/Affect, 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 FIM Transfers Therapy Code Descriptions/Definitions Functional [place] Measure: 0=Not Assessed/NA 4=Minimal Assistance 1=Total Assistance 5=Supervision or Setup 2=Maximal Assistance 6=Modified [place] 3=Moderate Assistance 7=Complete IndependenceSCALE: Activities may be completed with or without assistive devices. 3-Olpfoprkci-elgvzus completes the activity by him/herself with no assistance from a helper. 5-Set-up or Clean-up Assistance-helper sets up or cleans up; patient completes activity. [place] assists only prior to or following the activity. 4-Supervision or Touching Assistance-helper provides verbal cues and/or touching/steadying and/or contact guard assistance as patient completes activity . Assistance may be provided throughout the activity or intermittently. 3-Partial/Moderate Assistance-helper does LESS THAN HALF the effort. [place] lifts, holds or supports trunk or limbs, but provides less than half the effort. 2-Substantial/Maximal Assistance-helper does MORE THAN HALF the effort. [place] lifts or holds trunk or limbs and provides more than half the effort. 0-Wujairvmy-fvojqe does ALL the effort. Patient does none of the effort to complete the activity. Or, the assistance of 2 or more helpers is required for the patient to complete the activity. If activity was not attempted, code reason: 7-Patient Refused. 9-Not Applicable-not attempted and the patient did not perform the activity before the current illness, exacerbation or injury. 10-Not Attempted due to Environmental Limitations-(lack of equipment, weather restraints, etc.). 88-Not Attempted due to Medical Conditions or Safety Concerns. Roll Left to Right (QC): 5 Sit to Lying (QC): 3 (continues to require A with LE's into bed) Sit to Stand (QC): 5 Chair/Qwg-gb-Vafdv Xfer(QC): 4 Car Transfer (QC): 3 (modA) Gait Training Does the Patient Walk?: Yes Distance: 148 Walk 10 feet (QC): 4 Walk 50 ft with 2 Turns(QC): 4 Walk 150 ft (QC): 4 Walking 10ft/uneven surface-QC: 88 Gait Persons Needed: 1 Gait Assistive Device: FWW Wheelchair Training Does the Pt Use a Wheelchair?: Yes Distance: 150'x2 Wheel 50 ft with 2 turns (QC): 5 Wheel 150 ft (QC): 5 Type of Wheelchair: Manual Stair Training 1 Step (curb) (QC): 88 4 Steps (QC): 88 12 Steps (QC): 88 Balance Picking up an Object (QC): 88 ADL-Treatment Eating (QC): 6 (Dentures. Completes own meal set up and uses regular utensils to eat.) Oral Hygiene (QC): 6 Shower/Bathe Self (QC): 6 Upper Body Dressing (QC): 5 Lower Body Dressing (QC): 4 On/Off Footwear (QC): 6 Toileting Hygiene (QC): 4 Toilet Transfer (QC): 4 Assessment/Plan Assessment and Plan Assess & Plan/Chief Complaint Assessment: Lumbar spine status post extensive surgery Postop ileus now resolved after SSE Urinary retention requiring Bassett catheter and urology consultation Severe neuropathy Hypothyroidism Chronic pain Hip and back pain improved with steroid injection x 2 Urinary frequency BPH improved on Flomax Plan: Bowel regimen maintained Pain control Home meds Urology is appreciated also Inpatient rehabilitation protocol Cath DC after cystoscopy Dramatic improvement in his overall status Kpad and Voltaren gel prn to hip DC 02/03/19 (1) S/P lumbar fusion (2) Hypothyroidism (3) Urinary retention (4) Bassett catheter in place (5) Constipation (6) Neuropathy (7) Ileus KEVIN FOX DO Feb 02, 2019 09:09
--- NOTE | 2019-02-02 11:50 | Physical Therapy Daily Note ---
PT Daily Note-Current Subjective Patient in bed pre tx, agrees to PT, has 7/10 pain in back, nurse asks if patient needs pain meds and he says after a while. Patient needs pants on and needs max assist for it. Appearance Patient on toilet post tx with nurse call, instructed to call nurse when done. Mental Status Patient Orientation: Person, Place, Situation back brace Transfers SCALE: Activities may be completed with or without assistive devices. 6-Gavpnhyatg-isjqdej completes the activity by him/herself with no assistance from a helper. 5-Set-up or Clean-up Assistance-helper sets up or cleans up; patient completes activity. [place] assists only prior to or following the activity. 4-Supervision or Touching Assistance-helper provides verbal cues and/or touch ing/steadying and/or contact guard assistance as patient completes activity. Assistance may be provided throughout the activity or intermittently. 3-Partial/Moderate Assistance-helper does LESS THAN HALF the effort. [place] lifts, holds or supports trunk or limbs, but provides less than half the effort. 2-Substantial/Maximal Assistance-helper does MORE THAN HALF the effort. [place] lifts or holds trunk or limbs and provides more than half the effort. 9-Angweicob-luumwr does ALL the effort. Patient does none of the effort to complete the activity. Or, the assistance of 2 or more helpers is required for the patient to complete the activity. If activity was not attempted, code reason: 7-Patient Refused. 9-Not Applicable-not attempted and the patient did not perform the activity before the current illness, exacerbation or injury. 10-Not Attempted due to Environmental Limitations-(lack of equipment, weather restraints, etc.). 88-Not Attempted due to Medical Conditions or Safety Concerns. Roll Left & Right (QC): 4 Sit to Lying (QC): 3 Lying to Sitting/Side of Bed(Q: 4 Sit to Stand (QC): 4 Chair/Ayk-ql-Vbejt Xfer(QC): 4 Toilet Transfer (QC): 4 Car Transfer (QC): 3 Patient needs SBA for bed mobility, SBA for supine -> sit, mod assist for sit -> supine, CGA for sit <-> stand, CGA for transfers, mod assist for car transfer. Gait Training Distance: 150'x2 Walk 10 feet (QC): 4 Walk 50 ft with 2 Turns(QC): 4 Walk 150 ft (QC): 4 Walking 10ft/uneven surface-QC: 4 Gait Persons Needed: 1 Gait Assistive Device: FWW Patient can ambulate 150' with a rolling walker with CGA (including 50' with at least 2 turns of 90 degrees and 10' over an uneven surface). Patient ambulates slowly, leans heavily on the walker, and has uncoordinated steps and occasional scissoring. Wheelchair Training Does the Pt Use a Wheelchair?: No Stair Training 1 Step (curb) (QC): 88 4 Steps (QC): 88 12 Steps (QC): 88 Steps not attempted due to BLE weakness and poor coordination. Patient states he does not have any steps to enter his home, just stepping over a threshold. Balance Picking up an Object (QC): 88 Exercises NuStep Minutes: 15 NuStep Workload: 6 Treatments bed mobility and transfers, dressing, toileting, ambulation, LE strengthening Assessment Current Status: Fair Progress Patient has made fair progress but it has slowed down recently, he may have omar ched a plateau at this time. PT Short Term Goals Short Term Goals Time Frame: Jan 22, 2019 Sit to lyin (Cassie) Lying to sitting on side of be: 3 (Cassie) Sit to stand: 4 (CGA) Walk 10 feet: 3 (Cassie) PT Custodial Goals Custodial Goals PT Custodial Goals Time Frame: Feb 05, 2019 Roll Left & Right (QC): 6 Sit to Lying (QC): 6 Lying-Sitting on Side/Bed(QC): 6 Sit to Stand (QC): 6 Chair/Swi-hi-Ygsny Xfer(QC): 6 Toilet Transfer (QC): 6 Car Transfer (QC): 6 Does the Patient Walk: Yes Walk 10 feet (QC): 4 (CGA) Walk 50ft with 2 Turns (QC): 4 (CGA) Walk 150 ft (QC): 88 Walking 10ft on Uneven Surface: 4 (CGA) 1 Step (curb) (QC): 4 (CGA) 4 Steps (QC): 9 12 Steps (QC): 9 Picking up an Object (QC): 88 Does the Pt use WC or Scooter?: Yes Wheel 50 feet with 2 turns (QC: 6 Type: Manual Wheel 150 feet: 6 Type: Manual PT Plan Problem List Problem List: Activity Tolerance, Functional Strength, Safety, Balance, Gait, Transfer, Bed Mobility, ROM Treatment/Plan Treatment Plan: Continue Plan of Care Treatment Plan: Bed Mobility, Concurrent Therapy, Education, Functional Activity Xander, Functional Strength, Group Therapy, Gait, Safety, Therapeutic Exercise, Transfers Treatment Duration: Feb 05, 2019 Frequency: At least 5 of 7 days/Wk (IRF) Estimated Hrs Per Day: 1.5 hours per day Patient and/or Family Agrees t: Yes Safety Risks/Education Patient Education: Gait Training, Transfer Techniques, Correct Positioning, Reviewed Don/Doff Brace, Safety Issues Teaching Recipient: Patient Teaching Methods: Demonstration, Discussion Response to Teaching: Reinforcement Needed Time/GCodes Time In: 1100 Time Out: 1200 Total Billed Treatment Time: 60 Total Billed Treatment 1 visit GT 30' EX 15' FA 15' IRENE MARTIN PT Feb 02, 2019 11:50
[2019-02-02] MEDS: oxyCODONE/APAP 5/325MG (PERCOCET 5) TABLET PO PRN (12:45)
--- NOTE | 2019-02-02 13:12 | NUR ---
DISCHARGE Patient will discharge tomorrow home with [facility] Mclean in [place]. He has maintained his healthcare services in [place], [place] for now and will be returning there 02/09/19 until such time as he completely moves/transitions to [place]. The following appointment(s) have been made: SURGEON: Dr. Herminio Smith DO, [place] PH: [phone] Appt: February 10, 2019 at 1:45 p.m. PCP: Dr. Fili Layne MD, [place] PH: [phone] FX: [phone] Appt: February 18, 2019 at 11:00 a.m. Patient has been made aware of these appointments and is in agreement to this scheduling. He has DME at home, no new needs have been identified or anticipated other than Hip Kit to be private purchased by patient if desired. He will not be alone so could be assisted as needed. IMM2: Presented, signed, charted. Patient very excited to return home, had made notable progress.
--- NOTE | 2019-02-02 14:12 | Physical Therapy Daily Note ---
PT Daily Note-Current Subjective Pt reports he is discharging tomorrow and feels ready. Transfers SCALE: Activities may be completed with or without assistive devices. 9-Dlxnawsqjz-uqnrhln completes the activity by him/herself with no assistance from a helper. 5-Set-up or Clean-up Assistance-helper sets up or cleans up; patient completes activity. [place] assists only prior to or following the activity. 4-Supervision or Touching Assistance-helper provides verbal cues and/or touching/steadying and/or contact guard assistance as patient completes activity. Assistance may be provided throughout the activity or intermittently. 3-Partial/Moderate Assistance-helper does LESS THAN HALF the effort. [place] lifts, holds or supports trunk or limbs, but provides less than half the effort. 2-Substantial/Maximal Assistance-helper does MORE THAN HALF the effort. [place] lifts or holds trunk or limbs and provides more than half the effort. 3-Oamxlmrha-elgowm does ALL the effort. Patient does none of the effort to complete the activity. Or, the assistance of 2 or more helpers is required for the patient to complete the activity. If activity was not attempted, code reason: 7-Patient Refused. 9-Not Applicable-not attempted and the patient did not perform the activity before the current illness, exacerbation or injury. 10-Not Attempted due to Environmental Limitations-(lack of equipment, weather restraints, etc.). 88-Not Attempted due to Medical Conditions or Safety Concerns. Sit to Lying (QC): 6 Lying to Sitting/Side of Bed(Q: 6 Sit to Stand (QC): 6 Chair/Lue-kl-Egjbn Xfer(QC): 6 Gait Training Walk 150 ft (QC): 4 (SBA with gait this afternoon; as he is tired. ) Gait Assistive Device: FWW Gait training 150 ft x 4 reps with FWW. Assessment Current Status: Good Progress Transfers and gait have improved. PT Short Term Goals Short Term Goals Time Frame: Jan 22, 2019 Sit to lyin (Cassie) Lying to sitting on side of be: 3 (Cassie) Sit to stand: 4 (CGA) Walk 10 feet: 3 (Cassie) PT Student Life Advisor Goals Alf Goals PT Alf Goals Time Frame: Feb 05, 2019 Roll Left & Right (QC): 6 Sit to Lying (QC): 6 Lying-Sitting on Side/Bed(QC): 6 Sit to Stand (QC): 6 Chair/Gws-cq-Kxbwf Xfer(QC): 6 Toilet Transfer (QC): 6 Car Transfer (QC): 6 Does the Patient Walk: Yes Walk 10 feet (QC): 4 (CGA) Walk 50ft with 2 Turns (QC): 4 (CGA) Walk 150 ft (QC): 88 Walking 10ft on Uneven Surface: 4 (CGA) 1 Step (curb) (QC): 4 (CGA) 4 Steps (QC): 9 12 Steps (QC): 9 Picking up an Object (QC): 88 Does the Pt use WC or Scooter?: Yes Wheel 50 feet with 2 turns (QC: 6 Type: Manual Wheel 150 feet: 6 Type: Manual PT Plan Problem List Problem List: Activity Tolerance, Functional Strength, Safety, Gait, Transfer Treatment/Plan Treatment Plan: Continue Plan of Care Treatment Plan: Bed Mobility, Concurrent Therapy, Education, Functional Activity Xander, Functional Strength, Group Therapy, Gait, Safety, Therapeutic Exercise, Transfers Treatment Duration: Feb 05, 2019 Frequency: At least 5 of 7 days/Wk (IRF) Estimated Hrs Per Day: 1.5 hours per day Patient and/or Family Agrees t: Yes Time/GCodes Time In: 1335 Time Out: 1406 Total Billed Treatment Time: 31 Total Billed Treatment visit GT 31 ASHER ALEJANDRE PT Feb 02, 2019 14:12
[2019-02-02 15:59] VITALS: BP 99/61
[2019-02-02] MEDS ORDERED: TAMS0.4C98 PO (18:06)
[2019-02-02] MEDS ORDERED: OXYC1TAB87 PO (18:06)
[2019-02-02] MEDS ORDERED: DICL100G18 TOP (18:06)
[2019-02-02] MEDS ORDERED: BACL10TA PO (18:06)
[2019-02-02] MEDS ORDERED: TRAM50TA2 PO (18:06)
[2019-02-02] MEDS ORDERED: POTA10TA6 PO (18:06)
[2019-02-02] MEDS: TAMSULOSIN 0.4 MG (FLOMAX) CAP PO SCH (18:21)
[2019-02-02 18:34] VITALS: BP 120/67
[2019-02-03 05:12] VITALS: BP 122/65
[2019-02-03] MEDS: LEVOTHYROXINE 25 MCG (LEVOTHROID) TAB PO SCH (05:23)
[2019-02-03] MEDS: KCL 10 MEQ TAB (MICRO K) PO SCH (05:24)
[2019-02-03] MEDS: oxyCODONE/APAP 5/325MG (PERCOCET 5) TABLET PO PRN ×2 (05:24→11:46)
[2019-02-03] MEDS: POLYETHYLENE GLYCOL 17 GM (MIRALAX) PACK PO SCH (08:46)
[2019-02-03] MEDS: VITAMIN D3 1,000 UNITS (CHOLECALCIFEROL) TABLET PO SCH (08:46)
[2019-02-03] MEDS: SENNA W/DOCUSATE (SENOKOT S) TABLET PO SCH (08:46)
[2019-02-03] MEDS: GABAPENTIN 400 MG (NEURONTIN) CAP PO SCH (08:46)
[2019-02-03] MEDS: DOCUSATE SODIUM 100 MG (COLACE) CAP PO SCH (08:46)
--- NOTE | 2019-02-03 09:14 | Therapy Team Discharge Summary ---
Therapy Discharge Summary Discharge Recommendations Date of Discharge 02/03/19 Therapy D/C Recommendations: Other, See Comments (pt reports his SO and sister will help at [place]) Physical Therapy This patient was admitted to [facility] post acute hospital stay due to lumbar surgery. Prior to his surgery, he relied on family for assist as needed, he was indep with bed mobiltiy and transfers but required assist with gait and steps and did use a wc intermittently for mobility. In addition, he used a 4WW for mobility. Upon admission to this unity, he was mod to max assist with bed mobiltiy and transfers and was unable to effectively ambulate. Treatment has focused on functional LE and core strengthening as well as balance training to promote bed mobility, transfers and gait. His usual performance of bed mobility at discharge is mod indep (with bed rail) to intermittent assist with his legs, supervision with transfers and CGa with gait. He has made functional progress but continues to need some assist for safety. Pt plans to discharge home with family to assist as needed. DC from ARU this date. Recommend [facility] PT but pt reports he feels his family will be able to assist. Occupational Therapy Impaired Funct Balance, Impaired Self-Care Skills PT Heel Builder Goals Heel Builder Goals PT Heel Builder Goals Time Frame: Feb 05, 2019 Roll Left to Right (QC): 6 Sit to Lying (QC): 6 Lying-Sitting on Side/Bed(QC): 6 Sit to Stand (QC): 6 Chair/Vsb-ll-Uysic Xfer(QC): 6 Car Transfer (QC): 6 Does the Patient Walk: Yes Walk 10 feet (QC): 4 (CGA) Walk 10ft-Uneven Surface(QC): 4 (CGA) Walk 50ft with 2 Turns (QC): 4 (CGA) Walk 150 ft (QC): 88 Does the Pt use WC or Scooter?: Yes Wheel 50 feet with 2 turns (QC: 6 1 Step (curb) (QC): 4 (CGA) 4 Steps (QC): 9 12 Steps (QC): 9 Picking up an Object (QC): 88 goals not fully met, but pt to discharge with assist from family OT Longterm Goals Longterm Goals Time Frame: Jan 29, 2019 Eating (QC): 6 (met) Oral Hygiene (QC): 6 (met) Shower/Bathe Self (QC): 5 (met) Upper Body Dressing (QC): 6 (et) Lower Body Dressing (QC): 6 On/Off Footwear (QC): 6 (met) Toileting Hygiene (QC): 6 Toilet/Commode Transfer (QC): 6 Additional Goals: 1-Demonstrate ADL Tasks, 2-Verbalize Understanding, 3- ImproveStrength/Xander 1=Demonstrate adherence to instructed precautions during ADL tasks. 2=Patient will verbalize/demonstrate understanding of assistive devices/modifications for ADL. 3=Patient will improve strength/tolerance for activity to enable patient to perform ADL's. ASHER ALEJANDRE PT Feb 03, 2019 09:14
--- NOTE | 2019-02-03 11:22 | Discharge Summary ---
Diagnosis/Chief Complaint Date of Admission Jan 15, 2019 at 12:30 Date of Discharge Discharge Date: Feb 03, 2019 Discharge Diagnosis Assessment: Lumbar spine status post extensive surgery Postop ileus now resolved after SSE Urinary retention requiring Bassett catheter and urology consultation Severe neuropathy Hypothyroidism Chronic pain Hip and back pain improved with steroid injection x 2 Urinary frequency BPH improved on Flomax Plan: Bowel regimen maintained Pain control Home meds Urology is appreciated also Inpatient rehabilitation protocol Cath DC after cystoscopy Dramatic improvement in his overall status Kpad and Voltaren gel prn to hip DC 02/03/19 (1) S/P lumbar fusion (2) Hypothyroidism (3) Urinary retention (4) Bassett catheter in place (5) Constipation (6) Neuropathy (7) Ileus Discharge Summary Discharge Physical Examination Allergies: Coded Allergies: No Allergy Information Available (Unverified , 01/15/19) Vitals & I&Os Vital Signs Date Time Temp Pulse Resp B/P (MAP) Pulse Ox O2 Delivery O2 Flow Rate FiO2 02/03/19 08:00 Room Air 02/03/19 05:12 36.6 88 20 122/65 (84) 02/02/19 21:00 96 General Appearance: Alert, Oriented X3, Cooperative Respiratory: Clear to Auscultation Cardiovascular: Regular Rate Neuro: Normal Gait, Normal Speech, Strength at 5/5 X4 Ext Psych/Mental Status: Mental Status NL, Mood NL Hospital Course Was the Problem List Reviewed?: Yes Hospital course: patient had an uneventful hospital course for 20 days after transferring from [facility] in [place] after undergoing complex spine surgery and subs equent post op ileus and urinary retention and severe debility acute on chronic since he had such severe spinal stenosis and had major weakness before surgery. Patient participated in all therapies and regaining enough function to return home with partner with return to near PLOF status. Steroids were given x 2 IM due to muscular pain on left hip and that resolved after doses given. Meds were double-checked and outpatient PT initiated at [facility]. Labs (last 24 hrs) Laboratory Tests 01/16/19 06:37: White Blood Count 8.6, Red Blood Count 3.46L, Hemoglobin 10.7L, Hematocrit 33L, Mean Corpuscular Volume 95, Mean Corpuscular Hemoglobin 31, Mean Corpuscular Hemoglobin Concent 33, Red Cell Distribution Width 13.1, Platelet Count 167, Mean Platelet Volume 11.7H, Neutrophils (%) (Auto) 62, Lymphocytes (%) (Auto) 21, Monocytes (%) (Auto) 15H, Eosinophils (%) (Auto) 2, Basophils (%) (Auto) 1, Neutrophils # (Auto) 5.3, Lymphocytes # (Auto) 1.8, Monocytes # (Auto) 1.3H, Eosinophils # (Auto) 0.2, Basophils # (Auto) 0.0, Sodium Level 134L, Potassium Level 3.3L, Chloride Level 102, Carbon Dioxide Level 23, Anion Gap 9, Blood Urea Nitrogen 17, Creatinine 0.68, Estimat Glomerular Filtration Rate > 60, BUN/Creatinine Ratio 25, Glucose Level 100, Calcium Level 8.3L, Corrected Calcium 8.9, Total Bilirubin 0.6, Aspartate Amino Transf (AST/SGOT) 31, Alanine Aminotransferase (ALT/SGPT) 31, Alkaline Phosphatase 53, Total Protein 5.8L, Albumin 3.2 01/19/19 05:38: White Blood Count 9.4, Red Blood Count 3.51L, Hemoglobin 10.5L, Hematocrit 33L, Mean Corpuscular Volume 95, Mean Corpuscular Hemoglobin 30, Mean Corpuscular Hemoglobin Concent 32, Red Cell Distribution Width 13.3, Platelet Count 258, Mean Platelet Volume 11.2H, Neutrophils (%) (Auto) 64, Lymphocytes (%) (Auto) 15, Monocytes (%) (Auto) 16H, Eosinophils (%) (Auto) 5, Basophils (%) (Auto) 0, Neutrophils # (Auto) 6.0, Lymphocytes # (Auto) 1.4, Monocytes # (Auto) 1.5H, Eosinophils # (Auto) 0.4H, Basophils # (Auto) 0.0, Sodium Level 134L, Potassium Level 3.8, Chloride Level 99, Carbon Dioxide Level 26, Anion Gap 9, Blood Urea Nitrogen 13, Creatinine 0.79, Estimat Glomerular Filtration Rate > 60, BUN/Creatinine Ratio 16, Glucose Level 116H, Calcium Level 8.2L, Corrected Calcium 8.8, Total Bilirubin 0.4, Aspartate Amino Transf (AST/SGOT) 27, Alanine Aminotransferase (ALT/SGPT) 58H, Alkaline Phosphatase 63, Total Protein 5.7L, Albumin 3.2 01/22/19 09:15: White Blood Count 7.2, Red Blood Count 3.72L, Hemoglobin 11.2L, Hematocrit 36L, Mean Corpuscular Volume 96, Mean Corpuscular Hemoglobin 30, Mean Corpuscular Hemoglobin Concent 31L, Red Cell Distribution Width 13.1, Platelet Count 326, Mean Platelet Volume 10.0, Sodium Level 137, Potassium Level 4.1, Chloride Level 100, Carbon Dioxide Level 27, Anion Gap 10, Blood Urea Nitrogen 13, Creatinine 0.80, Estimat Glomerular Filtration Rate > 60, BUN/Creatinine Ratio 16, Glucose Level 129H, Calcium Level 8.7, Corrected Calcium 9.2, Total Bilirubin 0.5, Aspartate Amino Transf (AST/SGOT) 23, Alanine Aminotransferase (ALT/SGPT) 46, Alkaline Phosphatase 78, Total Protein 6.3L, Albumin 3.4 01/22/19 11:00: Urine Color YELLOW, Urine Clarity CLEAR, Urine pH 6.5, Urine Specific [place] 1.010L, Urine Protein NEGATIVE, Urine Glucose (UA) NEGATIVE, Urine Ketones NE GATIVE, Urine Nitrite NEGATIVE, Urine Bilirubin NEGATIVE, Urine Urobilinogen 1.0, Urine Leukocyte Esterase NEGATIVE, Urine RBC (Auto) NEGATIVE, Urine RBC NONE, Urine WBC RARE, Urine Squamous Epithelial Cells NONE, Urine Crystals NONE, Urine Bacteria NEGATIVE, Urine Casts NONE, Urine Mucus NEGATIVE, Urine Culture Indicated NO 01/26/19 06:05: White Blood Count 10.6, Red Blood Count 3.90L, Hemoglobin 11.7L, Hematocrit 38L, Mean Corpuscular Volume 99, Mean Corpuscular Hemoglobin 30, Mean Corpuscular Hemoglobin Concent 31L, Red Cell Distribution Width 13.5, Platelet Count 399, Mean Platelet Volume 10.1, Neutrophils (%) (Auto) 63, Lymphocytes (%) (Auto) 20, Monocytes (%) (Auto) 13H, Eosinophils (%) (Auto) 4, Basophils (%) (Auto) 0, Neutrophils # (Auto) 6.7, Lymphocytes # (Auto) 2.1, Monocytes # (Auto) 1.4H, Eosinophils # (Auto) 0.5H, Basophils # (Auto) 0.0, Sodium Level 139, Potassium Level 4.2, Chloride Level 102, Carbon Dioxide Level 29, Anion Gap 8, Blood Urea Nitrogen 19H, Creatinine 0.80, Estimat Glomerular Filtration Rate > 60, BUN/Creatinine Ratio 24, Glucose Level 83, Calcium Level 8.7, Corrected Calcium 9.2, Total Bilirubin 0.4, Aspartate Amino Transf (AST/SGOT) 19, Alanine Aminotransferase (ALT/SGPT) 53, Alkaline Phosphatase 103, Total Protein 6.0L, Albumin 3.4 02/02/19 06:15: White Blood Count 7.5, Red Blood Count 3.96L, Hemoglobin 11.8L, Hematocrit 38L, Mean Corpuscular Volume 96, Mean Corpuscular Hemoglobin 30, Mean Corpuscular Hemoglobin Concent 31L, Red Cell Distribution Width 13.4, Platelet Count 273, Mean Platelet Volume 11.1H, Neutrophils (%) (Auto) 58, Lymphocytes (%) (Auto) 24, Monocytes (%) (Auto) 13H, Eosinophils (%) (Auto) 3, Basophils (%) (Auto) 1, Neutrophils # (Auto) 4.4, Lymphocytes # (Auto) 1.8, Monocytes # (Auto) 1.0, Eosinophils # (Auto) 0.2, Basophils # (Auto) 0.1, Sodium Level 138, Potassium Level 3.6, Chloride Level 104, Carbon Dioxide Level 25, Anion Gap 9, Blood Urea Nitrogen 14, Creatinine 0.78, Estimat Glomerular Filtration Rate > 60, BUN/Creatinine Ratio 18, Glucose Level 104, Calcium Level 8.5, Corrected Calcium 9.0, Total Bilirubin 0.5, Aspartate Amino Transf (AST/SGOT) 26, Alanine Aminotransferase (ALT/SGPT) 53, Alkaline Phosphatase 114, Total Protein 6.1L, Albumin 3.4 Pending Labs Laboratory Tests 01/16/19 06:37: White Blood Count 8.6, Red Blood Count 3.46, Hemoglobin 10.7, Hematocrit 33, Mean Corpuscular Volume 95, Mean Corpuscular Hemoglobin 31, Mean Corpuscular Hemoglobin Concent 33, Red Cell Distribution Width 13.1, Platelet Count 167, M george Platelet Volume 11.7, Neutrophils (%) (Auto) 62, Lymphocytes (%) (Auto) 21, Monocytes (%) (Auto) 15, Eosinophils (%) (Auto) 2, Basophils (%) (Auto) 1, Neutrophils # (Auto) 5.3, Lymphocytes # (Auto) 1.8, Monocytes # (Auto) 1.3, Eosinophils # (Auto) 0.2, Basophils # (Auto) 0.0, Sodium Level 134, Potassium Level 3.3, Chloride Level 102, Carbon Dioxide Level 23, Anion Gap 9, Blood Urea Nitrogen 17, Creatinine 0.68, Estimat Glomerular Filtration Rate > 60, BUN/Creatinine Ratio 25, Glucose Level 100, Calcium Level 8.3, Corrected Calcium 8.9, Total Bilirubin 0.6, Aspartate Amino Transf (AST/SGOT) 31, Alanine Aminotransferase (ALT/SGPT) 31, Alkaline Phosphatase 53, Total Protein 5.8, Albumin 3.2 01/19/19 05:38: White Blood Count 9.4, Red Blood Count 3.51, Hemoglobin 10.5, Hematocrit 33, Mean Corpuscular Volume 95, Mean Corpuscular Hemoglobin 30, Mean Corpuscular Hemoglobin Concent 32, Red Cell Distribution Width 13.3, Platelet Count 258, Mean Platelet Volume 11.2, Neutrophils (%) (Auto) 64, Lymphocytes (%) (Auto) 15, Monocytes (%) (Auto) 16, Eosinophils (%) (Auto) 5, Basophils (%) (Auto) 0, Neutrophils # (Auto) 6.0, Lymphocytes # (Auto) 1.4, Monocytes # (Auto) 1.5, Eosinophils # (Auto) 0.4, Basophils # (Auto) 0.0, Sodium Level 134, Potassium L evel 3.8, Chloride Level 99, Carbon Dioxide Level 26, Anion Gap 9, Blood Urea Nitrogen 13, Creatinine 0.79, Estimat Glomerular Filtration Rate > 60, BUN/Creatinine Ratio 16, Glucose Level 116, Calcium Level 8.2, Corrected Calcium 8.8, Total Bilirubin 0.4, Aspartate Amino Transf (AST/SGOT) 27, Alanine Aminotransferase (ALT/SGPT) 58, Alkaline Phosphatase 63, Total Protein 5.7, Albumin 3.2 01/22/19 09:15: White Blood Count 7.2, Red Blood Count 3.72, Hemoglobin 11.2, Hematocrit 36, Mean Corpuscular Volume 96, Mean Corpuscular Hemoglobin 30, Mean Corpuscular Hemoglobin Concent 31, Red Cell Distribution Width 13.1, Platelet Count 326, Mean Platelet Volume 10.0, Sodium Level 137, Potassium Level 4.1, Chloride Level 100, Carbon Dioxide Level 27, Anion Gap 10, Blood Urea Nitrogen 13, Creatinine 0.80, Estimat Glomerular Filtration Rate > 60, BUN/Creatinine Ratio 16, Glucose Level 129, Calcium Level 8.7, Corrected Calcium 9.2, Total Bilirubin 0.5, Aspartate Amino Transf (AST/SGOT) 23, Alanine Aminotransferase (ALT/SGPT) 46, Alkaline Phosphatase 78, Total Protein 6.3, Albumin 3.4 01/22/19 11:00: Urine Color YELLOW, Urine Clarity CLEAR, Urine pH 6.5, Urine Specific [place] 1.010, Urine Protein NEGATIVE, Urine Glucose (UA) NEGATIVE, Urine Ketones NEGATIVE, Urine Nitrite NEGATIVE, Urine Bilirubin NEGATIVE, Urine Urobilinogen 1.0, Urine Leukocyte Esterase NEGATIVE, Urine RBC (Auto) NEGATIVE, Urine RBC NONE, Urine WBC RARE, Urine Squamous Epithelial Cells NONE, Urine Crystals NONE, Urine Bacteria NEGATIVE, Urine Casts NONE, Urine Mucus NEGATIVE, Urine Culture Indicated NO 01/26/19 06:05: White Blood Count 10.6, Red Blood Count 3.90, Hemoglobin 11.7, Hematocrit 38, Mean Corpuscular Volume 99, Mean Corpuscular Hemoglobin 30, Mean Corpuscular Hemoglobin Concent 31, Red Cell Distribution Width 13.5, Platelet Count 399, Mean Platelet Volume 10.1, Neutrophils (%) (Auto) 63, Lymphocytes (%) (Auto) 20, Monocytes (%) (Auto) 13, Eosinophils (%) (Auto) 4, Basophils (%) (Auto) 0, Neutrophils # (Auto) 6.7, Lymphocytes # (Auto) 2.1, Monocytes # (Auto) 1.4, Eosinophils # (Auto) 0.5, Basophils # (Auto) 0.0, Sodium Level 139, Potassium Level 4.2, Chloride Level 102, Carbon Dioxide Level 29, Anion Gap 8, Blood Urea Nitrogen 19, Creatinine 0.80, Estimat Glomerular Filtration Rate > 60, BUN/Creatinine Ratio 24, Glucose Level 83, Calcium Level 8.7, Corrected Calcium 9.2, Total Bilirubin 0.4, Aspartate Amino Transf (AST/SGOT) 19, Alanine Aminotransferase (ALT/SGPT) 53, Alkaline Phosphatase 103, Total Protein 6.0, Albumin 3.4 02/02/19 06:15: White Blood Count 7.5, Red Blood Count 3.96, Hemoglobin 11.8, Hematocrit 38, Mean Corpuscular Volume 96, Mean Corpuscular Hemoglobin 30, Mean Corpuscular Hemoglobin Concent 31, Red Cell Distribution Width 13.4, Platelet Count 273, Mean Platelet Volume 11.1, Neutrophils (%) (Auto) 58, Lymphocytes (%) (Auto) 24, Monocytes (%) (Auto) 13, Eosinophils (%) (Auto) 3, Basophils (%) (Auto) 1, Neutrophils # (Auto) 4.4, Lymphocytes # (Auto) 1.8, Monocytes # (Auto) 1.0, Eosinophils # (Auto) 0.2, Basophils # (Auto) 0.1, Sodium Level 138, Potassium Level 3.6, Chloride Level 104, Carbon Dioxide Level 25, Anion Gap 9, Blood Urea Nitrogen 14, Creatinine 0.78, Estimat Glomerular Filtration Rate > 60, BUN/Creatinine Ratio 18, Glucose Level 104, Calcium Level 8.5, Corrected Calcium 9.0, Total Bilirubin 0.5, Aspartate Amino Transf (AST/SGOT) 26, Alanine Aminotransferase (ALT/SGPT) 53, Alkaline Phosphatase 114, Total Protein 6.1, Albumin 3.4 Discharge Home Medications: Active Scripts Active Klor-Con 10 (Potassium Chloride) 10 Meq Tablet.er 10 Meq PO DAILY@0700 Tramadol HCl 50 Mg Tablet 50 Mg PO TID PRN Percocet 5-325 mg Tablet (Oxycodone HCl/Acetaminophen) 1 Each Tablet 2 Tab PO Q6H PRN Voltaren (Diclofenac Sodium) 100 Gm Gel..gram. 0 Gm TOP QID PRN Baclofen 10 Mg Tablet 10 Mg PO Q8H PRN Flomax (Tamsulosin HCl) 0.4 Mg Cap 0.4 Mg PO DAILY@1800 Reported Gabapentin 800 Mg Tablet 800 Mg PO 1200,2100 Gabapentin 800 Mg Tablet 1,600 Mg PO DAILY TAKES 2 (800MG) TABLETS Levothyroxine Sodium 25 Mcg Tablet 25 Mcg PO DAILY Vitamin D3 (Cholecalciferol (Vitamin D3)) 2,000 Unit Capsule 2,000 Unit PO BID Instructions to patient/family Please see electronic discharge instructions given to patient. Diagnosis/Problems Diagnosis/Problems (1) S/P lumbar fusion (2) Hypothyroidism (3) Urinary retention (4) Bassett catheter in place (5) Constipation (6) Neuropathy (7) Ileus Clinical Quality Measures DVT/VTE Risk/Contraindication: Risk Factor Score Per Nursin RFS Level Per Nursing on Admit: 4+=Very High KEVIN FOX DO Feb 03, 2019 11:22
--- NOTE | 2019-02-03 11:28 | NUR ---
provided prayer and Communion.
--- NOTE | 2019-02-03 12:00 | Therapy Team Discharge Summary ---
Therapy Discharge Summary Discharge Recommendations Date of Discharge Therapy D/C Recommendations: Other, See Comments (pt reports his SO and sister will help at [place]) Occupational Therapy Pt admits with lumbar laminectomy and back brace/ precautions. Pt admitting QC's include max A for showering tasks, mod A UB dress, max A LB dress, and TD for footwear. Pt and OTs work towards safety during functional mobility, strength, endurance of UE, and IND within ADL tasks with education of AE. Pt limited by pain and energy. Pt d/c QCs include showering IND with shower bench and sponge, s/u for UB dress, min A (cues) for LB dressing with AE. Pt d/c home with recommendations of pot room tapper, dressing stick, grab bars. Pt d/c OT services at this time. Impaired Funct Balance, Impaired Self-Care Skills PT Technical Operations Vice President Goals Technical Operations Vice President Goals PT [facility] Goals Time Frame: Feb 05, 2019 Roll Left to Right (QC): 6 Sit to Lying (QC): 6 Lying-Sitting on Side/Bed(QC): 6 Sit to Stand (QC): 6 Chair/Fra-tm-Oeipg Xfer(QC): 6 Car Transfer (QC): 6 Does the Patient Walk: Yes Walk 10 feet (QC): 4 (CGA) Walk 10ft-Uneven Surface(QC): 4 (CGA) Walk 50ft with 2 Turns (QC): 4 (CGA) Walk 150 ft (QC): 88 Does the Pt use WC or Scooter?: Yes Wheel 50 feet with 2 turns (QC: 6 1 Step (curb) (QC): 4 (CGA) 4 Steps (QC): 9 12 Steps (QC): 9 Picking up an Object (QC): 88 OT Technical Operations Vice President Goals Technical Operations Vice President Goals Time Frame: Jan 29, 2019 Eating (QC): 6 (met) Oral Hygiene (QC): 6 (met) Shower/Bathe Self (QC): 5 (met) Upper Body Dressing (QC): 6 (et) Lower Body Dressing (QC): 6 On/Off Footwear (QC): 6 (met) Toileting Hygiene (QC): 6 Toilet/Commode Transfer (QC): 6 Additional Goals: 1-Demonstrate ADL Tasks, 2-Verbalize Understanding, 3- ImproveStrength/Xander 1=Demonstrate adherence to instructed precautions during ADL tasks. 2=Patient will verbalize/demonstrate understanding of assistive devices/modifications for ADL. 3=Patient will improve strength/tolerance for activity to enable patient to perform ADL's. CLARENCE BLAIR OTR Feb 03, 2019 12:00
--- NOTE | 2019-02-03 12:22 | NUR ---
DISCHARGE Faxed final orders and instructions to PCP Dr. Fili Layne, [place].
== END 2019-02-03 13:00 | disposition home or self-care (01) | DRG 552 ==
PROVIDERS: ADMIT Internal Medicine; ATTEND Internal Medicine
PROC: 0TJB8ZZ Inspection of Bladder, Via Natural or Artificial Opening Endoscopic (ICD-10-PCS; principal; 2019-01-20)
DX: M54.16 Radiculopathy, lumbar region (principal); Z47.89 Encounter for other orthopedic aftercare; R33.9 Retention of urine, unspecified; K91.89 Other postprocedural complications and disorders of digestive system; G62.9 Polyneuropathy, unspecified; K59.00 Constipation, unspecified; K75.9 Inflammatory liver disease, unspecified; M19.91 Primary osteoarthritis, unspecified site; E03.9 Hypothyroidism, unspecified; J45.909 Unspecified asthma, uncomplicated; G89.29 Other chronic pain; Z87.891 Personal history of nicotine dependence
CPT/HCPCS: 36415; 74019; 80053; 81000; 85025; 85027

== ENCOUNTER → 2019-01-20 | Day surgery (SDC) | payer MEDICARE ==
[~2019-01-20] MED LIST: BACL10TA PO; CHOL20003 PO; DICL100G18 TOP; DOCU-244 PO; GABA800T10 PO; LEVO25TA5 PO; LIDOCAINE UROJET 2% GEL 10 ML PKG ONE; OXYC1TAB87 PO; POTA10TA6 PO; TMSL.4C PO; TRM50T PO
--- NOTE | 2019-01-20 13:34 | OPERATIVE REPORT ---
DATE OF SERVICE: 01/20/2019 PREOPERATIVE DIAGNOSIS: Urinary retention. POSTOPERATIVE DIAGNOSIS: Urinary retention. OPERATION PERFORMED: Cystoscopy. SURGEON: Capo Bowens MD. ANESTHESIA: Local. COMPLICATIONS: None. DESCRIPTION OF PROCEDURE: With the patient supine in his bed and genitalia were prepped and draped in the usual sterile fashion, urethra was infiltrated with 2% lidocaine jelly and a penile clamp was applied. This was then removed and a flexible cystoscope was introduced under vision. The anterior urethra was normal. The prostate was mildly enlarged with some bladder neck obstruction. Bladder was entered, revealed mild trabeculations, no foreign body, bladder tumor or stone visualized. Cystoscopy was confirmed in an antegrade fashion and cystoscope was removed. The patient tolerated the procedure and anesthesia well and remained in his bed in stable condition. PLAN: We will give him a trial of voiding and follow up with bladder scan. Job ID: [id number] DocumentID: [id number] Dictated Date: 01/20/2019 09:14:42 Manager Printing Date: 01/20/2019 13:33:44 Dictated By: CAPO BOWENS MD
--- NOTE | 2019-01-22 18:14 | OPERATIVE REPORT ---
DATE OF SERVICE: PREOPERATIVE DIAGNOSIS: Urinary retention. POSTOPERATIVE DIAGNOSIS: Urinary retention. OPERATION PERFORMED: Cystoscopy. SURGEON: Capo Bowens MD ANESTHESIA: Local. COMPLICATIONS: None. DESCRIPTION OF PROCEDURE: With the patient supine in his bed after removing the Bassett catheter, the genitalia were prepped and draped in the usual sterile fashion. Urethra was infiltrated with 2% lidocaine jelly. Penile clamp was applied. This was then removed and a flexible cystoscope was introduced under vision. The anterior urethra was normal. The prostate revealed some enlargement with some bladder neck obstruction. Bladder revealed some trabeculations and catheter cystitis. No foreign body, bladder tumor or stone visualized. Ureteric orifices with clear effluxes. Cystoscopy was confirmed in an antegrade fashion and the cystoscope was removed. Examination of genitalia, phallus is circumcised with adequate meatus. Testes down the scrotum. Rectal exam flat, 1+ benign, nontender elastic prostate. PLAN: Give him trial of voiding and manage accordingly. Job ID: [id number] DocumentID: [id number] Dictated Date: 01/22/2019 12:07:31 Metal Machine Setter Date: 01/22/2019 18:13:52 Dictated By: CAPO BOWENS MD
--- OUTSIDE RECORDS SUMMARY | 2019-02-14 17:06 | XMS REPORT | Continuity of Care Document ---
Author Organization Unknown Address Unknown Phone Unavailable Allergies Active Description Code Type Severity Reaction Onset Reported/Identified Relationship to Patient Clinical Status Yes No Allergy Information Available [id number] Drug Allergy Unknown N/A 019 Medications There is no data. 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 02/02/2019 HIPOLITO BOWENS MD Ot N40.1 BENIGN PROSTATIC HYPERPLASIA WITH LOWER 02/02/2019 HIPOLITO BOWENS MD Ot R33.9 RETENTION OF URINE, UNSPECIFIED 02/03/2019 FOX DO, KEVIN Ot E03.9 HYPOTHYROIDISM, UNSPECIFIED 02/03/2019 FOX DO, KEVIN Ot G62.9 POLYNEUROPATHY, UNSPECIFIED 02/03/2019 FOX DO, KEVIN Ot G89.29 OTHER CHRONIC PAIN 02/03/2019 FOX DO, KEVIN Ot J45.90 9 UNSPECIFIED ASTHMA, UNCOMPLICATED 02/03/2019 FOX DO, KEVIN Ot K59.00 CONSTIPATION, UNSPECIFIED 02/03/2019 OFX DO, KEVIN Ot K75.9 INFLAMMATORY LIVER DISEASE, UNSPECIFIED 02/03/2019 FOX DO, KEVIN Ot K91.89 OTH POSTPROCEDURAL COMPLICATIONS AND DIS 02/03/2019 FOX DO, KEVIN Ot M19.91 PRIMARY OSTEOARTHRITIS, UNSPECIFIED SITE 02/03/2019 FOX DO, KEVIN Ot M54.16 RADICULOPATHY, LUMBAR REGION 02/03/2019 FOX DO, KEVIN Ot R33.9 RETENTION OF URINE, UNSPECIFIED 02/03/2019 FOX DO, KEVIN Ot Z47.89 ENCOUNTER FOR OTHER ORTHOPEDIC AFTERCARE 02/03/2019 FOX DO, KEVIN Ot Z87.89 1 PERSONAL HISTORY OF NICOTINE DEPENDENCE Procedures Code Description Performed By Per formed On [id number] IN SPECTION OF BLADDER, ENDO 01/20/2019 Results Test Result Range Complete blood count (CBC) with automate d white blood cell (WBC) differential - 01/16/19 06:37 Blood leukocytes automated count (number/volume) 8.6 10*3/uL 4.3-11.0 Blood erythrocytes automated count (number/volume) 3.46 10*6/uL 4.35-5.85 Venous blood hemoglobin measurement (mass/volume) 10.7 g/dL 13.3-17.7 Blood hematocrit (volume fraction) 33 % 40-54 Automated erythrocyte mean corpuscular volume 95 [ foz_us] 80-99 Automated erythrocyte mean corpuscular h emoglobin (mass per erythrocyte) 31 pg 25-34 Automated erythrocyte mean corpuscular h emoglobin concentration measurement (mass/volume) 33 g/dL 32-36 Automated erythrocyte distribution width ratio 13. 1 % 10.0- 14.5 Automated blood platelet count (count/volume) 167 10*3/uL 130-400 Automated blood platelet mean volume measurement 11.7 [foz_us] 7.4-10.4 Automated blood neutrophils/100 leukocytes 62 % 42-75 Automated blood lymphocytes/100 leukocytes 21 % 12-44 Blood monocytes/100 leukocytes 15 % 0-12 Automated blood eosinophils/100 leukocytes 2 % 0-10 Automated blood basophils/100 leukocytes 1 % 0-10 Blood neutrophils automated count (number/volume) 5.3 10*3 1.8-7.8 Blood lymphocytes automated count (number/volume) 1.8 10*3 1.0-4.0 Blood monocytes automated count (number/volume) 1. 3 10*3 0.0-1.0 Automated eosinophil count 0.2 10*3/uL 0 .0-0.3 Automated blood basophil count (count/volume) 0.0 10*3/uL 0.0-0.1 Comprehensive metabolic panel - 01/16/19 06:37 Serum or plasma sodium measurement (moles/volume) 134 mmol/L 135-145 Serum or plasma potassium measurement (moles/volume) 3.3 mmol/L 3.6-5.0 Serum or plasma chloride measurement (moles/volume) 102 mmol/L 98-107 Carbon dioxide 23 mmol/L 21-32 Serum or plasma anion gap determination (moles/volume) 9 mmol/L 5-14 Serum or plasma urea nitrogen measurement (mass/volume ) 17 mg/dL 7-18 Serum or plasma creatinine measurement (mass/volume) 0.68 mg/dL 0.60-1.30 Serum or plasma urea nitrogen/creatinine mass ratio 25 NRG Serum or plasma creatinine measurement w ith calculation of estimated glomerular filtration rate > NRG Serum or plasma glucose measurement (mass/volume) 100 mg/dL 70-105 Serum or plasma calcium measurement (mass/volume) 8.3 mg/dL 8.5-10.1 Serum or plasma total bilirubin measurement (mass/volu me) 0.6 mg/dL 0.1-1.0 Serum or plasma alkaline phosphatase monae surement (enzymatic activity/volume) 53 U/L 40-136 Serum or plasma aspartate aminotransfera se measurement (enzymatic activity/volume) 31 U/L 5-34 Serum or plasma alanine aminotransferase measurement (enzymatic activity/volume) 31 U/L 0-55 Serum or plasma protein measurement (mass/volume) 5.8 g/dL 6.4-8.2 Serum or plasma albumin measurement (mass/volume) 3.2 g/dL 3.2-4.5 CALCIUM CORRECTED 8.9 mg/dL 8.5-10.1 Complete blood count (CBC) with automate d white blood cell (WBC) differential - 01/19/19 05:38 Blood leukocytes automated count (number/volume) 9.4 10*3/uL 4.3-11.0 Blood erythrocytes automated count (number/volume) 3.51 10*6/uL 4.35-5.85 Venous blood hemoglobin measurement (mass/volume) 10.5 g/dL 13.3-17.7 Blood hematocrit (volume fraction) 33 % 40-54 Automated erythrocyte mean corpuscular volume 95 [ foz_us] 80-99 Automated erythrocyte mean corpuscular h emoglobin (mass per erythrocyte) 30 pg 25-34 Automated erythrocyte mean corpuscular h emoglobin concentration measurement (mass/volume) 32 g/dL 32-36 Automated erythrocyte distribution width ratio 13. 3 % 10.0- 14.5 Automated blood platelet count (count/volume) 258 10*3/uL 130-400 Automated blood platelet mean volume measurement 11.2 [foz_us] 7.4-10.4 Automated blood neutrophils/100 leukocytes 64 % 42-75 Automated blood lymphocytes/100 leukocytes 15 % 12-44 Blood monocytes/100 leukocytes 16 % 0-12 Automated blood eosinophils/100 leukocytes 5 % 0-10 Automated blood basophils/100 leukocytes 0 % 0-10 Blood neutrophils automated count (number/volume) 6.0 10*3 1.8-7.8 Blood lymphocytes automated count (number/volume) 1.4 10*3 1.0-4.0 Blood monocytes automated count (number/volume) 1. 5 10*3 0.0-1.0 Automated eosinophil count 0.4 10*3/uL 0 .0-0.3 Automated blood basophil count (count/volume) 0.0 10*3/uL 0.0-0.1 Comprehensive metabolic panel - 01/19/19 05:38 Serum or plasma sodium measurement (moles/volume) 134 mmol/L 135-145 Serum or plasma potassium measurement (moles/volume) 3.8 mmol/L 3.6-5.0 Serum or plasma chloride measurement (moles/volume) 99 mmol/L 98-107 Carbon dioxide 26 mmol/L 21-32 Serum or plasma anion gap determination (moles/volume) 9 mmol/L 5-14 Serum or plasma urea nitrogen measurement (mass/volume ) 13 mg/dL 7-18 Serum or plasma creatinine measurement (mass/volume) 0.79 mg/dL 0.60-1.30 Serum or plasma urea nitrogen/creatinine mass ratio 16 NRG Serum or plasma creatinine measurement w ith calculation of estimated glomerular filtration rate > NRG Serum or plasma glucose measurement (mass/volume) 116 mg/dL 70-105 Serum or plasma calcium measurement (mass/volume) 8.2 mg/dL 8.5-10.1 Serum or plasma total bilirubin measurement (mass/volu me) 0.4 mg/dL 0.1-1.0 Serum or plasma alkaline phosphatase monae surement (enzymatic activity/volume) 63 U/L 40-136 Serum or plasma aspartate aminotransfera se measurement (enzymatic activity/volume) 27 U/L 5-34 Serum or plasma alanine aminotransferase measurement (enzymatic activity/volume) 58 U/L 0-55 Serum or plasma protein measurement (mass/volume) 5.7 g/dL 6.4-8.2 Serum or plasma albumin measurement (mass/volume) 3.2 g/dL 3.2-4.5 CALCIUM CORRECTED 8.8 mg/dL 8.5-10.1 Automated blood complete blood count (he mogram) panel - 01/22/19 09:15 Blood leukocytes automated count (number/volume) 7.2 10*3/uL 4.3-11.0 Blood erythrocytes automated count (number/volume) 3.72 10*6/uL 4.35-5.85 Venous blood hemoglobin measurement (mass/volume) 11.2 g/dL 13.3-17.7 Blood hematocrit (volume fraction) 36 % 40-54 Automated erythrocyte mean corpuscular volume 96 [ foz_us] 80-99 Automated erythrocyte mean corpuscular h emoglobin (mass per erythrocyte) 30 pg 25-34 Automated erythrocyte mean corpuscular h emoglobin concentration measurement (mass/volume) 31 g/dL 32-36 Automated erythrocyte distribution width ratio 13. 1 % 10.0- 14.5 Automated blood platelet count (count/volume) 326 10*3/uL 130-400 Automated blood platelet mean volume measurement 10.0 [foz_us] 7.4-10.4 Comprehensive metabolic panel - 01/22/19 09:15 Serum or plasma sodium measurement (moles/volume) 137 mmol/L 135-145 Serum or plasma potassium measurement (moles/volume) 4.1 mmol/L 3.6-5.0 Serum or plasma chloride measurement (moles/volume) 100 mmol/L 98-107 Carbon dioxide 27 mmol/L 21-32 Serum or plasma anion gap determination (moles/volume) 10 mmol/L 5-14 Serum or plasma urea nitrogen measurement (mass/volume ) 13 mg/dL 7-18 Serum or plasma creatinine measurement (mass/volume) 0.80 mg/dL 0.60-1.30 Serum or plasma urea nitrogen/creatinine mass ratio 16 NRG Serum or plasma creatinine measurement w ith calculation of estimated glomerular filtration rate > NRG Serum or plasma glucose measurement (mass/volume) 129 mg/dL 70-105 Serum or plasma calcium measurement (mass/volume) 8.7 mg/dL 8.5-10.1 Serum or plasma total bilirubin measurement (mass/volu me) 0.5 mg/dL 0.1-1.0 Serum or plasma alkaline phosphatase monae surement (enzymatic activity/volume) 78 U/L 40-136 Serum or plasma aspartate aminotransfera se measurement (enzymatic activity/volume) 23 U/L 5-34 Serum or plasma alanine aminotransferase measurement (enzymatic activity/volume) 46 U/L 0-55 Serum or plasma protein measurement (mass/volume) 6.3 g/dL 6.4-8.2 Serum or plasma albumin measurement (mass/volume) 3.4 g/dL 3.2-4.5 CALCIUM CORRECTED 9.2 mg/dL 8.5-10.1 Complete urinalysis with reflex to cultu re - 01/22/19 11:00 Urine color determination YELLOW NRG Urine clarity determination CLEAR NR G Urine pH measurement by test strip 6.5 5-9 Specific gravity of urine by test strip 1.010 1.016-1.022 Urine protein assay by test strip, semi-quantitative NEGATIVE NEGATIVE Urine glucose detection by automated test strip NE GATIVE NEGATIVE Erythrocytes detection in urine sediment by light micr oscopy NEGATIVE NEGATIVE Urine ketones detection by automated test strip NE GATIVE NEGATIVE Urine nitrite detection by test strip NEGATIVE NEGATIVE Urine total bilirubin detection by test strip NEGA TIVE NEGATIVE Urine urobilinogen measurement by automated test strip (mass/volume) 1.0 mg/dL < = 1.0 Urine leukocyte esterase detection by dipstick NEG ATIVE NEGATIVE Automated urine sediment erythrocyte cou nt by microscopy (number/high power field) NONE NRG Automated urine sediment leukocyte count by microscopy (number/high power field) RARE NRG Bacteria detection in urine sediment by light microsco py NEGATIVE NRG Squamous epithelial cells detection in u rine sediment by light microscopy NONE NRG Crystals detection in urine sediment by light microsco py NONE NRG Casts detection in urine sediment by light microscopy NONE NRG Mucus detection in urine sediment by light microscopy NEGATIVE NRG Complete urinalysis with reflex to culture NO NRG Complete blood count (CBC) with automate d white blood cell (WBC) differential - 01/26/19 06:05 Blood leukocytes automated count (number/volume) 10.6 10*3/uL 4.3-11.0 Blood erythrocytes automated count (number/volume) 3.90 10*6/uL 4.35-5.85 Venous blood hemoglobin measurement (mass/volume) 11.7 g/dL 13.3-17.7 Blood hematocrit (volume fraction) 38 % 40-54 Automated erythrocyte mean corpuscular volume 99 [ foz_us] 80-99 Automated erythrocyte mean corpuscular h emoglobin (mass per erythrocyte) 30 pg 25-34 Automated erythrocyte mean corpuscular h emoglobin concentration measurement (mass/volume) 31 g/dL 32-36 Automated erythrocyte distribution width ratio 13. 5 % 10.0- 14.5 Automated blood platelet count (count/volume) 399 10*3/uL 130-400 Automated blood platelet mean volume measurement 10.1 [foz_us] 7.4-10.4 Automated blood neutrophils/100 leukocytes 63 % 42-75 Automated blood lymphocytes/100 leukocytes 20 % 12-44 Blood monocytes/100 leukocytes 13 % 0-12 Automated blood eosinophils/100 leukocytes 4 % 0-10 Automated blood basophils/100 leukocytes 0 % 0-10 Blood neutrophils automated count (number/volume) 6.7 10*3 1.8-7.8 Blood lymphocytes automated count (number/volume) 2.1 10*3 1.0-4.0 Blood monocytes automated count (number/volume) 1. 4 10*3 0.0-1.0 Automated eosinophil count 0.5 10*3/uL 0 .0-0.3 Automated blood basophil count (count/volume) 0.0 10*3/uL 0.0-0.1 Comprehensive metabolic panel - 01/26/19 06:05 Serum or plasma sodium measurement (moles/volume) 139 mmol/L 135-145 Serum or plasma potassium measurement (moles/volume) 4.2 mmol/L 3.6-5.0 Serum or plasma chloride measurement (moles/volume) 102 mmol/L 98-107 Carbon dioxide 29 mmol/L 21-32 Serum or plasma anion gap determination (moles/volume) 8 mmol/L 5-14 Serum or plasma urea nitrogen measurement (mass/volume ) 19 mg/dL 7-18 Serum or plasma creatinine measurement (mass/volume) 0.80 mg/dL 0.60-1.30 Serum or plasma urea nitrogen/creatinine mass ratio 24 NRG Serum or plasma creatinine measurement w ith calculation of estimated glomerular filtration rate > NRG Serum or plasma glucose measurement (mass/volume) 83 mg/dL 70-105 Serum or plasma calcium measurement (mass/volume) 8.7 mg/dL 8.5-10.1 Serum or plasma total bilirubin measurement (mass/volu me) 0.4 mg/dL 0.1-1.0 Serum or plasma alkaline phosphatase monae surement (enzymatic activity/volume) 103 U/L 40-136 Serum or plasma aspartate aminotransfera se measurement (enzymatic activity/volume) 19 U/L 5-34 Serum or plasma alanine aminotransferase measurement (enzymatic activity/volume) 53 U/L 0-55 Serum or plasma protein measurement (mass/volume) 6.0 g/dL 6.4-8.2 Serum or plasma albumin measurement (mass/volume) 3.4 g/dL 3.2-4.5 CALCIUM CORRECTED 9.2 mg/dL 8.5-10.1 Complete blood count (CBC) with automate d white blood cell (WBC) differential - 02/02/19 06:15 Blood leukocytes automated count (number/volume) 7.5 10*3/uL 4.3-11.0 Blood erythrocytes automated count (number/volume) 3.96 10*6/uL 4.35-5.85 Venous blood hemoglobin measurement (mass/volume) 11.8 g/dL 13.3-17.7 Blood hematocrit (volume fraction) 38 % 40-54 Automated erythrocyte mean corpuscular volume 96 [ foz_us] 80-99 Automated erythrocyte mean corpuscular h emoglobin (mass per erythrocyte) 30 pg 25-34 Automated erythrocyte mean corpuscular h emoglobin concentration measurement (mass/volume) 31 g/dL 32-36 Automated erythrocyte distribution width ratio 13. 4 % 10.0- 14.5 Automated blood platelet count (count/volume) 273 10*3/uL 130-400 Automated blood platelet mean volume measurement 11.1 [foz_us] 7.4-10.4 Automated blood neutrophils/100 leukocytes 58 % 42-75 Automated blood lymphocytes/100 leukocytes 24 % 12-44 Blood monocytes/100 leukocytes 13 % 0-12 Automated blood eosinophils/100 leukocytes 3 % 0-10 Automated blood basophils/100 leukocytes 1 % 0-10 Blood neutrophils automated count (number/volume) 4.4 10*3 1.8-7.8 Blood lymphocytes automated count (number/volume) 1.8 10*3 1.0-4.0 Blood monocytes automated count (number/volume) 1. 0 10*3 0.0-1.0 Automated eosinophil count 0.2 10*3/uL 0 .0-0.3 Automated blood basophil count (count/volume) 0.1 10*3/uL 0.0-0.1 Comprehensive metabolic panel - 02/02/19 06:15 Serum or plasma sodium measurement (moles/volume) 138 mmol/L 135-145 Serum or plasma potassium measurement (moles/volume) 3.6 mmol/L 3.6-5.0 Serum or plasma chloride measurement (moles/volume) 104 mmol/L 98-107 Carbon dioxide 25 mmol/L 21-32 Serum or plasma anion gap determination (moles/volume) 9 mmol/L 5-14 Serum or plasma urea nitrogen measurement (mass/volume ) 14 mg/dL 7-18 Serum or plasma creatinine measurement (mass/volume) 0.78 mg/dL 0.60-1.30 Serum or plasma urea nitrogen/creatinine mass ratio 18 NRG Serum or plasma creatinine measurement w ith calculation of estimated glomerular filtration rate > NRG Serum or plasma glucose measurement (mass/volume) 104 mg/dL 70-105 Serum or plasma calcium measurement (mass/volume) 8.5 mg/dL 8.5-10.1 Serum or plasma total bilirubin measurement (mass/volu me) 0.5 mg/dL 0.1-1.0 Serum or plasma alkaline phosphatase monae surement (enzymatic activity/volume) 114 U/L 40-136 Serum or plasma aspartate aminotransfera se measurement (enzymatic activity/volume) 26 U/L 5-34 Serum or plasma alanine aminotransferase measurement (enzymatic activity/volume) 53 U/L 0-55 Serum or plasma protein measurement (mass/volume) 6.1 g/dL 6.4-8.2 Serum or plasma albumin measurement (mass/volume) 3.4 g/dL 3.2-4.5 CALCIUM CORRECTED 9.0 mg/dL 8.5-10.1 Encounters ACCT No. Visit Date/Time Discharge Status Pt. Type Provider Facility Loc./Unit Complaint [id number] 01/15/2019 12:30:00 13:00:00 DIS Outpatient KEVIN FOX DO [facility] IRF RETENTION [id number] 01/20/2019 07:34:00 23:59:59 CLS Outpatient HIPOLITO BOWENS MD [facility] SDC URINARY RETENTION
== END ==
LOC: SDC 07:34
PROVIDERS: ATTEND Urology
DX: R33.9 Retention of urine, unspecified (principal); N40.1 Benign prostatic hyperplasia with lower urinary tract symptoms; N32.0 Bladder-neck obstruction

== ENCOUNTER 2021-10-18 10:57 | Inpatient (IN) | payer MEDICARE ==
[~2021-10-18] VITALS: Ht 180.3 cm; Wt 99.0 kg
[~2021-10-18 10:57] MED LIST changes: +DOCU-239 PO; -DOCU-244 PO; -LIDOCAINE UROJET 2% GEL 10 ML PKG ONE; +POTA-160 PO; -POTA10TA6 PO
[2021-10-18] MEDS ORDERED: DOCUSATE SODIUM 100 MG (COLACE) CAP PO PRN (12:30)
[2021-10-18] MEDS ORDERED: CALCIUM CARBONATE 500 MG (TUMS) TAB.CHEW PO PRN (12:30)
[2021-10-18] MEDS ORDERED: ACETAMINOPHEN 325 MG TABLET PO PRN (12:30)
[2021-10-18] MEDS ORDERED: FLEET ENEMA ADULT 1 EA BTL PR PRN (12:30)
[2021-10-18] MEDS ORDERED: ALPRAZolam 0.25 MG (XANAX) TAB PO PRN (12:30)
[2021-10-18] MEDS ORDERED: LACTULOSE SYRUP 10GM/15ML (ENULOSE) 30ML UDC PO PRN (12:30)
[2021-10-18] MEDS ORDERED: LOPERAMIDE 2 MG (IMODIUM) TABLET PO PRN (12:30)
[2021-10-18] MEDS ORDERED: guaiFENesin/CODEINE (ROBITUSSIN AC) 10ML UDC PO PRN (12:30)
[2021-10-18] MEDS ORDERED: MELATONIN 3 MG TABLET PO PRN (12:30)
[2021-10-18] MEDS ORDERED: BISACODYL 10 MG SUPP (DULCOLAX) PR PRN (12:30)
[2021-10-18] MEDS ORDERED: diphenhydrAMINE 25 MG TAB (BENADRYL) PO PRN (12:30)
[2021-10-19] MEDS: DOCUSATE SODIUM 100 MG (COLACE) CAP PO SCH ×3 (09:00→19:39)
[2021-10-19] MEDS: polyethylene glycoL POWDER 17 GM (MIRALAX) PACK PO SCH ×3 (09:00→19:39)
[2021-10-19] MEDS: SENNA W/DOCUSATE (SENOKOT S) TABLET PO SCH ×3 (09:00→19:39)
[2021-10-19] MEDS ORDERED: HYDR-3820 PO (09:02)
[2021-10-19] MEDS ORDERED: [UNRECOGNIZED DRUG - OTHER] PO (09:02)
[2021-10-19] MEDS ORDERED: CYCL10TA25 PO (09:02)
[2021-10-19] MEDS ORDERED: DOCU100C37 PO (09:02)
[2021-10-19] MEDS ORDERED: LUTEIN PO (09:02)
[2021-10-19 13:00] VITALS: BP 112/57
[2021-10-19] MEDS: ONDANSETRON 4 MG (ZOFRAN) ORAL DISSOLVE TAB PO PRN (13:49)
--- NOTE | 2021-10-19 13:49 | Physical Therapy Evaluation ---
PT Evaluation-General Medical Diagnosis Admission Date Oct 19, 2021 at 13:29 Medical Diagnosis: Spinal Stenosis with Neurogenic Claudication Onset Date: Oct 19, 2021 Therapy Diagnosis Therapy Diagnosis: Gait deficit, strength deficit Precautions Precautions/Isolations: Fall Prevention Back precautions- no bending, no lifting, no twisting Weight Bear Status Right Lower Extremity: Right Full Weight Bearing Left Lower Extremity: Left Full Weight Bearing Referral Physician: Dr. Mejia Reason for Referral: Evaluation/Treatment Social History Home: Single Level Current Living Status: Other Family Entry Into Home: Level Entry PT Steps Into Home: 0 Prior Prior Level of Function SCALE: Activities may be completed with or without assistive devices. 3-Vsmkjwofcr-nxbtznp completes the activity by him/herself with no assistance from a helper. 5-Set-up or Clean-up Assistance-helper sets up or cleans up; patient completes activity. Heath assists only prior to or following the activity. 4-Supervision or Touching Assistance-helper provides verbal cues and/or touching/steadying and/or contact guard assistance as patient completes activity. Assistance may be provided throughout the activity or intermittently. 3-Partial/Moderate Assistance-helper does LESS THAN HALF the effort. Heath lifts, holds or supports trunk or limbs, but provides less than half the effort. 2-Substantial/Maximal Assistance-helper does MORE THAN HALF the effort. Heath lifts or holds trunk or limbs and provides more than half the effort. 6-Dyhapinjf-qkryeo does ALL the effort. Patient does none of the effort to complete the activity. Or, the assistance of 2 or more helpers is required for the patient to complete the activity. If activity was not attempted, code reason: 7-Patient Refused. 9-Not Applicable-not attempted and the patient did not perform the activity before the current illness, exacerbation or injury. 10-Not Attempted due to Environmental Limitations-(lack of equipment, weather restraints, etc.). 88-Not Attempted due to Medical Conditions or Safety Concerns. Bed Mobility: 6 Transfers (B,C,W/C): 6 Gait: 6 Stairs: 6 Indoor Mobility (Ambulation): Independent Stairs: Independent Prior Devices Use: Walker PT Evaluation-Current Subjective Patient on toilet with OT and nurse upon PT arrival. Agreeable to treatment. Rates pain currently at 6/10 in his back and 7/10 in his left hip. Objective Patient Orientation: Person, Place, Time, Situation ROM/Strength ROM Lower Extremities WFLs bilaterally all planes Strength Lower Extremities 3-/5 bilaterally all planes Sensory Vision: Wears Glasses Hearing: Functional Sensation Right Lower Extremit: Impaired Sensation Left Lower Extremity: Impaired Sensation Lower Extremities Reports he has numbness in his bilateral hands and feet from a neck surgery a few years ago. Transfers Roll Left & Right (QC): 2 Sit to Lying (QC): 2 Lying to Sitting/Side of Bed(Q: 2 Sit to Stand (QC): 2 Chair/Ymh-yy-Aynks Xfer(QC): 2 Toilet Transfer (QC): 2 Car Transfer (QC): 2 Gait Does the Patient Walk?: Yes Mode of Locomotion: Walk Anticipated Mode of Locomotion: Walk Walk 10 feet (QC): 3 Walk 50 ft with 2 Turns(QC): 88 Walk 150 ft (QC): 88 Walking 10ft/uneven surface-QC: 3 Distance: 30 Gait Assistive Device: FWW Wheelchair Training Does the Pt Use a Wheelchair?: No Wheel 50 ft with 2 turns (QC): 88 Wheel 150 ft (QC): 88 Stairs #of Steps: 1 1 Step (curb) (QC): 2 4 Steps (QC): 88 12 Steps (QC): 88 Walking Assistive Device: Walker Balance Sitting Static: Fair Sitting Dynamic: Fair Standing Static: Poor Standing Dynamic: Poor Picking up an Object (QC): 88 Assessment/Needs Patient tolerated treatment fair. He performs all observed transfers with max A X 2, bed mobility with mod A x 2. He presents to the rehab unit with LSO donned and is to be donned whenever patient is out of bed. Patient ambulates 30 feet with FWW, with mod A and verbal cues for safety, progression, posture, conservation of energy and proper distance to the FWW. Patient ambulates with a significant forward trunk posture, rounded shoulders, tends to keep his knees b ent to around 10 degrees flexion throughout gait, and fatigues quickly. Patient in w/c with DELFINO/PLANNING TECHNICIAN post PT evaluation. Rehab Potential: Fair Equipment Needs Unsure at this time PT Chcf Goals Chcf Goals PT Facility Assistant Goals Time Frame: Nov 10, 2021 Roll Left & Right (QC): 6 Sit to Lying (QC): 6 Lying-Sitting on Side/Bed(QC): 6 Sit to Stand (QC): 6 Chair/Mla-gr-Raoeg Xfer(QC): 6 Toilet Transfer (QC): 6 Car Transfer (QC): 6 Does the Patient Walk: Yes Walk 10 feet (QC): 6 Walk 50ft with 2 Turns (QC): 6 Walk 150 ft (QC): 4 Walking 10ft on Uneven Surface: 6 1 Step (curb) (QC): 4 4 Steps (QC): 4 12 Steps (QC): 4 Picking up an Object (QC): 4 Wheel 50 feet with 2 turns (QC: 9 Wheel 150 feet: 9 PT Plan Problem List Problem List: Activity Tolerance, Functional Strength, Safety, Balance, Gait, Transfer, Bed Mobility, ROM Treatment/Plan Treatment Plan: Continue Plan of Care Treatment Plan: Bed Mobility, Education, Functional Activity Xander, Functional Strength, Group Therapy, Gait, Safety, Therapeutic Exercise, Transfers Treatment Duration: Nov 10, 2021 Frequency: At least 5 of 7 days/Wk (IRF) Estimated Hrs Per Day: 1.5 hours per day Patient and/or Family Agrees t: Yes Safety Risks/Education Patient Education: Gait Training, Transfer Techniques, Steps Teaching Recipient: Patient Teaching Methods: Demonstration, Discussion Response to Teaching: Reinforcement Needed Time/GCodes Time In: 1310 Time Out: 1320 Total Billed Treatment Time: 10 Total Billed Treatment Visit, Evaluation LEISA WOODS PT Oct 19, 2021 13:49
--- NOTE | 2021-10-19 14:14 | Occupational Therapy Eval ---
OT Evaluation-General/PLF Medical Diagnosis Admission Date Oct 19, 2021 at 13:29 Medical Diagnosis: Spinal Stenosis with Neurogenic Claudication Onset Date: Oct 19, 2021 Therapy Diagnosis Therapy Diagnosis: decreased ADL status Precautions Precautions/Isolations: Fall Prevention, Standard Precautions Comments No lifiting >5lbs. Back brace donned in sitting Referral Physician: Dr. Mejia Referral Reason: Evaluation/Treatment Medical History Additional Medical History L3-S1 TLIF/PSIF, asthma, leg fx, hypothyroidism, hepatitis, macular degeneration, MRSA, pelvic fx 1979 Current History presents with LBP after fall in February. s/p L2-3, L3-4 LLIF/revision PSIF L4- Pelvis Social History Home: Single Level Current Living Status: Other Family (sister) Entry Into Home: Level Entry Steps Into Home: 0 ADL-Prior Level of Function SCALE: Activities may be completed with or without assistive devices. 6-Ukzuejrtgk-nqhwhyg completes the activity by him/herself with no assistance from a helper. 5-Set-up or Clean-up Assistance-helper sets up or cleans up; patient completes activity. [employer] assists only prior to or following the activity. 4-Supervision or Touching Assistance-helper provides verbal cues and/or touching/steadying and/or contact guard assistance as patient completes activity. Assistance may be provided throughout the activity or intermittently. 3-Partial/Moderate Assistance-helper does LESS THAN HALF the effort. [employer] lifts, holds or supports trunk or limbs, but provides less than half the effort. 2-Substantial/Maximal Assistance-helper does MORE THAN HALF the effort. [employer] lifts or holds trunk or limbs and provides more than half the effort. 6-Ggaddhxel-quheta does ALL the effort. Patient does none of the effort to complete the activity. Or, the assistance of 2 or more helpers is required for the patient to complete the activity. If activity was not attempted, code reason: 7-Patient Refused. 9-Not Applicable-not attempted and the patient did not perform the activity before the current illness, exacerbation or injury. 10-Not Attempted due to Environmental Limitations-(lack of equipment, weather restraints, etc.). 88-Not Attempted due to Medical Conditions or Safety Concerns. ADL PLOF Comments Pt lives with his sister in a 1 story house, level entry. He has a tub/shower with SC. He was independent with ADLs and functional mobility using a walker, and able to complete cooking and simple cleaning. Self Care: Independent Functional Cognition: Independent DME/Equipment: Bath Chair, Tub/Shower OT Current Status Subjective Pt arrived to ARU via w/c transport, reports incontinent of bowels. OT assisted pt to toilet. Rates pain currently at 6/10 in his back and 7/10 in his left hip. Mental Status/Objective Patient Orientation: Person, Place, Time, Situation Attachments: Other-See Comments (LSO back brace) Current Hand Dominance: Right Upper Extremity ROM Slightly decreased. RUE shoulder flexion to approx 130 degrees AROM, LUE to approx 110. Pt able to "walk" fingers up wall to increase L shoulder flexion to approx 130 degrees Upper Extremity Coordination Slightly decreased due to decreased sensation in hands. Upper Extremity Sensation pt reports decreased sensation in hands/fingers bilaterally. Upper Extremity Strength Not formally tested due to 5lb lifting restriction, grossly 3/5 ADL-Treatment Eating (QC): 7 Oral Hygiene (QC): 7 Shower/Bathe Self (QC): 7 Upper Body Dressing (QC): 7 Lower Body Dressing (QC): 7 On/Off Footwear (QC): 7 Toileting Hygiene (QC): 1 (total assist due to incontinent BM) Other Treatments Pt arrived to unit, incontinent of BM. OT and nurse assist pt from w/c to toilet using GBs (assist x2 and assist with hand placement). Pt provided information about PLOF and home set up and participated in UE screen. Nurse present to change back dressing. Post tx, pt present with PT for evaluation followed by continued therapy treatment from HEBERT, all needs met. Education OT Patient Education: Correct positioning, Energy conservation, Modified ADL techniques, Progress toward Goal/Update tx plan, Purpose of tx/functional activities, Rehab process, Safety issues, Transfer techniques Teaching Recipient: Patient Teaching Methods: Discussion Response to Teaching: Verbalize Understanding OT Short Term Goals Short Term Goals Time Frame: Nov 02, 2021 Toileting hygiene: 4 Shower/bathe self: 4 Lower body dressin Putting on/taking off footwear: 4 OT Telecommunications Clerk Goals Telecommunications Clerk Goals Time Frame: Nov 17, 2021 Eating (QC): 6 Oral Hygiene (QC): 6 Toileting Hygiene (QC): 6 Shower/Bathe Self (QC): 5 Upper Body Dressing (QC): 6 Lower Body Dressing (QC): 6 On/Off Footwear (QC): 6 Additional Goals: 1-Demonstrate ADL Tasks, 2-Verbalize Understanding, 3- ImproveStrength/Xander 1=Demonstrate adherence to instructed precautions during ADL tasks. 2=Patient will verbalize/demonstrate understanding of assistive devices/modifications for ADL. 3=Patient will improve strength/tolerance for activity to enable patient to perform ADL's. OT Education/Plan Problem List/Assessment Assessment: Decreased Activ Tolerance, Decreased UE Strength, Dependent Transfers, Impaired Funct Balance, Impaired I ADL's, Impaired Self-Care Skills Discharge Recommendations Plan/Recommendations: Continue POC Treatment Plan/Plan of Care Patient would benefit from OT for education, treatment and training to promote independence in ADL's, mobility, safety and/or upper extremity function for A DL's. Plan of Care: ADL Retraining, Functional Mobility, Group Exercise/Act as Ind, UE Funct Exercise/Act Treatment Duration: Nov 17, 2021 Frequency: At least 5 of 7 days/Wk (IRF) Estimated Hrs Per Day: 1.5 hours per day Agreement: Yes Rehab Potential: Fair Time/GCodes Start Time: 13:00 Stop Time: 13:10 Total Time Billed (hr/min): 10 Billed Treatment Time 1QUANG ADDISON OT Oct 19, 2021 14:14
--- NOTE | 2021-10-19 14:31 | Occupational Ther Daily Note ---
OT Current Status-Daily Note Subjective Pt alert, sitting in recliner. Took over care from OTR/L. Co-treat with PT ([phone]), due to complexity of medical condition and back precaution. PT expertise to work on LE movement, transfers, ambulation and transitions for bed mobility and transfers while OT simultaneously educated on technique for UEs, ADLs and functional mobility. Mental Status/Objective Patient Orientation: Person, Place, Time, Situation Attachments: Other-See Comments (back brace) ADL-Treatment Pt requires assist x2 to transfer on/off toilet, 2x's. Assist x2 for toileting. Assist x2 for lower body dressing, dependent for footwear. Pt will required AE for lower body dressing. Per clinical judgment, pt able to complete own meal set up and use regular utensils, oral care sitting at sink. Will shower tomorrow. Therapy Code Descriptions/Definitions Functional Gardner Measure: 0=Not Assessed/NA 4=Minimal Assistance 1=Total Assistance 5=Supervision or Setup 2=Maximal Assistance 6=Modified Gardner 3=Moderate Assistance 7=Complete IndependenceSCALE: Activities may be completed with or without assistive devices. 2-Qkmysivzrv-dgbxtbn completes the activity by him/herself with no assistance from a helper. 5-Set-up or Clean-up Assistance-helper sets up or cleans up; patient completes activity. [place] assists only prior to or following the activity. 4-Supervision or Touching Assistance-helper provides verbal cues and/or touching/steadying and/or contact guard assistance as patient completes activity. Assistance may be provided throughout the activity or intermittently. 3-Partial/Moderate Assistance-helper does LESS THAN HALF the effort. [place] lifts, holds or supports trunk or limbs, but provides less than half the effort. 2-Substantial/Maximal Assistance-helper does MORE THAN HALF the effort. [place] lifts or holds trunk or limbs and provides more than half the effort. 1-Ypkeytxkx-hpusbk does ALL the effort. Patient does none of the effort to complete the activity. Or, the assistance of 2 or more helpers is required for the patient to complete the activity. If activity was not attempted, code reason: 7-Patient Refused. 9-Not Applicable-not attempted and the patient did not perform the activity before the current illness, exacerbation or injury. 10-Not Attempted due to Environmental Limitations-(lack of equipment, weather restraints, etc.). 88-Not Attempted due to Medical Conditions or Safety Concerns. Eating (QC): 6 Oral Hygiene (QC): 6 Lower Body Dressing (QC): 1 On/Off Footwear: 1 Toileting Hygiene (QC): 1 Toilet Transfer (QC): 1 Other Treatment Pt required assist x2 for sit to stand though became easier with elevating surface to stand from. Mod A with B LE to go from EOB to supine. See PT notes for ambulation, transfer progress. Pt required length recovery breaks after exertion. After session, pt lying in bed with call light/phone in reach. All needs met in room. OT Short Term Goals Short Term Goals Time Frame: Nov 02, 2021 Toileting hygiene: 4 Shower/bathe self: 4 Lower body dressin Putting on/taking off footwear: 4 OT [facility] Goals Compressor Operator Adjuster Goals Time Frame: Nov 17, 2021 Eating (QC): 6 Oral Hygiene (QC): 6 Toileting Hygiene (QC): 6 Shower/Bathe Self (QC): 5 Upper Body Dressing (QC): 6 Lower Body Dressing (QC): 6 On/Off Footwear (QC): 6 Additional Goals: 1-Demonstrate ADL Tasks, 2-Verbalize Understanding, 3- ImproveStrength/Xander 1=Demonstrate adherence to instructed precautions during ADL tasks. 2=Patient will verbalize/demonstrate understanding of assistive devices/modifications for ADL. 3=Patient will improve strength/tolerance for activity to enable patient to perform ADL's. OT Education/Plan Problem List/Assessment Assessment: Decreased Activ Tolerance, Decreased UE Strength, Impaired Bed Mobility, Impaired Funct Balance, Impaired Self-Care Skills, Restricted Funct UE ROM Discharge Recommendations Plan/Recommendations: Continue POC Treatment Plan/Plan of Care Patient would benefit from OT for education, treatment and training to promote independence in ADL's, mobility, safety and/or upper extremity function for ADL's. Plan of Care: ADL Retraining, Functional Mobility, Group Exercise/Act as Ind, UE Funct Exercise/Act Treatment Duration: Nov 17, 2021 Frequency: At least 5 of 7 days/Wk (IRF) Estimated Hrs Per Day: 1.5 hours per day Agreement: Yes Rehab Potential: Fair Time/GCodes Start Time: 13:20 Stop Time: 14:40 Total Time Billed (hr/min): 80 Billed Treatment Time 1 visit-ADL 2 (30 min) FA 2 ( 30 min) EX 1 (30 min) cotreat with PT 80 min ASHER DRIVER Oct 19, 2021 14:31
[2021-10-19] MEDS: GABAPENTIN 400 MG (NEURONTIN) CAP PO SCH ×2 (14:41→20:19)
--- NOTE | 2021-10-19 14:50 | Physical Therapy Daily Note ---
PT Daily Note-Current Subjective Pt. agrees to Rx. 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 Pt. c/o fatigue and pain in LB at 8/10 and requests pain meds of nursing. Pain Numeric Pain Scale: 8 Location: Medial Location Body Site: Back Pain Description: Pressure Mental Status Patient Orientation: Normal For Age Attachments: Other-See Comments (back brace) Transfers SCALE: Activities may be completed with or without assistive devices. 2-Aljiwwvasu-mowmvzy completes the activity by him/herself with no assistance from a helper. 5-Set-up or Clean-up Assistance-helper sets up or cleans up; patient completes activity. [place] assists only prior to or following the activity. 4-Supervision or Touching Assistance-helper provides verbal cues and/or t ouching/steadying and/or contact guard assistance as patient completes activity. Assistance may be provided throughout the activity or intermittently. 3-Partial/Moderate Assistance-helper does LESS THAN HALF the effort. [place] lifts, holds or supports trunk or limbs, but provides less than half the effort. 2-Substantial/Maximal Assistance-helper does MORE THAN HALF the effort. [place] lifts or holds trunk or limbs and provides more than half the effort. 1-Tmxmogxtf-xmslak does ALL the effort. Patient does none of the effort to complete the activity. Or, the assistance of 2 or more helpers is required for the patient to complete the activity. If activity was not attempted, code reason: 7-Patient Refused. 9-Not Applicable-not attempted and the patient did not perform the activity before the current illness, exacerbation or injury. 10-Not Attempted due to Environmental Limitations-(lack of equipment, weather restraints, etc.). 88-Not Attempted due to Medical Conditions or Safety Concerns. Sit to Lying (QC): 1 Sit to Stand (QC): 2 Chair/Zke-sa-Qkbqg Xfer(QC): 2 Toilet Transfer (QC): 2 pt. requires mod to max assist of 2 skilled clinicians, substantial cushion and padding were applied to pts seat in w/c to raise seating height. This did help Weight Bearing Right Lower Extremity: Right Full Weight Bearing Left Lower Extremity: Left Full Weight Bearing Gait Training Gait Assistive Device: FWW 5-10 ft mod assist with w/c close behind, very narrow CONI, heavy wt bearing on FWW Exercises Supine Ex: Ankle pumps, Quad Set, Glut sets, Heel Slides, Scooting, Hip abd/add Supine Reps: 15 Seated Therapy Exercises: Ankle pumps, Sit to stand, Long arc quads Seated Reps: 15 Treatments PT OT co Rx secondary to pts very weakened level of strength and dependence. TRFs were focus, w/c, toilet and bed, gait , supine ex. pt. was educated in the practices and expectations of rehab PT Public Health Sanitarian Goals Usp Goals PT Public Health Sanitarian Goals Time Frame: Nov 10, 2021 Roll Left & Right (QC): 6 Sit to Lying (QC): 6 Lying-Sitting on Side/Bed(QC): 6 Sit to Stand (QC): 6 Chair/Ebo-lg-Wlioq Xfer(QC): 6 Toilet Transfer (QC): 6 Car Transfer (QC): 6 Does the Patient Walk: Yes Walk 10 feet (QC): 6 Walk 50ft with 2 Turns (QC): 6 Walk 150 ft (QC): 4 Walking 10ft on Uneven Surface: 6 1 Step (curb) (QC): 4 4 Steps (QC): 4 12 Steps (QC): 4 Picking up an Object (QC): 4 Wheel 50 feet with 2 turns (QC: 9 Wheel 150 feet: 9 PT Plan Treatment/Plan Treatment Plan: Continue Plan of Care Treatment Plan: Bed Mobility, Education, Functional Activity Xander, Functional Strength, Group Therapy, Gait, Safety, Therapeutic Exercise, Transfers Treatment Duration: Nov 10, 2021 Frequency: At least 5 of 7 days/Wk (IRF) Estimated Hrs Per Day: 1.5 hours per day Patient and/or Family Agrees t: Yes Safety Risks/Education Patient Education: Gait Training, Transfer Techniques, Reviewed Precautions, Correct Positioning, Disease Process, Safety Issues Teaching Recipient: Patient Teaching Methods: Demonstration, Discussion Response to Teaching: Verbalize Understanding, Return Demonstration, Reinforcement Needed Time/GCodes Time In: 1320 Time Out: 1440 Total Billed Treatment Time: 80 Total Billed Treatment 1,FA45m,GT20m,EX15m ADALBERTO CARMONA UNCLAIMED PROPERTY OFFICER Oct 19, 2021 14:50
--- NOTE | 2021-10-19 18:18 | PM&R Post Admission Assessment ---
PM&R Date of Visit: Oct 19, 2021 Time of Visit: 18:40 History of Present Illness CC: Lumbar spine myelopathy HPI: This is a 76 yr old male who is status post spinal fusion of L2 to 3 and L3 to [address] Smith. He is still experiencing neurogenic claudication as the spine surgery recovers. At this current time he denies any significant issues. He will be maintained on a bowel regimen and we will be monitoring bladder function clos vance. Patient had some retention issues at [facility] prior to transfer. at bedside. Patient denies any new problems other than weakness. Walks with walker. Past Ysveuuc-Yrbtjw-Aemtmt Hx Past Med/Social Hx: Reviewed Nursing Past Med/Soc Hx, Reviewed and Corrections made Patient Social History Marrital Status: Employed/Student: retired Alcohol Beverage of Choice: Beer, Wine Former Smoker, Quit: Jan 15, 1989 Recent Hopitalizations: Yes Immunizations Up To Date Date of Pneumonia Vaccine: Nov 14, 2018 Date of Influenza Vaccine: Nov 14, 2018 Seasonal Allergies Seasonal Allergies: Yes Past Medical History Surgeries: Orthopedic Currently Using CPAP: No Currently Using BIPAP: No Neurological: Neuropathy Gastrointestinal: Hepatitis Musculoskeletal: Degenerate Disk Disease, Arthritis, Chronic Back Pain, Fractures Endocrine: Hypothyroidsim HEENT: Cataract Hearing Impairment: Denies History of Blood Disorders: No Adverse Reaction to Blood Stanley: No Family History Cardiovascular disease 19 FATHER (unknown) 19 MOTHER (unknown) No Pertinent Family Hx Prior Level of Function Bed Mobility: 6 Transfers: 6 Gait: 6 Stairs: 6 Indoor Mobility (Ambulation): Independent Stairs: Independent Prior Devices Use: Walker Self Care: Independent Functional Cognition: Independent 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 Current Level of Fuctioning Roll Left to Right: 2 Sit to Lyin Lying to Sitting/Side of Bed: 2 Sit to Stand: 2 Chair/Qld-bv-Zqlpd Xfer: 2 Car Transfer: 2 Does the Patient Walk: Yes Mode of Locomotion: Walk Anticipated Mode of Locomotion: Walk Walk 10 feet: 3 Walk 50 ft with 2 Turns: 88 Walk 150 ft: 88 Walking 10ft on uneven surface: 3 Gait Assistive Device: FWW Does the Pt Use a Wheelchair: No Wheel 50 ft with 2 turns: 88 Wheel 150 ft: 88 #of Steps: 1 1 Step (curb): 2 4 Steps: 88 Walking Assistive Device: Walker 12 Steps: 88 Picking up an Object: 88 Eatin Oral Hygiene: 6 Shower/Bathe Self: 7 Upper Body Dressin Lower Body Dressin On/Off Footwear: 1 Toileting Hygiene: 1 Toilet Transfer: 1 PM&R Allergy/Meds/Data Review Allergies Coded Allergies: No Allergy Information Available (Unverified , 01/15/19) Home Medications Scheduled Docusate Sodium (Docusate Sodium), 100 MG PO BID, (Reported) Gabapentin (Gabapentin), 800 MG PO TID, (Reported) [Eye-Harvinder Xtra+Lutein], 1 EA PO DAILY, (Reported) Scheduled PRN Cyclobenzaprine HCl (Cyclobenzaprine HCl), 10 MG PO Q8H PRN for SPASMS, (Reported) Hydrocodone/Acetaminophen (Hydrocodone-Acetamin 10-325 mg), 1 EACH PO Q4H PRN for PAIN-MODERATE (5-7), (Reported) Discontinued Medications Baclofen (Baclofen), 10 MG PO Q8H PRN for MUSCLE SPASMS Discontinued Reason: No Longer Taking Cholecalciferol (Vitamin D3) (Vitamin D3), 2,000 UNIT PO BID, (Reported) Discontinued Reason: No Longer Taking Diclofenac Sodium (Voltaren), 0 GM TOP QID PRN for Pain Discontinued Reason: No Longer Taking Gabapentin (Gabapentin), 1,600 MG PO DAILY, (Reported) Discontinued Reason: No Longer Taking Levothyroxine Sodium (Levothyroxine Sodium), 25 MCG PO DAILY, (Reported) Discontinued Reason: No Longer Taking Oxycodone HCl/Acetaminophen (Percocet 5-325 mg Tablet), 2 TAB PO Q6H PRN for PAIN-MODERATE (5-7) Discontinued Reason: No Longer Taking Potassium Chloride (Klor-Con 10), 10 MEQ PO DAILY@0700 Discontinued Reason: No Longer Taking Tamsulosin HCl (Flomax), 0.4 MG PO DAILY@1800 Discontinued Reason: No Longer Taking Tramadol HCl (Tramadol HCl), 50 MG PO TID PRN for PAIN-MODERATE (5-7) Discontinued Reason: No Longer Taking Current Medications Current Medications Reviewed Review of Systems Constitutional: see HPI, malaise, weakness EENTM: no symptoms reported Respiratory: no symptoms reported Cardiovascular: no symptoms reported Genitourinary: decreased output Musculoskeletal: back pain, joint pain Skin: no symptoms reported Psychiatric/Neurological: Anxiety All Other Systems Reviewed Negative Unless Noted: Yes Physical Exam Physical Exam Vital Signs Vital Signs - First Documented 10/19/21 13:00 Temp 37.6 Pulse 68 Resp 20 B/P (MAP) 112/57 (75) Pulse Ox 95 O2 Delivery Room Air Capillary Refill : Height, Weight, BMI Height: '" Weight: lbs. oz. kg; 31.83 BMI Method: General Appearance: No Apparent Distress, WD/WN, Chronically ill Eyes: Bilateral Eye Normal Inspection, Bilateral Eye PERRL HEENT: PERRL/EOMI, Normal ENT Inspection, Pharynx Normal Neck: Full Range of Motion, Normal Inspection, Non Tender, Supple, Carotid Bruit Respiratory: Chest Non Tender, Lungs Clear, Normal Breath Sounds, No Accessory Muscle Use, No Respiratory Distress Cardiovascular: Regular Rate, Rhythm, No Gallop, No JVD, No Murmur, Normal Peripheral Pulses Gastrointestinal: Normal Bowel Sounds, No Organomegaly, No Pulsatile Mass, Non Tender, Soft Back: CVA Tenderness (L), CVA Tenderness (R), Decreased Range of Motion, Muscle Spasm, Vertebral Tenderness Extremity: Normal Capillary Refill, Normal Inspection, Normal Range of Motion (limited due to back pain), Non Tender, No Calf Tenderness, Pedal Edema Neurologic/Psychiatric: Alert, Oriented x3, No Motor/Sensory Deficits, Normal Mood/Affect, electrical systems design engineer II-XII Norm as Tested, Abnormal Gait, Motor Weakness (lower extremities 4/5) Skin: Normal Color, Warm/Dry Lymphatic: No Adenopathy PM&R Medical Assessment & Plan REHAB/MEDICAL ASSESSMENT AND PLAN: REHAB IMPAIRMENT GROUP: Lumbar spine myelopathy ETIOLOGIC DIAGNOSIS: Lumbar spine myelopathy The comorbidities that impact the patients function and/or functional outcome by: severe spine restricted ROM, urinary retention, weakness REHAB PLAN: The patient is being admitted to our comprehensive inpatient rehabilitation faci lity and can tolerate the intensity of service consisting of at least: 180 minutes of therapy a day, 5 out of 7 days a week Rehab treatment will consist of: PT OT will focus on regaining function in order to return home with spouse by using AD and increasing strength and preventing falls The patient/family has a good understanding of our discharge process and will benefit from an interdisciplinary inpatient rehabilitation program. The patient has potential to make improvement and is in need of at least two of the following multidisciplinary therapies including but not limited to physical, occupational, speech, and prosthetics and orthotics. Additionally the patient will need services from respiratory, nutritional services, wound care, psychology, etc. (Customize this to each patient). Given the patients complex condition and risk of further medical complications, rehabilitation services cannot be safely or effectively provided at a lower level of care such as a assisted facility. BARRIERS TO DISCHARGE: Spine limited ROM ESTIMATED LOS: 7 days DISPOSITION: Home RELEVANT CHANGES SINCE PREADMISSION SCREENING: I have compared the patients medical and functional status at the time of the preadmission screening and there are: no changes PROGNOSIS: Good REHABILITATION GOALS: 1. PT OT will focus on regaining function in order to return home with spouse by using AD and increasing strength and preventing falls All the above goals were reviewed with the patient and he/she is in agreement. By signing this document, I acknowledge that I have personally performed a full physical examination on this patient within 24 hours of admission to this inpatient rehabilitation facility and have determined the patient to be able to tolerate the above course of treatment at an intensive level for a reasonable period of time. I will be completing a detailed individualized Plan of Care for this patient by day #4 of the patients stay based upon the Preadmission Screen, the Post-Admission Evaluation, and the therapy evaluations. Admission Dx/Comorbidities: (1) S/P lumbar fusion ICD Codes: Z98.1 - Arthrodesis status (2) Myopathy ICD Codes: G72.9 - Myopathy, unspecified (3) Bassett catheter in place ICD Codes: Z96.0 - Presence of urogenital implants (4) Neuropathy ICD Codes: G62.9 - Polyneuropathy, unspecified (5) Urinary retention ICD Codes: R33.9 - Retention of urine, unspecified Assessment/Plan Assessment and Plan Assess & Plan/Chief Complaint Assessment: s/p lumbar spine surgery due to myelopathy Dr Smith Neuropathy h/o urinary retention last admit 2018 Plan: PT OT Monitor urinary retention Monitor KEVIN Reyes DO Oct 19, 2021 18:18
[2021-10-19 20:00] VITALS: BP 111/55
[2021-10-19] MEDS ORDERED: DOCUSATE SODIUM 100 MG (COLACE) CAP PO SCH (21:00)
[2021-10-19] MEDS: CYCLOBENZAPRINE 10 MG (FLEXERIL) TAB PO PRN (22:22)
[2021-10-20] MEDS ORDERED: LIDOCAINE UROJET 2% GEL 10 ML PKG TOP ONE (00:45)
[2021-10-20 05:53] LABS: BASOPHILS % (AUTO) 1 % (0-10); EOSINOPHILS # (AUTO) 0.5 10^3/uL (0.0-0.3); EOSINOPHILS % (AUTO) 9 % (0-10); HEMATOCRIT 29 % (40-54); HEMOGLOBIN 9.3 g/dL (13.3-17.7); LYMPHOCYTES # (AUTO) 1.2 10^3/uL (1.0-4.0); LYMPHOCYTES % (AUTO) 22 % (12-44); MEAN CORPUSCULAR HEMOGLOBIN 31 pg (25-34); MEAN CORPUSCULAR HGB CONC 33 g/dL (32-36); MEAN CORPUSCULAR VOLUME 96 fL (80-99); MEAN PLATELET VOLUME 10.2 fL (9.0-12.2); MONOCYTES % (AUTO) 18 % (0-12); NEUTROPHILS # (AUTO) 2.8 10^3/uL (1.8-7.8); NEUTROPHILS % (AUTO) 50 % (42-75); PLATELET COUNT 227 10^3/uL (130-400); WHITE BLOOD COUNT 5.5 10^3/uL (4.3-11.0)
[2021-10-20 06:07] LABS: POTASSIUM 3.4 MMOL/L (3.6-5.0)
[2021-10-20 06:08] LABS: CALCIUM 8.4 MG/DL (8.5-10.1)
[2021-10-20 06:10] LABS: TOTAL PROTEIN 5.3 GM/DL (6.4-8.2)
[2021-10-20 06:11] LABS: BILIRUBIN,TOTAL 0.6 MG/DL (0.1-1.0)
[2021-10-20 06:13] LABS: CREATININE SERUM 0.63 MG/DL (0.60-1.30)
[2021-10-20] MEDS: BETHANECHOL 25 MG (URECHOLINE) TAB PO SCH ×4 (06:21→20:25)
--- NOTE | 2021-10-20 06:28 | PM&R Progress Note ---
Subjective HPI/CC On Admission Date Seen by Provider: Oct 20, 2021 Time Seen by Provider: 10:30 Subjective/Events-last exam 10/20/2021: Pt is doing pretty well Bassett catheter was placed at 12:30 AM Returned 1500 ccs Transfers are very slow Slow recovery expected Review of Systems General: Fatigue, Malaise Genitourinary: Retention Musculoskeletal: back pain Objective Exam Vital Signs Vital Signs Date Time Temp Pulse Resp B/P (MAP) Pulse Ox O2 Delivery O2 Flow Rate FiO2 10/20/21 20:00 Room Air 10/20/21 19:40 36.9 70 16 110/66 (81) 96 Capillary Refill : General Appearance: No Apparent Distress, WD/WN, Chronically ill HEENT: PERRL/EOMI, Normal ENT Inspection, Pharynx Normal Neck: Full Range of Motion, Normal Inspection, Non Tender, Supple, Carotid Bruit Respiratory: Chest Non Tender, Lungs Clear, Normal Breath Sounds, No Accessory Muscle Use, No Respiratory Distress Cardiovascular: Regular Rate, Rhythm, No Gallop, No JVD, No Murmur, Normal Per ipheral Pulses Gastrointestinal: Normal Bowel Sounds, No Organomegaly, No Pulsatile Mass, Non Tender, Soft Back: CVA Tenderness (L), CVA Tenderness (R), Decreased Range of Motion, Muscle Spasm, Vertebral Tenderness Extremity: Normal Capillary Refill, Normal Inspection, Normal Range of Motion (limited due to back pain), Non Tender, No Calf Tenderness, Pedal Edema Neurologic/Psychiatric: Alert, Oriented x3, No Motor/Sensory Deficits, Normal Mood/Affect, social media designer II-XII Norm as Tested, Abnormal Gait, Motor Weakness (lower extremities 4/5) Skin: Normal Color, Warm/Dry Lymphatic: No Adenopathy Results/Procedures Lab Laboratory Tests 10/20/21 05:33 Patient resulted labs reviewed. FIM Transfers Therapy Code Descriptions/Definitions Functional [place] Measure: 0=Not Assessed/NA 4=Minimal Assistance 1=Total Assistance 5=Supervision or Setup 2=Maximal Assistance 6=Modified [place] 3=Moderate Assistance 7=Complete IndependenceSCALE: Activities may be completed with or without assistive devices. 4-Zjxcctkwvm-jigksgh completes the activity by him/herself with no assistance from a helper. 5-Set-up or Clean-up Assistance-helper sets up or cleans up; patient completes activity. [place] assists only prior to or following the activity. 4-Supervision or Touching Assistance-helper provides verbal cues and/or touching/steadying and/or contact guard assistance as patient completes activit y. Assistance may be provided throughout the activity or intermittently. 3-Partial/Moderate Assistance-helper does LESS THAN HALF the effort. [place] lifts, holds or supports trunk or limbs, but provides less than half the effort. 2-Substantial/Maximal Assistance-helper does MORE THAN HALF the effort. [place] lifts or holds trunk or limbs and provides more than half the effort. 0-Hfoofntzo-vehdyv does ALL the effort. Patient does none of the effort to complete the activity. Or, the assistance of 2 or more helpers is required for the patient to complete the activity. If activity was not attempted, code reason: 7-Patient Refused. 9-Not Applicable-not attempted and the patient did not perform the activity before the current illness, exacerbation or injury. 10-Not Attempted due to Environmental Limitations-(lack of equipment, weather restraints, etc.). 88-Not Attempted due to Medical Conditions or Safety Concerns. Roll Left to Right (QC): 2 Sit to Lying (QC): 1 Sit to Stand (QC): 2 Chair/Jhw-si-Vakki Xfer(QC): 2 Car Transfer (QC): 2 Gait Training Does the Patient Walk?: Yes Walk 10 feet (QC): 3 Walk 50 ft with 2 Turns(QC): 88 Walk 150 ft (QC): 88 Walking 10ft/uneven surface-QC: 3 Gait Assistive Device: FWW Wheelchair Training Does the Pt Use a Wheelchair?: No Wheel 50 ft with 2 turns (QC): 88 Wheel 150 ft (QC): 88 Stair Training #of Steps: 1 1 Step (curb) (QC): 2 4 Steps (QC): 88 12 Steps (QC): 88 Balance Picking up an Object (QC): 88 ADL-Treatment Eating (QC): 6 Oral Hygiene (QC): 6 Shower/Bathe Self (QC): 7 Upper Body Dressing (QC): 7 Lower Body Dressing (QC): 1 On/Off Footwear (QC): 1 Toileting Hygiene (QC): 1 Toilet Transfer (QC): 1 Assessment/Plan Assessment and Plan Assess & Plan/Chief Complaint Assessment: s/p lumbar spine surgery due to myelopathy Dr Smith Neuropathy h/o urinary retention last admit 2018 Plan: PT OT Monitor urinary retention Monitor closely 10/20/2021: Bassett catheter Monitor closely (1) S/P lumbar fusion (2) Myopathy (3) Bassett catheter in place (4) Neuropathy (5) Urinary retention KEVIN FOX DO Oct 20, 2021 06:27
--- NOTE | 2021-10-20 06:28 | Individualized Plan of Care ---
Individualized Plan of Care Rehab Nursing IPOC Order Admission Date Oct 19, 2021 at 13:29 Current Orders Orders Admission Order(Inpt,Obs,Sdc) (10/18/21 12:22) Vital Signs: Per Unit Policy ( 08,16,00 (10/18/21 12:22) Andry Vo (10/18/21 12:22) Sequential Compression Device (10/18/21 12:22) [place] Aide-Inpt Rehab Con (10/18/21 12:22) Rehab Nursing Orders-Ipoc (10/18/21 12:22) Physical Therapy Rehab Orders (10/18/21 12:22) Occupational Therapy Rehab Ord (10/18/21 12:22) Speech Therapy Rehab Orders (10/18/21 12:22) Precautions (Aru) (10/18/21 12:22) Weekly Weight WEEK (10/18/21 12:22) Rehab-Intensity Of Therapy (10/18/21 12:22) Initiate Admission Nursing Pro .admission (10/18/21 12:22) Alprazolam Tablet (Xanax Tablet) (10/18/21 12:30) Calcium Carbonate Chew Tablet (Antacid C (10/18/21 12:30) Diphenhydramine Tablet (Benadryl Tablet) (10/18/21 12:30) Docusate Sodium Capsule (Colace Capsule) (10/18/21 21:00) Docusate Sodium Capsule (Colace Capsule) (10/18/21 12:30) Bisacodyl Suppository (Dulcolax Supposit (10/18/21 12:30) Lactulose Oral Solution (Enulose Oral So (10/18/21 12:30) Na Phos/Na Biphos Enema (Fleet Enema Levar (10/18/21 12:30) Guaifenesin/Codeine Syrup (Robitussin Ac (10/18/21 12:30) Loperamide Tablet (Imodium Tablet) (10/18/21 12:30) Melatonin Tablet (Melatonin Tablet) (10/18/21 12:30) Polyethylene Glycol Powder Pkt (Miralax (10/18/21 21:00) Ondansetron Oral Dissolve Tab (Zofran (10/18/21 12:30) Senna S Tablet (Senokot S Tablet) (10/18/21 21:00) Acetaminophen Tablet/Caplet (Tylenol T (10/18/21 12:30) Code/Resuscitation (10/18/21 12:22) Initiate Admission Nursing Pro .admission (10/18/21 12:22) Cbc With Automated Diff (10/20/21 06:00) Comprehensive Metabolic Panel (10/20/21 06:00) Admission Arrival Bed Request (10/19/21 13:21) Docusate Sodium Capsule (Colace Capsule) (10/19/21 21:00) Hydrocodone/Apap 10/325 Tablet (Lortab 1 (10/19/21 14:30) Gabapentin Capsule/Tablet (Neurontin Cap (10/19/21 14:30) Therapeutic Multivitamin Tab (Vitamins, (10/20/21 07:00) Cyclobenzaprine Tablet (Flexeril Tablet) (10/19/21 14:30) General/Regular (10/19/21 Lunch) Patient Visit (10/19/21 ) Functional Activities, Ea 15 (10/19/21 ) Gait Training, Ea 15 Min (10/19/21 ) Exercise Therap, Ea 15 Min (10/19/21 ) Catheter(Urinary) Insert & Ass 03,15 (10/20/21 00:44) Lidocaine 2% (Urojet) (Xylocaine Urojet) (10/20/21 00:45) Urinalysis (10/20/21 06:20) Bethanechol Tablet (Urecholine Tablet) (10/20/21 06:00) Tamsulosin Capsule (Flomax Capsule) (10/20/21 18:00) Consult Urology (10/20/21 05:56) Thyroid Stimulating Hormone (10/20/21 05:33) Patient Visit (10/20/21 ) Speech Sound Lang Comp (10/20/21 ) Treat. Speech/Lang/Voice (10/20/21 ) Patient Visit (10/19/21 ) Pt Eval Moderate Complexity (10/19/21 ) Patient Visit (10/20/21 ) Exercise Therap, Ea 15 Min (10/20/21 ) Gait Training, Ea 15 Min (10/20/21 ) Patient Visit (10/20/21 ) Rehab Nursing Orders: Ongoing Assess. of Function Status, Bladder Management, Bladder Scan, Bladder Training, Bowel Management, Bowel Training, Disease Management & Educaiton, DVT Prophylaxis, Fall Prevention, Fluid/Electrolyte/Nutrition Mgmt, Infection Prevention, Medication Management & Education, Management of Risks & Complications, Management of Skin Intergrity, Nutrition Management, Pain Management, Patient/Family Support, Safety Management, Wound Management Intensity of Therapy to be met Patient to be seen: Min.3h per day/5 of 7d PT IPOC Problem List: Activity Tolerance, Functional Strength, Safety, Balance, Gait, Transfer, Bed Mobility, ROM Treatment Plan: Continue Plan of Care Bed Mobility, Education, Functional Activity Xander, Functional Strength, Group Therapy, Gait, Safety, Therapeutic Exercise, Transfers Treatment Duration: Nov 10, 2021 Frequency: At least 5 of 7 days/Wk (IRF) Estimated Hrs Per Day: 1.5 hours per day OT IPOC Problems: Decreased Activ Tolerance, Decreased UE Strength, Impaired Bed Mobility, Impaired Funct Balance, Impaired Self-Care Skills, Restricted Funct UE ROM OT Treatment, Training and Edu: Yes Plan of Care: ADL Retraining, Functional Mobility, Group Exercise/Act as Ind, UE Funct Exercise/Act Treatment Duration: Nov 17, 2021 Frequency: At least 5 of 7 days/Wk (IRF) Estimated Hrs Per Day: 1.[address] IPOC Speech Therapy Treatment Plan: Discontinue ST Treatment Duration: Oct 20, 2021 Frequency: Modified Program (IRF) Estimated Hrs Per Day: Other [place] Aide/Case Mgmt [place] Aide/Case Managemen: Discharge Planning Dietitian/Concrete Wall Grinder Operator Dietitian/Concrete Wall Grinder Operator to monitor nutritional status and make changes and/or recommendations as needed and work with speech pathology on dietary upgrades as the occur. Physician IPOC Medical Issues being managed closely and that require the 24 hour availability of a physician: Recent complex lumbar spine surgery will require close monitoring for wound infection and manage post op urinary retention requiring espinosa catheter and monitoring for decompensation Medical Issues: Bowel/Bladder Function, DVT Prophylaxis, Falls Precautions, Fluid/Electrolyte/Nutrition Balance, Infection Protection, Pain Management, Wound Care Brief Synthesis of Preadmission Screen, Post-Admission Evaluation, and Therapy Evaluations: PT OT will focus on regaining strength and ambulatory skills along with use of assistive devices in order to assist in transfers and regain independence in order to return home with Medical Prognosis: Good Anticipated Length of Stay: 10 days KEVIN FOX DO Oct 20, 2021 06:28
[2021-10-20 06:29] LABS: BILIRUBIN,URINE NEGATIVE (NEGATIVE); CLARITY,URINE CLEAR; COLOR,URINE YELLOW; GLUCOSE, URINE (UA) NEGATIVE (NEGATIVE); KETONES,URINE NEGATIVE (NEGATIVE); LEUKOCYTE ESTERASE ,URINE NEGATIVE (NEGATIVE); NITRITE,URINE NEGATIVE (NEGATIVE); PROTEIN,URINE NEGATIVE (NEGATIVE)
[2021-10-20] MEDS: MULTIVIT W/MINERALS TAB (THERAGRAN M) PO SCH (06:40)
[2021-10-20 07:11] LABS: BACTERIA,URINE NEGATIVE /HPF; WBC,URINE 0-2 /HPF
[2021-10-20 07:12] LABS: URINE OTHER FEW SPERM /HPF
[2021-10-20 07:57] VITALS: BP 107/63
[2021-10-20] MEDS: GABAPENTIN 400 MG (NEURONTIN) CAP PO SCH ×3 (08:50→20:25)
[2021-10-20] MEDS: DOCUSATE SODIUM 100 MG (COLACE) CAP PO SCH ×2 (09:00→20:27)
[2021-10-20] MEDS: polyethylene glycoL POWDER 17 GM (MIRALAX) PACK PO SCH ×2 (09:00→20:27)
[2021-10-20] MEDS: SENNA W/DOCUSATE (SENOKOT S) TABLET PO SCH ×2 (09:00→20:28)
--- NOTE | 2021-10-20 09:31 | Occupational Ther Daily Note ---
OT Current Status-Daily Note Subjective Pt alert, lying in bed. Pt agrees to therapy. No c/o pain at this time. Mental Status/Objective Patient Orientation: Person, Place, Time, Situation Attachments: Other-See Comments (back brace) ADL-Treatment Pt agrees to shower. Supine to EOB with HOB raised, pt required min A to slide B heels to EOB then was able to push up to sitting. With bed elevated, pt was min A for sit to stand then pt used FWW to transfer to w/c. Pt transported via w/c to [facility]. Pt pulled to stand using grabbars assist x1 then w/c <--> shower chair switched with assist x2. Pt then completed shower 100% sitting on shower chair. Pt required assistance to bathe lower legs/feet, buttocks then assist to dry lower legs/feet and buttocks. Pt required assistance to don/doff shoes due to back precautions and weakness to lift B feet. Set up to don/doff upper body clothing. Pt does not have regular clothing though per clinical judgment, pt would required assist x2 to complete lower body dressing. Pt then transferred assist x2 for safety from w/c to recliner. Call light/phone in reach. All needs met at end of session. Therapy Code Descriptions/Definitions Functional [place] Measure: 0=Not Assessed/NA 4=Minimal Assistance 1=Total Assistance 5=Supervision or Setup 2=Maximal Assistance 6=Modified [place] 3=Moderate Assistance 7=Complete IndependenceSCALE: Activities may be completed with or without assistive devices. 8-Bkzdgogjyx-iygorab completes the activity by him/herself with no assistance from a helper. 5-Set-up or Clean-up Assistance-helper sets up or cleans up; patient completes activity. [place] assists only prior to or following the activity. 4-Supervision or Touching Assistance-helper provides verbal cues and/or touching/steadying and/or contact guard assistance as patient completes activity. Assistance may be provided throughout the activity or intermittently. 3-Partial/Moderate Assistance-helper does LESS THAN HALF the effort. [place] lifts, holds or supports trunk or limbs, but provides less than half the effort. 2-Substantial/Maximal Assistance-helper does MORE THAN HALF the effort. [place] lifts or holds trunk or limbs and provides more than half the effort. 1-Ygulfqqwe-mgdphr does ALL the effort. Patient does none of the effort to complete the activity. Or, the assistance of 2 or more helpers is required for the patient to complete the activity. If activity was not attempted, code reason: 7-Patient Refused. 9-Not Applicable-not attempted and the patient did not perform the activity before the current illness, exacerbation or injury. 10-Not Attempted due to Environmental Limitations-(lack of equipment, weather restraints, etc.). 88-Not Attempted due to Medical Conditions or Safety Concerns. Shower/Bathe Self (QC): 3 (mod A) Upper Body Dressing (QC): 5 Lower Body Dressing (QC): 1 On/Off Footwear: 1 Toileting Hygiene (QC): 1 Toilet Transfer (QC): 1 OT Short Term Goals Short Term Goals Time Frame: Nov 02, 2021 Toileting hygiene: 4 Shower/bathe self: 4 Lower body dressin Putting on/taking off footwear: 4 OT Mcc Goals Cheese Factory Worker Goals Time Frame: Nov 17, 2021 Eating (QC): 6 Oral Hygiene (QC): 6 Toileting Hygiene (QC): 6 Shower/Bathe Self (QC): 5 Upper Body Dressing (QC): 6 Lower Body Dressing (QC): 6 On/Off Footwear (QC): 6 Additional Goals: 1-Demonstrate ADL Tasks, 2-Verbalize Understanding, 3- ImproveStrength/Xander 1=Demonstrate adherence to instructed precautions during ADL tasks. 2=Patient will verbalize/demonstrate understanding of assistive devices/modifications for ADL. 3=Patient will improve strength/tolerance for activity to enable patient to perform ADL's. OT Education/Plan Problem List/Assessment Assessment: Decreased Activ Tolerance, Decreased UE Strength, Impaired Self- Care Skills, Restricted Funct UE ROM Discharge Recommendations Plan/Recommendations: Continue POC Treatment Plan/Plan of Care Patient would benefit from OT for education, treatment and training to promote independence in ADL's, mobility, safety and/or upper extremity function for ADL's. Plan of Care: ADL Retraining, Functional Mobility, Group Exercise/Act as Ind, UE Funct Exercise/Act Treatment Duration: Nov 17, 2021 Frequency: At least 5 of 7 days/Wk (IRF) Estimated Hrs Per Day: 1.5 hours per day Agreement: Yes Rehab Potential: Fair Time/GCodes Start Time: 08:15 Stop Time: 09:15 Total Time Billed (hr/min): 60 Billed Treatment Time 1 visit-ADL 4 (60 min) ASHER DRIVER Oct 20, 2021 09:31
--- NOTE | 2021-10-20 10:22 | Physical Therapy Daily Note ---
PT Daily Note-Current Subjective Patient sitting in chair upon PT arrival, agreeable to treatment. Patient reports pain at 7/10 in low back. Mental Status Patient Orientation: Person, Place, Time, Situation Attachments: Bassett Catheter Transfers SCALE: Activities may be completed with or without assistive devices. 4-Ilgyzircql-dwmuyhp completes the activity by him/herself with no assistance from a helper. 5-Set-up or Clean-up Assistance-helper sets up or cleans up; patient completes activity. [place] assists only prior to or following the activity. 4-Supervision or Touching Assistance-helper provides verbal cues and/or touching/steadying and/or contact guard assistance as patient completes activity. Assistance may be provided throughout the activity or intermittently. 3-Partial/Moderate Assistance-helper does LESS THAN HALF the effort. [place] lifts, holds or supports trunk or limbs, but provides less than half the effort. 2-Substantial/Maximal Assistance-helper does MORE THAN HALF the effort. [place] lifts or holds trunk or limbs and provides more than half the effort. 5-Yawowcoro-zkhelw does ALL the effort. Patient does none of the effort to complete the activity. Or, the assistance of 2 or more helpers is required for the patient to complete the activity. If activity was not attempted, code reason: 7-Patient Refused. 9-Not Applicable-not attempted and the patient did not perform the activity before the current illness, exacerbation or injury. 10-Not Attempted due to Environmental Limitations-(lack of equipment, weather restraints, etc.). 88-Not Attempted due to Medical Conditions or Safety Concerns. Sit to Stand (QC): 3 Chair/Esz-ww-Pqnnt Xfer(QC): 3 Toilet Transfer (QC): 3 Weight Bearing Right Lower Extremity: Right Full Weight Bearing Left Lower Extremity: Left Full Weight Bearing Gait Training Does the Patient Walk?: Yes Distance: 80 Walk 10 feet (QC): 3 Walk 50 ft with 2 Turns(QC): 3 Gait Persons Needed: 2 Gait Assistive Device: FWW Exercises Seated Therapy Exercises: Ankle pumps, Long arc quads, Hip flexion, Hamstring Curls, Hip abd/add Seated Reps: 20 Assessment Current Status: Fair Progress Patient tolerated treatment fair. He performs all observed transfers with mod A. he performs LE therapeutic exercise as listed above while sitting in the recliner. Patient ambulates to the BR with FWW, with min A. Patient reports he could not have a BM, but feels like he still needs to go. Patient ambulates 80 feet with FWW, with min A and verbal cues for safety, progression, posture and conservation of energy with 1 person following with W/C. Patient recliner post treatment with all needs met, nursing notified, call light in hand. PT Correction Goals Correction Goals PT Ship Keeper Goals Time Frame: Nov 10, 2021 Roll Left & Right (QC): 6 Sit to Lying (QC): 6 Lying-Sitting on Side/Bed(QC): 6 Sit to Stand (QC): 6 Chair/Ksd-cf-Gdcdz Xfer(QC): 6 Toilet Transfer (QC): 6 Car Transfer (QC): 6 Does the Patient Walk: Yes Walk 10 feet (QC): 6 Walk 50ft with 2 Turns (QC): 6 Walk 150 ft (QC): 4 Walking 10ft on Uneven Surface: 6 1 Step (curb) (QC): 4 4 Steps (QC): 4 12 Steps (QC): 4 Picking up an Object (QC): 4 Wheel 50 feet with 2 turns (QC: 9 Wheel 150 feet: 9 PT Plan Problem List Problem List: Activity Tolerance, Functional Strength, Safety, Balance, Gait, Transfer, Bed Mobility, ROM Treatment/Plan Treatment Plan: Continue Plan of Care Treatment Plan: Bed Mobility, Education, Functional Activity Xander, Functional Strength, Group Therapy, Gait, Safety, Therapeutic Exercise, Transfers Treatment Duration: Nov 10, 2021 Frequency: At least 5 of 7 days/Wk (IRF) Estimated Hrs Per Day: 1.5 hours per day Patient and/or Family Agrees t: Yes Safety Risks/Education Patient Education: Gait Training, Transfer Techniques Teaching Recipient: Patient Teaching Methods: Demonstration, Discussion Response to Teaching: Verbalize Understanding, Reinforcement Needed Time/GCodes Time In: 930 Time Out: 1000 Total Billed Treatment Time: 30 Total Billed Treatment Visit, Kemi, LEISA Chowdhury PT Oct 20, 2021 10:22
--- NOTE | 2021-10-20 10:47 | ST Cognitive Linguistic Eval ---
Speech Evaluation-General Medical Diagnosis Spinal Stenosis with Neurogenic Claudication Onset Date: Oct 19, 2021 Therapy Diagnosis Therapy Diagnosis: Intact Neurocognitive Skills Precautions Precautions: Fall Precautions/Isolations: Fall Prevention, Standard Precautions Referral Referring Physician: Dr. Mejia Reason for Referral: Evaluation/Treatment Medical History Current History The patient is a 76 year old male with a past medical history of arthritis, degenerative disk disease, and hypothyroidism,who presents to acute reha bilitation following a spinal fusion of L2 to 3 and L3 to 4. Social History Current Living Status: Other Family (sister) Speech PLF-Current Status Prior Level of Function The patient (and the patient's ) denied prior or current difficulties or concerns with his speech, language, or cognition. The patient reports current baseline function. Subjective The patient was seated upright in his recliner, awake and alert upon entrance to his room by the clinician. The patient greeted the clinician appropriately and was agreeable to participation in the cognitive linguistic assessment. Language Eval: Auditory Comprehends Simple Yes/No Ques: Functional Indent/Objects Multiple [place]: Functional Ident/Pics in Multiple [place]: Functional Follows 1-Step Commands: Functional Follows General Conversations: Functional Language Eval: Verbal Language Completes Spontaneous Greeting: Functional Produces Auto, Serial Info: Functional Imitates Simple Words/Phrases: Functional Word Finding: Functional Requests Basic Needs: Functional States Basic Personal Info: Functional Language Evaluation: Reading Follows Simple Written Direct: Functional Language Evaluation: Writing Writes to Simple Dictation: Functional Cognitive Patient Orientation The patient was independently oriented to self, location, month, day of the week, date and year. Objective Cognitive Domain Attention: WNL Memory: WNL Problem Solving: Functional Executive Functions: WNL Visuospatial Skills: WNL Composite Severity Rating: WNL Clock Drawing Severity Rating: WNL Objective Formal/Standardized Tests [facility] Mental Status Exam (UMS) Results The patient demonstrated a result of +30/30 on the SLUMS correlating to cognitive linguistic skills within normal limits. Oral Motor/Speech Production The patient does not demonstrate dysarthria or apraxia of speech. The patient does have reduced articulatory precision secondary to his edentulous state. The patient remains 100% intelligible in known and unknown contexts. Impression The patient displays cognitive linguistic skills within normal limits. Speech Patient Assess Expression of Ideas/Wants: Expression (4) Understanding Verbal Content: Understands (4) Brief Interview-Mental Status: Yes Repetition of Three Words: Three (3) Temporal Orientation: Year: Correct (3) Temporal Orientation: Month: Accurate within 5 days(2) Temporal Orientation: Day: Correct (1) Recall : Wear to say "Sock": Yes, no cue required (2) Recall : Color: Yes, no cue required (2) Recall : Bed: Yes, no cue required (2) Memory/Recall Ability: Current season, Location of own room, Staff names and faces, That he or she is in a hsp/hsp unit Speech-Plan Treatment Plan Speech Therapy Treatment Plan: Discontinue ST Treatment Duration: Oct 20, 2021 Frequency: 1 time per week Estimated Hrs Per Day: .5 hour per day Rehab Potential: Fair Safety Risks/Education Teaching Recipient: Patient Teaching Methods: Discussion Response to Teaching: Verbalize Understanding Education Topics Provided: Results, Recommendations, Plan of Care Time Speech Therapy Time In: 10:00 Speech Therapy Time Out: 10:30 Total Billed Time: 30 Billed Treatment Time 1, CHRISTEN DUARTE ELIZ[facility] ST Oct 20, 2021 10:47
--- NOTE | 2021-10-20 14:21 | CONSULTATION REPORT ---
DATE OF SERVICE: 10/20/2021 ATTENDING PHYSICIAN: Dr. Mejia. SUMMARY: A 76-year-old white man, who underwent recently a back surgery for the lower lumbar spine fusion type. He is here for rehabilitation. He was found to have retention with 1500 mL of urine. He was put on Flomax 0.4 mg daily and Urecholine 25 meals and at bedtime. He tolerates them well. He denies significant voiding symptoms, but apparently had a history of retention in 2019 according to the records. IMPRESSION: Urinary retention, benign prostatic hyperplasia and/or neurogenic bladder. PLAN: Continue present management, leave the Bassett catheter to give rest of the bladder for now. Sometime next week, either Saturday or Saturday, we will do a flexible cystoscopy at bedside and decide on the dirk of the catheter at that time. CC: Dr. Mejia - requested, unable to deliver. Job ID: [id number] DocumentID: [id number] Dictated Date: 10/20/2021 13:12:57 Product Accountant Date: 10/20/2021 14:20:19 Dictated By: HIPOLITO BOWENS MD
--- NOTE | 2021-10-20 14:50 | Therapy Group Daily Note ---
Therapy Daily Group Note Patient Education Topic Other List Below (pain management) Exercises LE Seated Exercise, UE Exercise Session Ratio (pt:therapist): 4:1 Goal of Session: Education on ARU Expectations, UE/LE Strengthing, Other (list) (pain management) Goal Met for this Session: Yes Pt Benefit of Group: Contributions to Others, F/U Use of Strategies @Home, Increased Functional Safety, Increased Functional Strength, Improved Cognition, Recognition of Peers, Socialization Other/Notes Pt transported via w/c to [facility] for OT/PT group. Group consisted of introductions (name, place, worst fall), socialization, B UE/LE exercises and education on pain management. Pt introduced self appropriately and actively listened to peers. Pt able to complete B UE/LE exercises with modifications. Pt demonstrated understanding of educational topic by giving personal strategies and active listening. After session, pt sitting in recliner with call light/phone in reach. All needs met in room. Start Time: 13:00 Stop Time: 14:20 Total Billed Treatment Time: 80 Total Billed Treatment 1-GRP ASHER DRIVER Oct 20, 2021 14:50
[2021-10-20] MEDS: TAMSULOSIN 0.4 MG (FLOMAX) CAP PO SCH (17:09)
[2021-10-20 19:40] VITALS: BP 110/66
[2021-10-21] MEDS: BETHANECHOL 25 MG (URECHOLINE) TAB PO SCH ×4 (06:13→20:41)
[2021-10-21] MEDS: MULTIVIT W/MINERALS TAB (THERAGRAN M) PO SCH (06:13)
--- NOTE | 2021-10-21 07:24 | PM&R Progress Note ---
Subjective HPI/CC On Admission Date Seen by Provider: Oct 21, 2021 Time Seen by Provider: 10:00 Subjective/Events-last exam 10/21/2021: Improved status Pain controlled Bassett cath in place Reviewed Dr Zimmerman note BM regimen will be initiated 10/20/2021: Pt is doing pretty well Bassett catheter was placed at 12:30 AM Returned 1500 ccs Transfers are very slow Slow recovery expected Review of Systems General: Fatigue, Malaise Objective Exam Vital Signs Vital Signs Date Time Temp Pulse Resp B/P (MAP) Pulse Ox O2 Delivery O2 Flow Rate FiO2 10/21/21 19:47 37.2 63 16 111/67 (82) 95 Room Air Capillary Refill : General Appearance: No Apparent Distress, WD/WN, Chronically ill HEENT: PERRL/EOMI, Normal ENT Inspection, Pharynx Normal Neck: Full Range of Motion, Normal Inspection, Non Tender, Supple, Carotid Bruit Respiratory: Chest Non Tender, Lungs Clear, Normal Breath Sounds, No Accessory Muscle Use, No Respiratory Distress Cardiovascular: Regular Rate, Rhythm, No Gallop, No JVD, No Murmur, Normal Peripheral Pulses Gastrointestinal: Normal Bowel Sounds, No Organomegaly, No Pulsatile Mass, Non Tender, Soft Back: CVA Tenderness (L), CVA Tenderness (R), Decreased Range of Motion, Muscle Spasm, Vertebral Tenderness Extremity: Normal Capillary Refill, Normal Inspection, Normal Range of Motion (limited due to back pain), Non Tender, No Calf Tenderness, Pedal Edema Neurologic/Psychiatric: Alert, Oriented x3, No Motor/Sensory Deficits, Normal 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 FIM Transfers Therapy Code Descriptions/Definitions Functional [place] Measure: 0=Not Assessed/NA 4=Minimal Assistance 1=Total Assistance 5=Supervision or Setup 2=Maximal Assistance 6=Modified [place] 3=Moderate Assistance 7=Complete IndependenceSCALE: Activities may be completed with or without assistive devices. 4-Icrbwerwdx-uqutukl completes the activity by him/herself with no assistance from a helper. 5-Set-up or Clean-up Assistance-helper sets up or cleans up; patient completes activity. [place] assists only prior to or following the activity. 4-Supervision or Touching Assistance-helper provides verbal cues and/or touching/steadying and/or contact guard assistance as patient completes activity. Assistance may be provided throughout the activity or intermittently. 3-Partial/Moderate Assistance-helper does LESS THAN HALF the effort. [place] lifts, holds or supports trunk or limbs, but provides less than half the effort. 2-Substantial/Maximal Assistance-helper does MORE THAN HALF the effort. [place] lifts or holds trunk or limbs and provides more than half the effort. 7-Nyagfwrfu-ennspj does ALL the effort. Patient does none of the effort to complete the activity. Or, the assistance of 2 or more helpers is required for the patient to complete the activity. If activity was not attempted, code reason: 7-Patient Refused. 9-Not Applicable-not attempted and the patient did not perform the activity before the current illness, exacerbation or injury. 10-Not Attempted due to Environmental Limitations-(lack of equipment, weather restraints, etc.). 88-Not Attempted due to Medical Conditions or Safety Concerns. Roll Left to Right (QC): 2 Sit to Lying (QC): 1 Sit to Stand (QC): 3 Chair/Ywy-ni-Ezbld Xfer(QC): 3 Car Transfer (QC): 2 Gait Training Does the Patient Walk?: Yes Distance: 80 Walk 10 feet (QC): 3 Walk 50 ft with 2 Turns(QC): 3 Walk 150 ft (QC): 88 Walking 10ft/uneven surface-QC: 3 Gait Persons Needed: 2 Gait Assistive Device: FWW Wheelchair Training Does the Pt Use a Wheelchair?: No Wheel 50 ft with 2 turns (QC): 88 Wheel 150 ft (QC): 88 Stair Training #of Steps: 1 1 Step (curb) (QC): 2 4 Steps (QC): 88 12 Steps (QC): 88 Balance Picking up an Object (QC): 88 ADL-Treatment Eating (QC): 6 Oral Hygiene (QC): 6 Shower/Bathe Self (QC): 3 (mod A) Upper Body Dressing (QC): 5 Lower Body Dressing (QC): 1 On/Off Footwear (QC): 1 Toileting Hygiene (QC): 1 Toilet Transfer (QC): 1 Assessment/Plan Assessment and Plan Assess & Plan/Chief Complaint Assessment: s/p lumbar spine surgery due to myelopathy Dr Smith Neuropathy h/o urinary retention last admit [address] due to urinary retention and consulted Dr Zimmerman Plan: PT OT Monitor urinary retention Monitor closely 10/20/2021: Bassett catheter Monitor closely 10/21/2021: Bassett cath Appreciate Dr Zimmerman (1) S/P lumbar fusion (2) Myopathy (3) Bassett catheter in place (4) Neuropathy (5) Urinary retention KEVIN FOX DO Oct 21, 2021 07:24
[2021-10-21 07:30] VITALS: BP 106/55
[2021-10-21] MEDS: GABAPENTIN 400 MG (NEURONTIN) CAP PO SCH ×3 (08:16→20:41)
[2021-10-21] MEDS: SENNA W/DOCUSATE (SENOKOT S) TABLET PO SCH ×3 (08:17→20:41)
[2021-10-21] MEDS: DOCUSATE SODIUM 100 MG (COLACE) CAP PO SCH ×3 (08:17→20:41)
[2021-10-21] MEDS: polyethylene glycoL POWDER 17 GM (MIRALAX) PACK PO SCH ×2 (08:17→20:36)
--- NOTE | 2021-10-21 10:18 | Progress Note - Urology ---
Progress Note-Urology Progress Notes/Assess & Plan Progress/Assessment & Plan TOLERATES MEDS WELL. CYSTO NEXT WEEK THEN TOV Final Diagnosis RETENTION HIPOLITO BOWENS MD Oct 21, 2021 10:18
--- NOTE | 2021-10-21 11:08 | Physical Therapy Daily Note ---
PT Daily Note-Current Subjective Pt. agrees to Rx, wants to end rx by sitting in w/c at sink with shave kit to clean up a bit. no c/o pain Pain Location: No Pain Reported Mental Status Patient Orientation: Normal For Age Attachments: Other-See Comments (back brace) Transfers SCALE: Activities may be completed with or without assistive devices. 9-Hqrtocnztg-zhfivvf completes the activity by him/herself with no assistance from a helper. 5-Set-up or Clean-up Assistance-helper sets up or cleans up; patient completes activity. [place] assists only prior to or following the activity. 4-Supervision or Touching Assistance-helper provides verbal cues and/or touching/steadying and/or contact guard assistance as patient completes activity. Assistance may be provided throughout the activity or intermittently. 3-Partial/Moderate Assistance-helper does LESS THAN HALF the effort. [place] lifts, holds or supports trunk or limbs, but provides less than half the effort. 2-Substantial/Maximal Assistance-helper does MORE THAN HALF the effort. [place] lifts or holds trunk or limbs and provides more than half the effort. 9-Pnvwhajjx-mkgjht does ALL the effort. Patient does none of the effort to complete the activity. Or, the assistance of 2 or more helpers is required for the patient to complete the activity. If activity was not attempted, code reason: 7-Patient Refused. 9-Not Applicable-not attempted and the patient did not perform the activity before the current illness, exacerbation or injury. 10-Not Attempted due to Environmental Limitations-(lack of equipment, weather restraints, etc.). 88-Not Attempted due to Medical Conditions or Safety Concerns. Sit to Stand (QC): 3 sit to stands from recliner and w/c mod assist 5 trials Weight Bearing Right Lower Extremity: Right Full Weight Bearing Left Lower Extremity: Left Full Weight Bearing Gait Training Does the Patient Walk?: Yes Gait Assistive Device: FWW 25ft, 55ft w/c to follow, min to CGA, narrow CONI. flexed posture, heavy wt bearing on FWW, small steps, laborious and slow Exercises Seated Therapy Exercises: Ankle pumps, Sit to stand, Long arc quads, Hip flexion, Hip abd/add Seated Reps: 15 Treatments gait, TRFs, LE ex Assessment Current Status: Good Progress PT Medical Staff Services Manager Goals Residential Goals PT Medical Staff Services Manager Goals Time Frame: Nov 10, 2021 Roll Left & Right (QC): 6 Sit to Lying (QC): 6 Lying-Sitting on Side/Bed(QC): 6 Sit to Stand (QC): 6 Chair/Mml-ge-Rejka Xfer(QC): 6 Toilet Transfer (QC): 6 Car Transfer (QC): 6 Does the Patient Walk: Yes Walk 10 feet (QC): 6 Walk 50ft with 2 Turns (QC): 6 Walk 150 ft (QC): 4 Walking 10ft on Uneven Surface: 6 1 Step (curb) (QC): 4 4 Steps (QC): 4 12 Steps (QC): 4 Picking up an Object (QC): 4 Wheel 50 feet with 2 turns (QC: 9 Wheel 150 feet: 9 PT Plan Treatment/Plan Treatment Plan: Continue Plan of Care Treatment Plan: Bed Mobility, Education, Functional Activity Xander, Functional Strength, Group Therapy, Gait, Safety, Therapeutic Exercise, Transfers Treatment Duration: Nov 10, 2021 Frequency: At least 5 of 7 days/Wk (IRF) Estimated Hrs Per Day: 1.5 hours per day Patient and/or Family Agrees t: Yes Safety Risks/Education Patient Education: Gait Training, Transfer Techniques, Correct Positioning, Safety Issues Teaching Recipient: Patient Teaching Methods: Demonstration, Discussion Response to Teaching: Verbalize Understanding, Return Demonstration, Reinforcement Needed Time/GCodes Time In: 1000 Time Out: 1035 Total Billed Treatment Time: 35 Total Billed Treatment 1,GT20,FA15 ADALBERTO CARMONA PTA Oct 21, 2021 11:08
[2021-10-21] MEDS: TAMSULOSIN 0.4 MG (FLOMAX) CAP PO SCH (17:38)
[2021-10-21 19:47] VITALS: BP 111/67
[2021-10-22] MEDS: CYCLOBENZAPRINE 10 MG (FLEXERIL) TAB PO PRN (02:05)
[2021-10-22] MEDS: BETHANECHOL 25 MG (URECHOLINE) TAB PO SCH ×4 (06:22→20:08)
[2021-10-22] MEDS: MULTIVIT W/MINERALS TAB (THERAGRAN M) PO SCH (06:22)
[2021-10-22 07:59] VITALS: BP 117/64
--- NOTE | 2021-10-22 08:00 | PM&R Progress Note ---
Subjective HPI/CC On Admission Date Seen by Provider: Oct 22, 2021 Time Seen by Provider: 12:00 Subjective/Events-last exam 10/22/2021: Improved status Sleeping today Pain controlled No falls 10/21/2021: Improved status Pain controlled Bassett cath in place Reviewed Dr Zimmerman note BM regimen will be initiated 10/20/2021: Pt is doing pretty well Bassett catheter was placed at 12:30 AM Returned 1500 ccs Transfers are very slow Slow recovery expected Review of Systems General: Fatigue, Malaise Objective Exam Vital Signs Vital Signs Date Time Temp Pulse Resp B/P (MAP) Pulse Ox O2 Delivery O2 Flow Rate FiO2 10/22/21 09:34 Room Air 10/22/21 07:59 37.1 72 20 117/64 (81) 94 Capillary Refill : General Appearance: No Apparent Distress, WD/WN, Chronically ill HEENT: PERRL/EOMI, Normal ENT Inspection, Pharynx Normal Neck: Full Range of Motion, Normal Inspection, Non Tender, Supple, Carotid Br uit Respiratory: Chest Non Tender, Lungs Clear, Normal Breath Sounds, No Accessory Muscle Use, No Respiratory Distress Cardiovascular: Regular Rate, Rhythm, No Gallop, No JVD, No Murmur, Normal Peripheral Pulses Gastrointestinal: Normal Bowel Sounds, No Organomegaly, No Pulsatile Mass, Non Tender, Soft Back: CVA Tenderness (L), CVA Tenderness (R), Decreased Range of Motion, Muscle Spasm, Vertebral Tenderness Extremity: Normal Capillary Refill, Normal Inspection, Normal Range of Motion (limited due to back pain), Non Tender, No Calf Tenderness, Pedal Edema Neurologic/Psychiatric: Alert, Oriented x3, No Motor/Sensory Deficits, Normal 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 FIM Transfers Therapy Code Descriptions/Definitions Functional [place] Measure: 0=Not Assessed/NA 4=Minimal Assistance 1=Total Assistance 5=Supervision or Setup 2=Maximal Assistance 6=Modified [place] 3=Moderate Assistance 7=Complete IndependenceSCALE: Activities may be completed with or without assistive devices. 8-Zkdqddgbkt-mlfpvrq completes the activity by him/herself with no assistance from a helper. 5-Set-up or Clean-up Assistance-helper sets up or cleans up; patient completes activity. [place] assists only prior to or following the activity. 4-Supervision or Touching Assistance-helper provides verbal cues and/or touching/steadying and/or contact guard assistance as patient completes activity. Assistance may be provided throughout the activity or intermittently. 3-Partial/Moderate Assistance-helper does LESS THAN HALF the effort. [place] lifts, holds or supports trunk or limbs, but provides less than half the effort. 2-Substantial/Maximal Assistance-helper does MORE THAN HALF the effort. [place] lifts or holds trunk or limbs and provides more than half the effort. 7-Gwjuapszp-axvhca does ALL the effort. Patient does none of the effort to complete the activity. Or, the assistance of 2 or more helpers is required for the patient to complete the activity. If activity was not attempted, code reason: 7-Patient Refused. 9-Not Applicable-not attempted and the patient did not perform the activity before the current illness, exacerbation or injury. 10-Not Attempted due to Environmental Limitations-(lack of equipment, weather restraints, etc.). 88-Not Attempted due to Medical Conditions or Safety Concerns. Roll Left to Right (QC): 2 Sit to Lying (QC): 1 Sit to Stand (QC): 3 Chair/Viy-qp-Vpbms Xfer(QC): 3 Car Transfer (QC): 2 Gait Training Does the Patient Walk?: Yes Distance: 80 Walk 10 feet (QC): 3 Walk 50 ft with 2 Turns(QC): 3 Walk 150 ft (QC): 88 Walking 10ft/uneven surface-QC: 3 Gait Persons Needed: 2 Gait Assistive Device: FWW Wheelchair Training Does the Pt Use a Wheelchair?: No Wheel 50 ft with 2 turns (QC): 88 Wheel 150 ft (QC): 88 Stair Training #of Steps: 1 1 Step (curb) (QC): 2 4 Steps (QC): 88 12 Steps (QC): 88 Balance Picking up an Object (QC): 88 ADL-Treatment Eating (QC): 6 Oral Hygiene (QC): 6 Shower/Bathe Self (QC): 3 (mod A) Upper Body Dressing (QC): 5 Lower Body Dressing (QC): 1 On/Off Footwear (QC): 1 Toileting Hygiene (QC): 1 Toilet Transfer (QC): 1 Assessment/Plan Assessment and Plan Assess & Plan/Chief Complaint Assessment: s/p lumbar spine surgery due to myelopathy Dr Smith Neuropathy h/o urinary retention last admit [address] due to urinary retention and consulted Dr Zimmerman Plan: PT OT Monitor urinary retention Monitor closely 10/20/2021: Bassett catheter Monitor closely 10/21/2021: Bassett cath Appreciate Dr Zimmerman 10/22/2021: Pain control No issues (1) S/P lumbar fusion (2) Myopathy (3) Bassett catheter in place (4) Neuropathy (5) Urinary retention KEVIN FOX DO Oct 22, 2021 08:00
[2021-10-22] MEDS: SENNA W/DOCUSATE (SENOKOT S) TABLET PO SCH ×2 (09:11→19:26)
[2021-10-22] MEDS: GABAPENTIN 400 MG (NEURONTIN) CAP PO SCH ×3 (09:11→20:08)
[2021-10-22] MEDS: DOCUSATE SODIUM 100 MG (COLACE) CAP PO SCH ×2 (09:12→19:26)
[2021-10-22] MEDS: polyethylene glycoL POWDER 17 GM (MIRALAX) PACK PO SCH ×2 (09:12→19:26)
[2021-10-22] MEDS: TAMSULOSIN 0.4 MG (FLOMAX) CAP PO SCH (16:44)
[2021-10-22 20:07] VITALS: BP 120/64
[2021-10-23] MEDS: BETHANECHOL 25 MG (URECHOLINE) TAB PO SCH ×4 (06:02→20:09)
[2021-10-23] MEDS: MULTIVIT W/MINERALS TAB (THERAGRAN M) PO SCH (06:02)
--- NOTE | 2021-10-23 06:05 | PM&R Progress Note ---
Subjective HPI/CC On Admission Date Seen by Provider: Oct 23, 2021 Time Seen by Provider: 09:00 Subjective/Events-last exam 10/23/2021: Doing well Pain controlled Bassett still in place Sleeping well 10/22/2021: Improved status Sleeping today Pain controlled No falls 10/21/2021: Improved status Pain controlled Bassett cath in place Reviewed Dr Zimmerman note BM regimen will be initiated 10/20/2021: Pt is doing pretty well Bassett catheter was placed at 12:30 AM Returned 1500 ccs Transfers are very slow Slow recovery expected Review of Systems General: Fatigue, Malaise Musculoskeletal: back pain Objective Exam Vital Signs Vital Signs Date Time Temp Pulse Resp B/P (MAP) Pulse Ox O2 Delivery O2 Flow Rate FiO2 10/23/21 20:00 Room Air 10/23/21 19:48 37.4 69 20 95/55 (68 94 Capillary Refill : General Appearance: No Apparent Distress, WD/WN, Chronically ill HEENT: PERRL/EOMI, Normal ENT Inspection, Pharynx Normal Neck: Full Range of Motion, Normal Inspection, Non Tender, Supple, Carotid Bruit Respiratory: Chest Non Tender, Lungs Clear, Normal Breath Sounds, No Accessory Muscle Use, No Respiratory Distress Cardiovascular: Regular Rate, Rhythm, No Gallop, No JVD, No Murmur, Normal Peripheral Pulses Gastrointestinal: Normal Bowel Sounds, No Organomegaly, No Pulsatile Mass, Non Tender, Soft Back: CVA Tenderness (L), CVA Tenderness (R), Decreased Range of Motion, Muscle Spasm, Vertebral Tenderness Extremity: Normal Capillary Refill, Normal Inspection, Normal Range of Motion (limited due to back pain), Non Tender, No Calf Tenderness, Pedal Edema Neurologic/Psychiatric: Alert, Oriented x3, No Motor/Sensory Deficits, Normal 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 FIM Transfers Therapy Code Descriptions/Definitions Functional [place] Measure: 0=Not Assessed/NA 4=Minimal Assistance 1=Total Assistance 5=Supervision or Setup 2=Maximal Assistance 6=Modified [place] 3=Moderate Assistance 7=Complete IndependenceSCALE: Activities may be completed with or without assistive devices. 2-Dbyjkqikaj-szfkmrg completes the activity by him/herself with no assistance from a helper. 5-Set-up or Clean-up Assistance-helper sets up or cleans up; patient completes activity. [place] assists only prior to or following the activity. 4-Supervision or Touching Assistance-helper provides verbal cues and/or touching/steadying and/or contact guard assistance as patient completes activity. Assistance may be provided throughout the activity or intermittently. 3-Partial/Moderate Assistance-helper does LESS THAN HALF the effort. [place] lifts, holds or supports trunk or limbs, but provides less than half the effort. 2-Substantial/Maximal Assistance-helper does MORE THAN HALF the effort. [place] lifts or holds trunk or limbs and provides more than half the effort. 3-Cnzdlsnnu-vmumwm does ALL the effort. Patient does none of the effort to complete the activity. Or, the assistance of 2 or more helpers is required for the patient to complete the activity. If activity was not attempted, code reason: 7-Patient Refused. 9-Not Applicable-not attempted and the patient did not perform the activity before the current illness, exacerbation or injury. 10-Not Attempted due to Environmental Limitations-(lack of equipment, weather restraints, etc.). 88-Not Attempted due to Medical Conditions or Safety Concerns. Roll Left to Right (QC): 2 Sit to Lying (QC): 1 Sit to Stand (QC): 3 Chair/Djr-bf-Wmvvc Xfer(QC): 3 Car Transfer (QC): 2 Gait Training Does the Patient Walk?: Yes Distance: 80 Walk 10 feet (QC): 3 Walk 50 ft with 2 Turns(QC): 3 Walk 150 ft (QC): 88 Walking 10ft/uneven surface-QC: 3 Gait Persons Needed: 2 Gait Assistive Device: FWW Wheelchair Training Does the Pt Use a Wheelchair?: No Wheel 50 ft with 2 turns (QC): 88 Wheel 150 ft (QC): 88 Stair Training #of Steps: 1 1 Step (curb) (QC): 2 4 Steps (QC): 88 12 Steps (QC): 88 Balance Picking up an Object (QC): 88 ADL-Treatment Eating (QC): 6 Oral Hygiene (QC): 6 Shower/Bathe Self (QC): 3 (mod A) Upper Body Dressing (QC): 5 Lower Body Dressing (QC): 1 On/Off Footwear (QC): 1 Toileting Hygiene (QC): 1 Toilet Transfer (QC): 1 Assessment/Plan Assessment and Plan Assess & Plan/Chief Complaint Assessment: s/p lumbar spine surgery due to myelopathy Dr Smith Neuropathy h/o urinary retention last admit [address] due to urinary retention and consulted Dr Zimmerman Plan: PT OT Monitor urinary retention Monitor closely 10/20/2021: Bassett catheter Monitor closely 10/21/2021: Bassett cath Appreciate Dr Zimmerman 10/22/2021: Pain control No issues 10/23/2021: DC catheter soon (1) S/P lumbar fusion (2) Myopathy (3) Bassett catheter in place (4) Neuropathy (5) Urinary retention KEVIN FOX DO Oct 23, 2021 06:05
[2021-10-23 08:00] VITALS: BP 108/55
[2021-10-23] MEDS: GABAPENTIN 400 MG (NEURONTIN) CAP PO SCH ×3 (08:42→20:09)
--- NOTE | 2021-10-23 09:48 | Occupational Ther Daily Note ---
OT Current Status-Daily Note Subjective Pt alert, sitting in recliner. Pt agrees to therapy. Pt requests pain meds, did not rate pain, nrsg brought meds. Mental Status/Objective Patient Orientation: Person, Place, Time, Situation ADL-Treatment Pt agrees to shower. Mod A for sit to stand from medium height surface. SPT to w/c with CGA for safety. Using FWW and w/c, pt transferred onto BSC/toilet with min A for safety. Assist given to manipulate clothing and cleanse after toileting due to pt unable to take one hand off of FWW to reach and complete tasks. Pt sat at sink to completed oral care and grooming independently. Mod A for safety to transfer into shower from w/c using grabbars and FWW. Using grabbars, hand held shower, LH sponge and higher shower chair, pt able to complete all areas except buttocks. After set up, pt able to don/doff shirt by self. Max A to complete lower body dressing. Dependent for footwear. Pt requested to transfer into bed. Mod A for EOB to supine, assist with lower legs. After session, pt lying in bed with call light/phone in reach. All needs met in room. Therapy Code Descriptions/Definitions Functional [place] Measure: 0=Not Assessed/NA 4=Minimal Assistance 1=Total Assistance 5=Supervision or Setup 2=Maximal Assistance 6=Modified [place] 3=Moderate Assistance 7=Complete IndependenceSCALE: Activities may be completed with or without assistive devices. 2-Nghzlxgfgy-tiembcv completes the activity by him/herself with no assistance from a helper. 5-Set-up or Clean-up Assistance-helper sets up or cleans up; patient completes activity. [place] assists only prior to or following the activity. 4-Supervision or Touching Assistance-helper provides verbal cues and/or touching/steadying and/or contact guard assistance as patient completes activity. Assistance may be provided throughout the activity or intermittently. 3-Partial/Moderate Assistance-helper does LESS THAN HALF the effort. [place] lifts, holds or supports trunk or limbs, but provides less than half the effort. 2-Substantial/Maximal Assistance-helper does MORE THAN HALF the effort. [place] lifts or holds trunk or limbs and provides more than half the effort. 6-Ngcnrgrij-bgvfrp does ALL the effort. Patient does none of the effort to complete the activity. Or, the assistance of 2 or more helpers is required for the patient to complete the activity. If activity was not attempted, code reason: 7-Patient Refused. 9-Not Applicable-not attempted and the patient did not perform the activity before the current illness, exacerbation or injury. 10-Not Attempted due to Environmental Limitations-(lack of equipment, weather restraints, etc.). 88-Not Attempted due to Medical Conditions or Safety Concerns. Eating (QC): 6 Oral Hygiene (QC): 6 Shower/Bathe Self (QC): 3 Upper Body Dressing (QC): 5 Lower Body Dressing (QC): 2 On/Off Footwear: 1 Toileting Hygiene (QC): 2 Toilet Transfer (QC): 3 OT Short Term Goals Short Term Goals Time Frame: Nov 02, 2021 Toileting hygiene: 4 Shower/bathe self: 4 Lower body dressin Putting on/taking off footwear: 4 OT Consultant Rn Goals [facility] Goals Time Frame: Nov 17, 2021 Eating (QC): 6 Oral Hygiene (QC): 6 Toileting Hygiene (QC): 6 Shower/Bathe Self (QC): 5 Upper Body Dressing (QC): 6 Lower Body Dressing (QC): 6 On/Off Footwear (QC): 6 Additional Goals: 1-Demonstrate ADL Tasks, 2-Verbalize Understanding, 3- ImproveStrength/Xander 1=Demonstrate adherence to instructed precautions during ADL tasks. 2=Patient will verbalize/demonstrate understanding of assistive devices/modifications for ADL. 3=Patient will improve strength/tolerance for activity to enable patient to perform ADL's. OT Education/Plan Problem List/Assessment Assessment: Decreased Activ Tolerance, Decreased UE Strength, Impaired Bed Mobility, Impaired Self-Care Skills, Restricted Funct UE ROM Discharge Recommendations Plan/Recommendations: Continue POC Treatment Plan/Plan of Care Patient would benefit from OT for education, treatment and training to promote independence in ADL's, mobility, safety and/or upper extremity function for ADL's. Plan of Care: ADL Retraining, Functional Mobility, Group Exercise/Act as Ind, UE Funct Exercise/Act Treatment Duration: Nov 17, 2021 Frequency: At least 5 of 7 days/Wk (IRF) Estimated Hrs Per Day: 1.5 hours per day Agreement: Yes Rehab Potential: Fair Time/GCodes Start Time: 08:15 Stop Time: 09:15 Total Time Billed (hr/min): 60 Billed Treatment Time 1 visit-ADL 4 (60 min) ASHER DRIVER Oct 23, 2021 09:48
[2021-10-23] MEDS: DOCUSATE SODIUM 100 MG (COLACE) CAP PO SCH ×2 (11:33→19:53)
[2021-10-23] MEDS: SENNA W/DOCUSATE (SENOKOT S) TABLET PO SCH ×2 (11:34→19:53)
[2021-10-23] MEDS: polyethylene glycoL POWDER 17 GM (MIRALAX) PACK PO SCH ×2 (11:34→19:53)
--- NOTE | 2021-10-23 11:59 | Physical Therapy Daily Note ---
PT Daily Note-Current Subjective Patient in right side-lying in bed upon PT arrival, agreeable to treatment. He states, "I have a sore on my bottom, so they want me laying like this." Mental Status Patient Orientation: Person Transfers SCALE: Activities may be completed with or without assistive devices. 4-Tndfmcqnyf-teshuoq completes the activity by him/herself with no assistance from a helper. 5-Set-up or Clean-up Assistance-helper sets up or cleans up; patient completes activity. [place] assists only prior to or following the activity. 4-Supervision or Touching Assistance-helper provides verbal cues and/or touching/steadying and/or contact guard assistance as patient completes activity. Assistance may be provided throughout the activity or intermittently. 3-Partial/Moderate Assistance-helper does LESS THAN HALF the effort. [place] lifts, holds or supports trunk or limbs, but provides less than half the effort. 2-Substantial/Maximal Assistance-helper does MORE THAN HALF the effort. [place] lifts or holds trunk or limbs and provides more than half the effort. 4-Rotchelly-japrci does ALL the effort. Patient does none of the effort to complete the activity. Or, the assistance of 2 or more helpers is required for the patient to complete the activity. If activity was not attempted, code reason: 7-Patient Refused. 9-Not Applicable-not attempted and the patient did not perform the activity before the current illness, exacerbation or injury. 10-Not Attempted due to Environmental Limitations-(lack of equipment, weather restraints, etc.). 88-Not Attempted due to Medical Conditions or Safety Concerns. Roll Left & Right (QC): 3 Sit to Lying (QC): 3 Sit to Stand (QC): 3 Chair/Djd-qp-Ryuyc Xfer(QC): 3 Weight Bearing Right Lower Extremity: Right Full Weight Bearing Left Lower Extremity: Left Full Weight Bearing Gait Training Does the Patient Walk?: Yes Distance: 110 Walk 10 feet (QC): 4 Walk 50 ft with 2 Turns(QC): 3 Gait Persons Needed: 1 Gait Assistive Device: FWW Wheelchair Training Does the Pt Use a Wheelchair?: Yes Wheel 50 ft with 2 turns (QC): 4 Wheel 150 ft (QC): 4 Exercises Seated Therapy Exercises: Ankle pumps, Long arc quads, Hip flexion, Hamstring Curls, Hip abd/add Seated Reps: 20 NuStep Minutes: 10 NuStep Workload: 2 Assessment Current Status: Fair Progress Patient tolerated treatment well. Demonstrates increased tolerance to activity, increased motivation and improved gait distance. Patient ambulates 110 feet with FWW, with min A and verbal cues for posture, safety and conservation of energy. Patient refused to sit at ~80 feet and was able to continue to the Nu Step in the gym, however the further he ambulated the worse his gait looked. He demonstrates significant adduction and crossing of the LEs and the midline as he ambulates. He also tends to catch one foot on the other as he steps. Patient performs Nu Step and the above listed exercises. Patient propels w/c 150 feet with SBA and verbal cues for safety, obstacles, proper sitting and applying the brakes. Patient in w/c post treatment with all needs met, nursing notified, fouzia miner in reach. PT Graduate Rn Goals Graduate Rn Goals PT Graduate Rn Goals Time Frame: Nov 10, 2021 Roll Left & Right (QC): 6 Sit to Lying (QC): 6 Lying-Sitting on Side/Bed(QC): 6 Sit to Stand (QC): 6 Chair/Oho-tl-Wxoeb Xfer(QC): 6 Toilet Transfer (QC): 6 Car Transfer (QC): 6 Does the Patient Walk: Yes Walk 10 feet (QC): 6 Walk 50ft with 2 Turns (QC): 6 Walk 150 ft (QC): 4 Walking 10ft on Uneven Surface: 6 1 Step (curb) (QC): 4 4 Steps (QC): 4 12 Steps (QC): 4 Picking up an Object (QC): 4 Wheel 50 feet with 2 turns (QC: 9 Wheel 150 feet: 9 PT Plan Treatment/Plan Treatment Plan: Continue Plan of Care Treatment Plan: Bed Mobility, Education, Functional Activity Xander, Functional Strength, Group Therapy, Gait, Safety, Therapeutic Exercise, Transfers Treatment Duration: Nov 10, 2021 Frequency: At least 5 of 7 days/Wk (IRF) Estimated Hrs Per Day: 1.5 hours per day Patient and/or Family Agrees t: Yes Safety Risks/Education Patient Education: Gait Training, Transfer Techniques, W/C Management Teaching Recipient: Patient Teaching Methods: Demonstration, Discussion Response to Teaching: Verbalize Understanding, Reinforcement Needed Patient works very hard this session however does need to realize when his gait has become unsafe and that continuing, despite great effort, could be detrimental to his overall improvement. Time/GCodes Time In: 1100 Time Out: 1200 Total Billed Treatment Time: 60 Total Billed Treatment Visit, Bianca Mcmullen(30), w/c LEISA WOODS PT Oct 23, 2021 11:59
--- NOTE | 2021-10-23 14:07 | Wound Care Assessment ---
Wound Care Assessment Date Seen by Provider: Oct 23, 2021 Time Seen by Provider: 09:45 Chief Complaint Sacral pressure ulcer MARIELLE Stewart is a 76yo M with a past medical history of hypothyroidism, hepatitis, neuropathy, and degenerative disk disease. He was admitted to the rehabilitation facility post surgery for spinal fusion of L2-L3 and L3-L4 due to symptoms of neurogenic claudication. He has been working with PT and OT in the rehabilitation facility and has been making slow progress. Patient was resting in bed during the interview. He states that he is feeling better today and reports having more energy than yesterday. Has had some bowel incontinence and has had to wear adult briefs for that reason. Patient reports that his sacral area is tender to touch. He has developed a stage 2 sacral ulcer with a primary etiology of being bedridden after his surgery and fecal/urinary incontinence that appears neurogenic in nature. Patient also has a wound on his back from his surgery that has yvonne in it and appears to be healing well. Hypothyroidism, hepatitis, neuropahty, degenerative disk disease Smoking Status: Never a Smoker Recreational Drug Use: No Alcohol Use: Denies Use Review of Systems General: No Chills, No Fatigue HEENT: No Head Aches, No Visual Changes, No Sinus Congestion, No Sore Throat Pulmonary: No Dyspnea, No Cough Cardiovascular: No: Chest Pain, Palpitations Gastrointestinal: No: Nausea, Vomiting, Abdominal Pain, Diarrhea, Constipation Musculoskeletal: other (Sacral pain where the ulcer is located) Neurological: Weakness, Incoordination Exam Vital Signs Date Time Temp Pulse Resp B/P (MAP) Pulse Ox O2 Delivery O2 Flow Rate FiO2 10/23/21 08:00 36.9 68 20 108/55 (72) 93 Room Air Capillary Refill : General Appearance: WD/WN, no apparent distress HEENT: PERRL/EOMI Neck: non-tender, full range of motion, supple Cardiovascular: regular rate, rhythm, no edema, no murmur Respiratory: chest non-tender, lungs clear, normal breath sounds, no respiratory distress Gastrointestinal: normal bowel sounds, non tender, soft Back: other (Midline incision site from surgery, yvonne in place, small amount of drainage, no erythema around site) Extremities: normal range of motion Neurologic/Psychiatric: alert, normal mood/affect, oriented x 3 Skin: normal color, warm/dry Skin Problem Location: other (Sacral area) Sacral pressure ulcer measures 5.8x2.6x0.1. It is tender to touch and is non blanching. No tunneling or undermining. No exudate seen. Flat margins. Small granulation, no epithelialization, and no necrosis. Assessment/Plan/Dx Assessment: Sacral pressure ulcer stage 2 Ataxia Generalized weakness Bassett catheter in place Fecal and urinary incontinence (neurogenic) Plan: 1) Barrier cream and allevyn should be applied to the sacral wound daily. Adult brief should be changed regularly to ensure that the area around the wound is not moist. Patient should be moved throughout the day so he is not laying on the sacral area for multiple hours. 2) Continue working with PT and OT to regain strength and balance 3) Bassett catheter continues to be in place due to urinary retention, being managed by primary team Supervisory-Addendum Brief Verification & Attestation Participated in pt care: history, MDM, physical Personally performed: exam, history, MDM, supervision of care Care discussed with: Medical Student Procedures: n/a Results interpretation: Verified all documentation MARY Solorio MD Oct 23, 2021 14:07 BENJAMIN HENRIQUEZ MD Oct 23, 2021 14:57
--- NOTE | 2021-10-23 14:30 | Therapy Group Daily Note ---
Therapy Daily Group Note Patient Education Topic Other List Below (home ergonomics) Session Ratio (pt:therapist): 3:1 Goal of Session: Energy Conservation Tech., Home Safety Strategies, Use of Adaptive Equipment Goal Met for this Session: Yes Pt Benefit of Group: Contributions to Others, F/U Use of Strategies @Home, Increased Functional Safety, Increased Functional Strength, Improved Cognition, Recognition of Peers, Socialization Other/Notes Pt transported via w/c to therapy gym for OT/PT group. Group consisted of introductions (name, place living, remembered historic event), socializations, educational topic of ergonomic/modifications for functional mobility and ADL tasks. Pt introduced self appropriately and actively listened to peers. Pt then was able to verbalize own strategies for modifications around the home while acknowledging understanding of educational topic. After session, pt lying in bed with call light/phone in reach. All needs met in room. Start Time: 13:00 Stop Time: 14:25 Total Billed Treatment Time: 85 Total Billed Treatment 1-[facility] ASHER DRIVER Oct 23, 2021 14:30
[2021-10-23] MEDS: TAMSULOSIN 0.4 MG (FLOMAX) CAP PO SCH (17:16)
[2021-10-23 19:48] VITALS: BP 95/55
[2021-10-24] MEDS: MULTIVIT W/MINERALS TAB (THERAGRAN M) PO SCH (06:09)
[2021-10-24] MEDS: BETHANECHOL 25 MG (URECHOLINE) TAB PO SCH ×4 (06:09→20:47)
--- NOTE | 2021-10-24 06:27 | PM&R Progress Note ---
Subjective HPI/CC On Admission Date Seen by Provider: Oct 24, 2021 Time Seen by Provider: 08:30 Subjective/Events-last exam 10/24/2021: Doing well Improved transfers Bassett cath still in place No falls 10/23/2021: Doing well Pain controlled Bassett still in place Sleeping well 10/22/2021: Improved status Sleeping today Pain controlled No falls 10/21/2021: Improved status Pain controlled Bassett cath in place Reviewed Dr Zimmerman note BM regimen will be initiated 10/20/2021: Pt is doing pretty well Bassett catheter was placed at 12:30 AM Returned 1500 ccs Transfers are very slow Slow recovery expected Review of Systems General: Fatigue Musculoskeletal: back pain Objective Exam Vital Signs Vital Signs Date Time Temp Pulse Resp B/P (MAP) Pulse Ox O2 Delivery O2 Flow Rate FiO2 10/24/21 20:10 Room Air 10/24/21 20:00 37.7 68 20 103/52 (69) 98 Capillary Refill : General Appearance: No Apparent Distress, WD/WN, Chronically ill HEENT: PERRL/EOMI, Normal ENT Inspection, Pharynx Normal Neck: Full Range of Motion, Normal Inspection, Non Tender, Supple, Carotid Bruit Respiratory: Chest Non Tender, Lungs Clear, Normal Breath Sounds, No Accessory Muscle Use, No Respiratory Distress Cardiovascular: Regular Rate, Rhythm, No Gallop, No JVD, No Murmur, Normal Peripheral Pulses Gastrointestinal: Normal Bowel Sounds, No Organomegaly, No Pulsatile Mass, Non Tender, Soft Back: CVA Tenderness (L), CVA Tenderness (R), Decreased Range of Motion, Muscle Spasm, Vertebral Tenderness Extremity: Normal Capillary Refill, Normal Inspection, Normal Range of Motion (limited due to back pain), Non Tender, No Calf Tenderness, Pedal Edema Neurologic/Psychiatric: Alert, Oriented x3, No Motor/Sensory Deficits, Normal Mood/Affect, tape stringer II-XII Norm as 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 FIM Transfers Therapy Code Descriptions/Definitions Functional [place] Measure: 0=Not Assessed/NA 4=Minimal Assistance 1=Total Assistance 5=Supervision or Setup 2=Maximal Assistance 6=Modified [place] 3=Moderate Assistance 7=Complete IndependenceSCALE: Activities may be completed with or without assistive devices. 1-Psadqgmfya-jngimrk completes the activity by him/herself with no assistance from a helper. 5-Set-up or Clean-up Assistance-helper sets up or cleans up; patient completes activity. [place] assists only prior to or following the activity. 4-Supervision or Touching Assistance-helper provides verbal cues and/or touching/steadying and/or contact guard assistance as patient completes activity. Assistance may be provided throughout the activity or intermittently. 3-Partial/Moderate Assistance-helper does LESS THAN HALF the effort. [place] lifts, holds or supports trunk or limbs, but provides less than half the effort. 2-Substantial/Maximal Assistance-helper does MORE THAN HALF the effort. [place] lifts or holds trunk or limbs and provides more than half the effort. 2-Fnuxvrqbf-kncqgn does ALL the effort. Patient does none of the effort to complete the activity. Or, the assistance of 2 or more helpers is required for the patient to complete the activity. If activity was not attempted, code reason: 7-Patient Refused. 9-Not Applicable-not attempted and the patient did not perform the activity before the current illness, exacerbation or injury. 10-Not Attempted due to Environmental Limitations-(lack of equipment, weather restraints, etc.). 88-Not Attempted due to Medical Conditions or Safety Concerns. Roll Left to Right (QC): 3 Sit to Lying (QC): 3 Sit to Stand (QC): 3 Chair/Pxt-ey-Cejgo Xfer(QC): 3 Car Transfer (QC): 2 Gait Training Does the Patient Walk?: Yes Distance: 110 Walk 10 feet (QC): 4 Walk 50 ft with 2 Turns(QC): 3 Walk 150 ft (QC): 88 Walking 10ft/uneven surface-QC: 3 Gait Persons Needed: 1 Gait Assistive Device: FWW Wheelchair Training Does the Pt Use a Wheelchair?: Yes Wheel 50 ft with 2 turns (QC): 4 Wheel 150 ft (QC): 4 Stair Training #of Steps: 1 1 Step (curb) (QC): 2 4 Steps (QC): 88 12 Steps (QC): 88 Balance Picking up an Object (QC): 88 ADL-Treatment Eating (QC): 6 Oral Hygiene (QC): 6 Shower/Bathe Self (QC): 3 Upper Body Dressing (QC): 5 Lower Body Dressing (QC): 2 On/Off Footwear (QC): 1 Toileting Hygiene (QC): 2 Toilet Transfer (QC): 3 Assessment/Plan Assessment and Plan Assess & Plan/Chief Complaint Assessment: s/p lumbar spine surgery due to myelopathy Dr Smith Neuropathy h/o urinary retention last admit [address] due to urinary retention and consulted Dr Zimmerman Plan: PT OT Monitor urinary retention Monitor closely 10/20/2021: Bassett catheter Monitor closely 10/21/2021: Bassett cath Appreciate Dr Zimmerman 10/22/2021: Pain control No issues 10/23/2021: DC catheter soon 10/24/2021: Dr Zimmerman appreciated No falls (1) S/P lumbar fusion (2) Myopathy (3) Bassett catheter in place (4) Neuropathy (5) Urinary retention KEVIN FOX DO Oct 24, 2021 06:27
--- NOTE | 2021-10-24 07:24 | Progress Note-Pre Operative ---
Pre-Operative Progress Note Date of Available H&P: Oct 24, 2021 Date H&P Reviewed: Oct 24, 2021 Time H&P Reviewed: 07:24 Changes from last HP NONE Pre-Operative Diagnosis: URINE RETENTION HIPOLITO BOWNES MD Oct 24, 2021 07:24
--- NOTE | 2021-10-24 07:29 | Progress Note-Post Operative ---
Post-Operative Progess Note Surgeon (s)/Patient Assessment Coordinator (s) Surgeon HIPOLITO BOWENS MD Patient Assessment Coordinator: NONE Pre-Operative Diagnosis URINE RETENTION Post-Operative Diagnosis SAME Procedure & Operative Findings Date of Procedure 10/24/21 Procedure Performed/Findings CYSTOSCOPY Anesthesia Type LOCAL Estimated Blood Loss Estimated blood loss (mL): NONE Specimens/Packing Specimens Removed NONE Packing: NONE HIPOLITO BOWENS MD Oct 24, 2021 07:29
[2021-10-24 07:47] VITALS: BP 111/67
--- NOTE | 2021-10-24 08:50 | Occupational Ther Daily Note ---
OT Current Status-Daily Note Subjective Pt sitting in bed finishing breakfast. Pt agrees to therapy. No c/o pain at this time. Mental Status/Objective Patient Orientation: Person, Place, Time, Situation Attachments: Bassett Catheter ADL-Treatment 1st session ()Pt independent in eating. Pt supine to EOB min A. Pt educated in using AE to complete doffing socks by verbal cues and demonstration, pt able to doff. Pt then educated on donning shoes with AE. Pt will require more skilled instruction to complete this task. Pt SPT from EOB to WC min A from higher surface for sit to stand. Pt propelled WC by self to bathroom and completed oral care independent sitting at sink. Pt self propelled WC to therapy gym. Pt completed fine/gross motor task in standing to strengthen dynamic standing balance for everyday functional tasks. Pt left lying in bed with call light/phone in reach. All needs met in room. 2nd session() Co-treatment with PT (), skills of 2 clinicians required for skilled care to decrease fall risk and increase activity tolerance, strength for daily functional tasks. PT focusing on transfers, ambulation and mobility while OT focusing on ADLs and positioning. Pt required assist to thread B feet into LB clothing then assist to hike over hips in standing, due to fatigue. Pt ambulated using FWW with PT from room to therapy gym. After session, pt left in care of PT. All needs met. Therapy Code Descriptions/Definitions Functional [place] Measure: 0=Not Assessed/NA 4=Minimal Assistance 1=Total Assistance 5=Supervision or Setup 2=Maximal Assistance 6=Modified [place] 3=Moderate Assistance 7=Complete IndependenceSCALE: Activities may be completed with or without assistive devices. 5-Npmlavmauk-mibxaap completes the activity by him/herself with no assistance from a helper. 5-Set-up or Clean-up Assistance-helper sets up or cleans up; patient completes activity. [place] assists only prior to or following the activity. 4-Supervision or Touching Assistance-helper provides verbal cues and/or touching/steadying and/or contact guard assistance as patient completes activity. Assistance may be provided throughout the activity or intermittently. 3-Partial/Moderate Assistance-helper does LESS THAN HALF the effort. [place] lifts, holds or supports trunk or limbs, but provides less than half the effort. 2-Substantial/Maximal Assistance-helper does MORE THAN HALF the effort. [place] lifts or holds trunk or limbs and provides more than half the effort. 0-Oyicodpte-vaedtk does ALL the effort. Patient does none of the effort to complete the activity. Or, the assistance of 2 or more helpers is required for the patient to complete the activity. If activity was not attempted, code reason: 7-Patient Refused. 9-Not Applicable-not attempted and the patient did not perform the activity bef ore the current illness, exacerbation or injury. 10-Not Attempted due to Environmental Limitations-(lack of equipment, weather r estraints, etc.). 88-Not Attempted due to Medical Conditions or Safety Concerns. Eating (QC): 6 Oral Hygiene (QC): 6 Lower Body Dressing (QC): 3 (mod A) On/Off Footwear: 3 (Min A) Other Treatment 1st session([id number])Pt given medium/heavy resistance theraband, skilled inst ruction given for correct technique and modifications. Pt completed 3 B UE exercises, 3 sets 10 reps to strengthen B UE for everyday functional tasks. Modifications given for L shldr pain. Education OT Patient Education: Exercise program, Use of adapted equipment Teaching Recipient: Patient Teaching Methods: Demonstration, Discussion Response to Teaching: Verbalize Understanding, Return Demonstration, Reinfor cement Needed OT Short Term Goals Short Term Goals Time Frame: Nov 02, 2021 Toileting hygiene: 4 Shower/bathe self: 4 Lower body dressin Putting on/taking off footwear: 4 OT Glue Machine Operator Goals Glue Machine Operator Goals Time Frame: Nov 17, 2021 Eating (QC): 6 Oral Hygiene (QC): 6 Toileting Hygiene (QC): 6 Shower/Bathe Self (QC): 5 Upper Body Dressing (QC): 6 Lower Body Dressing (QC): 6 On/Off Footwear (QC): 6 Additional Goals: 1-Demonstrate ADL Tasks, 2-Verbalize Understanding, 3- ImproveStrength/Xander 1=Demonstrate adherence to instructed precautions during ADL tasks. 2=Patient will verbalize/demonstrate understanding of assistive devices/modifications for ADL. 3=Patient will improve strength/tolerance for activity to enable patient to perform ADL's. OT Education/Plan Problem List/Assessment Assessment: Decreased Activ Tolerance, Decreased Safety Aware, Decreased UE Strength, Impaired Bed Mobility, Impaired Coordination, Impaired Funct Balance, Impaired Self-Care Skills Discharge Recommendations Plan/Recommendations: Continue POC Treatment Plan/Plan of Care Patient would benefit from OT for education, treatment and training to promote independence in ADL's, mobility, safety and/or upper extremity function for ADL's. Plan of Care: ADL Retraining, Functional Mobility, Group Exercise/Act as Ind, UE Funct Exercise/Act Treatment Duration: Nov 17, 2021 Frequency: At least 5 of 7 days/Wk (IRF) Estimated Hrs Per Day: 1.5 hours per day Agreement: Yes Rehab Potential: Fair Time/GCodes Start Time: 07:30 (00) Stop Time: 08:45 (914) Total Time Billed (hr/min): 90 Billed Treatment Time 1 visit(2002-1940) - ADL 2 (30 min) EX 3 (45 min) 1 visit([id number]) -ADL 1 (15 min) co-treat with PT 15 min ASHER DRIVER Oct 24, 2021 08:50
[2021-10-24] MEDS: GABAPENTIN 400 MG (NEURONTIN) CAP PO SCH ×3 (09:17→20:47)
[2021-10-24] MEDS: DOCUSATE SODIUM 100 MG (COLACE) CAP PO SCH ×2 (09:36→19:39)
[2021-10-24] MEDS: polyethylene glycoL POWDER 17 GM (MIRALAX) PACK PO SCH ×2 (09:37→19:39)
[2021-10-24] MEDS: SENNA W/DOCUSATE (SENOKOT S) TABLET PO SCH ×2 (09:37→19:40)
--- NOTE | 2021-10-24 09:52 | Physical Therapy Daily Note ---
PT Daily Note-Current Subjective Patient in bed pre tx, agrees to PT, has 5/10 low back pain. Will be co- treating for part of tx due to poor patient mobility, strength, endurance, severe debility, coordinate UE and LE during activity, safety and reduce risk of falls. Appearance Patient in restroom on toilet post tx, will call nurse when done. Mental Status Patient Orientation: Person, Place, Situation back brace Transfers SCALE: Activities may be completed with or without assistive devices. 9-Tnspjnlfbf-taglqru completes the activity by him/herself with no assistance from a helper. 5-Set-up or Clean-up Assistance-helper sets up or cleans up; patient completes activity. [place] assists only prior to or following the activity. 4-Supervision or Touching Assistance-helper provides verbal cues and/or touching/steadying and/or contact guard assistance as patient completes activity. Assistance may be provided throughout the activity or intermittently. 3-Partial/Moderate Assistance-helper does LESS THAN HALF the effort. [place] lifts, holds or supports trunk or limbs, but provides less than half the effort. 2-Substantial/Maximal Assistance-helper does MORE THAN HALF the effort. [place] lifts or holds trunk or limbs and provides more than half the effort. 1-Udeogsqec-lbsmdn does ALL the effort. Patient does none of the effort to complete the activity. Or, the assistance of 2 or more helpers is required for the patient to complete the activity. If activity was not attempted, code reason: 7-Patient Refused. 9-Not Applicable-not attempted and the patient did not perform the activity before the current illness, exacerbation or injury. 10-Not Attempted due to Environmental Limitations-(lack of equipment, weather restraints, etc.). 88-Not Attempted due to Medical Conditions or Safety Concerns. Sit to Stand (QC): 3 Chair/Pld-uk-Xzeuw Xfer(QC): 4 Patient sits to the side of the bed, has trouble sitting straight up, falls to the right side and needs some assist. Patient is dressed and stands to complete it. Weight Bearing Right Lower Extremity: Right Full Weight Bearing Left Lower Extremity: Left Full Weight Bearing Gait Training Distance: 120', 10' Walk 10 feet (QC): 4 Walk 50 ft with 2 Turns(QC): 4 Gait Assistive Device: FWW very slow, needs reminded to keep walker close, very narrow CONI, poor step through, leans heavily on the walker Wheelchair Training Does the Pt Use a Wheelchair?: Yes Wheel 50 ft with 2 turns (QC): 4 Wheel 150 ft (QC): 4 Type of Wheelchair: Manual very slow, needed several rest breaks Exercises NuStep Minutes: 15 NuStep Workload: 1 (no resistance on arms due to restrictions) Treatments PT performed bed mobility and transfers, ambulation, functional strengthening, standing and positioning during dressing, OT performed dressing, UE positioning and safety during activity Assessment Current Status: Fair Progress patient fatigues easily, needs frequent rest breaks PT Assisted Goals Fundraising Consultant Goals PT Assisted Goals Time Frame: Nov 10, 2021 Roll Left & Right (QC): 6 Sit to Lying (QC): 6 Lying-Sitting on Side/Bed(QC): 6 Sit to Stand (QC): 6 Chair/Fwb-hx-Kyeso Xfer(QC): 6 Toilet Transfer (QC): 6 Car Transfer (QC): 6 Does the Patient Walk: Yes Walk 10 feet (QC): 6 Walk 50ft with 2 Turns (QC): 6 Walk 150 ft (QC): 4 Walking 10ft on Uneven Surface: 6 1 Step (curb) (QC): 4 4 Steps (QC): 4 12 Steps (QC): 4 Picking up an Object (QC): 4 Wheel 50 feet with 2 turns (QC: 9 Wheel 150 feet: 9 PT Plan Problem List Problem List: Activity Tolerance, Functional Strength, Safety, Balance, Gait, Transfer, Bed Mobility, ROM Treatment/Plan Treatment Plan: Continue Plan of Care Treatment Plan: Bed Mobility, Education, Functional Activity Xander, Functional Strength, Group Therapy, Gait, Safety, Therapeutic Exercise, Transfers Treatment Duration: Nov 10, 2021 Frequency: At least 5 of 7 days/Wk (IRF) Estimated Hrs Per Day: 1.5 hours per day Patient and/or Family Agrees t: Yes Safety Risks/Education Patient Education: Gait Training, Transfer Techniques, Reviewed Precautions, Correct Positioning, W/C Management, Reviewed Don/Doff Brace, Safety Issues Teaching Recipient: Patient Teaching Methods: Demonstration, Discussion Response to Teaching: Reinforcement Needed Time/GCodes Time In: 0900 Time Out: 1000 Total Billed Treatment Time: 60 Total Billed Treatment 1 visit EX 15' FA 45' co-treated with OT from [id number] IRENE MARTIN PT Oct 24, 2021 09:52
--- NOTE | 2021-10-24 13:47 | OPERATIVE REPORT ---
DATE OF SERVICE: 10/24/2021 PREOPERATIVE DIAGNOSIS: Urinary retention. POSTOPERATIVE DIAGNOSIS: Urinary retention. OPERATION PERFORMED: Cystoscopy. SURGEON: Capo Bowens MD ANESTHESIA: Local. COMPLICATIONS: None. DESCRIPTION OF PROCEDURE: With the patient supine in his bed after removing the Bassett catheter, the genitalia were prepped and draped in the usual sterile fashion. Urethra was infiltrated with 2% lidocaine jelly. Penile clamp was applied. This was then removed, and a flexible cystoscope introduced under vision. The anterior urethra was normal. The prostate was small and not really obstructing. The bladder neck was open. The bladder was entered, revealed trabeculations. Ureteric orifices were clear effluxes. No foreign body, bladder tumor or stone visualized. Cystoscopy was confirmed in an antegrade fashion and the cystoscope was removed. The patient tolerated the procedure and anesthesia well and started voiding after removing the cystoscope. Examination of the patient revealed adequate male configuration genitalia; and rectal exam a flat, benign, nontender elastic prostate. PLAN: Trial of voiding. The patient has already started voiding and will give him a urinal. Bladder scan postvoid residual daily and p.r.n. and straight cath if over 300 mL. We will probably keep him on the Flomax and hopefully start weaning him off the Urecholine according to his voiding. Plan was explained to him and discussed with Dr. Mejia. CC: Dr. Mejia - requested, unable to deliver. Job ID: [id number] DocumentID: [id number] Dictated Date: 10/24/2021 09:24:29 Warehouse And Receiving Supervisor Date: 10/24/2021 13:46:32 Dictated By: CAPO BOWENS MD
--- NOTE | 2021-10-24 14:11 | Physical Therapy Daily Note ---
PT Daily Note-Current Subjective Patient is very agreeable to participate with PT. Mental Status Patient Orientation: Normal For Age Transfers SCALE: Activities may be completed with or without assistive devices. 9-Urdooxatwl-yxdhtpr completes the activity by him/herself with no assistance from a helper. 5-Set-up or Clean-up Assistance-helper sets up or cleans up; patient completes activity. [place] assists only prior to or following the activity. 4-Supervision or Touching Assistance-helper provides verbal cues and/or touching/steadying and/or contact guard assistance as patient completes activity. Assistance may be provided throughout the activity or intermittently. 3-Partial/Moderate Assistance-helper does LESS THAN HALF the effort. [place] lifts, holds or supports trunk or limbs, but provides less than half the effort. 2-Substantial/Maximal Assistance-helper does MORE THAN HALF the effort. [place] lifts or holds trunk or limbs and provides more than half the effort. 7-Jtaqtkuyd-hgskta does ALL the effort. Patient does none of the effort to complete the activity. Or, the assistance of 2 or more helpers is required for the patient to complete the activity. If activity was not attempted, code reason: 7-Patient Refused. 9-Not Applicable-not attempted and the patient did not perform the activity before the current illness, exacerbation or injury. 10-Not Attempted due to Environmental Limitations-(lack of equipment, weather restraints, etc.). 88-Not Attempted due to Medical Conditions or Safety Concerns. Sit to Lying (QC): 3 Sit to Stand (QC): 4 Weight Bearing Right Lower Extremity: Right Full Weight Bearing Left Lower Extremity: Left Full Weight Bearing Gait Training Distance: 275' Walk 10 feet (QC): 3 Walk 50 ft with 2 Turns(QC): 3 Walk 150 ft (QC): 3 Gait Assistive Device: FWW heavily relies on bilateral UE's/NBOS due to diminished proprioception Assessment Patient returned to bed with mod assist for bilateral LE's. Patient progressing with treatment plan. PT to continue to increase activity as tolerated by patient. PT Measurer Machine Goals Longterm Goals PT Measurer Machine Goals Time Frame: Nov 10, 2021 Roll Left & Right (QC): 6 Sit to Lying (QC): 6 Lying-Sitting on Side/Bed(QC): 6 Sit to Stand (QC): 6 Chair/Lmr-hl-Doaar Xfer(QC): 6 Toilet Transfer (QC): 6 Car Transfer (QC): 6 Does the Patient Walk: Yes Walk 10 feet (QC): 6 Walk 50ft with 2 Turns (QC): 6 Walk 150 ft (QC): 4 Walking 10ft on Uneven Surface: 6 1 Step (curb) (QC): 4 4 Steps (QC): 4 12 Steps (QC): 4 Picking up an Object (QC): 4 Wheel 50 feet with 2 turns (QC: 9 Wheel 150 feet: 9 PT Plan Treatment/Plan Treatment Plan: Continue Plan of Care Treatment Plan: Bed Mobility, Education, Functional Activity Xander, Functional Strength, Group Therapy, Gait, Safety, Therapeutic Exercise, Transfers Treatment Duration: Nov 10, 2021 Frequency: At least 5 of 7 days/Wk (IRF) Estimated Hrs Per Day: 1.5 hours per day Patient and/or Family Agrees t: Yes Time/GCodes Time In: 1330 Time Out: 1345 Total Billed Treatment Time: 15 Total Billed Treatment 1 visit GT 15 min TEOFILO GIORDANO PT Oct 24, 2021 14:11
[2021-10-24] MEDS: TAMSULOSIN 0.4 MG (FLOMAX) CAP PO SCH (17:09)
[2021-10-24 20:00] VITALS: BP 103/52
[2021-10-25] MEDS: BETHANECHOL 25 MG (URECHOLINE) TAB PO SCH ×4 (06:20→20:55)
[2021-10-25] MEDS: MULTIVIT W/MINERALS TAB (THERAGRAN M) PO SCH (06:20)
[2021-10-25 07:33] VITALS: BP 111/68
[2021-10-25] MEDS: GABAPENTIN 400 MG (NEURONTIN) CAP PO SCH ×3 (08:08→20:55)
--- NOTE | 2021-10-25 08:33 | Progress Note - Urology ---
Progress Note-Urology Progress Notes/Assess & Plan Progress/Assessment & Plan FAILED TOV 3 TIMES. WE WILL REINSERT LUNA IN HAPPENS AGAIN. WE WILL INCREASE URECHOLINE TO 50 AC AND HS AND FLOMAX BID Final Diagnosis RETENTION HIPOLITO BOWENS MD Oct 25, 2021 08:33
[2021-10-25] MEDS: SENNA W/DOCUSATE (SENOKOT S) TABLET PO SCH ×2 (09:00→20:02)
[2021-10-25] MEDS: DOCUSATE SODIUM 100 MG (COLACE) CAP PO SCH ×2 (09:00→20:02)
[2021-10-25] MEDS: polyethylene glycoL POWDER 17 GM (MIRALAX) PACK PO SCH ×2 (09:00→20:02)
[2021-10-25] MEDS: TAMSULOSIN 0.4 MG (FLOMAX) CAP PO SCH ×2 (09:11→20:55)
--- NOTE | 2021-10-25 10:15 | Occupational Ther Daily Note ---
OT Current Status-Daily Note Subjective Pt lying in bed alert. Pt agrees to therapy. No c/o pain at this time. Mental Status/Objective Patient Orientation: Person, Place, Time, Situation Attachments: Other-See Comments (back brace) ADL-Treatment Pt agrees to shower. Pt supine to EOB independent. Pt min A EOB to standing using FWW. Pt ambulated to shower using FWW. Pt transferred to raised shower be [facility] using FWW and grabbars, CGA. Pt showers independently sitting on raised shower bench using long handled sponge. While in shower pt stated he had pain in upper glutes. Pt transferred from raised shower bench to WC, mod A. Pt transferred to EOB min A using FWW. Pt EOB to supine min A. Placed moist hot pack at pain site, pt stated that it decreased pain. Pt refusal to don LB cloth ing, due to pain. Pt left lying in bed call light/phone in reach. All needs met in room. Therapy Code Descriptions/Definitions Functional [place] Measure: 0=Not Assessed/NA 4=Minimal Assistance 1=Total Assistance 5=Supervision or Setup 2=Maximal Assistance 6=Modified [place] 3=Moderate Assistance 7=Complete IndependenceSCALE: Activities may be completed with or without assistive devices. 5-Wvhpntvevd-hwopdnr completes the activity by him/herself with no assistance from a helper. 5-Set-up or Clean-up Assistance-helper sets up or cleans up; patient completes activity. [place] assists only prior to or following the activity. 4-Supervision or Touching Assistance-helper provides verbal cues and/or touching/steadying and/or contact guard assistance as patient completes activit y. Assistance may be provided throughout the activity or intermittently. 3-Partial/Moderate Assistance-helper does LESS THAN HALF the effort. [place] lifts, holds or supports trunk or limbs, but provides less than half the effort. 2-Substantial/Maximal Assistance-helper does MORE THAN HALF the effort. [place] lifts or holds trunk or limbs and provides more than half the effort. 9-Qfjfjcdkg-dddtag does ALL the effort. Patient does none of the effort to complete the activity. Or, the assistance of 2 or more helpers is required for the patient to complete the activity. If activity was not attempted, code reason: 7-Patient Refused. 9-Not Applicable-not attempted and the patient did not perform the activity before the current illness, exacerbation or injury. 10-Not Attempted due to Environmental Limitations-(lack of equipment, weather restraints, etc.). 88-Not Attempted due to Medical Conditions or Safety Concerns. Bathing Location: L Arm, R Arm, L Upper Leg, R Upper Leg, L Lower Leg (including foot), R Lower Leg (including foot), Chest, Abdomen, Buttocks, Perineal Area Shower/Bathe Self (QC): 6 Upper Body Dressing (QC): 5 Lower Body Dressing (QC): 7 Other Treatment Pt completed 3 B UE exercises, 3 sets 10 reps with medium/heavy resistance theraband for strengthening of B UE for daily functional tasks. Pt completed fine/gross motor task with cognitive component to strengthen pincher grasp for ADL's. Pt completed fine motor task with light resistance theraputty to strengthen pinch/sleep tech for daily functional tasks. OT Short Term Goals Short Term Goals Time Frame: Nov 02, 2021 Toileting hygiene: 4 Shower/bathe self: 4 Lower body dressin Putting on/taking off footwear: 4 OT Grinder Machine Knife Setter Goals Grinder Machine Knife Setter Goals Time Frame: Nov 17, 2021 Eating (QC): 6 Oral Hygiene (QC): 6 Toileting Hygiene (QC): 6 Shower/Bathe Self (QC): 5 Upper Body Dressing (QC): 6 Lower Body Dressing (QC): 6 On/Off Footwear (QC): 6 Additional Goals: 1-Demonstrate ADL Tasks, 2-Verbalize Understanding, 3- ImproveStrength/[place] 1=Demonstrate adherence to instructed precautions during ADL tasks. 2=Patient will verbalize/demonstrate understanding of assistive devices/modifications for ADL. 3=Patient will improve strength/tolerance for activity to enable patient to perform ADL's. OT Education/Plan Problem List/Assessment Assessment: Decreased Activ Tolerance, Decreased Safety Aware, Decreased UE Strength, Impaired Bed Mobility, Impaired Coordination, Impaired Funct Balance Discharge Recommendations Plan/Recommendations: Continue POC Treatment Plan/Plan of Care Patient would benefit from OT for education, treatment and training to promote independence in ADL's, mobility, safety and/or upper extremity function for ADL's. Plan of Care: ADL Retraining, Functional Mobility, Group Exercise/Act as Ind, UE Funct Exercise/Act Treatment Duration: Nov 17, 2021 Frequency: At least 5 of 7 days/Wk (IRF) Estimated Hrs Per Day: 1.5 hours per day Agreement: Yes Rehab Potential: Fair Time/GCodes Start Time: 08:30 Stop Time: 10:00 Total Time Billed (hr/min): 90 Billed Treatment Time 1 visit ADL 3 (40 min) EX 3 (50 min) ASHER DRIVER Oct 25, 2021 10:15
--- NOTE | 2021-10-25 11:44 | Diagnostic Imaging Report ---
INDICATION: Bilateral lower extremity edema COMPARISON: None TECHNIQUE: Duplex, aldana-scale and color-flow imaging of the bilateral lower extremity venous system was performed. FINDINGS: The common femoral vein, superficial femoral vein, profunda femoris, and popliteal veins are normal. These vessels show normal compressibility, color flow, and doppler augmentation. The deep calf veins, although not very well seen, demonstrate no distinct intraluminal thrombus. IMPRESSION: Negative venous Doppler of the bilateral lower extremities. Dictated by: Dictated on workstation # [id number]
--- NOTE | 2021-10-25 11:52 | PM&R Progress Note ---
Subjective HPI/CC On Admission Date Seen by Provider: Oct 25, 2021 Time Seen by Provider: 10:00 Subjective/Events-last exam 10/26/2021: Back pain continues No nausea reported No falls Slow recovery Catheter managed by Urology 10/24/2021: Doing well Improved transfers Bassett cath still in place No falls 10/23/2021: Doing well Pain controlled Bassett still in place Sleeping well 10/22/2021: Improved status Sleeping today Pain controlled No falls 10/21/2021: Improved status Pain controlled Bassett cath in place Reviewed Dr Zimmerman note BM regimen will be initiated 10/20/2021: Pt is doing pretty well Bassett catheter was placed at 12:30 AM Returned 1500 ccs Transfers are very slow Slow recovery expected Review of Systems General: Fatigue, Malaise Pulmonary: Dyspnea Musculoskeletal: back pain Objective Exam Vital Signs Vital Signs Date Time Temp Pulse Resp B/P (MAP) Pulse Ox O2 Delivery O2 Flow Rate FiO2 10/25/21 20:20 Room Air 10/25/21 20:08 36.9 68 18 115/56 (75) 96 Capillary Refill : General Appearance: No Apparent Distress, WD/WN, Chronically ill HEENT: PERRL/EOMI, Normal ENT Inspection, Pharynx Normal Neck: Full Range of Motion, Normal Inspection, Non Tender, Supple, Carotid Bruit Respiratory: Chest Non Tender, Lungs Clear, Normal Breath Sounds, No Accessory Muscle Use, No Respiratory Distress Cardiovascular: Regular Rate, Rhythm, No Gallop, No JVD, No Murmur, Normal Peripheral Pulses Gastrointestinal: Normal Bowel Sounds, No Organomegaly, No Pulsatile Mass, Non Tender, Soft Back: CVA Tenderness (L), CVA Tenderness (R), Decreased Range of Motion, Muscle Spasm, Vertebral Tenderness Extremity: Normal Capillary Refill, Normal Inspection, Normal Range of Motion (limited due to back pain), Non Tender, No Calf Tenderness, Pedal Edema Neurologic/Psychiatric: Alert, Oriented x3, No Motor/Sensory Deficits, Normal Mood/Affect, sheet metal installer II-XII Norm as 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 FIM Transfers Therapy Code Descriptions/Definitions Functional [place] Measure: 0=Not Assessed/NA 4=Minimal Assistance 1=Total Assistance 5=Supervision or Setup 2=Maximal Assistance 6=Modified [place] 3=Moderate Assistance 7=Complete IndependenceSCALE: Activities may be completed with or without assistive devices. 5-Cfseknwqhq-xrdpovw completes the activity by him/herself with no assistance from a helper. 5-Set-up or Clean-up Assistance-helper sets up or cleans up; patient completes activity. [place] assists only prior to or following the activity. 4-Supervision or Touching Assistance-helper provides verbal cues and/or touching/steadying and/or contact guard assistance as patient completes activity. Assistance may be provided throughout the activity or intermittently. 3-Partial/Moderate Assistance-helper does LESS THAN HALF the effort. [place] lifts, holds or supports trunk or limbs, but provides less than half the effort. 2-Substantial/Maximal Assistance-helper does MORE THAN HALF the effort. [place] lifts or holds trunk or limbs and provides more than half the effort. 5-Fyywfldke-gubsmb does ALL the effort. Patient does none of the effort to complete the activity. Or, the assistance of 2 or more helpers is required for the patient to complete the activity. If activity was not attempted, code reason: 7-Patient Refused. 9-Not Applicable-not attempted and the patient did not perform the activity before the current illness, exacerbation or injury. 10-Not Attempted due to Environmental Limitations-(lack of equipment, weather restraints, etc.). 88-Not Attempted due to Medical Conditions or Safety Concerns. Roll Left to Right (QC): 3 Sit to Lying (QC): 3 Sit to Stand (QC): 4 Chair/Uux-wc-Lwbwp Xfer(QC): 4 Car Transfer (QC): 2 Gait Training Does the Patient Walk?: Yes Distance: 275' Walk 10 feet (QC): 3 Walk 50 ft with 2 Turns(QC): 3 Walk 150 ft (QC): 3 Walking 10ft/uneven surface-QC: 3 Gait Persons Needed: 1 Gait Assistive Device: FWW Wheelchair Training Does the Pt Use a Wheelchair?: Yes Wheel 50 ft with 2 turns (QC): 4 Wheel 150 ft (QC): 4 Type of Wheelchair: Manual Stair Training #of Steps: 1 1 Step (curb) (QC): 2 4 Steps (QC): 88 12 Steps (QC): 88 Balance Picking up an Object (QC): 88 ADL-Treatment Eating (QC): 6 Oral Hygiene (QC): 6 Bathing Location: L Arm, R Arm, L Upper Leg, R Upper Leg, L Lower Leg (including foot), R Lower Leg (including foot), Chest, Abdomen, Buttocks, Perineal Area Shower/Bathe Self (QC): 6 Upper Body Dressing (QC): 5 Lower Body Dressing (QC): 7 On/Off Footwear (QC): 3 (Min A) Toileting Hygiene (QC): 2 Toilet Transfer (QC): 3 Assessment/Plan Assessment and Plan Assess & Plan/Chief Complaint Assessment: s/p lumbar spine surgery due to myelopathy Dr [place] Neuropathy h/o urinary retention last admit [address] due to urinary retention and consulted Dr Zimmerman now DC Plan: PT OT Monitor urinary retention Monitor closely 10/20/2021: Bassett catheter Monitor closely 10/21/2021: Bassett cath Appreciate Dr Zimmerman 10/22/2021: Pain control No issues 10/23/2021: DC catheter soon 10/24/2021: Dr Zimmerman appreciated No falls 10/26/2021: No falls Monitor closely (1) S/P lumbar fusion (2) Myopathy (3) Bassett catheter in place (4) Neuropathy (5) Urinary retention KEVIN FOX DO Oct 25, 2021 11:52
--- NOTE | 2021-10-25 11:58 | Physical Therapy Daily Note ---
PT Daily Note-Current Subjective Pt. in bed with US seal delivery vehicle team technician at bedside, Pt. with distal RLE red, warm, swollen full circumference noted, nursing states venous US ordered to make sure no blood clot. Pt. agrees to Rx after US but refuses x 2 trials to get out of bed secondary to pain in L low back. Pt. rates pain at 9/10 . Nursing advised. Pain Numeric Pain Scale: 9 Location: Left Location Body Site: Calf (full circumference lower leg) Pain Description: Burning Appearance pt. grimaces in pain and c/o 9/10 pain in L low back that intensifies as he continues to attempt to roll to right and come to sit with assist of HOB up and physical assist of this DRUG ABUSE TREATMENT SPECIALIST. Observation of R LE distal , warm/hot to touch, swollen, red very much so in contrast to LLE Mental Status Patient Orientation: Normal For Age Attachments: Bassett Catheter Transfers SCALE: Activities may be completed with or without assistive devices. 0-Zyrkkkcrqk-dwberbn completes the activity by him/herself with no assistance from a helper. 5-Set-up or Clean-up Assistance-helper sets up or cleans up; patient completes activity. [place] assists only prior to or following the activity. 4-Supervision or Touching Assistance-helper provides verbal cues and/or touching/steadying and/or contact guard assistance as patient completes activity. Assistance may be provided throughout the activity or intermittently. 3-Partial/Moderate Assistance-helper does LESS THAN HALF the effort. [place] lifts, holds or supports trunk or limbs, but provides less than half the effort. 2-Substantial/Maximal Assistance-helper does MORE THAN HALF the effort. [place] lifts or holds trunk or limbs and provides more than half the effort. 7-Ifzdwpipx-cjornq does ALL the effort. Patient does none of the effort to complete the activity. Or, the assistance of 2 or more helpers is required for the patient to complete the activity. If activity was not attempted, code reason: 7-Patient Refused. 9-Not Applicable-not attempted and the patient did not perform the activity bef ore the current illness, exacerbation or injury. 10-Not Attempted due to Environmental Limitations-(lack of equipment, weather r estraints, etc.). 88-Not Attempted due to Medical Conditions or Safety Concerns. Roll Left & Right (QC): 3 unable to complete sup to sit secondary to intense pain, required max assist to attempt to get LEs off the bed and back on and position trunk in bed Weight Bearing Right Lower Extremity: Right Full Weight Bearing Left Lower Extremity: Left Full Weight Bearing Exercises Supine Ex: Ankle pumps, Heel Slides, Hip abd/add Supine Reps: 10 Treatments attempted sup to sit and dressing lower body after venous US was complete. Pt did not c/o pain in R LE but did c/o pain L hip/sciatica area 10/21 and was unable to complete TRF and Rx. Nursing advised pt. requested pain meds Assessment Current Status: Poor Progress pain greatly limits participation PT Warp Yarn Sorter Goals Warp Yarn Sorter Goals PT Usp Goals Time Frame: Nov 10, 2021 Roll Left & Right (QC): 6 Sit to Lying (QC): 6 Lying-Sitting on Side/Bed(QC): 6 Sit to Stand (QC): 6 Chair/Yhp-hf-Zmymq Xfer(QC): 6 Toilet Transfer (QC): 6 Car Transfer (QC): 6 Does the Patient Walk: Yes Walk 10 feet (QC): 6 Walk 50ft with 2 Turns (QC): 6 Walk 150 ft (QC): 4 Walking 10ft on Uneven Surface: 6 1 Step (curb) (QC): 4 4 Steps (QC): 4 12 Steps (QC): 4 Picking up an Object (QC): 4 Wheel 50 feet with 2 turns (QC: 9 Wheel 150 feet: 9 PT Plan Treatment/Plan Treatment Plan: Continue Plan of Care Treatment Plan: Bed Mobility, Education, Functional Activity Xander, Functional Strength, Group Therapy, Gait, Safety, Therapeutic Exercise, Transfers Treatment Duration: Nov 10, 2021 Frequency: At least 5 of 7 days/Wk (IRF) Estimated Hrs Per Day: 1.5 hours per day Patient and/or Family Agrees t: Yes Safety Risks/Education Patient Education: Transfer Techniques, Correct Positioning, Safety Issues Teaching Recipient: Patient Teaching Methods: Discussion Response to Teaching: Unable to Return Demonstration, Reinforcement Needed Time/GCodes Time In: 1115 Time Out: 1200 Total Billed Treatment Time: 45 Total Billed Treatment 1,FA45m ADALBERTO CARMONA DRUG ABUSE TREATMENT SPECIALIST Oct 25, 2021 11:58
--- NOTE | 2021-10-25 13:39 | Physical Therapy Daily Note ---
PT Daily Note-Current Subjective Pt in bed, SO present, pt. initially states he thinks he feels better but after again attempting to get out of bed 2 more trials pt. again c/o 8/10 pain and declines to get out of bed. Pt shares that he is discouraged bc he really wants to get home with GF Pain Numeric Pain Scale: 8 Location: Left Location Body Site: Back (low) Pain Description: Stabbing Mental Status Patient Orientation: Normal For Age Attachments: Bassett Catheter Transfers SCALE: Activities may be completed with or without assistive devices. 2-Whxxlzpjjm-popcbhi completes the activity by him/herself with no assistance from a helper. 5-Set-up or Clean-up Assistance-helper sets up or cleans up; patient completes activity. [place] assists only prior to or following the activity. 4-Supervision or Touching Assistance-helper provides verbal cues and/or touching/steadying and/or contact guard assistance as patient completes activity. Assistance may be provided throughout the activity or intermittently. 3-Partial/Moderate Assistance-helper does LESS THAN HALF the effort. [place] lifts, holds or supports trunk or limbs, but provides less than half the effort. 2-Substantial/Maximal Assistance-helper does MORE THAN HALF the effort. [place] lifts or holds trunk or limbs and provides more than half the effort. 8-Blgqdecfo-kqdpkn does ALL the effort. Patient does none of the effort to complete the activity. Or, the assistance of 2 or more helpers is required for the patient to complete the activity. If activity was not attempted, code reason: 7-Patient Refused. 9-Not Applicable-not attempted and the patient did not perform the activity before the current illness, exacerbation or injury. 10-Not Attempted due to Environmental Limitations-(lack of equipment, weather restraints, etc.). 88-Not Attempted due to Medical Conditions or Safety Concerns. all attempts at rolling and sup to side to sit failed with pt. c/o increased pain and inability to complete TRF, needing max assist to get LEs back into bed. Weight Bearing Right Lower Extremity: Right Full Weight Bearing Left Lower Extremity: Left Full Weight Bearing Exercises Supine Ex: Ankle pumps, Quad Set, Glut sets, Heel Slides, Scooting, Hip abd/add Supine Reps: 15 Assessment Current Status: Poor Progress pain greatly limits function this Rx PT Skilled Nursing Goals Skilled Nursing Goals PT Skilled Nursing Goals Time Frame: Nov 10, 2021 Roll Left & Right (QC): 6 Sit to Lying (QC): 6 Lying-Sitting on Side/Bed(QC): 6 Sit to Stand (QC): 6 Chair/Vwv-wf-Homnp Xfer(QC): 6 Toilet Transfer (QC): 6 Car Transfer (QC): 6 Does the Patient Walk: Yes Walk 10 feet (QC): 6 Walk 50ft with 2 Turns (QC): 6 Walk 150 ft (QC): 4 Walking 10ft on Uneven Surface: 6 1 Step (curb) (QC): 4 4 Steps (QC): 4 12 Steps (QC): 4 Picking up an Object (QC): 4 Wheel 50 feet with 2 turns (QC: 9 Wheel 150 feet: 9 PT Plan Treatment/Plan Treatment Plan: Continue Plan of Care Treatment Plan: Bed Mobility, Education, Functional Activity Xander, Functional Strength, Group Therapy, Gait, Safety, Therapeutic Exercise, Transfers Treatment Duration: Nov 10, 2021 Frequency: At least 5 of 7 days/Wk (IRF) Estimated Hrs Per Day: 1.5 hours per day Patient and/or Family Agrees t: Yes Safety Risks/Education Patient Education: Transfer Techniques, Correct Positioning Time/GCodes Time In: 1300 Time Out: 1345 Total Billed Treatment Time: 45 Total Billed Treatment 1,FA30m,EX15m ADALBERTO CARMONA FINISHING POWDER PRESS OPERATOR Oct 25, 2021 13:39
[2021-10-25] MEDS: CYCLOBENZAPRINE 10 MG (FLEXERIL) TAB PO PRN ×2 (13:49→21:59)
[2021-10-25 20:08] VITALS: BP 115/56
[2021-10-26] MEDS: MULTIVIT W/MINERALS TAB (THERAGRAN M) PO SCH (06:06)
[2021-10-26] MEDS: BETHANECHOL 25 MG (URECHOLINE) TAB PO SCH ×4 (06:06→21:00)
[2021-10-26 08:00] VITALS: BP 97/58
[2021-10-26] MEDS: TAMSULOSIN 0.4 MG (FLOMAX) CAP PO SCH ×2 (09:01→20:53)
[2021-10-26] MEDS: GABAPENTIN 400 MG (NEURONTIN) CAP PO SCH ×3 (09:02→20:53)
--- NOTE | 2021-10-26 09:44 | Physical Therapy Daily Note ---
PT Daily Note-Current Subjective Pt. states his back pain is a little better than yesterday. Pt states walking and being upright feels much better than sitting, pt. had c/o that the w/ sitting position aggravated his L LBP. Pt. states he has been told as of last evening that he will now DC to [facility] Pain Numeric Pain Scale: 5-Moderate Pain Location: Left Pain Description: Ache Mental Status Patient Orientation: Normal For Age Attachments: Bassett Catheter Transfers SCALE: Activities may be completed with or without assistive devices. 5-Ltqngyedgq-wldkbmc completes the activity by him/herself with no assistance from a helper. 5-Set-up or Clean-up Assistance-helper sets up or cleans up; patient completes activity. [place] assists only prior to or following the activity. 4-Supervision or Touching Assistance-helper provides verbal cues and/or touching/steadying and/or contact guard assistance as patient completes activity . Assistance may be provided throughout the activity or intermittently. 3-Partial/Moderate Assistance-helper does LESS THAN HALF the effort. [place] lifts, holds or supports trunk or limbs, but provides less than half the effort. 2-Substantial/Maximal Assistance-helper does MORE THAN HALF the effort. [place] lifts or holds trunk or limbs and provides more than half the effort. 1-Xwyqylobi-ipqxjz does ALL the effort. Patient does none of the effort to complete the activity. Or, the assistance of 2 or more helpers is required for the patient to complete the activity. If activity was not attempted, code reason: 7-Patient Refused. 9-Not Applicable-not attempted and the patient did not perform the activity before the current illness, exacerbation or injury. 10-Not Attempted due to Environmental Limitations-(lack of equipment, weather restraints, etc.). 88-Not Attempted due to Medical Conditions or Safety Concerns. Roll Left & Right (QC): 4 Sit to Lying (QC): 2 Sit to Stand (QC): 3 Chair/Asb-jm-Dvjyg Xfer(QC): 4 with sitting surface raised higher pt. sit to stand TRF requires min assist , with lower surface mod assist however this seems to aggravate his back more., sup to sit TRF very laborious and painful per pt. and OT Weight Bearing Right Lower Extremity: Right Full Weight Bearing Left Lower Extremity: Left Full Weight Bearing Gait Training Does the Patient Walk?: Yes Walk 10 feet (QC): 4 Walk 50 ft with 2 Turns(QC): 4 Gait Persons Needed: 1 (and w/c f/u) Gait Assistive Device: FWW heavy wt bearing FWW NBOS but does correct with instruction, 50ft x2, 15 ft x 2, w/c to follow Wheelchair Training Does the Pt Use a Wheelchair?: Yes Wheel 50 ft with 2 turns (QC): 4 Type of Wheelchair: Manual OT supplied brake extension for left as pt. found this brake difficult to reach and brake, pt. attempted propelling w/c with hands only , and with LEs heel dig style . pt. prefers use of hands only, but pt. is not indep to take leg rests off on w/c Exercises Supine Ex: Ankle pumps, Rolling, Glut sets, Heel Slides Supine Reps: 12 Treatments PT OT co Rx secondary to level of complexity to coordinate U&L ext for ADLs, gait, TRFs etc. Pt. requires assist of 2 skilled clinicians for TRFs and funct Assessment Current Status: Fair Progress PT Orthopedic Nurse Goals Skilled Nursing Goals PT Skilled Nursing Goals Time Frame: Nov 10, 2021 Roll Left & Right (QC): 6 Sit to Lying (QC): 6 Lying-Sitting on Side/Bed(QC): 6 Sit to Stand (QC): 6 Chair/Iqw-aq-Yowwi Xfer(QC): 6 Toilet Transfer (QC): 6 Car Transfer (QC): 6 Does the Patient Walk: Yes Walk 10 feet (QC): 6 Walk 50ft with 2 Turns (QC): 6 Walk 150 ft (QC): 4 Walking 10ft on Uneven Surface: 6 1 Step (curb) (QC): 4 4 Steps (QC): 4 12 Steps (QC): 4 Picking up an Object (QC): 4 Wheel 50 feet with 2 turns (QC: 9 Wheel 150 feet: 9 PT Plan Treatment/Plan Treatment Plan: Continue Plan of Care Treatment Plan: Bed Mobility, Education, Functional Activity Xander, Functional Strength, Group Therapy, Gait, Safety, Therapeutic Exercise, Transfers Treatment Duration: Nov 10, 2021 Frequency: At least 5 of 7 days/Wk (IRF) Estimated Hrs Per Day: 1.5 hours per day Patient and/or Family Agrees t: Yes Safety Risks/Education Patient Education: Gait Training, Transfer Techniques, Correct Positioning, W/C Management, Disease Process, Safety Issues Teaching Recipient: Patient Teaching Methods: Demonstration, Discussion Response to Teaching: Verbalize Understanding, Return Demonstration, Reinforcement Needed Time/GCodes Time In: 1000 Time Out: 1045 Total Billed Treatment Time: 45 Total Billed Treatment 1,GT20m,EX10m,FA15m ADALBERTO CARMONA YACHT MASTER Oct 26, 2021 09:44
[2021-10-26] MEDS: SENNA W/DOCUSATE (SENOKOT S) TABLET PO SCH ×2 (09:48→21:00)
[2021-10-26] MEDS: polyethylene glycoL POWDER 17 GM (MIRALAX) PACK PO SCH ×2 (09:48→21:00)
[2021-10-26] MEDS: DOCUSATE SODIUM 100 MG (COLACE) CAP PO SCH ×2 (09:48→21:00)
--- NOTE | 2021-10-26 10:36 | Occupational Ther Daily Note ---
OT Current Status-Daily Note Subjective Pt alert, lying in bed. Pt agrees to therapy though is not sure how his L lower back/hip is going to feel. Nrsg alerted about pain with sitting, brought medications. PT/OT co-treat ([id number]), skills of 2 clinicians required to decrease fall risk and pain while increasing all mobility and activity toleranc e. PT focusing on transfers and mobility while OT focusing on ADLs and functional mobility. Mental Status/Objective Patient Orientation: Person, Place, Time, Situation Attachments: Other-See Comments (Back brace) ADL-Treatment Supine to EOB mod A due to increased pain with this movement. HOB fully raised and FOB slightly lower to assist with decreasing pain with this movement. Pt then stood with mod A and ambulated to bathroom using FWW with min A. Pt stated that pain had lessened with ambulation. Pt sat at sink to place dentures, set up to apply adhesive to dentures. Pt then working on w/c mobility to increase strengthen B UE's. Due to pain, assist to don lower body clothing and footwear. Therapy Code Descriptions/Definitions Functional [place] Measure: 0=Not Assessed/NA 4=Minimal Assistance 1=Total Assistance 5=Supervision or Setup 2=Maximal Assistance 6=Modified [place] 3=Moderate Assistance 7=Complete IndependenceSCALE: Activities may be completed with or without assistive devices. 1-Zjrkkjazpv-xtisywl completes the activity by him/herself with no assistance from a helper. 5-Set-up or Clean-up Assistance-helper sets up or cleans up; patient completes activity. [place] assists only prior to or following the activity. 4-Supervision or Touching Assistance-helper provides verbal cues and/or touching/steadying and/or contact guard assistance as patient completes activity. Assistance may be provided throughout the activity or intermittently. 3-Partial/Moderate Assistance-helper does LESS THAN HALF the effort. [place] lifts, holds or supports trunk or limbs, but provides less than half the effort. 2-Substantial/Maximal Assistance-helper does MORE THAN HALF the effort. [place] lifts or holds trunk or limbs and provides more than half the effort. 6-Fddzgfrqc-eimkny does ALL the effort. Patient does none of the effort to complete the activity. Or, the assistance of 2 or more helpers is required for the patient to complete the activity. If activity was not attempted, code reason: 7-Patient Refused. 9-Not Applicable-not attempted and the patient did not perform the activity before the current illness, exacerbation or injury. 10-Not Attempted due to Environmental Limitations-(lack of equipment, weather restraints, etc.). 88-Not Attempted due to Medical Conditions or Safety Concerns. Oral Hygiene (QC): 5 (Set up) Other Treatment Pt able to propel w/c around ARU area slowly and required breaks. When attempting to use cushion to raise height of w/c, increased pain. Pt able to ambulate multiple times during session using FWW with one person then one person following with w/c for safety. Pt requires assist to lift B LE's into bed and position in bed. Pt complete B UE exercises using med/heavy resistance theraband 3 sets 15 reps. Skilled instruction for correct technique. After session, pt lying in bed with call light/phone in reach. All needs met in room. OT Short Term Goals Short Term Goals Time Frame: Nov 02, 2021 Toileting hygiene: 4 Shower/bathe self: 4 Lower body dressin Putting on/taking off footwear: 4 OT Snf Goals Taxi Driver Goals Time Frame: Nov 17, 2021 Eating (QC): 6 Oral Hygiene (QC): 6 Toileting Hygiene (QC): 6 Shower/Bathe Self (QC): 5 Upper Body Dressing (QC): 6 Lower Body Dressing (QC): 6 On/Off Footwear (QC): 6 Additional Goals: 1-Demonstrate ADL Tasks, 2-Verbalize Understanding, 3- ImproveStrength/Xander 1=Demonstrate adherence to instructed precautions during ADL tasks. 2=Patient will verbalize/demonstrate understanding of assistive devices/modifications for ADL. 3=Patient will improve strength/tolerance for activity to enable patient to perform ADL's. OT Education/Plan Problem List/Assessment Assessment: Decreased Activ Tolerance, Decreased UE Strength, Impaired Funct Balance, Impaired Self-Care Skills, Restricted Funct UE ROM Discharge Recommendations Plan/Recommendations: Continue POC Treatment Plan/Plan of Care Patient would benefit from OT for education, treatment and training to promote independence in ADL's, mobility, safety and/or upper extremity function for ADL's. Plan of Care: ADL Retraining, Functional Mobility, Group Exercise/Act as Ind, UE Funct Exercise/Act Treatment Duration: Nov 17, 2021 Frequency: At least 5 of 7 days/Wk (IRF) Estimated Hrs Per Day: 1.5 hours per day Agreement: Yes Rehab Potential: Fair Time/GCodes Start Time: 08:30 Stop Time: 10:00 Total Time Billed (hr/min): 90 Billed Treatment Time 1 visit-ADL 2 (30 min) FA 3 (45 min) EX 1 (15 min) co-treat with PT [id number], individual [id number], [id number] ASHER DRIVER Oct 26, 2021 10:36
--- NOTE | 2021-10-26 10:43 | PM&R Progress Note ---
Subjective HPI/CC On Admission Date Seen by Provider: Oct 26, 2021 Time Seen by Provider: 10:00 Subjective/Events-last exam 10/26/2021: No major issues Needs skilled care, can't take care of him too dependent Pain controlled 10/25/2021: Back pain continues No nausea reported No falls Slow recovery Catheter managed by Urology 10/24/2021: Doing well Improved transfers Bassett cath still in place No falls 10/23/2021: Doing well Pain controlled Bassett still in place Sleeping well 10/22/2021: Improved status Sleeping today Pain controlled No falls 10/21/2021: Improved status Pain controlled Bassett cath in place Reviewed Dr Zimmerman note BM regimen will be initiated 10/20/2021: Pt is doing pretty well Bassett catheter was placed at 12:30 AM Returned 1500 ccs Transfers are very slow Slow recovery expected Review of Systems Musculoskeletal: back pain Objective Exam Vital Signs Vital Signs Date Time Temp Pulse Resp B/P (MAP) Pulse Ox O2 Delivery O2 Flow Rate FiO2 10/26/21 21:54 37.4 67 20 105/63 (77) 95 Room Air Capillary Refill : General Appearance: No Apparent Distress, WD/WN, Chronically ill HEENT: PERRL/EOMI, Normal ENT Inspection, Pharynx Normal Neck: Full Range of Motion, Normal Inspection, Non Tender, Supple, Carotid Bruit Respiratory: Chest Non Tender, Lungs Clear, Normal Breath Sounds, No Accessory Muscle Use, No Respiratory Distress Cardiovascular: Regular Rate, Rhythm, No Gallop, No JVD, No Murmur, Normal Peripheral Pulses Gastrointestinal: Normal Bowel Sounds, No Organomegaly, No Pulsatile Mass, Non Tender, Soft Back: CVA Tenderness (L), CVA Tenderness (R), Decreased Range of Motion, Muscle Spasm, Vertebral Tenderness Extremity: Normal Capillary Refill, Normal Inspection, Normal Range of Motion (limited due to back pain), Non Tender, No Calf Tenderness, Pedal Edema Neurologic/Psychiatric: Alert, Oriented x3, No Motor/Sensory Deficits, Normal Mood/Affect, quality improvement coordinator II-XII Norm as 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 FIM Transfers Therapy Code Descriptions/Definitions Functional [place] Measure: 0=Not Assessed/NA 4=Minimal Assistance 1=Total Assistance 5=Supervision or Setup 2=Maximal Assistance 6=Modified [place] 3=Moderate Assistance 7=Complete IndependenceSCALE: Activities may be completed with or without assistive devices. 3-Juokyguqip-xihwbzy completes the activity by him/herself with no assistance from a helper. 5-Set-up or Clean-up Assistance-helper sets up or cleans up; patient completes activity. [place] assists only prior to or following the activity. 4-Supervision or Touching Assistance-helper provides verbal cues and/or touching/steadying and/or contact guard assistance as patient completes activity. Assistance may be provided throughout the activity or intermittently. 3-Partial/Moderate Assistance-helper does LESS THAN HALF the effort. [place] lifts, holds or supports trunk or limbs, but provides less than half the effort. 2-Substantial/Maximal Assistance-helper does MORE THAN HALF the effort. [place] lifts or holds trunk or limbs and provides more than half the effort. 8-Xfhzjsame-glrswm does ALL the effort. Patient does none of the effort to complete the activity. Or, the assistance of 2 or more helpers is required for the patient to complete the activity. If activity was not attempted, code reason: 7-Patient Refused. 9-Not Applicable-not attempted and the patient did not perform the activity before the current illness, exacerbation or injury. 10-Not Attempted due to Environmental Limitations-(lack of equipment, weather restraints, etc.). 88-Not Attempted due to Medical Conditions or Safety Concerns. Roll Left to Right (QC): 4 Sit to Lying (QC): 2 Sit to Stand (QC): 3 Chair/Suo-hs-Pcalm Xfer(QC): 4 Car Transfer (QC): 2 Gait Training Does the Patient Walk?: Yes Distance: 275' Walk 10 feet (QC): 4 Walk 50 ft with 2 Turns(QC): 4 Walk 150 ft (QC): 3 Walking 10ft/uneven surface-QC: 3 Gait Persons Needed: 1 (and w/c f/u) Gait Assistive Device: FWW Wheelchair Training Does the Pt Use a Wheelchair?: Yes Wheel 50 ft with 2 turns (QC): 4 Wheel 150 ft (QC): 4 Type of Wheelchair: Manual Stair Training #of Steps: 1 1 Step (curb) (QC): 2 4 Steps (QC): 88 12 Steps (QC): 88 Balance Picking up an Object (QC): 88 ADL-Treatment Eating (QC): 6 Oral Hygiene (QC): 6 Bathing Location: L Arm, R Arm, L Upper Leg, R Upper Leg, L Lower Leg (including foot), R Lower Leg (including foot), Chest, Abdomen, Buttocks, Perineal Area Shower/Bathe Self (QC): 6 Upper Body Dressing (QC): 5 Lower Body Dressing (QC): 7 On/Off Footwear (QC): 3 (Min A) Toileting Hygiene (QC): 2 Toilet Transfer (QC): 3 Assessment/Plan Assessment and Plan Assess & Plan/Chief Complaint Assessment: s/p lumbar spine surgery due to myelopathy Dr Smith Neuropathy h/o urinary retention last admit [address] due to urinary retention and consulted Dr Zimmerman now DC Plan: PT OT Monitor urinary retention Monitor closely 10/20/2021: Bassett catheter Monitor closely 10/21/2021: Bassett cath Appreciate Dr Zimmerman 10/22/2021: Pain control No issues 10/23/2021: DC catheter soon 10/24/2021: Dr Zimmerman appreciated No falls 10/25/2021: No falls Monitor closely 10/26/2021: Monitor pain Needs SNF (1) S/P lumbar fusion (2) Myopathy (3) Bassett catheter in place (4) Neuropathy (5) Urinary retention KEVIN FOX DO Oct 26, 2021 10:43
[2021-10-26] MEDS: CYCLOBENZAPRINE 10 MG (FLEXERIL) TAB PO PRN ×2 (12:39→20:53)
--- NOTE | 2021-10-26 13:15 | Physical Therapy Daily Note ---
PT Daily Note-Current Subjective Pt. in bed, states he will try to get up and would like to sit in the recliner if he can get comfortable. After some instruction and assist for use of recliner pt. states he is more comfortable than he has been in a long time. Pain Location: No Pain Reported Mental Status Patient Orientation: Normal For Age Attachments: Bassett Catheter, Other-See Comments (back brace) Transfers SCALE: Activities may be completed with or without assistive devices. 2-Xgcfpfksgy-etslnly completes the activity by him/herself with no assistance from a helper. 5-Set-up or Clean-up Assistance-helper sets up or cleans up; patient completes activity. [place] assists only prior to or following the activity. 4-Supervision or Touching Assistance-helper provides verbal cues and/or touching/steadying and/or contact guard assistance as patient completes activity. Assistance may be provided throughout the activity or intermittently. 3-Partial/Moderate Assistance-helper does LESS THAN HALF the effort. [place] lifts, holds or supports trunk or limbs, but provides less than half the effort. 2-Substantial/Maximal Assistance-helper does MORE THAN HALF the effort. [place] lifts or holds trunk or limbs and provides more than half the effort. 9-Vecfbmsgo-uyrlfp does ALL the effort. Patient does none of the effort to complete the activity. Or, the assistance of 2 or more helpers is required for the patient to complete the activity. If activity was not attempted, code reason: 7-Patient Refused. 9-Not Applicable-not attempted and the patient did not perform the activity before the current illness, exacerbation or injury. 10-Not Attempted due to Environmental Limitations-(lack of equipment, weather restraints, etc.). 88-Not Attempted due to Medical Conditions or Safety Concerns. Roll Left & Right (QC): 3 Lying to Sitting/Side of Bed(Q: 4 Sit to Stand (QC): 4 Chair/Mgx-bj-Kyxox Xfer(QC): 4 with HOB raised as pt came to sitting at edge of bed, the HOB assisted pt in sitting and he was able to reach full upright sitting and feet flat on floor. Weight Bearing Right Lower Extremity: Right Full Weight Bearing Left Lower Extremity: Left Full Weight Bearing Gait Training Does the Patient Walk?: Yes Gait Assistive Device: FWW 20 ft FWW inside room CGA ot min assist and instruction for CONI Exercises Supine Ex: Ankle pumps, Rolling, Glut sets, Scooting Supine Reps: 15 Treatments pt. sat up at edge of bed with assist of HOB up . pt. walked sat in lift recline chair , was able to fully recline and lay his upper body back and use gravity to push himself all the way up in the chair, then come back up with LEs elevated in near zero grav position, pt. reported much relief of back discomfort Assessment Current Status: Good Progress better bed TRFs, reports feeling less back pain as he sits up in recliner PT Buttonholer Goals Buttonholer Goals PT Buttonholer Goals Time Frame: Nov 10, 2021 Roll Left & Right (QC): 6 Sit to Lying (QC): 6 Lying-Sitting on Side/Bed(QC): 6 Sit to Stand (QC): 6 Chair/Lsh-tz-Zrzox Xfer(QC): 6 Toilet Transfer (QC): 6 Car Transfer (QC): 6 Does the Patient Walk: Yes Walk 10 feet (QC): 6 Walk 50ft with 2 Turns (QC): 6 Walk 150 ft (QC): 4 Walking 10ft on Uneven Surface: 6 1 Step (curb) (QC): 4 4 Steps (QC): 4 12 Steps (QC): 4 Picking up an Object (QC): 4 Wheel 50 feet with 2 turns (QC: 9 Wheel 150 feet: 9 PT Plan Treatment/Plan Treatment Plan: Continue Plan of Care Treatment Plan: Bed Mobility, Education, Functional Activity Xander, Functional Strength, Group Therapy, Gait, Safety, Therapeutic Exercise, Transfers Treatment Duration: Nov 10, 2021 Frequency: At least 5 of 7 days/Wk (IRF) Estimated Hrs Per Day: 1.5 hours per day Patient and/or Family Agrees t: Yes Safety Risks/Education Patient Education: Gait Training, Transfer Techniques, Correct Positioning, Reviewed Don/Doff Brace, Safety Issues Teaching Recipient: Patient Teaching Methods: Demonstration, Discussion Response to Teaching: Verbalize Understanding, Return Demonstration, Reinforcement Needed Time/GCodes Time In: 1130 Time Out: 1215 Total Billed Treatment Time: 45 Total Billed Treatment 1,GT15,FA20,EX10 ADALBERTO CARMONA CAN RECONDITIONER Oct 26, 2021 13:15
[2021-10-26 21:54] VITALS: BP 105/63
[2021-10-27] MEDS: CYCLOBENZAPRINE 10 MG (FLEXERIL) TAB PO PRN ×2 (06:27→16:03)
[2021-10-27] MEDS: MULTIVIT W/MINERALS TAB (THERAGRAN M) PO SCH (06:27)
[2021-10-27] MEDS: BETHANECHOL 25 MG (URECHOLINE) TAB PO SCH ×4 (06:27→20:17)
[2021-10-27 08:03] VITALS: BP 102/63
--- NOTE | 2021-10-27 08:28 | Occupational Ther Daily Note ---
OT Current Status-Daily Note Subjective Pt alert, sitting on BSC. Pt agrees to therapy. No c/o pain at this time. Family training today with sister. Co-treat with PT ([id number]), skilled instruction for family education requiring 2 clinicians to expertly guide family through pt's mobility, transfers and ADL skills. Mental Status/Objective Patient Orientation: Person, Place, Time, Situation Attachments: Other-See Comments (back brace) Acute change in mental status: 0 Inattention: 0 Disorganized thinkin Altered level of consciousness: 0 ADL-Treatment Min A for sit <--> stand BSC transfer. Pt requires assistance to manipulate clothing and complete hygiene due to inability to lift one UE from FWW to complete task at this time. Therapy Code Descriptions/Definitions Functional [place] Measure: 0=Not Assessed/NA 4=Minimal Assistance 1=Total Assistance 5=Supervision or Setup 2=Maximal Assistance 6=Modified [place] 3=Moderate Assistance 7=Complete IndependenceSCALE: Activities may be completed with or without assistive devices. 9-Irhkxsjiwa-rlzuygk completes the activity by him/herself with no assistance from a helper. 5-Set-up or Clean-up Assistance-helper sets up or cleans up; patient completes activity. [place] assists only prior to or following the activity. 4-Supervision or Touching Assistance-helper provides verbal cues and/or touching/steadying and/or contact guard assistance as patient completes activity. Assistance may be provided throughout the activity or intermittently. 3-Partial/Moderate Assistance-helper does LESS THAN HALF the effort. [place] lifts, holds or supports trunk or limbs, but provides less than half the effort. 2-Substantial/Maximal Assistance-helper does MORE THAN HALF the effort. [place] lifts or holds trunk or limbs and provides more than half the effort. 3-Dwgsgttud-zqsggw does ALL the effort. Patient does none of the effort to complete the activity. Or, the assistance of 2 or more helpers is required for the patient to complete the activity. If activity was not attempted, code reason: 7-Patient Refused. 9-Not Applicable-not attempted and the patient did not perform the activity before the current illness, exacerbation or injury. 10-Not Attempted due to Environmental Limitations-(lack of equipment, weather restraints, etc.). 88-Not Attempted due to Medical Conditions or Safety Concerns. Toileting Hygiene (QC): 2 Other Treatment Family education with sister on pt's ability to perform ADLs. Pt's sister is looking at pt going to skilled care to extend time that pt will have with therapies prior to going home. Relayed information to therapy mushroom growing supervisor. After session, pt left in care of PT. All needs met. OT Short Term Goals Short Term Goals Time Frame: Nov 02, 2021 Toileting hygiene: 4 Shower/bathe self: 4 Lower body dressin Putting on/taking off footwear: 4 OT Quality Assurance Intern Goals Quality Assurance Intern Goals Time Frame: Nov 17, 2021 Acute change in mental status: 0 Inattention: 0 Disorganized thinkin Altered level of consciousness: 0 Eating (QC): 6 Oral Hygiene (QC): 6 Toileting Hygiene (QC): 6 Shower/Bathe Self (QC): 5 Upper Body Dressing (QC): 6 Lower Body Dressing (QC): 6 On/Off Footwear (QC): 6 Additional Goals: 1-Demonstrate ADL Tasks, 2-Verbalize Understanding, 3- ImproveStrength/Xander 1=Demonstrate adherence to instructed precautions during ADL tasks. 2=Patient will verbalize/demonstrate understanding of assistive devices/ modifications for ADL. 3=Patient will improve strength/tolerance for activity to enable patient to perform ADL's. OT Education/Plan Problem List/Assessment Assessment: Decreased Activ Tolerance, Decreased UE Strength, Impaired Funct Balance, Impaired Self-Care Skills, Restricted Funct UE ROM Discharge Recommendations Plan/Recommendations: Continue POC Treatment Plan/Plan of Care Patient would benefit from OT for education, treatment and training to promote independence in ADL's, mobility, safety and/or upper extremity function for A DL's. Plan of Care: ADL Retraining, Functional Mobility, Group Exercise/Act as Ind, UE Funct Exercise/Act Treatment Duration: Nov 17, 2021 Frequency: At least 5 of 7 days/Wk (IRF) Estimated Hrs Per Day: 1.5 hours per day Agreement: Yes Rehab Potential: Fair Time/GCodes Start Time: 07:30 Stop Time: 08:00 Total Time Billed (hr/min): 30 Billed Treatment Time 1 visit-FA 1 (20 min) ADL 1 (10 min) co-treat with PT 30 min ASHER DRIVER Oct 27, 2021 08:28
[2021-10-27] MEDS: TAMSULOSIN 0.4 MG (FLOMAX) CAP PO SCH ×2 (08:49→20:17)
[2021-10-27] MEDS: GABAPENTIN 400 MG (NEURONTIN) CAP PO SCH ×3 (08:49→20:18)
[2021-10-27] MEDS: polyethylene glycoL POWDER 17 GM (MIRALAX) PACK PO SCH ×2 (08:54→20:15)
[2021-10-27] MEDS: SENNA W/DOCUSATE (SENOKOT S) TABLET PO SCH ×2 (08:54→20:17)
[2021-10-27] MEDS: DOCUSATE SODIUM 100 MG (COLACE) CAP PO SCH ×2 (08:54→20:17)
--- NOTE | 2021-10-27 08:57 | Physical Therapy Daily Note ---
PT Daily Note-Current Subjective Pt. and sister present and agree to education regarding pt function mob for DC planning. PT OT present for family education 30m Pt. denies pain, c/o fatigue with Rx Pain Location: No Pain Reported Section J - Health Conditions 1. Rarely or not at all 2. Occasionally 3. Frequently 4. Almost constantly 8. Unable to answer Pain Effect on Sleep: 0 Pain Interference with Therapy: 0 Pain Interference w/Day-to-Day: 2 Mental Status Patient Orientation: Normal For Age Attachments: NG Tube, Bassett Catheter, Other-See Comments (back brace) Transfers SCALE: Activities may be completed with or without assistive devices. 8-Zzxyrusktt-llzgqdj completes the activity by him/herself with no assistance from a helper. 5-Set-up or Clean-up Assistance-helper sets up or cleans up; patient completes activity. [place] assists only prior to or following the activity. 4-Supervision or Touching Assistance-helper provides verbal cues and/or touching/steadying and/or contact guard assistance as patient completes activity . Assistance may be provided throughout the activity or intermittently. 3-Partial/Moderate Assistance-helper does LESS THAN HALF the effort. [place] lifts, holds or supports trunk or limbs, but provides less than half the effort. 2-Substantial/Maximal Assistance-helper does MORE THAN HALF the effort. [place] lifts or holds trunk or limbs and provides more than half the effort. 0-Tbgfhklgk-wwozmo does ALL the effort. Patient does none of the effort to complete the activity. Or, the assistance of 2 or more helpers is required for the patient to complete the activity. If activity was not attempted, code reason: 7-Patient Refused. 9-Not Applicable-not attempted and the patient did not perform the activity before the current illness, exacerbation or injury. 10-Not Attempted due to Environmental Limitations-(lack of equipment, weather restraints, etc.). 88-Not Attempted due to Medical Conditions or Safety Concerns. Sit to Stand (QC): 3 Chair/Bbj-nl-Oaodc Xfer(QC): 3 height of seat influences pts ability to stand, Weight Bearing Right Lower Extremity: Right Full Weight Bearing Left Lower Extremity: Left Full Weight Bearing Gait Training Does the Patient Walk?: Yes Walk 10 feet (QC): 4 Walk 50 ft with 2 Turns(QC): 4 Walk 150 ft (QC): 4 Gait Persons Needed: 1 Gait Assistive Device: FWW w/c close behind with assist of 2nd person, pt fatigued and needed w/c x 2 during gait. NBOS, uneven step length, heavy wt bearing on FWW, laborious gait pattern Wheelchair Training Does the Pt Use a Wheelchair?: Yes Wheel 50 ft with 2 turns (QC): 4 Type of Wheelchair: Manual pt. is not able to move his LEs que as fast as his arms can propel him, however pt. is unable to remove leg rests indep. This HELPER MAINTENANCE CLEANING pursuing a way pt. can be indep in w.c mob as well as SPTs to initiate 1st level of indep mob Exercises Seated Therapy Exercises: Sit to stand, Long arc quads, Hip flexion Seated Reps: 12 NuStep Minutes: 10 NuStep Workload: 1 Treatments co Rx with OT for family education per sister availability [phone]. reviewed pts status and mobility and indep as well as sisters plans thus far. Pt and family hoping for a later DC date to accommodate pts needs with sister Assessment Current Status: Good Progress conts dependent for TRFs and safe gait PT Industrial Engineer Goals Industrial Engineer Goals PT Industrial Engineer Goals Time Frame: Nov 10, 2021 Roll Left & Right (QC): 6 Sit to Lying (QC): 6 Lying-Sitting on Side/Bed(QC): 6 Sit to Stand (QC): 6 Chair/Kfq-jg-Vwtfy Xfer(QC): 6 Toilet Transfer (QC): 6 Car Transfer (QC): 6 Does the Patient Walk: Yes Walk 10 feet (QC): 6 Walk 50ft with 2 Turns (QC): 6 Walk 150 ft (QC): 4 Walking 10ft on Uneven Surface: 6 1 Step (curb) (QC): 4 4 Steps (QC): 4 12 Steps (QC): 4 Picking up an Object (QC): 4 Wheel 50 feet with 2 turns (QC: 9 Wheel 150 feet: 9 PT Plan Treatment/Plan Treatment Plan: Continue Plan of Care Treatment Plan: Bed Mobility, Education, Functional Activity Xander, Functional Strength, Group Therapy, Gait, Safety, Therapeutic Exercise, Transfers Treatment Duration: Nov 10, 2021 Frequency: At least 5 of 7 days/Wk (IRF) Estimated Hrs Per Day: 1.5 hours per day Patient and/or Family Agrees t: Yes Safety Risks/Education Patient Education: Gait Training, Transfer Techniques, Correct Positioning, W/C Management, Reviewed Don/Doff Brace, Disease Process, Safety Issues Teaching Recipient: Patient, Family Teaching Methods: Demonstration, Discussion Response to Teaching: Verbalize Understanding, Return Demonstration, Reinforcement Needed Time/GCodes Time In: 730 Time Out: 900 Total Billed Treatment Time: 90 Total Billed Treatment 1,FA45m,GT15m,wc 15m,,EX15m ADALBERTO CARMONA HELPER MAINTENANCE CLEANING Oct 27, 2021 08:57
--- NOTE | 2021-10-27 09:27 | Progress Note - Urology ---
Progress Note-Urology Progress Notes/Assess & Plan Progress/Assessment & Plan TOV SATURDAY Final Diagnosis RETENTION HIPOLITO BOWENS MD Oct 27, 2021 09:27
--- NOTE | 2021-10-27 10:30 | Occupational Ther Daily Note ---
OT Current Status-Daily Note Subjective Pt alert sitting in bed. Pt agrees to therapy. Pt states pain 08/20. Mental Status/Objective Patient Orientation: Person, Place, Time, Situation Attachments: Other-See Comments (Back Brace) Acute change in mental status: 0 Inattention: 0 Disorganized thinkin Altered level of consciousness: 0 ADL-Treatment Initially, pt agrees to shower. Pt supine to EOB min A with HOB fully raised. Pt dependent to don shoes due to increased pain. Pt EOB to stand, due to increased pain, pt declines shower and requests to complete sponge bath with bath pack in bed. Pt min A in UB bathing. Pt dependent in LB cleanse. Pt min A to don UB clothing. Pt's increased pain is limiting the ability for pt to work on increasing independence with ADLs. After set up pt completed oral care by self. Therapy Code Descriptions/Definitions Functional [place] Measure: 0=Not Assessed/NA 4=Minimal Assistance 1=Total Assistance 5=Supervision or Setup 2=Maximal Assistance 6=Modified [place] 3=Moderate Assistance 7=Complete IndependenceSCALE: Activities may be completed with or without assistive devices. 1-Akapjowyug-dytqeww completes the activity by him/herself with no assistance from a helper. 5-Set-up or Clean-up Assistance-helper sets up or cleans up; patient completes activity. [place] assists only prior to or following the activity. 4-Supervision or Touching Assistance-helper provides verbal cues and/or touching/steadying and/or contact guard assistance as patient completes activity. Assistance may be provided throughout the activity or intermittently. 3-Partial/Moderate Assistance-helper does LESS THAN HALF the effort. [place] lifts, holds or supports trunk or limbs, but provides less than half the effort. 2-Substantial/Maximal Assistance-helper does MORE THAN HALF the effort. [place] lifts or holds trunk or limbs and provides more than half the effort. 7-Tttyumdnq-xokiqf does ALL the effort. Patient does none of the effort to complete the activity. Or, the assistance of 2 or more helpers is required for the patient to complete the activity. If activity was not attempted, code reason: 7-Patient Refused. 9-Not Applicable-not attempted and the patient did not perform the activity before the current illness, exacerbation or injury. 10-Not Attempted due to Environmental Limitations-(lack of equipment, weather restraints, etc.). 88-Not Attempted due to Medical Conditions or Safety Concerns. Other Treatment Pt completed fine motor/cognition task, with 2lb weights on wrists, to strengthen drapery sewer hand strength/pincher grasp for ADL's. Pt completed 3 B UE exercises with medium/heavy theraband, 3 sets 10 reps to strengthen B UE for daily functional tasks. Pt left lying in bed call light/phone in reach. All needs met in room. OT Short Term Goals Short Term Goals Time Frame: Nov 02, 2021 Toileting hygiene: 4 Shower/bathe self: 4 Lower body dressin Putting on/taking off footwear: 4 OT Radio Station Manager Goals Snf Goals Time Frame: Nov 17, 2021 Acute change in mental status: 0 Inattention: 0 Disorganized thinkin Altered level of consciousness: 0 Eating (QC): 6 Oral Hygiene (QC): 6 Toileting Hygiene (QC): 6 Shower/Bathe Self (QC): 5 Upper Body Dressing (QC): 6 Lower Body Dressing (QC): 6 On/Off Footwear (QC): 6 Additional Goals: 1-Demonstrate ADL Tasks, 2-Verbalize Understanding, 3- ImproveStrength/[place] 1=Demonstrate adherence to instructed precautions during ADL tasks. 2=Patient will verbalize/demonstrate understanding of assistive devices/modifications for ADL. 3=Patient will improve strength/tolerance for activity to enable patient to perform ADL's. OT Education/Plan Problem List/Assessment Assessment: Decreased Activ Tolerance, Decreased Safety Aware, Decreased UE Strength, Impaired Coordination, Impaired Funct Balance, Impaired Self-Care Skills Discharge Recommendations Plan/Recommendations: Continue POC Treatment Plan/Plan of Care Patient would benefit from OT for education, treatment and training to promote independence in ADL's, mobility, safety and/or upper extremity function for ADL's. Plan of Care: ADL Retraining, Functional Mobility, Group Exercise/Act as Ind, UE Funct Exercise/Act Treatment Duration: Nov 17, 2021 Frequency: At least 5 of 7 days/Wk (IRF) Estimated Hrs Per Day: 1.5 hours per day Agreement: Yes Rehab Potential: Fair Time/GCodes Start Time: 09:30 Stop Time: 10:30 Total Time Billed (hr/min): 60 Billed Treatment Time 1 visit ADL 2 (30 min) EX 2 (30 min) ASHER DRIVER [facility] Oct 27, 2021 10:30
--- NOTE | 2021-10-27 12:32 | PM&R Progress Note ---
Subjective HPI/CC On Admission Date Seen by Provider: Oct 27, 2021 Time Seen by Provider: 11:30 Subjective/Events-last exam 10/27/2021: No major issues Bassett cath remains in-dwelling after DC fail Urology will be needed in [place], [place] where he will go for skilled Sister at bedside and I answered all her questions 10/26/2021: No major issues Needs skilled care, can't take care of him too dependent Pain controlled 10/25/2021: Back pain continues No nausea reported No falls Slow recovery Catheter managed by Urology 10/24/2021: Doing well Improved transfers Bassett cath still in place No falls 10/23/2021: Doing well Pain controlled Bassett still in place Sleeping well 10/22/2021: Improved status Sleeping today Pain controlled No falls 10/21/2021: Improved status Pain controlled Bassett cath in place Reviewed Dr Zimmerman note BM regimen will be initiated 10/20/2021: Pt is doing pretty well Bassett catheter was placed at 12:30 AM Returned 1500 ccs Transfers are very slow Slow recovery expected Review of Systems Genitourinary: Retention Musculoskeletal: back pain Objective Exam Vital Signs Vital Signs Date Time Temp Pulse Resp B/P (MAP) Pulse Ox O2 Delivery O2 Flow Rate FiO2 10/27/21 21:00 97 Room Air 10/27/21 19:24 37.0 63 16 107/64 (78) Capillary Refill : General Appearance: No Apparent Distress, WD/WN, Chronically ill HEENT: PERRL/EOMI, Normal ENT Inspection, Pharynx Normal Neck: Full Range of Motion, Normal Inspection, Non Tender, Supple, Carotid Bruit Respiratory: Chest Non Tender, Lungs Clear, Normal Breath Sounds, No Accessory Muscle Use, No Respiratory Distress Cardiovascular: Regular Rate, Rhythm, No Gallop, No JVD, No Murmur, Normal Peripheral Pulses Gastrointestinal: Normal Bowel Sounds, No Organomegaly, No Pulsatile Mass, Non Tender, Soft Back: CVA Tenderness (L), CVA Tenderness (R), Decreased Range of Motion, Muscle Spasm, Vertebral Tenderness Extremity: Normal Capillary Refill, Normal Inspection, Normal Range of Motion (limited due to back pain), Non Tender, No Calf Tenderness, Pedal Edema Neurologic/Psychiatric: Alert, Oriented x3, No Motor/Sensory Deficits, Normal Mood/Affect, 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 FIM Transfers Therapy Code Descriptions/Definitions Functional [place] Measure: 0=Not Assessed/NA 4=Minimal Assistance 1=Total Assistance 5=Supervision or Setup 2=Maximal Assistance 6=Modified [place] 3=Moderate Assistance 7=Complete IndependenceSCALE: Activities may be completed with or without assistive devices. 7-Fehsyrqjsh-nzutbtw completes the activity by him/herself with no assistance from a helper. 5-Set-up or Clean-up Assistance-helper sets up or cleans up; patient completes activity. [place] assists only prior to or following the activity. 4-Supervision or Touching Assistance-helper provides verbal cues and/or touching/steadying and/or contact guard assistance as patient completes activity. Assistance may be provided throughout the activity or intermittently. 3-Partial/Moderate Assistance-helper does LESS THAN HALF the effort. [place] lifts, holds or supports trunk or limbs, but provides less than half the effort. 2-Substantial/Maximal Assistance-helper does MORE THAN HALF the effort. [place] lifts or holds trunk or limbs and provides more than half the effort. 4-Ytfjzykfx-prwtpb does ALL the effort. Patient does none of the effort to complete the activity. Or, the assistance of 2 or more helpers is required for the patient to complete the activity. If activity was not attempted, code reason: 7-Patient Refused. 9-Not Applicable-not attempted and the patient did not perform the activity before the current illness, exacerbation or injury. 10-Not Attempted due to Environmental Limitations-(lack of equipment, weather restraints, etc.). 88-Not Attempted due to Medical Conditions or Safety Concerns. Roll Left to Right (QC): 3 Sit to Lying (QC): 2 Sit to Stand (QC): 3 Chair/Mil-ab-Feggi Xfer(QC): 3 Car Transfer (QC): 2 Gait Training Does the Patient Walk?: Yes Distance: 275' Walk 10 feet (QC): 4 Walk 50 ft with 2 Turns(QC): 4 Walk 150 ft (QC): 4 Walking 10ft/uneven surface-QC: 3 Gait Persons Needed: 1 Gait Assistive Device: FWW Wheelchair Training Does the Pt Use a Wheelchair?: Yes Wheel 50 ft with 2 turns (QC): 4 Wheel 150 ft (QC): 4 Type of Wheelchair: Manual Stair Training #of Steps: 1 1 Step (curb) (QC): 2 4 Steps (QC): 88 12 Steps (QC): 88 Balance Picking up an Object (QC): 88 ADL-Treatment Eating (QC): 6 Oral Hygiene (QC): 5 (Set up) Bathing Location: L Arm, R Arm, L Upper Leg, R Upper Leg, L Lower Leg (including foot), R Lower Leg (including foot), Chest, Abdomen, Buttocks, Perineal Area Shower/Bathe Self (QC): 6 Upper Body Dressing (QC): 5 Lower Body Dressing (QC): 7 On/Off Footwear (QC): 3 (Min A) Toileting Hygiene (QC): 2 Toilet Transfer (QC): 3 Assessment/Plan Assessment and Plan Assess & Plan/Chief Complaint Assessment: s/p lumbar spine surgery due to myelopathy Dr Smith Neuropathy h/o urinary retention last admit [address] due to urinary retention and consulted Dr Zimmerman now back in after failed trial Plan: PT OT Monitor urinary retention Monitor closely 10/20/2021: Bassett catheter Monitor closely 10/21/2021: Bassett cath Appreciate Dr Zimmerman 10/22/2021: Pain control No issues 10/23/2021: DC catheter soon 10/24/2021: Dr Zimmerman appreciated No falls 10/25/2021: No falls Monitor closely 10/26/2021: Monitor pain Needs SNF 10/27/2021: SNF in [place], [place] with sister (1) S/P lumbar fusion (2) Myopathy (3) Bassett catheter in place (4) Neuropathy (5) Urinary retention KEVIN FOX DO Oct 27, 2021 12:32
[2021-10-27] MEDS ORDERED: FLU QUAD HIGH DOSE 240 MCG/0.7 ML 2022-23 (FLUZONE) IM ONE (14:00)
[2021-10-27 19:24] VITALS: BP 107/64
[2021-10-28] MEDS: CYCLOBENZAPRINE 10 MG (FLEXERIL) TAB PO PRN ×3 (00:44→19:20)
[2021-10-28] MEDS: BETHANECHOL 25 MG (URECHOLINE) TAB PO SCH ×4 (06:07→20:58)
[2021-10-28] MEDS: MULTIVIT W/MINERALS TAB (THERAGRAN M) PO SCH (06:08)
--- NOTE | 2021-10-28 07:13 | PM&R Progress Note ---
Subjective HPI/CC On Admission Date Seen by Provider: Oct 28, 2021 Time Seen by Provider: 11:00 Subjective/Events-last exam 10/28/2021: No major issues Flu vaccine given yesterday Does not want the Novovax he wants the bivalent Moderna so will need to DC Novovax and speak to pharmacy Saturday10/27/2021: No major issues Bassett cath remains in-dwelling after DC fail Urology will be needed in [place], [place] where he will go for skilled Sister at bedside and I answered all her questions 10/26/2021: No major issues Needs skilled care, can't take care of him too dependent Pain controlled 10/25/2021: Back pain continues No nausea reported No falls Slow recovery Catheter managed by Urology 10/24/2021: Doing well Improved transfers Bassett cath still in place No falls 10/23/2021: Doing well Pain controlled Bassett still in place Sleeping well 10/22/2021: Improved status Sleeping today Pain controlled No falls 10/21/2021: Improved status Pain controlled Bassett cath in place Reviewed Dr Zimmerman note BM regimen will be initiated 10/20/2021: Pt is doing pretty well Bassett catheter was placed at 12:30 AM Returned 1500 ccs Transfers are very slow Slow recovery expected Review of Systems General: Fatigue, Malaise Objective Exam Vital Signs Vital Signs Date Time Temp Pulse Resp B/P (MAP) Pulse Ox O2 Delivery O2 Flow Rate FiO2 10/28/21 07:30 36.8 62 16 108/66 (80) 95 Room Air Capillary Refill : General Appearance: No Apparent Distress, WD/WN, Chronically ill HEENT: PERRL/EOMI, Normal ENT Inspection, Pharynx Normal Neck: Full Range of Motion, Normal Inspection, Non Tender, Supple, Carotid Bruit Respiratory: Chest Non Tender, Lungs Clear, Normal Breath Sounds, No Accessory Muscle Use, No Respiratory Distress Cardiovascular: Regular Rate, Rhythm, No Gallop, No JVD, No Murmur, Normal Peripheral Pulses Gastrointestinal: Normal Bowel Sounds, No Organomegaly, No Pulsatile Mass, Non Tender, Soft Back: CVA Tenderness (L), CVA Tenderness (R), Decreased Range of Motion, Muscle Spasm, Vertebral Tenderness Extremity: Normal Capillary Refill, Normal Inspection, Normal Range of Motion (limited due to back pain), Non Tender, No Calf Tenderness, Pedal Edema Neurologic/Psychiatric: Alert, Oriented x3, No Motor/Sensory Deficits, Normal 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 FIM Transfers Therapy Code Descriptions/Definitions Functional [place] Measure: 0=Not Assessed/NA 4=Minimal Assistance 1=Total Assistance 5=Supervision or Setup 2=Maximal Assistance 6=Modified [place] 3=Moderate Assistance 7=Complete IndependenceSCALE: Activities may be completed with or without assistive devices. 5-Dmbcdukpal-kgdhapn completes the activity by him/herself with no assistance from a helper. 5-Set-up or Clean-up Assistance-helper sets up or cleans up; patient completes activity. [place] assists only prior to or following the activity. 4-Supervision or Touching Assistance-helper provides verbal cues and/or touching/steadying and/or contact guard assistance as patient completes activity. Assistance may be provided throughout the activity or intermittently. 3-Partial/Moderate Assistance-helper does LESS THAN HALF the effort. [place] lifts, holds or supports trunk or limbs, but provides less than half the effort. 2-Substantial/Maximal Assistance-helper does MORE THAN HALF the effort. [place] lifts or holds trunk or limbs and provides more than half the effort. 6-Jefygjwvk-movwzo does ALL the effort. Patient does none of the effort to complete the activity. Or, the assistance of 2 or more helpers is required for the patient to complete the activity. If activity was not attempted, code reason: 7-Patient Refused. 9-Not Applicable-not attempted and the patient did not perform the activity before the current illness, exacerbation or injury. 10-Not Attempted due to Environmental Limitations-(lack of equipment, weather restraints, etc.). 88-Not Attempted due to Medical Conditions or Safety Concerns. Roll Left to Right (QC): 3 Sit to Lying (QC): 2 Sit to Stand (QC): 3 Chair/Asr-ao-Ewlgo Xfer(QC): 3 Car Transfer (QC): 2 Gait Training Does the Patient Walk?: Yes Distance: 275' Walk 10 feet (QC): 4 Walk 50 ft with 2 Turns(QC): 4 Walk 150 ft (QC): 4 Walking 10ft/uneven surface-QC: 3 Gait Persons Needed: 1 Gait Assistive Device: FWW Wheelchair Training Does the Pt Use a Wheelchair?: Yes Wheel 50 ft with 2 turns (QC): 4 Wheel 150 ft (QC): 4 Type of Wheelchair: Manual Stair Training #of Steps: 1 1 Step (curb) (QC): 2 4 Steps (QC): 88 12 Steps (QC): 88 Balance Picking up an Object (QC): 88 ADL-Treatment Eating (QC): 6 Bathing Location: L Arm, R Arm, L Upper Leg, R Upper Leg, L Lower Leg (including foot), R Lower Leg (including foot), Chest, Abdomen, Buttocks, Perineal Area Shower/Bathe Self (QC): 6 Lower Body Dressing (QC): 7 On/Off Footwear (QC): 3 (Min A) Toileting Hygiene (QC): 2 Toilet Transfer (QC): 3 Assessment/Plan Assessment and Plan Assess & Plan/Chief Complaint Assessment: s/p lumbar spine surgery due to myelopathy Dr Smith Neuropathy h/o urinary retention last admit [address] due to urinary retention and consulted Dr Zimmerman now back in after failed trial Plan: PT OT Monitor urinary retention Monitor closely 10/20/2021: Bassett catheter Monitor closely 10/21/2021: Bassett cath Appreciate Dr Zimmerman 10/22/2021: Pain control No issues 10/23/2021: DC catheter soon 10/24/2021: Dr Zimmerman appreciated No falls 10/25/2021: No falls Monitor closely 10/26/2021: Monitor pain Needs SNF 10/27/2021: SNF in [place], [place] with sister 10/28/2021: Flu vaccine done DC Novovax (1) S/P lumbar fusion (2) Myopathy (3) Bassett catheter in place (4) Neuropathy (5) Urinary retention KEVIN FOX DO Oct 28, 2021 07:13
[2021-10-28 07:30] VITALS: BP 108/66
[2021-10-28] MEDS: TAMSULOSIN 0.4 MG (FLOMAX) CAP PO SCH ×2 (08:40→20:59)
[2021-10-28] MEDS: GABAPENTIN 400 MG (NEURONTIN) CAP PO SCH ×3 (08:40→20:58)
[2021-10-28] MEDS: SENNA W/DOCUSATE (SENOKOT S) TABLET PO SCH ×2 (09:58→21:01)
[2021-10-28] MEDS: polyethylene glycoL POWDER 17 GM (MIRALAX) PACK PO SCH ×2 (09:58→21:01)
[2021-10-28] MEDS: DOCUSATE SODIUM 100 MG (COLACE) CAP PO SCH ×2 (09:58→21:01)
--- NOTE | 2021-10-28 12:22 | Physical Therapy Daily Note ---
PT Daily Note-Current Subjective Pt is laying Supine in bed upon arrival. Pt agrees to PT. Pain Numeric Pain Scale: 7 Location: Lower Location Body Site: Back Pain Description: Ache, Tightness Section J - Health Conditions 1. Rarely or not at all 2. Occasionally 3. Frequently 4. Almost constantly 8. Unable to answer Pain Effect on Sleep: 0 Pain Interference with Therapy: 0 Pain Interference w/Day-to-Day: 2 Mental Status Patient Orientation: Person, Place, Situation Attachments: Other-See Comments (TLSO Brace) Transfers SCALE: Activities may be completed with or without assistive devices. 5-Ssbsedkxgz-qzueldw completes the activity by him/herself with no assistance from a helper. 5-Set-up or Clean-up Assistance-helper sets up or cleans up; patient completes activity. [place] assists only prior to or following the activity. 4-Supervision or Touching Assistance-helper provides verbal cues and/or touching/steadying and/or contact guard assistance as patient completes activity. Assistance may be provided throughout the activity or intermittently. 3-Partial/Moderate Assistance-helper does LESS THAN HALF the effort. [place] lifts, holds or supports trunk or limbs, but provides less than half the effort. 2-Substantial/Maximal Assistance-helper does MORE THAN HALF the effort. [place] lifts or holds trunk or limbs and provides more than half the effort. 7-Xubhwesqa-pnrpwx does ALL the effort. Patient does none of the effort to complete the activity. Or, the assistance of 2 or more helpers is required for the patient to complete the activity. If activity was not attempted, code reason: 7-Patient Refused. 9-Not Applicable-not attempted and the patient did not perform the activity before the current illness, exacerbation or injury. 10-Not Attempted due to Environmental Limitations-(lack of equipment, weather restraints, etc.). 88-Not Attempted due to Medical Conditions or Safety Concerns. Sit to Lying (QC): 2 Lying to Sitting/Side of Bed(Q: 3 Sit to Stand (QC): 5 Weight Bearing Right Lower Extremity: Right Full Weight Bearing Left Lower Extremity: Left Full Weight Bearing Gait Training Does the Patient Walk?: Yes Distance: 125' Walk 10 feet (QC): 4 Walk 50 ft with 2 Turns(QC): 4 Gait Persons Needed: 1 Gait Assistive Device: FWW NBOS as R foot comes forward with advancing. Treatments TF from Supine to EOB to standing after donning TLSO Brace and shoes. Pt amb. in hallway, taking a couple short standing RB as needed. Pt returns to room to rest in bed. Pt needs assistance to lift B LE into bed. All needs met, call light in hand. Assessment Current Status: Good Progress Pain at times limits movement. 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 Snf Goals PT Snf Goals Time Frame: Nov 10, 2021 Roll Left & Right (QC): 6 Sit to Lying (QC): 6 Lying-Sitting on Side/Bed(QC): 6 Sit to Stand (QC): 6 Chair/Mkw-ig-Nebss Xfer(QC): 6 Toilet Transfer (QC): 6 Car Transfer (QC): 6 Does the Patient Walk: Yes Walk 10 feet (QC): 6 Walk 50ft with 2 Turns (QC): 6 Walk 150 ft (QC): 4 Walking 10ft on Uneven Surface: 6 1 Step (curb) (QC): 4 4 Steps (QC): 4 12 Steps (QC): 4 Picking up an Object (QC): 4 Wheel 50 feet with 2 turns (QC: 9 Wheel 150 feet: 9 PT Plan Problem List Problem List: Activity Tolerance, Functional Strength, Gait, Transfer Treatment/Plan Treatment Plan: Continue Plan of Care Treatment Plan: Bed Mobility, Education, Functional Activity X[place], Functional Strength, Group Therapy, Gait, Safety, Therapeutic Exercise, Transfers Treatment Duration: Nov 10, 2021 Frequency: At least 5 of 7 days/Wk (IRF) Estimated Hrs Per Day: 1.5 hours per day Patient and/or Family Agrees t: Yes Safety Risks/Education Patient Education: Gait Training, Transfer Techniques, Correct Positioning, Safety Issues Teaching Recipient: Patient Teaching Methods: Discussion Response to Teaching: Verbalize Understanding Time/GCodes Time In: 1050 Time Out: 1115 Total Billed Treatment Time: 25 Total Billed Treatment 1, FA (10m) & GT (15m) SARTHAK ESCOBEDO [employer] Oct 28, 2021 12:22
[2021-10-28 20:00] VITALS: BP 106/55
[2021-10-29] MEDS: MULTIVIT W/MINERALS TAB (THERAGRAN M) PO SCH (06:15)
[2021-10-29] MEDS: BETHANECHOL 25 MG (URECHOLINE) TAB PO SCH ×4 (06:16→21:31)
[2021-10-29] MEDS: CYCLOBENZAPRINE 10 MG (FLEXERIL) TAB PO PRN ×2 (06:16→15:53)
[2021-10-29 07:30] VITALS: BP 107/66
[2021-10-29] MEDS: TAMSULOSIN 0.4 MG (FLOMAX) CAP PO SCH ×2 (08:06→21:31)
[2021-10-29] MEDS: SENNA W/DOCUSATE (SENOKOT S) TABLET PO SCH ×2 (08:07→21:33)
[2021-10-29] MEDS: GABAPENTIN 400 MG (NEURONTIN) CAP PO SCH ×3 (08:07→21:31)
[2021-10-29] MEDS: DOCUSATE SODIUM 100 MG (COLACE) CAP PO SCH ×2 (08:07→21:32)
--- NOTE | 2021-10-29 08:35 | PM&R Progress Note ---
Subjective HPI/CC On Admission Date Seen by Provider: Oct 29, 2021 Time Seen by Provider: 16:00 Subjective/Events-last exam 10/29/2021: Doing well Improved status No falls Pain improved 10/28/2021: No major issues Flu vaccine given yesterday Does not want the Novovax he wants the bivalent Moderna so will need to DC Novovax and speak to pharmacy Saturday10/27/2021: No major issues Bassett cath remains in-dwelling after DC fail Urology will be needed in [place], [place] where he will go for skilled Sister at bedside and I answered all her questions 10/26/2021: No major issues Needs skilled care, can't take care of him too dependent Pain controlled 10/25/2021: Back pain continues No nausea reported No falls Slow recovery Catheter managed by Urology 10/24/2021: Doing well Improved transfers Bassett cath still in place No falls 10/23/2021: Doing well Pain controlled Bassett still in place Sleeping well 10/22/2021: Improved status Sleeping today Pain controlled No falls 10/21/2021: Improved status Pain controlled Bassett cath in place Reviewed Dr Zimmerman note BM regimen will be initiated 10/20/2021: Pt is doing pretty well Bassett catheter was placed at 12:30 AM Returned 1500 ccs Transfers are very slow Slow recovery expected Review of Systems General: Fatigue, Malaise Musculoskeletal: back pain Objective Exam Vital Signs Vital Signs Date Time Temp Pulse Resp B/P (MAP) Pulse Ox O2 Delivery O2 Flow Rate FiO2 10/29/21 21:30 93 Room Air 10/29/21 20:07 37.4 63 18 115/66 (82) Capillary Refill : General Appearance: No Apparent Distress, WD/WN, Chronically ill HEENT: PERRL/EOMI, Normal ENT Inspection, Pharynx Normal Neck: Full Range of Motion, Normal Inspection, Non Tender, Supple, Carotid Bruit Respiratory: Chest Non Tender, Lungs Clear, Normal Breath Sounds, No Accessory Muscle Use, No Respiratory Distress Cardiovascular: Regular Rate, Rhythm, No Gallop, No JVD, No Murmur, Normal Peripheral Pulses Gastrointestinal: Normal Bowel Sounds, No Organomegaly, No Pulsatile Mass, Non Tender, Soft Back: CVA Tenderness (L), CVA Tenderness (R), Decreased Range of Motion, Muscle Spasm, Vertebral Tenderness Extremity: Normal Capillary Refill, Normal Inspection, Normal Range of Motion (limited due to back pain), Non Tender, No Calf Tenderness, Pedal Edema Neurologic/Psychiatric: Alert, Oriented x3, No Motor/Sensory Deficits, Normal 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 FIM Transfers Therapy Code Descriptions/Definitions Functional [place] Measure: 0=Not Assessed/NA 4=Minimal Assistance 1=Total Assistance 5=Supervision or Setup 2=Maximal Assistance 6=Modified [place] 3=Moderate Assistance 7=Complete IndependenceSCALE: Activities may be completed with or without assistive devices. 5-Eegljjveby-pwcsice completes the activity by him/herself with no assistance from a helper. 5-Set-up or Clean-up Assistance-helper sets up or cleans up; patient completes activity. [place] assists only prior to or following the activity. 4-Supervision or Touching Assistance-helper provides verbal cues and/or touching/steadying and/or contact guard assistance as patient completes activity. Assistance may be provided throughout the activity or intermittently. 3-Partial/Moderate Assistance-helper does LESS THAN HALF the effort. [place] lifts, holds or supports trunk or limbs, but provides less than half the effort. 2-Substantial/Maximal Assistance-helper does MORE THAN HALF the effort. [place] lifts or holds trunk or limbs and provides more than half the effort. 0-Rhmqqweyo-grgwmw does ALL the effort. Patient does none of the effort to comp lete the activity. Or, the assistance of 2 or more helpers is required for the patient to complete the activity. If activity was not attempted, code reason: 7-Patient Refused. 9-Not Applicable-not attempted and the patient did not perform the activity before the current illness, exacerbation or injury. 10-Not Attempted due to Environmental Limitations-(lack of equipment, weather restraints, etc.). 88-Not Attempted due to Medical Conditions or Safety Concerns. Roll Left to Right (QC): 3 Sit to Lying (QC): 2 Sit to Stand (QC): 5 Chair/Jzv-sy-Nollh Xfer(QC): 3 Car Transfer (QC): 2 Gait Training Does the Patient Walk?: Yes Distance: 125' Walk 10 feet (QC): 4 Walk 50 ft with 2 Turns(QC): 4 Walk 150 ft (QC): 4 Walking 10ft/uneven surface-QC: 3 Gait Persons Needed: 1 Gait Assistive Device: FWW Wheelchair Training Does the Pt Use a Wheelchair?: Yes Wheel 50 ft with 2 turns (QC): 4 Wheel 150 ft (QC): 4 Type of Wheelchair: Manual Stair Training #of Steps: 1 1 Step (curb) (QC): 2 4 Steps (QC): 88 12 Steps (QC): 88 Balance Picking up an Object (QC): 88 ADL-Treatment Eating (QC): 6 Bathing Location: L Arm, R Arm, L Upper Leg, R Upper Leg, L Lower Leg (including foot), R Lower Leg (including foot), Chest, Abdomen, Buttocks, Perineal Area Shower/Bathe Self (QC): 6 Lower Body Dressing (QC): 7 On/Off Footwear (QC): 3 (Min A) Toileting Hygiene (QC): 2 Toilet Transfer (QC): 3 Assessment/Plan Assessment and Plan Assess & Plan/Chief Complaint Assessment: s/p lumbar spine surgery due to myelopathy Dr Smith Neuropathy h/o urinary retention last admit [address] due to urinary retention and consulted Dr Zimmerman now back in after failed trial Plan: PT OT Monitor urinary retention Monitor closely 10/20/2021: Bassett catheter Monitor closely 10/21/2021: Bassett cath Appreciate Dr Zimmerman 10/22/2021: Pain control No issues 10/23/2021: DC catheter soon 10/24/2021: Dr Zimmerman appreciated No falls 10/25/2021: No falls Monitor closely 10/26/2021: Monitor pain Needs SNF 10/27/2021: SNF in [place], [place] with sister 10/28/2021: Flu vaccine done DC Novovax 10/29/2021: SN[facility] [place] (1) S/P lumbar fusion (2) Myopathy (3) Bassett catheter in place (4) Neuropathy (5) Urinary retention KEVIN FOX DO Oct 29, 2021 08:35
[2021-10-29] MEDS ORDERED: [UNRECOGNIZED DRUG - OTHER] IM ONE (10:00)
[2021-10-29] MEDS: polyethylene glycoL POWDER 17 GM (MIRALAX) PACK PO SCH ×2 (11:13→21:32)
[2021-10-29 20:07] VITALS: BP 115/66
[2021-10-30] MEDS: CYCLOBENZAPRINE 10 MG (FLEXERIL) TAB PO PRN ×2 (03:29→14:20)
[2021-10-30 05:49] LABS: BASOPHILS # (AUTO) 0.1 10^3/uL (0.0-0.1); BASOPHILS % (AUTO) 2 % (0-10); EOSINOPHILS # (AUTO) 0.6 10^3/uL (0.0-0.3); EOSINOPHILS % (AUTO) 8 % (0-10); HEMATOCRIT 33 % (40-54); HEMOGLOBIN 10.4 g/dL (13.3-17.7); LYMPHOCYTES # (AUTO) 1.7 10^3/uL (1.0-4.0); LYMPHOCYTES % (AUTO) 22 % (12-44); MEAN CORPUSCULAR HEMOGLOBIN 30 pg (25-34); MEAN CORPUSCULAR HGB CONC 32 g/dL (32-36); MEAN CORPUSCULAR VOLUME 95 fL (80-99); MEAN PLATELET VOLUME 9.6 fL (9.0-12.2); MONOCYTES # (AUTO) 1.2 10^3/uL (0.0-1.0); MONOCYTES % (AUTO) 15 % (0-12); NEUTROPHILS # (AUTO) 4.1 10^3/uL (1.8-7.8); NEUTROPHILS % (AUTO) 53 % (42-75); PLATELET COUNT 414 10^3/uL (130-400); WHITE BLOOD COUNT 7.8 10^3/uL (4.3-11.0)
[2021-10-30 06:14] LABS: BILIRUBIN,TOTAL 0.4 MG/DL (0.1-1.0); CALCIUM 8.6 MG/DL (8.5-10.1); CREATININE SERUM 0.77 MG/DL (0.60-1.30); TOTAL PROTEIN 5.8 GM/DL (6.4-8.2)
[2021-10-30] MEDS: MULTIVIT W/MINERALS TAB (THERAGRAN M) PO SCH (06:27)
[2021-10-30] MEDS: BETHANECHOL 25 MG (URECHOLINE) TAB PO SCH ×4 (06:27→20:04)
[2021-10-30 07:27] VITALS: BP 109/56
[2021-10-30] MEDS: GABAPENTIN 400 MG (NEURONTIN) CAP PO SCH ×3 (07:55→20:04)
[2021-10-30] MEDS: TAMSULOSIN 0.4 MG (FLOMAX) CAP PO SCH ×2 (07:55→20:04)
[2021-10-30] MEDS: DOCUSATE SODIUM 100 MG (COLACE) CAP PO SCH ×2 (08:42→20:25)
[2021-10-30] MEDS: SENNA W/DOCUSATE (SENOKOT S) TABLET PO SCH ×2 (08:42→20:25)
[2021-10-30] MEDS: polyethylene glycoL POWDER 17 GM (MIRALAX) PACK PO SCH ×2 (08:42→20:25)
[2021-10-30] MEDS: ONDANSETRON 4 MG (ZOFRAN) ORAL DISSOLVE TAB PO PRN (09:33)
--- NOTE | 2021-10-30 09:53 | Physical Therapy Daily Note ---
PT Daily Note-Current Subjective Patient in bed pre tx, agrees to PT, has 8/10 back pain. Patient needs to get dressed and states he has to have a BM. Patient states he has already had pain meds. Patient also states he is nauseated, nurse notified and she gave him meds during tx. Pain Section J - Health Conditions 1. Rarely or not at all 2. Occasionally 3. Frequently 4. Almost constantly 8. Unable to answer Pain Effect on Sleep: 3 Pain Interference with Therapy: 4 Pain Interference w/Day-to-Day: 4 Appearance Patient in recliner post tx with nurse call, phone, tray, all needs met. Mental Status Patient Orientation: Person, Place, Situation back brace Transfers SCALE: Activities may be completed with or without assistive devices. 8-Zuajsuuaoq-gjghnfz completes the activity by him/herself with no assistance from a helper. 5-Set-up or Clean-up Assistance-helper sets up or cleans up; patient completes activity. [place] assists only prior to or following the activity. 4-Supervision or Touching Assistance-helper provides verbal cues and/or touching/steadying and/or contact guard assistance as patient completes activity. Assistance may be provided throughout the activity or intermittently. 3-Partial/Moderate Assistance-helper does LESS THAN HALF the effort. [place] lifts, holds or supports trunk or limbs, but provides less than half the effort. 2-Substantial/Maximal Assistance-helper does MORE THAN HALF the effort. [place] l ifts or holds trunk or limbs and provides more than half the effort. 6-Mjbwjsgze-fwrbqo does ALL the effort. Patient does none of the effort to complete the activity. Or, the assistance of 2 or more helpers is required for the patient to complete the activity. If activity was not attempted, code reason: 7-Patient Refused. 9-Not Applicable-not attempted and the patient did not perform the activity before the current illness, exacerbation or injury. 10-Not Attempted due to Environmental Limitations-(lack of equipment, weather restraints, etc.). 88-Not Attempted due to Medical Conditions or Safety Concerns. Roll Left & Right (QC): 6 Lying to Sitting/Side of Bed(Q: 3 Sit to Stand (QC): 3 Chair/Abc-ex-Xvlhv Xfer(QC): 4 Toilet Transfer (QC): 4 Patient sits to the side of the bed with min assist, puts on shirt, brace donned and he transfers (min assist sit to stand) to commode, when done therapist wipes but there is nothing there, patient states he mostly had gas. Assist patient pull his pants up and he ambulates. Weight Bearing Right Lower Extremity: Right Full Weight Bearing Left Lower Extremity: Left Full Weight Bearing Gait Training Distance: 120'x2 Walk 10 feet (QC): 4 Walk 50 ft with 2 Turns(QC): 4 Gait Persons Needed: 1 Gait Assistive Device: FWW slow, antalgic, unsteady but no LOB, unstable and weak hips bilaterally Exercises NuStep Minutes: 15 NuStep Workload: 1 (no resistance to comply with restrictions) Treatments bed mobility and transfers, ambulation, functional strengthening, dressing, toileting Assessment Current Status: Fair Progress pain interfered with tx less today PT Dairy Equipment Specialist Goals Prison Goals PT Dairy Equipment Specialist Goals Time Frame: Nov 10, 2021 Roll Left & Right (QC): 6 Sit to Lying (QC): 6 Lying-Sitting on Side/Bed(QC): 6 Sit to Stand (QC): 6 Chair/Pdn-kq-Gjgwe Xfer(QC): 6 Toilet Transfer (QC): 6 Car Transfer (QC): 6 Does the Patient Walk: Yes Walk 10 feet (QC): 6 Walk 50ft with 2 Turns (QC): 6 Walk 150 ft (QC): 4 Walking 10ft on Uneven Surface: 6 1 Step (curb) (QC): 4 4 Steps (QC): 4 12 Steps (QC): 4 Picking up an Object (QC): 4 Wheel 50 feet with 2 turns (QC: 9 Wheel 150 feet: 9 PT Plan Problem List Problem List: Activity Tolerance, Functional Strength, Safety, Balance, Gait, Transfer, Bed Mobility, ROM Treatment/Plan Treatment Plan: Continue Plan of Care Treatment Plan: Bed Mobility, Education, Functional Activity Xander, Functional Strength, Group Therapy, Gait, Safety, Therapeutic Exercise, Transfers Treatment Duration: Nov 10, 2021 Frequency: At least 5 of 7 days/Wk (IRF) Estimated Hrs Per Day: 1.5 hours per day Patient and/or Family Agrees t: Yes Safety Risks/Education Patient Education: Gait Training, Transfer Techniques, Correct Positioning, Safety Issues Teaching Recipient: Patient Teaching Methods: Demonstration, Discussion Response to Teaching: Reinforcement Needed Time/GCodes Time In: 0900 Time Out: 1000 Total Billed Treatment Time: 60 Total Billed Treatment 1 visit EX 15' FA 45' IRENE MARTIN PT Oct 30, 2021 09:53
--- NOTE | 2021-10-30 11:04 | PM&R Progress Note ---
Subjective HPI/CC On Admission Date Seen by Provider: Oct 30, 2021 Time Seen by Provider: 09:00 Subjective/Events-last exam 10/30/2021: Pt is doing well Bowels moved this morning No falls Improved status 10/29/2021: Doing well Improved status No falls Pain improved 10/28/2021: No major issues Flu vaccine given yesterday Does not want the Novovax he wants the bivalent Moderna so will need to DC Novovax and speak to pharmacy Saturday10/27/2021: No major issues Bassett cath remains in-dwelling after DC fail Urology will be needed in [place], [place] where he will go for skilled Sister at bedside and I answered all her questions 10/26/2021: No major issues Needs skilled care, can't take care of him too dependent Pain controlled 10/25/2021: Back pain continues No nausea reported No falls Slow recovery Catheter managed by Urology 10/24/2021: Doing well Improved transfers Bassett cath still in place No falls 10/23/2021: Doing well Pain controlled Bassett still in place Sleeping well 10/22/2021: Improved status Sleeping today Pain controlled No falls 10/21/2021: Improved status Pain controlled Bassett cath in place Reviewed Dr Zimmerman note BM regimen will be initiated 10/20/2021: Pt is doing pretty well Bassett catheter was placed at 12:30 AM Returned 1500 ccs Transfers are very slow Slow recovery expected Review of Systems General: Fatigue, Malaise Objective Exam Vital Signs Vital Signs Date Time Temp Pulse Resp B/P (MAP) Pulse Ox O2 Delivery O2 Flow Rate FiO2 10/30/21 20:11 37.0 63 16 114/67 (83) 95 Room Air Capillary Refill : General Appearance: No Apparent Distress, WD/WN, Chronically ill HEENT: PERRL/EOMI, Normal ENT Inspection, Pharynx Normal Neck: Full Range of Motion, Normal Inspection, Non Tender, Supple, Carotid Bruit Respiratory: Chest Non Tender, Lungs Clear, Normal Breath Sounds, No Accessory Muscle Use, No Respiratory Distress Cardiovascular: Regular Rate, Rhythm, No Gallop, No JVD, No Murmur, Normal Peripheral Pulses Gastrointestinal: Normal Bowel Sounds, No Organomegaly, No Pulsatile Mass, Non Tender, Soft Back: CVA Tenderness (L), CVA Tenderness (R), Decreased Range of Motion, Muscle Spasm, Vertebral Tenderness Extremity: Normal Capillary Refill, Normal Inspection, Normal Range of Motion (limited due to back pain), Non Tender, No Calf Tenderness, Pedal Edema Neurologic/Psychiatric: Alert, Oriented x3, No Motor/Sensory Deficits, Normal Mood/Affect, forensic scientist II-XII Norm as Tested, Abnormal Gait, Motor Weakness (lower extremities 4/5) Skin: Normal Color, Warm/Dry Lymphatic: No Adenopathy Results/Procedures Lab Laboratory Tests 10/30/21 05:30 Patient resulted labs reviewed. FIM Transfers Therapy Code Descriptions/Definitions Functional [place] Measure: 0=Not Assessed/NA 4=Minimal Assistance 1=Total Assistance 5=Supervision or Setup 2=Maximal Assistance 6=Modified [place] 3=Moderate Assistance 7=Complete IndependenceSCALE: Activities may be completed with or without assistive devices. 8-Rxpscwwsnr-tdmakjh completes the activity by him/herself with no assistance from a helper. 5-Set-up or Clean-up Assistance-helper sets up or cleans up; patient completes activity. [place] assists only prior to or following the activity. 4-Supervision or Touching Assistance-helper provides verbal cues and/or touching/steadying and/or contact guard assistance as patient completes activity. Assistance may be provided throughout the activity or intermittently. 3-Partial/Moderate Assistance-helper does LESS THAN HALF the effort. [place] lifts, holds or supports trunk or limbs, but provides less than half the effort. 2-Substantial/Maximal Assistance-helper does MORE THAN HALF the effort. [place] lifts or holds trunk or limbs and provides more than half the effort. 8-Rfurybzaq-cupruz does ALL the effort. Patient does none of the effort to c omplete the activity. Or, the assistance of 2 or more helpers is required for the patient to complete the activity. If activity was not attempted, code reason: 7-Patient Refused. 9-Not Applicable-not attempted and the patient did not perform the activity before the current illness, exacerbation or injury. 10-Not Attempted due to Environmental Limitations-(lack of equipment, weather restraints, etc.). 88-Not Attempted due to Medical Conditions or Safety Concerns. Roll Left to Right (QC): 6 Sit to Lying (QC): 2 Sit to Stand (QC): 3 Chair/Wxs-fb-Objzr Xfer(QC): 4 Car Transfer (QC): 2 Gait Training Does the Patient Walk?: Yes Distance: 120'x2 Walk 10 feet (QC): 4 Walk 50 ft with 2 Turns(QC): 4 Walk 150 ft (QC): 4 Walking 10ft/uneven surface-QC: 3 Gait Persons Needed: 1 Gait Assistive Device: FWW Wheelchair Training Does the Pt Use a Wheelchair?: Yes Wheel 50 ft with 2 turns (QC): 4 Wheel 150 ft (QC): 4 Type of Wheelchair: Manual Stair Training #of Steps: 1 1 Step (curb) (QC): 2 4 Steps (QC): 88 12 Steps (QC): 88 Balance Picking up an Object (QC): 88 ADL-Treatment Eating (QC): 6 Bathing Location: L Arm, R Arm, L Upper Leg, R Upper Leg, L Lower Leg (including foot), R Lower Leg (including foot), Chest, Abdomen, Buttocks, Perineal Area Shower/Bathe Self (QC): 6 Lower Body Dressing (QC): 7 On/Off Footwear (QC): 3 (Min A) Toileting Hygiene (QC): 2 Toilet Transfer (QC): 3 Assessment/Plan Assessment and Plan Assess & Plan/Chief Complaint Assessment: s/p lumbar spine surgery due to myelopathy Dr Smith Neuropathy h/o urinary retention last admit [address] due to urinary retention and consulted Dr Zimmerman now back in after failed trial Plan: PT OT Monitor urinary retention Monitor closely 10/20/2021: Bassett catheter Monitor closely 10/21/2021: Bassett cath Appreciate Dr Zimmerman 10/22/2021: Pain control No issues 10/23/2021: DC catheter soon 10/24/2021: Dr Zimmerman appreciated No falls 10/25/2021: No falls Monitor closely 10/26/2021: Monitor pain Needs SNF 10/27/2021: SNF in [place], [place] with sister 10/28/2021: Flu vaccine done DC Novovax 10/29/2021: SNF at DC 10/30/2021: Skilled at dc (1) S/P lumbar fusion (2) Myopathy (3) Bassett catheter in place (4) Neuropathy (5) Urinary retention KEVIN FOX DO Oct 30, 2021 11:04
--- NOTE | 2021-10-30 11:31 | Occupational Ther Daily Note ---
OT Current Status-Daily Note Subjective Pt alert, sitting in recliner. Pt agrees to therapy. Pt c/o pain though does not rate, stating that he will just have to work throughout it. Mental Status/Objective Patient Orientation: Person, Place, Time, Situation Attachments: Other-See Comments (back brace) Acute change in mental status: 0 Inattention: 0 Disorganized thinkin Altered level of consciousness: 0 ADL-Treatment Pt declines showering or changing clothing. Using lift chair, pt able to transfer with CGA for safety from recliner to w/c. Pt propelled w/c to bathroom to complete oral care/grooming independently. Therapy Code Descriptions/Definitions Functional [place] Measure: 0=Not Assessed/NA 4=Minimal Assistance 1=Total Assistance 5=Supervision or Setup 2=Maximal Assistance 6=Modified [place] 3=Moderate Assistance 7=Complete IndependenceSCALE: Activities may be completed with or without assistive devices. 4-Yznoeckwsh-cbysgdu completes the activity by him/herself with no assistance from a helper. 5-Set-up or Clean-up Assistance-helper sets up or cleans up; patient completes activity. [place] assists only prior to or following the activity. 4-Supervision or Touching Assistance-helper provides verbal cues and/or touching/steadying and/or contact guard assistance as patient completes activity. Assistance may be provided throughout the activity or intermittently. 3-Partial/Moderate Assistance-helper does LESS THAN HALF the effort. [place] lift s, holds or supports trunk or limbs, but provides less than half the effort. 2-Substantial/Maximal Assistance-helper does MORE THAN HALF the effort. [place] lifts or holds trunk or limbs and provides more than half the effort. 4-Xeacckygo-qkeiol does ALL the effort. Patient does none of the effort to complete the activity. Or, the assistance of 2 or more helpers is required for the patient to complete the activity. If activity was not attempted, code reason: 7-Patient Refused. 9-Not Applicable-not attempted and the patient did not perform the activity before the current illness, exacerbation or injury. 10-Not Attempted due to Environmental Limitations-(lack of equipment, weather restraints, etc.). 88-Not Attempted due to Medical Conditions or Safety Concerns. Oral Hygiene (QC): 6 On/Off Footwear: 2 (MAURIZIO wrap applied to R lower leg. Assist to don/doff shoes.) Other Treatment Pt completed arm pulleys for 15 min to increase AROM using stretch and strengthening, pt tolerated well stating that it was helping decrease pain. Pt then completed sit to stand at parallel bars. Pt able to stand with CGA to min A while alternating lifting UE to touch back of waist to simulate hiking pants and completing toilet hygiene. Pt could only complete 5 with each hand before sitting down with increased pain. Pt then propelled w/c back to room and transferred into chair with CGA. Pt lost balance backward and sat heavily on recliner. Pt then given medium resistance therapy sponge to increase strength and dexterity for inspector wire products/pinch. Pt having difficulty with dexterity in B hands. After therapy, pt sitting in recliner with call light/phone in reach. All needs met in room. OT Short Term Goals Short Term Goals Time Frame: Nov 02, 2021 Toileting hygiene: 4 Shower/bathe self: 4 Lower body dressin Putting on/taking off footwear: 4 OT Exerciser Horse Goals Nursing Home Goals Time Frame: Nov 17, 2021 Acute change in mental status: 0 Inattention: 0 Disorganized thinkin Altered level of consciousness: 0 Eating (QC): 6 Oral Hygiene (QC): 6 Toileting Hygiene (QC): 6 Shower/Bathe Self (QC): 5 Upper Body Dressing (QC): 6 Lower Body Dressing (QC): 6 On/Off Footwear (QC): 6 Additional Goals: 1-Demonstrate ADL Tasks, 2-Verbalize Understanding, 3- ImproveStrength/Xander 1=Demonstrate adherence to instructed precautions during ADL tasks. 2=Patient will verbalize/demonstrate understanding of assistive devices/modifications for ADL. 3=Patient will improve strength/tolerance for activity to enable patient to perform ADL's. OT Education/Plan Problem List/Assessment Assessment: Decreased Activ Tolerance, Decreased UE Strength, Impaired Funct Balance, Impaired Self-Care Skills, Restricted Funct UE ROM Discharge Recommendations Plan/Recommendations: Continue POC Treatment Plan/Plan of Care Patient would benefit from OT for education, treatment and training to promote independence in ADL's, mobility, safety and/or upper extremity function for ADL's. Plan of Care: ADL Retraining, Functional Mobility, Group Exercise/Act as Ind, UE Funct Exercise/Act Treatment Duration: Nov 17, 2021 Frequency: At least 5 of 7 days/Wk (IRF) Estimated Hrs Per Day: 1.5 hours per day Agreement: Yes Rehab Potential: Fair Time/GCodes Start Time: 10:00 Stop Time: 11:30 Total Time Billed (hr/min): 90 Billed Treatment Time 1 visit-ADL 3 (45 min) EX 3 (45 min) ASHER DRIVER Oct 30, 2021 11:31
--- NOTE | 2021-10-30 12:23 | Progress Note - Urology ---
Progress Note-Urology Progress Notes/Assess & Plan Progress/Assessment & Plan PLAN TOV. URINE CLOUDY. START MACROBID [id number] BID FOR 5 DAYS Final Diagnosis RETENTION HIPOLITO BOWENS MD Oct 30, 2021 12:23
--- NOTE | 2021-10-30 13:21 | Physical Therapy Daily Note ---
PT Daily Note-Current Subjective Patient in recliner pre tx, agrees to PT, has unrated low back pain. Pain Section J - Health Conditions 1. Rarely or not at all 2. Occasionally 3. Frequently 4. Almost constantly 8. Unable to answer Pain Effect on Sleep: 3 Pain Interference with Therapy: 4 Pain Interference w/Day-to-Day: 4 Appearance Patient on commode post tx to have a BM, nurse aide notified. Mental Status Patient Orientation: Person, Place, Situation Attachments: Bassett Catheter back brace Transfers SCALE: Activities may be completed with or without assistive devices. 5-Hifvtxmfsl-jtbqnpa completes the activity by him/herself with no assistance from a helper. 5-Set-up or Clean-up Assistance-helper sets up or cleans up; patient completes activity. [place] assists only prior to or following the activity. 4-Supervision or Touching Assistance-helper provides verbal cues and/or touching/steadying and/or contact guard assistance as patient completes activity. Assistance may be provided throughout the activity or intermittently. 3-Partial/Moderate Assistance-helper does LESS THAN HALF the effort. [place] lifts, holds or supports trunk or limbs, but provides less than half the effort. 2-Substantial/Maximal Assistance-helper does MORE THAN HALF the effort. [place] lifts or holds trunk or limbs and provides more than half the effort. 4-Ruwfqleik-riagvp does ALL the effort. Patient does none of the effort to complete the activity. Or, the assistance of 2 or more helpers is required for the patient to complete the activity. If activity was not attempted, code reason: 7-Patient Refused. 9-Not Applicable-not attempted and the patient did not perform the activity before the current illness, exacerbation or injury. 10-Not Attempted due to Environmental Limitations-(lack of equipment, weather restraints, etc.). 88-Not Attempted due to Medical Conditions or Safety Concerns. Sit to Stand (QC): 3 Chair/Fao-bh-Lpiqg Xfer(QC): 4 min assist for sit to stand Weight Bearing Right Lower Extremity: Right Full Weight Bearing Left Lower Extremity: Left Full Weight Bearing Gait Training Distance: 120'x2 Walk 10 feet (QC): 4 Walk 50 ft with 2 Turns(QC): 4 Gait Persons Needed: 1 Gait Assistive Device: FWW slow ambulation, antalgic, leans heavily on walker, poor step through and foot clearance Treatments transfers, ambulation Assessment Current Status: Fair Progress Adjusted his back brace in standing. His back brace always loosens after he stands, enough to almost fall off. PT Fpc Goals College Football Coach Goals PT Fpc Goals Time Frame: Nov 10, 2021 Roll Left & Right (QC): 6 Sit to Lying (QC): 6 Lying-Sitting on Side/Bed(QC): 6 Sit to Stand (QC): 6 Chair/Ibg-ht-Jgywg Xfer(QC): 6 Toilet Transfer (QC): 6 Car Transfer (QC): 6 Does the Patient Walk: Yes Walk 10 feet (QC): 6 Walk 50ft with 2 Turns (QC): 6 Walk 150 ft (QC): 4 Walking 10ft on Uneven Surface: 6 1 Step (curb) (QC): 4 4 Steps (QC): 4 12 Steps (QC): 4 Picking up an Object (QC): 4 Wheel 50 feet with 2 turns (QC: 9 Wheel 150 feet: 9 PT Plan Problem List Problem List: Activity Tolerance, Functional Strength, Safety, Balance, Gait, Transfer, Bed Mobility, ROM Treatment/Plan Treatment Plan: Continue Plan of Care Treatment Plan: Bed Mobility, Education, Functional Activity Xander, Functional Strength, Group Therapy, Gait, Safety, Therapeutic Exercise, Transfers Treatment Duration: Nov 10, 2021 Frequency: At least 5 of 7 days/Wk (IRF) Estimated Hrs Per Day: 1.5 hours per day Patient and/or Family Agrees t: Yes Safety Risks/Education Patient Education: Gait Training, Transfer Techniques, Reviewed Precautions, Correct Positioning, Reviewed Don/Doff Brace, Safety Issues Teaching Recipient: Patient Teaching Methods: Demonstration, Discussion Response to Teaching: Reinforcement Needed Time/GCodes Time In: 1300 Time Out: 1330 Total Billed Treatment Time: 30 Total Billed Treatment 1 visit FA 30' IRENE MARTIN PT Oct 30, 2021 13:21
[2021-10-30] MEDS: NITROFURANTOIN 100 MG (MACROBID) CAPSULE PO SCH (17:09)
--- NOTE | 2021-10-30 18:12 | Progress Note ---
KIMBERLY GARCIAAHAM 10/30/211811: Progress Note CC: Lumbar spine myelopathy HPI: This is a 76 yr old male who is status post spinal fusion of L2 to 3 and L3 to [address] Smith. He is still experiencing neurogenic claudication as the spine surgery recovers. Patient had some retention issues at [facility] prior to transfer. Patient has chief complaint of low back and hip pain, though over all he is doing well and excited to be making progress. Bassett catheter still in place. Walks with walker. Today will provide OMM to patient for assistance with recovery ROS: General: Fatigue, Malaise Musculoskeletal: Low back pain, hip pain bilaterally Exam: General Appearance: No Apparent Distress, WD/WN, Chronically ill HEENT: PERRL/EOMI Respiratory: Chest Non Tender, Lungs Clear, Normal Breath Sounds, No Accessory Muscle Use, No Respiratory Distress Cardiovascular: RRR, No Gallop, No JVD, No Murmur, Normal Peripheral Pulses Extremity: Normal Capillary Refill, Normal Inspection, Normal Range of Motion (limited due to back pain), Non Tender, No Calf Tenderness, Pedal Edema Neurologic/Psychiatric: Alert, Oriented x3, No Motor/Sensory Deficits, Normal Mood/Affect, Motor Weakness (lower extremities 4/5) Skin: Normal Color, Warm/Dry Lymphatic: No Adenopathy Assessment: s/p lumbar spine surgery due to myelopathy Dr Smith Neuropathy h/o urinary retention last admit [address] due to urinary retention and consulted Dr Zimmerman now back in after failed trial Lumbar somatic dysfunction s/p lumbar spine surgery due to myelopathy Plan: -OMM for areas surrounding lumbar back, not directly on lumbar back -Thoracic inlet release -Lower Extremity myofascial release and lymphatic drainage CHLOE FOX DO 10/31/21 0527: Supervisory-Addendum Brief Verification & Attestation Participated in pt care: history, MDM, physical Personally performed: exam, history, MDM, supervision of care Care discussed with: Medical Student Procedures: n/a Results interpretation: Verified all documentation Verification and Attestation of Medical Student E/M Service A medical student performed and documented this service in my presence. I reviewed and verified all information documented by the medical student and made modifications to such information, when appropriate. I personally performed the physical exam and medical decision making. Chloe Fox, Oct 31, 2021,05:27 JONAH GARCIA Oct 30, 2021 18:12 CHLOE FOX DO Oct 31, 2021 05:27
[2021-10-30] MEDS ORDERED: LIDOCAINE UROJET 2% GEL 10 ML PKG ONE (18:16)
[2021-10-30 20:11] VITALS: BP 114/67
--- NOTE | 2021-10-31 05:47 | PM&R Progress Note ---
Subjective HPI/CC On Admission Date Seen by Provider: Oct 31, 2021 Time Seen by Provider: 09:00 Subjective/Events-last exam 10/31/2021: Pt is doing well Straight in and out cath required after espinosa discontinued One more day off espinosa and if he fails he will have a espinosa catheter in place 10/30/2021: Pt is doing well Bowels moved this morning No falls Improved status 10/29/2021: Doing well Improved status No falls Pain improved 10/28/2021: No major issues Flu vaccine given yesterday Does not want the Novovax he wants the bivalent Moderna so will need to DC Novovax and speak to pharmacy Saturday10/27/2021: No major issues Espinosa cath remains in-dwelling after DC fail Urology will be needed in [place], [place] where he will go for skilled Sister at bedside and I answered all her questions 10/26/2021: No major issues Needs skilled care, can't take care of him too dependent Pain controlled 10/25/2021: Back pain continues No nausea reported No falls Slow recovery Catheter managed by Urology 10/24/2021: Doing well Improved transfers Espinosa cath still in place No falls 10/23/2021: Doing well Pain controlled Espinosa still in place Sleeping well 10/22/2021: Improved status Sleeping today Pain controlled No falls 10/21/2021: Improved status Pain controlled Espinosa cath in place Reviewed Dr Zimmerman note BM regimen will be initiated 10/20/2021: Pt is doing pretty well Espinosa catheter was placed at 12:30 AM Returned 1500 ccs Transfers are very slow Slow recovery expected Review of Systems General: Fatigue, Malaise Objective Exam Vital Signs Vital Signs Date Time Temp Pulse Resp B/P (MAP) Pulse Ox O2 Delivery O2 Flow Rate FiO2 10/31/21 20:35 Room Air 10/31/21 19:23 36.9 67 20 119/69 (86) 94 Capillary Refill : General Appearance: No Apparent Distress, WD/WN, Chronically ill HEENT: PERRL/EOMI, Normal ENT Inspection, Pharynx Normal Neck: Full Range of Motion, Normal Inspection, Non Tender, Supple, Carotid Bruit Respiratory: Chest Non Tender, Lungs Clear, Normal Breath Sounds, No Accessory Muscle Use, No Respiratory Distress Cardiovascular: Regular Rate, Rhythm, No Gallop, No JVD, No Murmur, Normal Peripheral Pulses Gastrointestinal: Normal Bowel Sounds, No Organomegaly, No Pulsatile Mass, Non Tender, Soft Back: CVA Tenderness (L), CVA Tenderness (R), Decreased Range of Motion, Muscle Spasm, Vertebral Tenderness Extremity: Normal Capillary Refill, Normal Inspection, Normal Range of Motion (limited due to back pain), Non Tender, No Calf Tenderness, Pedal Edema Neurologic/Psychiatric: Alert, Oriented x3, No Motor/Sensory Deficits, Normal Mood/Affect, office services associate II-XII Norm as 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 FIM Transfers Therapy Code Descriptions/Definitions Functional [place] Measure: 0=Not Assessed/NA 4=Minimal Assistance 1=Total Assistance 5=Supervision or Setup 2=Maximal Assistance 6=Modified [place] 3=Moderate Assistance 7=Complete IndependenceSCALE: Activities may be completed with or without assistive devices. 0-Aoyyydfrrl-tphravp completes the activity by him/herself with no assistance from a helper. 5-Set-up or Clean-up Assistance-helper sets up or cleans up; patient completes activity. [place] assists only prior to or following the activity. 4-Supervision or Touching Assistance-helper provides verbal cues and/or touching/steadying and/or contact guard assistance as patient completes activity. Assistance may be provided throughout the activity or intermittently. 3-Partial/Moderate Assistance-helper does LESS THAN HALF the effort. [place] lifts, holds or supports trunk or limbs, but provides less than half the effort. 2-Substantial/Maximal Assistance-helper does MORE THAN HALF the effort. [place] lifts or holds trunk or limbs and provides more than half the effort. 4-Mcroezszt-rauadl does ALL the effort. Patient does none of the effort to complete the activity. Or, the assistance of 2 or more helpers is required for the patient to complete the activity. If activity was not attempted, code reason: 7-Patient Refused. 9-Not Applicable-not attempted and the patient did not perform the activity before the current illness, exacerbation or injury. 10-Not Attempted due to Environmental Limitations-(lack of equipment, weather restraints, etc.). 88-Not Attempted due to Medical Conditions or Safety Concerns. Roll Left to Right (QC): 6 Sit to Lying (QC): 2 Sit to Stand (QC): 3 Chair/Qbh-bm-Kaucq Xfer(QC): 4 Car Transfer (QC): 2 Gait Training Does the Patient Walk?: Yes Distance: 120'x2 Walk 10 feet (QC): 4 Walk 50 ft with 2 Turns(QC): 4 Walk 150 ft (QC): 4 Walking 10ft/uneven surface-QC: 3 Gait Persons Needed: 1 Gait Assistive Device: FWW Wheelchair Training Does the Pt Use a Wheelchair?: Yes Wheel 50 ft with 2 turns (QC): 4 Wheel 150 ft (QC): 4 Type of Wheelchair: Manual Stair Training #of Steps: 1 1 Step (curb) (QC): 2 4 Steps (QC): 88 12 Steps (QC): 88 Balance Picking up an Object (QC): 88 ADL-Treatment Eating (QC): 6 Oral Hygiene (QC): 6 Bathing Location: L Arm, R Arm, L Upper Leg, R Upper Leg, L Lower Leg (including foot), R Lower Leg (including foot), Chest, Abdomen, Buttocks, Perineal Area Shower/Bathe Self (QC): 6 Lower Body Dressing (QC): 7 On/Off Footwear (QC): 2 (MAURIZIO wrap applied to R lower leg. Assist to don/doff shoes.) Toileting Hygiene (QC): 2 Toilet Transfer (QC): 3 Assessment/Plan Assessment and Plan Assess & Plan/Chief Complaint Assessment: s/p lumbar spine surgery due to myelopathy Dr Smith Neuropathy h/o urinary retention last admit [address] due to urinary retention and consulted Dr Zimmerman now back in after failed trial Plan: PT OT Monitor urinary retention Monitor closely 10/20/2021: Espinosa catheter Monitor closely 10/21/2021: Espinosa cath Appreciate Dr Zimmerman 10/22/2021: Pain control No issues 10/23/2021: DC catheter soon 10/24/2021: Dr Zimmerman appreciated No falls 10/25/2021: No falls Monitor closely 10/26/2021: Monitor pain Needs SNF 10/27/2021: SNF in [place], [place] with sister 10/28/2021: Flu vaccine done DC Novovax 10/29/2021: [place] 10/30/20[place] 10/31/[place]: [place] (1) S/P lumbar fusion (2) Myopathy (3) Espinosa catheter in place (4) Neuropathy (5) Urinary retention KEVIN FOX DO Oct 31, 2021 05:47
[2021-10-31] MEDS: MULTIVIT W/MINERALS TAB (THERAGRAN M) PO SCH (06:00)
[2021-10-31] MEDS: BETHANECHOL 25 MG (URECHOLINE) TAB PO SCH ×4 (06:00→20:21)
--- NOTE | 2021-10-31 07:43 | Progress Note - Urology ---
Progress Note-Urology Progress Notes/Assess & Plan Progress/Assessment & Plan FAILING TOV NEEDING IC. TOLERATES MEDICINES WELL. CONTINUE SAME FOR NOW. DOUBT SURGERY WILL HELP. PROBLEM MOSTLY NEUROGENIC. Final Diagnosis RETENTION HIPOLITO BOWENS MD Oct 31, 2021 07:43
[2021-10-31 07:46] VITALS: BP 107/56
[2021-10-31 07:49] VITALS: BP 141/65
--- NOTE | 2021-10-31 08:53 | Physical Therapy Daily Note ---
PT Daily Note-Current Subjective Patient in bed pre tx, agrees to PT, has 5/10 low back pain. Pain Section J - Health Conditions 1. Rarely or not at all 2. Occasionally 3. Frequently 4. Almost constantly 8. Unable to answer Pain Effect on Sleep: 3 Pain Interference with Therapy: 4 Pain Interference w/Day-to-Day: 4 Appearance Patient in recliner post tx with nurse call, phone, tray, all needs met. Mental Status Patient Orientation: Person, Place, Situation back brace Transfers SCALE: Activities may be completed with or without assistive devices. 5-Navyyuxhdh-uaojlew completes the activity by him/herself with no assistance from a helper. 5-Set-up or Clean-up Assistance-helper sets up or cleans up; patient completes activity. [place] assists only prior to or following the activity. 4-Supervision or Touching Assistance-helper provides verbal cues and/or touching/steadying and/or contact guard assistance as patient completes ac tivity. Assistance may be provided throughout the activity or intermittently. 3-Partial/Moderate Assistance-helper does LESS THAN HALF the effort. [place] lifts, holds or supports trunk or limbs, but provides less than half the effort. 2-Substantial/Maximal Assistance-helper does MORE THAN HALF the effort. [place] lifts or holds trunk or limbs and provides more than half the effort. 1-Nhszbpqxt-rveetk does ALL the effort. Patient does none of the effort to complete the activity. Or, the assistance of 2 or more helpers is required for the patient to complete the activity. If activity was not attempted, code reason: 7-Patient Refused. 9-Not Applicable-not attempted and the patient did not perform the activity before the current illness, exacerbation or injury. 10-Not Attempted due to Environmental Limitations-(lack of equipment, weather restraints, etc.). 88-Not Attempted due to Medical Conditions or Safety Concerns. Roll Left & Right (QC): 6 Sit to Lying (QC): 3 Lying to Sitting/Side of Bed(Q: 4 Sit to Stand (QC): 3 Chair/Fif-ud-Nkbnd Xfer(QC): 4 Toilet Transfer (QC): 4 Car Transfer (QC): 3 Patient performs rolling with independent, supine to sit with SBA, sit to supine min assist, sit <-> stand min assist, transfers CGA, car transfer mod assist. Patient needs frequent cues for positioning and safety. After getting back to his room patient needs to use the restroom to try to have a BM, he was unsuccessful and says he just had gas, patient needs assist with pants down/up. Weight Bearing Right Lower Extremity: Right Full Weight Bearing Left Lower Extremity: Left Full Weight Bearing Gait Training Does the Patient Walk?: Yes Distance: 150', 120', 30' Walk 10 feet (QC): 4 Walk 50 ft with 2 Turns(QC): 4 Walk 150 ft (QC): 4 Walking 10ft/uneven surface-QC: 4 Gait Persons Needed: 1 Gait Assistive Device: FWW Patient can ambulate 150' with a rolling walker with CGA (including 50' with at least 2 turns of 90 degrees and 10' over an uneven surface), patient is unsteady with ambulation, has poor step through and foot clearance, needs steadying assist, hip instability Wheelchair Training Does the Pt Use a Wheelchair?: No Wheel 50 ft with 2 turns (QC): 9 Stair Training Stair Training: Handrails/: uses walker #of Steps: 1 1 Step (curb) (QC): 3 4 Steps (QC): 88 12 Steps (QC): 88 Stairs: Pattern: Step to Patient can go up and down 1 step using a rolling walker with min assist, has a lot of difficulty with this , cues for foot placement and safety Balance Picking up an Object (QC): 4 (CGA using range aide) Exercises NuStep Minutes: 15 NuStep Workload: 1 (no resistance to comply with back precautions) Treatments bed mobility and transfers, ambulation, stair training, toileting, functional strengthening Assessment Current Status: Fair Progress still fall risk, needs assist with transfers and ambulation PT Assisted Goals Assisted Goals PT Assisted Goals Time Frame: Nov 10, 2021 Roll Left & Right (QC): 6 Sit to Lying (QC): 6 Lying-Sitting on Side/Bed(QC): 6 Sit to Stand (QC): 6 Chair/Zad-yp-Iuysr Xfer(QC): 6 Toilet Transfer (QC): 6 Car Transfer (QC): 6 Does the Patient Walk: Yes Walk 10 feet (QC): 6 Walk 50ft with 2 Turns (QC): 6 Walk 150 ft (QC): 4 Walking 10ft on Uneven Surface: 6 1 Step (curb) (QC): 4 4 Steps (QC): 4 12 Steps (QC): 4 Picking up an Object (QC): 4 Wheel 50 feet with 2 turns (QC: 9 Wheel 150 feet: 9 PT Plan Problem List Problem List: Activity Tolerance, Functional Strength, Safety, Balance, Gait, Transfer, Bed Mobility, ROM Treatment/Plan Treatment Plan: Continue Plan of Care Treatment Plan: Bed Mobility, Education, Functional Activity Xander, Functional Strength, Group Therapy, Gait, Safety, Therapeutic Exercise, Transfers Treatment Duration: Nov 10, 2021 Frequency: At least 5 of 7 days/Wk (IRF) Estimated Hrs Per Day: 1.5 hours per day Patient and/or Family Agrees t: Yes Safety Risks/Education Patient Education: Gait Training, Transfer Techniques, Steps, Reviewed Precautions, Correct Positioning, Reviewed Don/Doff Brace, Safety Issues Teaching Recipient: Patient Teaching Methods: Demonstration, Discussion Response to Teaching: Reinforcement Needed Time/GCodes Time In: 0800 Time Out: 0900 Total Billed Treatment Time: 60 Total Billed Treatment 1 visit EX 15' FA 45' IRENE MARTIN PT Oct 31, 2021 08:53
[2021-10-31] MEDS: SENNA W/DOCUSATE (SENOKOT S) TABLET PO SCH ×2 (09:00→20:25)
[2021-10-31] MEDS: polyethylene glycoL POWDER 17 GM (MIRALAX) PACK PO SCH ×2 (09:00→20:24)
[2021-10-31] MEDS: DOCUSATE SODIUM 100 MG (COLACE) CAP PO SCH ×2 (09:00→20:20)
[2021-10-31] MEDS: NITROFURANTOIN 100 MG (MACROBID) CAPSULE PO SCH ×2 (09:38→16:54)
[2021-10-31] MEDS: TAMSULOSIN 0.4 MG (FLOMAX) CAP PO SCH ×2 (09:38→20:20)
[2021-10-31] MEDS: GABAPENTIN 400 MG (NEURONTIN) CAP PO SCH ×3 (09:38→20:20)
[2021-10-31] MEDS: ONDANSETRON 4 MG (ZOFRAN) ORAL DISSOLVE TAB PO PRN (10:59)
--- NOTE | 2021-10-31 11:39 | Occupational Ther Daily Note ---
OT Current Status-Daily Note Subjective Pt alert in recliner. Pt agrees to therapy. No c/o pain at this time. Mental Status/Objective Patient Orientation: Person, Place, Time, Situation Acute change in mental status: 0 Inattention: 0 Disorganized thinkin Altered level of consciousness: 0 ADL-Treatment Pt declines showering or changing clothing. Using lift chair, pt able to transfer with CGA for safety from recliner to FWW. Pt ambulated with FWW to bathroom to complete oral care/grooming independently, sitting at sink. Pt ambulated with FWW to therapy gym CGA with verbal cues to straighten knees. Pt became nauseated and stated he needed to use the bathroom. HEBERT propelled pt to bathroom. Pt CGA SPT to toilet. Pt ambulated with FWW to bed. Pt EOB to supine mod A. Therapy Code Descriptions/Definitions Functional [place] Measure: 0=Not Assessed/NA 4=Minimal Assistance 1=Total Assistance 5=Supervision or Setup 2=Maximal Assistance 6=Modified [place] 3=Moderate Assistance 7=Complete IndependenceSCALE: Activities may be completed with or without assistive devices. 0-Logxdvmqew-khnemgv completes the activity by him/herself with no assistance from a helper. 5-Set-up or Clean-up Assistance-helper sets up or cleans up; patient completes activity. [place] assists only prior to or following the activity. 4-Supervision or Touching Assistance-helper provides verbal cues and/or touching/steadying and/or contact guard assistance as patient completes activity. Assistance may be provided throughout the activity or intermittently. 3-Partial/Moderate Assistance-helper does LESS THAN HALF the effort. [place] li fts, holds or supports trunk or limbs, but provides less than half the effort. 2-Substantial/Maximal Assistance-helper does MORE THAN HALF the effort. [place] lifts or holds trunk or limbs and provides more than half the effort. 5-Jevrooqdc-wtliam does ALL the effort. Patient does none of the effort to complete the activity. Or, the assistance of 2 or more helpers is required for the patient to complete the activity. If activity was not attempted, code reason: 7-Patient Refused. 9-Not Applicable-not attempted and the patient did not perform the activity before the current illness, exacerbation or injury. 10-Not Attempted due to Environmental Limitations-(lack of equipment, weather restraints, etc.). 88-Not Attempted due to Medical Conditions or Safety Concerns. Oral Hygiene (QC): 6 Toilet Transfer (QC): 4 Other Treatment Pt completed 15 min arm pulleys with 2lb weights on wrist, to strengthen B UE for ADL's. Pt completed 3 analytical clerk/pinch strength exercises using the medium/heavy resistance therapy sponge to strengthen analytical clerk/pinch for ADL's. Pt completed 3 B UE exercises 3 sets 15 reps with medium/heavy resistance theraband to strengthen B UE for daily functional tasks. Pt left sitting in bed call light/phone in reach. All needs met in room. OT Short Term Goals Short Term Goals Time Frame: Nov 02, 2021 Toileting hygiene: 4 Shower/bathe self: 4 Lower body dressin Putting on/taking off footwear: 4 OT Marker Shipments Goals Marker Shipments Goals Time Frame: Nov 17, 2021 Acute change in mental status: 0 Inattention: 0 Disorganized thinkin Altered level of consciousness: 0 Eating (QC): 6 Oral Hygiene (QC): 6 Toileting Hygiene (QC): 6 Shower/Bathe Self (QC): 5 Upper Body Dressing (QC): 6 Lower Body Dressing (QC): 6 On/Off Footwear (QC): 6 Additional Goals: 1-Demonstrate ADL Tasks, 2-Verbalize Understanding, 3- ImproveStrength/Xander 1=Demonstrate adherence to instructed precautions during ADL tasks. 2=Patient will verbalize/demonstrate understanding of assistive devices/modifications for ADL. 3=Patient will improve strength/tolerance for activity to enable patient to perform ADL's. OT Education/Plan Problem List/Assessment Assessment: Decreased Activ Tolerance, Decreased Safety Aware, Decreased UE Strength Discharge Recommendations Plan/Recommendations: Continue POC Treatment Plan/Plan of Care Patient would benefit from OT for education, treatment and training to promote independence in ADL's, mobility, safety and/or upper extremity function for ADL's. Plan of Care: ADL Retraining, Functional Mobility, Group Exercise/Act as Ind, UE Funct Exercise/Act Treatment Duration: Nov 17, 2021 Frequency: At least 5 of 7 days/Wk (IRF) Estimated Hrs Per Day: 1.5 hours per day Agreement: Yes Rehab Potential: Fair Time/GCodes Start Time: 10:00 Stop Time: 11:30 Total Time Billed (hr/min): 90 Billed Treatment Time 1 visit ADL 2 (30 min) EX 4 (60 min) ASHER DRIVER Oct 31, 2021 11:39
--- NOTE | 2021-10-31 14:43 | Progress Note ---
JONAH GARCIA 10/31/21 1443: Progress Note CC: Lumbar spine myelopathy HPI: This is a 76 yr old male who is status post spinal fusion of L2 to 3 and L3 to [address] Smith. He is still experiencing neurogenic claudication as the spine surgery recovers. Patient had some retention issues at [facility] prior to transfer. Patient has chief complaint of low back and hip pain, though over all he is doing well and making progress. Patient notes that OMM treatment made him feel better yesterday. Bassett catheter is removed, has not urinated since I visited. Walks with walker. Today will provide OMM to patient for assistance with recovery. ROS: General: Fatigue, Malaise Musculoskeletal: Low back pain, hip pain bilaterally Exam: General Appearance: No Apparent Distress, WD/WN, Chronically ill HEENT: PERRL/EOMI Respiratory: Chest Non Tender, Lungs Clear, Normal Breath Sounds, No Accessory Muscle Use, No Respiratory Distress Cardiovascular: RRR, No Gallop, No JVD, No Murmur, Normal Peripheral Pulses Extremity: Normal Capillary Refill, Normal Inspection, Normal Range of Motion (limited due to back pain), Non Tender, No Calf Tenderness, Pedal Edema Neurologic/Psychiatric: Alert, Oriented x3, No Motor/Sensory Deficits, Normal Mood/Affect, Motor Weakness (lower extremities 4/5) Skin: Normal Color, Warm/Dry Lymphatic: No Adenopathy Assessment: s/p lumbar spine surgery due to myelopathy Dr Smith Neuropathy h/o urinary retention last admit 2019 Bassett cath out Lumbar somatic dysfunction s/p lumbar spine surgery due to myelopathy Plan: -OMM for areas surrounding lumbar back, not directly on lumbar back -Thoracic inlet release -Lower Extremity myofascial release, lymphatic drainage, and soft tissue CHLOE FOX DO 11/01/21 0553: Supervisory-Addendum Brief Verification & Attestation Participated in pt care: history, MDM, physical Personally performed: exam, history, MDM, supervision of care Care discussed with: Medical Student Procedures: n/a Results interpretation: Verified all documentation Verification and Attestation of Medical Student E/M Service A medical student performed and documented this service in my presence. I reviewed and verified all information documented by the medical student and made modifications to such information, when appropriate. I personally performed the physical exam and medical decision making. Chloe Fox, Nov 01, 2021,05:53 JONAH GARCIA Oct 31, 2021 14:43 CHLOE FOX DO Nov 01, 2021 05:53
--- NOTE | 2021-10-31 14:48 | Physical Therapy Daily Note ---
PT Daily Note-Current Subjective Patient lying supine in bed upon PT arrival, agreeable to treatment. Pain Numeric Pain Scale: 5-Moderate Pain Section J - Health Conditions 1. Rarely or not at all 2. Occasionally 3. Frequently 4. Almost constantly 8. Unable to answer Pain Effect on Sleep: 3 Pain Interference with Therapy: 4 Pain Interference w/Day-to-Day: 4 Mental Status Patient Orientation: Person, Place, Time, Situation Transfers SCALE: Activities may be completed with or without assistive devices. 3-Zwauwddydd-tqomlvx completes the activity by him/herself with no assistance from a helper. 5-Set-up or Clean-up Assistance-helper sets up or cleans up; patient completes activity. [place] assists only prior to or following the activity. 4-Supervision or Touching Assistance-helper provides verbal cues and/or touching/steadying and/or contact guard assistance as patient completes activity. Assistance may be provided throughout the activity or intermittently. 3-Partial/Moderate Assistance-helper does LESS THAN HALF the effort. [place] lifts, holds or supports trunk or limbs, but provides less than half the effort. 2-Substantial/Maximal Assistance-helper does MORE THAN HALF the effort. [place] lifts or holds trunk or limbs and provides more than half the effort. 5-Oburspmem-xsqkva does ALL the effort. Patient does none of the effort to complete the activity. Or, the assistance of 2 or more helpers is required for the patient to complete the activity. If activity was not attempted, code reason: 7-Patient Refused. 9-Not Applicable-not attempted and the patient did not perform the activity before the current illness, exacerbation or injury. 10-Not Attempted due to Environmental Limitations-(lack of equipment, weather restraints, etc.). 88-Not Attempted due to Medical Conditions or Safety Concerns. Roll Left & Right (QC): 4 Sit to Lying (QC): 4 Lying to Sitting/Side of Bed(Q: 4 Sit to Stand (QC): 3 Chair/Esg-tn-Lksol Xfer(QC): 3 Weight Bearing Right Lower Extremity: Right Full Weight Bearing Left Lower Extremity: Left Full Weight Bearing Gait Training Does the Patient Walk?: Yes Distance: 250 feet Walk 10 feet (QC): 4 Walk 50 ft with 2 Turns(QC): 4 Walk 150 ft (QC): 4 Gait Persons Needed: 1 Gait Assistive Device: FWW Exercises Supine Ex: Ankle pumps, Quad Set, Glut sets Supine Reps: 20 Seated Therapy Exercises: Long arc quads, Hip abd/add Seated Reps: 20 Standing: Sit to Stand Standing Reps: 5 Assessment Current Status: Fair Progress Patient tolerated treatment well Demonstrates good overall improvement in gait distance. Patient ambulates 250 feet with FWW, with CGA and 1 person following with w/c. Patient ambulates with narrow CONI, scissoring gait crossing the midline every step or near every step, decreased stride length and tends to let the FWW get too far away from him, however this has improved. Patient performs the LE therapeutic exercise as listed above. Patient in recliner post treatment with all needs met, nursing notified, call light in hand. PT Phonograph Cartridge Assembler Goals Residential Goals PT Phonograph Cartridge Assembler Goals Time Frame: Nov 10, 2021 Roll Left & Right (QC): 6 Sit to Lying (QC): 6 Lying-Sitting on Side/Bed(QC): 6 Sit to Stand (QC): 6 Chair/Yxc-mv-Vcqhn Xfer(QC): 6 Toilet Transfer (QC): 6 Car Transfer (QC): 6 Does the Patient Walk: Yes Walk 10 feet (QC): 6 Walk 50ft with 2 Turns (QC): 6 Walk 150 ft (QC): 4 Walking 10ft on Uneven Surface: 6 1 Step (curb) (QC): 4 4 Steps (QC): 4 12 Steps (QC): 4 Picking up an Object (QC): 4 Wheel 50 feet with 2 turns (QC: 9 Wheel 150 feet: 9 PT Plan Treatment/Plan Treatment Plan: Continue Plan of Care Treatment Plan: Bed Mobility, Education, Functional Activity Xander, Functional Strength, Group Therapy, Gait, Safety, Therapeutic Exercise, Transfers Treatment Duration: Nov 10, 2021 Frequency: At least 5 of 7 days/Wk (IRF) Estimated Hrs Per Day: 1.5 hours per day Patient and/or Family Agrees t: Yes Safety Risks/Education Patient Education: Gait Training, Transfer Techniques Teaching Recipient: Patient Teaching Methods: Demonstration, Discussion Response to Teaching: Verbalize Understanding, Return Demonstration Time/GCodes Time In: 1330 Time Out: 1400 Total Billed Treatment Time: 30 Total Billed Treatment Visit, Gait, ex LEISA WOODS PT Oct 31, 2021 14:48
[2021-10-31 19:23] VITALS: BP 119/69
[2021-10-31] MEDS: CYCLOBENZAPRINE 10 MG (FLEXERIL) TAB PO PRN (20:24)
[2021-10-31] MEDS ORDERED: LIDOCAINE UROJET 2% GEL 10 ML PKG ONE (22:54)
[2021-10-31] MEDS ORDERED: LIDOCAINE UROJET 2% GEL 10 ML PKG TOP ONE (23:00)
--- NOTE | 2021-11-01 05:58 | PM&R Progress Note ---
Subjective HPI/CC On Admission Date Seen by Provider: Nov 01, 2021 Time Seen by Provider: 08:30 Subjective/Events-last exam 11/01/2021: Pt discharging tomorrow Improved overall Bowels moved 10/29/21 so laxatives were given Straight cath again twice per shift, so we will need to know if we need to initiate a espinosa catheter before discharge 10/31/2021: Pt is doing well Straight in and out cath required after espinosa discontinued One more day off espinosa and if he fails he will have a espinosa catheter in place 10/30/2021: Pt is doing well Bowels moved this morning No falls Improved status 10/29/2021: Doing well Improved status No falls Pain improved 10/28/2021: No major issues Flu vaccine given yesterday Does not want the Novovax he wants the bivalent Moderna so will need to DC Novovax and speak to pharmacy Saturday10/27/2021: No major issues Espinosa cath remains in-dwelling after DC fail Urology will be needed in [place], [place] where he will go for skilled Sister at bedside and I answered all her questions 10/26/2021: No major issues Needs skilled care, can't take care of him too dependent Pain controlled 10/25/2021: Back pain continues No nausea reported No falls Slow recovery Catheter managed by Urology 10/24/2021: Doing well Improved transfers Espinosa cath still in place No falls 10/23/2021: Doing well Pain controlled Espinosa still in place Sleeping well 10/22/2021: Improved status Sleeping today Pain controlled No falls 10/21/2021: Improved status Pain controlled Espinosa cath in place Reviewed Dr Zimmerman note BM regimen will be initiated 10/20/2021: Pt is doing pretty well Espinosa catheter was placed at 12:30 AM Returned 1500 ccs Transfers are very slow Slow recovery expected Review of Systems General: Fatigue, Malaise Musculoskeletal: back pain Objective Exam Vital Signs Vital Signs Date Time Temp Pulse Resp B/P (MAP) Pulse Ox O2 Delivery O2 Flow Rate FiO2 11/01/21 09:00 Room Air 11/01/21 07:37 37.0 65 16 115/59 (77) 95 Capillary Refill : General Appearance: No Apparent Distress, WD/WN, Chronically ill HEENT: PERRL/EOMI, Normal ENT Inspection, Pharynx Normal Neck: Full Range of Motion, Normal Inspection, Non Tender, Supple, Carotid Bruit Respiratory: Chest Non Tender, Lungs Clear, Normal Breath Sounds, No Accessory Muscle Use, No Respiratory Distress Cardiovascular: Regular Rate, Rhythm, No Gallop, No JVD, No Murmur, Normal Peripheral Pulses Gastrointestinal: Normal Bowel Sounds, No Organomegaly, No Pulsatile Mass, Non Tender, Soft Back: CVA Tenderness (L), CVA Tenderness (R), Decreased Range of Motion, Muscle Spasm, Vertebral Tenderness Extremity: Normal Capillary Refill, Normal Inspection, Normal Range of Motion (limited due to back pain), Non Tender, No Calf Tenderness, Pedal Edema Neurologic/Psychiatric: Alert, Oriented x3, No Motor/Sensory Deficits, Normal Mood/Affect, physician general internal medicine II-XII Norm as 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 FIM Transfers Therapy Code Descriptions/Definitions Functional [place] Measure: 0=Not Assessed/NA 4=Minimal Assistance 1=Total Assistance 5=Supervision or Setup 2=Maximal Assistance 6=Modified [place] 3=Moderate Assistance 7=Complete IndependenceSCALE: Activities may be completed with or without assistive devices. 6-Nqcpecpijc-hvefltq completes the activity by him/herself with no assistance from a helper. 5-Set-up or Clean-up Assistance-helper sets up or cleans up; patient completes activity. [place] assists only prior to or following the activity. 4-Supervision or Touching Assistance-helper provides verbal cues and/or touching/steadying and/or contact guard assistance as patient completes activit y. Assistance may be provided throughout the activity or intermittently. 3-Partial/Moderate Assistance-helper does LESS THAN HALF the effort. [place] lifts, holds or supports trunk or limbs, but provides less than half the effort. 2-Substantial/Maximal Assistance-helper does MORE THAN HALF the effort. [place] lifts or holds trunk or limbs and provides more than half the effort. 8-Cqqcjywto-trzqnd does ALL the effort. Patient does none of the effort to complete the activity. Or, the assistance of 2 or more helpers is required for the patient to complete the activity. If activity was not attempted, code reason: 7-Patient Refused. 9-Not Applicable-not attempted and the patient did not perform the activity before the current illness, exacerbation or injury. 10-Not Attempted due to Environmental Limitations-(lack of equipment, weather restraints, etc.). 88-Not Attempted due to Medical Conditions or Safety Concerns. Roll Left to Right (QC): 4 Sit to Lying (QC): 4 Sit to Stand (QC): 3 Chair/Agh-xc-Tyeif Xfer(QC): 3 Car Transfer (QC): 3 Gait Training Does the Patient Walk?: Yes Distance: 250 feet Walk 10 feet (QC): 4 Walk 50 ft with 2 Turns(QC): 4 Walk 150 ft (QC): 4 Walking 10ft/uneven surface-QC: 4 Gait Persons Needed: 1 Gait Assistive Device: FWW Wheelchair Training Does the Pt Use a Wheelchair?: Yes Wheel 50 ft with 2 turns (QC): 9 Wheel 150 ft (QC): 4 Type of Wheelchair: Manual Stair Training Stair Training: Handrails/: uses walker #of Steps: 1 1 Step (curb) (QC): 3 4 Steps (QC): 88 12 Steps (QC): 88 Stairs: Pattern: Step to Balance Picking up an Object (QC): 4 (CGA using telephone service representative) ADL-Treatment Eating (QC): 6 Oral Hygiene (QC): 6 Bathing Location: L Arm, R Arm, L Upper Leg, R Upper Leg, L Lower Leg (including foot), R Lower Leg (including foot), Chest, Abdomen, Buttocks, Perineal Area Shower/Bathe Self (QC): 6 Lower Body Dressing (QC): 7 On/Off Footwear (QC): 2 (MAURIZIO wrap applied to R lower leg. Assist to don/doff shoes.) Toileting Hygiene (QC): 2 Toilet Transfer (QC): 4 Assessment/Plan Assessment and Plan Assess & Plan/Chief Complaint Assessment: s/p lumbar spine surgery due to myelopathy Dr Smith Neuropathy h/o urinary retention last admit [address] due to urinary retention and consulted Dr Zimmerman now back in after failed trial Plan: PT OT Monitor urinary retention Monitor closely 10/20/2021: Espinosa catheter Monitor closely 10/21/2021: Espinosa cath Appreciate Dr Zimmerman 10/22/2021: Pain control No issues 10/23/2021: DC catheter soon 10/24/2021: Dr Zimmerman appreciated No falls 10/25/2021: No falls Monitor closely 10/26/2021: Monitor pain Needs SNF 10/27/2021: SNF in [place], [place] with sister 10/28/2021: Flu vaccine done DC Novovax 10/29/2021: SNF at [place] 10/30/2021: Skilled at mo 10/31/2021: DC 11/01/2021: DC tomorrow (1) S/P lumbar fusion (2) Myopathy (3) Espinosa catheter in place (4) Neuropathy (5) Urinary retention KEVIN FOX DO Nov 01, 2021 05:58
[2021-11-01] MEDS: MULTIVIT W/MINERALS TAB (THERAGRAN M) PO SCH (06:14)
[2021-11-01] MEDS: BETHANECHOL 25 MG (URECHOLINE) TAB PO SCH ×4 (06:14→20:07)
[2021-11-01 07:37] VITALS: BP 115/59
--- NOTE | 2021-11-01 09:00 | Occupational Ther Daily Note ---
OT Current Status-Daily Note Subjective Pt sitting in bed alert. Pt agrees to therapy. Pt states pain is a 4/10. Mental Status/Objective Patient Orientation: Person, Place, Time, Situation Acute change in mental status: 0 Inattention: 0 Disorganized thinkin Altered level of consciousness: 0 ADL-Treatment Pt independent in eating. Pt supine to EOB independent with HOB raised. Pt SPT to WC using FWW min A for sit to stand. Pt transferred to toilet using grabbars, min A due to pain. Pt max A in toilet hygiene. Pt ambulated to shower with FWW, min A. Using grabbars pt transferred to elevated shower chair, min A. After set up pt able to don/doff UB clothing. Pt completed 90% of shower by self, required min A from sit to stand, stabilized self with grabbar while standing then assistance given to cleanse buttocks. Pt min A to SPT using grabbars to WC. Pt completed oral care/personal hygiene independently sitting at sink. Pt max A in donning/doffing LB clothing, able to stand using FWW to stabilize self. Pt educated in donning shoes using AE, set up for L shoe then pt able to doff R shoe and assist needed to don. After skilled instruction and demonstration pt verbalized and demonstrated understanding though due to increased pain and decreased LB mobility, pt will require continued practice to become proficient at skill. Pt SPT from WC to EOB min A. Pt mod A from EOB to supine. Pt left lying in bed call light/phone in reach all needs met in room. Therapy Code Descriptions/Definitions Functional [place] Measure: 0=Not Assessed/NA 4=Minimal Assistance 1=Total Assistance 5=Supervision or Setup 2=Maximal Assistance 6=Modified [place] 3=Moderate Assistance 7=Complete IndependenceSCALE: Activities may be completed with or without assistive devices. 7-Pxifbmndul-bumgjdv completes the activity by him/herself with no assistance from a helper. 5-Set-up or Clean-up Assistance-helper sets up or cleans up; patient completes activity. [place] assists only prior to or following the activity. 4-Supervision or Touching Assistance-helper provides verbal cues and/or touching/steadying and/or contact guard assistance as patient completes activity. Assistance may be provided throughout the activity or intermittently. 3-Partial/Moderate Assistance-helper does LESS THAN HALF the effort. [place] lifts, holds or supports trunk or limbs, but provides less than half the effort. 2-Substantial/Maximal Assistance-helper does MORE THAN HALF the effort. [place] lifts or holds trunk or limbs and provides more than half the effort. 3-Uucgutubq-utyoqf does ALL the effort. Patient does none of the effort to complete the activity. Or, the assistance of 2 or more helpers is required for the patient to complete the activity. If activity was not attempted, code reason: 7-Patient Refused. 9-Not Applicable-not attempted and the patient did not perform the activity before the current illness, exacerbation or injury. 10-Not Attempted due to Environmental Limitations-(lack of equipment, weather restraints, etc.). 88-Not Attempted due to Medical Conditions or Safety Concerns. Eating (QC): 6 Oral Hygiene (QC): 6 Bathing Location: L Arm, R Arm, L Upper Leg, R Upper Leg, L Lower Leg (including foot), R Lower Leg (including foot), Chest, Abdomen, Perineal Area Shower/Bathe Self (QC): 3 (Min A) Upper Body Dressing (QC): 5 Lower Body Dressing (QC): 2 On/Off Footwear: 3 Toileting Hygiene (QC): 2 Toilet Transfer (QC): 3 (Min A) Education OT Patient Education: Use of adapted equipment Teaching Recipient: Patient Teaching Methods: Demonstration, Discussion Response to Teaching: Verbalize Understanding, Return Demonstration, Reinforcement Needed OT Short Term Goals Short Term Goals Time Frame: Nov 02, 2021 Toileting hygiene: 4 Shower/bathe self: 4 Lower body dressin Putting on/taking off footwear: 4 OT Detention Goals Rn Or Lvn Goals Time Frame: Nov 17, 2021 Acute change in mental status: 0 Inattention: 0 Disorganized thinkin Altered level of consciousness: 0 Eating (QC): 6 Oral Hygiene (QC): 6 Toileting Hygiene (QC): 6 Shower/Bathe Self (QC): 5 Upper Body Dressing (QC): 6 Lower Body Dressing (QC): 6 On/Off Footwear (QC): 6 Additional Goals: 1-Demonstrate ADL Tasks, 2-Verbalize Understanding, 3- ImproveStrength/Xander 1=Demonstrate adherence to instructed precautions during ADL tasks. 2=Patient will verbalize/demonstrate understanding of assistive devices/modifications for ADL. 3=Patient will improve strength/tolerance for activity to enable patient to perform ADL's. OT Education/Plan Problem List/Assessment Assessment: Decreased Activ Tolerance, Decreased Safety Aware, Decreased UE Strength, Impaired Bed Mobility, Impaired Coordination, Impaired Funct Balance, Impaired Self-Care Skills Discharge Recommendations Plan/Recommendations: Continue POC Treatment Plan/Plan of Care Patient would benefit from OT for education, treatment and training to promote independence in ADL's, mobility, safety and/or upper extremity function for ADL's. Plan of Care: ADL Retraining, Functional Mobility, Group Exercise/Act as Ind, UE Funct Exercise/Act Treatment Duration: Nov 17, 2021 Frequency: At least 5 of 7 days/Wk (IRF) Estimated Hrs Per Day: 1.5 hours per day Agreement: Yes Rehab Potential: Fair Time/GCodes Start Time: 07:15 Stop Time: 08:45 Total Time Billed (hr/min): 90 Billed Treatment Time 1 Visit ADL 6 (90 min) ASHER DRIVER Nov 01, 2021 09:00
[2021-11-01] MEDS: TAMSULOSIN 0.4 MG (FLOMAX) CAP PO SCH ×2 (10:52→20:01)
[2021-11-01] MEDS: DOCUSATE SODIUM 100 MG (COLACE) CAP PO SCH ×2 (10:52→20:01)
[2021-11-01] MEDS: CYCLOBENZAPRINE 10 MG (FLEXERIL) TAB PO PRN (10:52)
[2021-11-01] MEDS: GABAPENTIN 400 MG (NEURONTIN) CAP PO SCH ×3 (10:53→20:00)
[2021-11-01] MEDS: SENNA W/DOCUSATE (SENOKOT S) TABLET PO SCH ×2 (10:53→20:03)
[2021-11-01] MEDS: NITROFURANTOIN 100 MG (MACROBID) CAPSULE PO SCH ×2 (10:53→18:54)
[2021-11-01] MEDS: polyethylene glycoL POWDER 17 GM (MIRALAX) PACK PO SCH ×2 (11:00→20:03)
--- NOTE | 2021-11-01 11:21 | Physical Therapy Daily Note ---
PT Daily Note-Current Subjective Pt reports he is having some (L) side pain when sitting up. The pain subsides with standing. Rated 5/10. Pain Section J - Health Conditions 1. Rarely or not at all 2. Occasionally 3. Frequently 4. Almost constantly 8. Unable to answer Pain Effect on Sleep: 3 Pain Interference with Therapy: 4 Pain Interference w/Day-to-Day: 4 Transfers SCALE: Activities may be completed with or without assistive devices. 8-Ogfdjjnrld-gbdbvek completes the activity by him/herself with no assistance from a helper. 5-Set-up or Clean-up Assistance-helper sets up or cleans up; patient completes activity. [place] assists only prior to or following the activity. 4-Supervision or Touching Assistance-helper provides verbal cues and/or touching/steadying and/or contact guard assistance as patient completes activity. Assistance may be provided throughout the activity or intermittently. 3-Partial/Moderate Assistance-helper does LESS THAN HALF the effort. [place] lif ts, holds or supports trunk or limbs, but provides less than half the effort. 2-Substantial/Maximal Assistance-helper does MORE THAN HALF the effort. [place] lifts or holds trunk or limbs and provides more than half the effort. 5-Qimzrdpzc-zgtcsq does ALL the effort. Patient does none of the effort to complete the activity. Or, the assistance of 2 or more helpers is required for the patient to complete the activity. If activity was not attempted, code reason: 7-Patient Refused. 9-Not Applicable-not attempted and the patient did not perform the activity before the current illness, exacerbation or injury. 10-Not Attempted due to Environmental Limitations-(lack of equipment, weather restraints, etc.). 88-Not Attempted due to Medical Conditions or Safety Concerns. Roll Left & Right (QC): 6 Sit to Lying (QC): 6 Lying to Sitting/Side of Bed(Q: 6 Sit to Stand (QC): 4 Chair/Pyn-dm-Ifcjm Xfer(QC): 4 steadying assist for sit to stand transfer. Legs are at risk of buckling when sudden onset of back pain. Weight Bearing Right Lower Extremity: Right Full Weight Bearing Left Lower Extremity: Left Full Weight Bearing Gait Training Walk 150 ft (QC): 4 Gait Assistive Device: FWW Ambulate 150ft with FWW and Steadying assist x 6 trials. Exercises Standing: Hip Abduction, Heel/toe raises, Marching, Mini squats Standing Reps: 10 NuStep Minutes: 15 Assessment Current Status: Good Progress Improved total ambulation distance this session. Pt working very hard to make gains and will benefit from continued therapy. He was quite fatigued post treatment and was returned to his bed for rest. PT Ld Teacher Goals Mcfp Goals PT Mcfp Goals Time Frame: Nov 10, 2021 Roll Left & Right (QC): 6 Sit to Lying (QC): 6 Lying-Sitting on Side/Bed(QC): 6 Sit to Stand (QC): 6 Chair/Thx-dt-Ogrgr Xfer(QC): 6 Toilet Transfer (QC): 6 Car Transfer (QC): 6 Does the Patient Walk: Yes Walk 10 feet (QC): 6 Walk 50ft with 2 Turns (QC): 6 Walk 150 ft (QC): 4 Walking 10ft on Uneven Surface: 6 1 Step (curb) (QC): 4 4 Steps (QC): 4 12 Steps (QC): 4 Picking up an Object (QC): 4 Wheel 50 feet with 2 turns (QC: 9 Wheel 150 feet: 9 PT Plan Treatment/Plan Treatment Plan: Continue Plan of Care Treatment Plan: Bed Mobility, Education, Functional Activity Xander, Functional Strength, Group Therapy, Gait, Safety, Therapeutic Exercise, Transfers Treatment Duration: Nov 10, 2021 Frequency: At least 5 of 7 days/Wk (IRF) Estimated Hrs Per Day: 1.5 hours per day Patient and/or Family Agrees t: Yes Time/GCodes Time In: 900 Time Out: 1000 Total Billed Treatment Time: 60 Total Billed Treatment visit, Gait train 30 minutes, exercise 30 minutes SUMMER LOMELI PT Nov 01, 2021 11:20
--- NOTE | 2021-11-01 12:13 | Progress Note - Urology ---
Progress Note-Urology Progress Notes/Assess & Plan Progress/Assessment & Plan STILL UNABLE TO VOID ON OWN. OPTIONS DISCUSSED WITH PATIENT AND WITH PROS AND CONS. WANT TO TEACH ISC WHICH IS THE BEST OPTION. START TODAY Final Diagnosis RETENTION HIPOLITO BOWENS MD Nov 01, 2021 12:13
--- NOTE | 2021-11-01 14:48 | Physical Therapy Daily Note ---
PT Daily Note-Current Subjective Pt. agrees to Rx, wants to stay in bed as he is waiting to be straight cathed. Pt. is encouraged bc he has found a skilled care that will take him and it is the right distance for everyone in his knik Pain Location: No Pain Reported Section J - Health Conditions 1. Rarely or not at all 2. Occasionally 3. Frequently 4. Almost constantly 8. Unable to answer Pain Effect on Sleep: 3 Pain Interference with Therapy: 3 Pain Interference w/Day-to-Day: 3 Mental Status Patient Orientation: Normal For Age Attachments: Other-See Comments (back brace) Transfers SCALE: Activities may be completed with or without assistive devices. 6-Nbyqlolanb-zeaerzv completes the activity by him/herself with no assistance from a helper. 5-Set-up or Clean-up Assistance-helper sets up or cleans up; patient completes activity. [place] assists only prior to or following the activity. 4-Supervision or Touching Assistance-helper provides verbal cues and/or touching/steadying and/or contact guard assistance as patient completes activity. Assistance may be provided throughout the activity or intermittently. 3-Partial/Moderate Assistance-helper does LESS THAN HALF the effort. [place] lifts, holds or supports trunk or limbs, but provides less than half the effort. 2-Substantial/Maximal Assistance-helper does MORE THAN HALF the effort. [place] lifts or holds trunk or limbs and provides more than half the effort. 7-Jksbsodxr-kkrchr does ALL the effort. Patient does none of the effort to complete the activity. Or, the assistance of 2 or more helpers is required for the patient to complete the activity. If activity was not attempted, code reason: 7-Patient Refused. 9-Not Applicable-not attempted and the patient did not perform the activity before the current illness, exacerbation or injury. 10-Not Attempted due to Environmental Limitations-(lack of equipment, weather restraints, etc.). 88-Not Attempted due to Medical Conditions or Safety Concerns. Roll Left & Right (QC): 4 in struction in safe log roll Weight Bearing Right Lower Extremity: Right Full Weight Bearing Left Lower Extremity: Left Full Weight Bearing Exercises Supine Ex: Bridging, Quad Set, Rolling, Glut sets, Heel Slides (utilizing gait belt for right leg to complete full ROM), Short Arc Quads, Straight leg raise (utilizinng gait belt for leg prepared foods production team member.), Hip abd/add Supine Reps: 20 Treatments bed mob, therex Assessment Current Status: Good Progress PT Revenue Specialist Goals Custodial Goals PT Custodial Goals Time Frame: Nov 10, 2021 Roll Left & Right (QC): 6 Sit to Lying (QC): 6 Lying-Sitting on Side/Bed(QC): 6 Sit to Stand (QC): 6 Chair/Ddp-os-Bciyj Xfer(QC): 6 Toilet Transfer (QC): 6 Car Transfer (QC): 6 Does the Patient Walk: Yes Walk 10 feet (QC): 6 Walk 50ft with 2 Turns (QC): 6 Walk 150 ft (QC): 4 Walking 10ft on Uneven Surface: 6 1 Step (curb) (QC): 4 4 Steps (QC): 4 12 Steps (QC): 4 Picking up an Object (QC): 4 Wheel 50 feet with 2 turns (QC: 9 Wheel 150 feet: 9 PT Plan Treatment/Plan Treatment Plan: Continue Plan of Care Treatment Plan: Bed Mobility, Education, Functional Activity Xander, Functional Strength, Group Therapy, Gait, Safety, Therapeutic Exercise, Transfers Treatment Duration: Nov 10, 2021 Frequency: At least 5 of 7 days/Wk (IRF) Estimated Hrs Per Day: 1.5 hours per day Patient and/or Family Agrees t: Yes Safety Risks/Education Patient Education: Correct Positioning Teaching Recipient: Patient Response to Teaching: Reinforcement Needed Time/GCodes Time In: 1415 Time Out: 1445 Total Billed Treatment Time: 30 Total Billed Treatment 1,FA10m,EX20m ADALBERTO CARMONA ELECTRICAL ACCESSORIES ASSEMBLER Nov 01, 2021 14:48
--- NOTE | 2021-11-01 16:27 | Progress Note ---
JONAH GARCIA 11/01/21 1627: Progress Note CC: Lumbar spine myelopathy HPI: This is a 76 yr old male who is status post spinal fusion of L2 to 3 and L3 to [address] Smith. He is still experiencing neurogenic claudication as the spine surgery recovers. Patient had some retention issues at [facility] prior to transfer. Patient has chief complaint of low back and hip pain, though over all he is doing well and making progress. Patient notes that OMM treatment assists in recovery and relieves pain. [place] catheter is removed, and he now has straight in and out cath.. Walks with walker. Today will provide OMM to patient for assistance with recovery. ROS: General: Fatigue, Malaise Musculoskeletal: Low back pain, hip pain bilaterally Exam: General Appearance: No Apparent Distress, WD/WN, Chronically ill HEENT: PERRL/EOMI Respiratory: Chest Non Tender, Lungs Clear, Normal Breath Sounds, No Accessory Muscle Use, No Respiratory Distress Cardiovascular: RRR, No Gallop, No JVD, No Murmur, Normal Peripheral Pulses Extremity: Normal Capillary Refill, Normal Inspection, Normal Range of Motion (limited due to back pain), Non Tender, No Calf Tenderness, Pedal Edema Neurologic/Psychiatric: Alert, Oriented x3, No Motor/Sensory Deficits, Normal Mood/Affect, Motor Weakness (lower extremities 4/5) Skin: Normal Color, Warm/Dry Lymphatic: No Adenopathy Assessment: s/p lumbar spine surgery due to myelopathy Dr Smith Neuropathy h/o urinary retention last admit 2019 Bassett cath out Lumbar somatic dysfunction s/p lumbar spine surgery due to myelopathy Plan: -OMM for areas surrounding lumbar back, not directly on lumbar back -Thoracic inlet release -Lower Extremity myofascial release, lymphatic drainage, and soft tissue CHLOE FOX DO 11/01/212112: Supervisory-Addendum Brief Verification & Attestation Participated in pt care: history, MDM, physical Personally performed: exam, history, MDM, supervision of care Care discussed with: Medical Student Procedures: n/a Results interpretation: Verified all documentation Verification and Attestation of Medical Student E/M Service A medical student performed and documented this service in my presence. I reviewed and verified all information documented by the medical student and made modifications to such information, when appropriate. I personally performed the physical exam and medical decision making. Chloe Fox, Nov 01, 2021,21:13 JONAH GARCIA Nov 01, 2021 16:27 CHLOE FOX DO Nov 01, 2021 21:13
[2021-11-01 20:30] VITALS: BP 143/64
[2021-11-02] MEDS ORDERED: NITR100C10 PO (05:23)
[2021-11-02] MEDS ORDERED: TMSL.4C PO (05:23)
[2021-11-02] MEDS ORDERED: CYCL10TA25 PO (05:23)
[2021-11-02] MEDS ORDERED: ACHYD1T PO (05:23)
[2021-11-02] MEDS ORDERED: BETH25TA2 PO (05:23)
[2021-11-02] MEDS ORDERED: POLY17PO54 PO (05:23)
[2021-11-02] MEDS ORDERED: DOCU100C37 PO (05:23)
[2021-11-02] MEDS ORDERED: ONDA4TAB11 PO (05:23)
[2021-11-02] MEDS ORDERED: ACET325T49 PO (05:23)
[2021-11-02] MEDS ORDERED: GABA800T10 PO (05:23)
--- NOTE | 2021-11-02 05:24 | Discharge Inst-Skilled Nursing ---
Discharge Inst-Skilled NF Reconcile Patient Problems Problems Reviewed?: Yes Patient Instructions Patient Problems: Spine surgery Debility Urinary retention Goal: Return to independence Consult/Follow Up/Orders Follow Up Appt.: PCP 1 week Skilled NF Admit to: Certification (SNF) I certify that SNF services are required to be given on an inpatient basis because of the above named patient's need for fdc care on a continuing basis for the conditions(s) for which he/she was receiving inpatient hospital services prior to his/her transfer to the SNF. 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, Physical Therapy-Evaluate & Treat Oxygen Delivery Method: Room Air Discharge Diet: No Restrictions Daily Activity as Tolerated: Yes Resuscitation Status: Full Code New & Resume Previous Orders New Medications: Acetaminophen (Acetaminophen) 325 Mg Tablet 650 MG PO Q6H PRN for PAIN-MILD (1-4), #30 TAB Bethanechol Chloride (Bethanechol Chloride) 25 Mg Tablet 50 MG PO ACHS, #120 TAB Cyclobenzaprine HCl (Cyclobenzaprine HCl) 10 Mg Tablet 10 MG PO Q8H PRN for SPASMS, #30 TAB Docusate Sodium (Docusate Sodium) 100 Mg Capsule 100 MG PO BID, #60 CAP Hydrocodone Bit/Acetaminophen (HYDROcodone/APAP 10/325 TABLET) 1 Ea Tab 1-2 EA PO Q4H PRN for PAIN-MODERATE (5-7), #30 TAB Nitrofurantoin Monohyd/M-Cryst (Nitrofurantoin [place]-Mcr 100 mg) 100 Mg Capsule 100 MG PO BID WITH MEALS, #12 CAP Ondansetron (Ondansetron Odt) 4 Mg Tab.rapdis 4 MG PO Q6H PRN for NAUSEA/VOMITING-1ST LINE, #20 TAB Polyethylene Glycol 3350 (Polyethylene Glycol 3350) 17 Gram Powd.pack 17 GM PO BID PRN for CONSTIPATION-1ST LINE, #1 EACH Tamsulosin HCl (Flomax) 0.4 Mg Cap 0.4 MG PO BID, #60 CAP Continued Medications: [Eye-Harvinder Xtra+Lutein] () 1 EA PO DAILY STATES GETS IT FROM [facility] Gabapentin (Gabapentin) 800 Mg Tablet 800 MG PO TID, #90 TAB (This prescription has been renewed) Chloe Mejia Nov 02, 2021 05:23 CHLOE MEJIA DO Nov 02, 2021 05:24
--- NOTE | 2021-11-02 05:25 | Discharge Summary ---
Diagnosis/Chief Complaint Date of Admission Oct 19, 2021 at 13:29 Date of Discharge Discharge Date: Nov 02, 2021 Discharge Diagnosis Assessment: s/p lumbar spine surgery due to myelopathy Dr Smith Neuropathy h/o urinary retention last admit [address] due to urinary retention and consulted Dr Zimmerman now back in after failed trial Plan: PT OT Monitor urinary retention Monitor closely 10/20/2021: Bassett catheter Monitor closely 10/21/2021: Bassett cath Appreciate Dr Zimmerman 10/22/2021: Pain control No issues 10/23/2021: DC catheter soon 10/24/2021: Dr Zimmerman appreciated No falls 10/25/2021: No falls Monitor closely 10/26/2021: Monitor pain Needs SNF 10/27/2021: SNF in [place], [place] with sister 10/28/2021: Flu vaccine done DC Novovax 10/29/2021: SNF at DC 10/30/2021: Skilled at dc 10/31/2021: DC 11/01/2021: DC tomorrow (1) S/P lumbar fusion (2) Myopathy (3) Bassett catheter in place (4) Neuropathy (5) Urinary retention Discharge Summary Discharge Physical Examination Allergies: Coded Allergies: No Known Allergies (Verified Allergy, Unknown, 10/23/21) Vitals & I&Os Vital Signs Date Time Temp Pulse Resp B/P (MAP) Pulse Ox O2 Delivery O2 Flow Rate FiO2 11/02/21 10:56 36.8 58 18 101/59 96 Room Air General Appearance: Alert, Oriented X3, Cooperative Respiratory: Clear to Auscultation Cardiovascular: Regular Rate Psych/Mental Status: Mental Status NL Hospital Course Was the Problem List Reviewed?: Yes Hospital course: Patient had a lengthy hospital course been uncomplicated. Patient had complicated lumbar spine surgery requiring extensive and aggressive rehabilitation to regain any type of ambulatory function. He did have urinary retention requiring urology consult and ultimately required dependency on in and out caths. Incision was good through the entire hospital course and just requiring slow recovery due to the deficit from lumbar spine surgery so he require skilled care at discharge. 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 Labs (last 24 hrs) Laboratory Tests 10/20/21 05:33: White Blood Count 5.5, Red Blood Count 2.97L, Hemoglobin 9.3L, Hematocrit 29L, Mean Corpuscular Volume 96, Mean Corpuscular Hemoglobin 31, Mean Corpuscular Hemoglobin Concent 33, Red Cell Distribution Width 12.7, Platelet Count 227, Mean Platelet Volume 10.2, Immature Granulocyte % (Auto) 0, Neutrophils (%) (Auto) 50, Lymphocytes (%) (Auto) 22, Monocytes (%) (Auto) 18H, Eosinophils (%) (Auto) 9, Basophils (%) (Auto) 1, Neutrophils # (Auto) 2.8, Lymphocytes # (Auto) 1.2, Monocytes # (Auto) 1.0, Eosinophils # (Auto) 0.5H, Basophils # (Auto) 0.0, Immature Granulocyte # (Auto) 0.0, Sodium Level 140, Potassium Level 3.4L, Chloride Level 104, Carbon Dioxide Level 27, Anion Gap 9, Blood Urea Nitrogen 17, Creatinine 0.63, Estimat Glomerular Filtration Rate 100, BUN/Creatinine Ratio 27, Glucose Level 91, Calcium Level 8.4L, Corrected Calcium 9.2, Total Bilirubin 0.6, Aspartate Amino Transf (AST/SGOT) 28, Alanine Aminotransferase (ALT/SGPT) 38, Alkaline Phosphatase 56, Total Protein 5.3L, Albumin 3.0L, Thyroid Stimulating Hormone (TSH) 0.92 10/20/21 06:20: Urine Color YELLOW, Urine Clarity CLEAR, Urine pH 6.0, Urine Specific [place] 1.025H, Urine Protein NEGATIVE, Urine Glucose (UA) NEGATIVE, Urine Ketones NEGATIVE, Urine Nitrite NEGATIVE, Urine Bilirubin NEGATIVE, Urine Urobilinogen 1.0, Urine Leukocyte Esterase NEGATIVE, Urine RBC (Auto) NEGATIVE, Urine RBC NONE, Urine WBC 0-2, Urine Crystals NONE, Urine Bacteria NEGATIVE, Urine Casts NONE, Urine Mucus SMALLH, Urine Other FEW SPERMH, Urine Culture Indicated NO 10/30/21 05:30: White Blood Count 7.8, Red Blood Count 3.44L, Hemoglobin 10.4L, Hematocrit 33L, Mean Corpuscular Volume 95, Mean Corpuscular Hemoglobin 30, Mean Corpuscular Hemoglobin Concent 32, Red Cell Distribution Width 12.8, Platelet Count 414H, Mean Platelet Volume 9.6, Immature Granulocyte % (Auto) 1, Neutrophils (%) (Auto) 53, Lymphocytes (%) (Auto) 22, Monocytes (%) (Auto) 15H, Eosinophils (%) (Auto) 8, Basophils (%) (Auto) 2, Neutrophils # (Auto) 4.1, Lymphocytes # (Auto) 1.7, Monocytes # (Auto) 1.2H, Eosinophils # (Auto) 0.6H, Basophils # (Auto) 0.1, Immature Granulocyte # (Auto) 0.0, Sodium Level 139, Potassium Level 4.0, Chloride Level 105, Carbon Dioxide Level 24, Anion Gap 10, Blood Urea Nitrogen 14, Creatinine 0.77, Estimat Glomerular Filtration Rate 94, BUN/Creatinine Ratio 18, Glucose Level 89, Calcium Level 8.6, Corrected Calcium 9.4, Total Bilirubin 0.4, Aspartate Amino Transf (AST/SGOT) 21, Alanine Aminotransferase (ALT/SGPT) 30, Alkaline Phosphatase 92, Total Protein 5.8L, Albumin 3.0L Pending Labs Laboratory Tests 10/20/21 05:33: White Blood Count 5.5, Red Blood Count 2.97, Hemoglobin 9.3, Hematocrit 29, Mean Corpuscular Volume 96, Mean Corpuscular Hemoglobin 31, Mean Corpuscular Hemoglobin Concent 33, Red Cell Distribution Width 12.7, Platelet Count 227, Mean Platelet Volume 10.2, Immature Granulocyte % (Auto) 0, Neutrophils (%) (A uto) 50, Lymphocytes (%) (Auto) 22, Monocytes (%) (Auto) 18, Eosinophils (%) (Auto) 9, Basophils (%) (Auto) 1, Neutrophils # (Auto) 2.8, Lymphocytes # (Auto) 1.2, Monocytes # (Auto) 1.0, Eosinophils # (Auto) 0.5, Basophils # (Auto) 0.0, Immature Granulocyte # (Auto) 0.0, Sodium Level 140, Potassium Level 3.4, Chloride Level 104, Carbon Dioxide Level 27, Anion Gap 9, Blood Urea Nitrogen 17, Creatinine 0.63, Estimat Glomerular Filtration Rate 100, BUN/Creatinine Ratio 27, Glucose Level 91, Calcium Level 8.4, Corrected Calcium 9.2, Total Bilirubin 0.6, Aspartate Amino Transf (AST/SGOT) 28, Alanine Aminotransferase (ALT/SGPT) 38, Alkaline Phosphatase 56, Total Protein 5.3, Albumin 3.0, Thyroid Stimulating Hormone (TSH) 0.92 10/20/21 06:20: Urine Color YELLOW, Urine Clarity CLEAR, Urine pH 6.0, Urine Specific [place] 1.025, Urine Protein NEGATIVE, Urine Glucose (UA) NEGATIVE, Urine Ketones NEGATIVE, Urine Nitrite NEGATIVE, Urine Bilirubin NEGATIVE, Urine Urobilinogen 1.0, Urine Leukocyte Esterase NEGATIVE, Urine RBC (Auto) NEGATIVE, Urine RBC NONE, Urine WBC 0-2, Urine Crystals NONE, Urine Bacteria NEGATIVE, Urine Casts NONE, Urine Mucus SMALL, Urine Other FEW SPERM, Urine Culture Indicated NO 10/30/21 05:30: White Blood Count 7.8, Red Blood Count 3.44, Hemoglobin 10.4, Hematocrit 33, Mean Corpuscular Volume 95, Mean Corpuscular Hemoglobin 30, Mean Corpuscular Hemoglobin Concent 32, Red Cell Distribution Width 12.8, Platelet Count 414, Mean Platelet Volume 9.6, Immature Granulocyte % (Auto) 1, Neutrophils (%) (Auto) 53, Lymphocytes (%) (Auto) 22, Monocytes (%) (Auto) 15, Eosinophils (%) (Auto) 8, Basophils (%) (Auto) 2, Neutrophils # (Auto) 4.1, Lymphocytes # (Auto) 1.7, Monocytes # (Auto) 1.2, Eosinophils # (Auto) 0.6, Basophils # (Auto) 0.1, Immature Granulocyte # (Auto) 0.0, Sodium Level 139, Potassium Level 4.0, Chloride Level 105, Carbon Dioxide Level 24, Anion Gap 10, Blood Urea Nitrogen 14, Creatinine 0.77, Estimat Glomerular Filtration Rate 94, BUN/Creatinine Ratio 18, Glucose Level 89, Calcium Level 8.6, Corrected Calcium 9.4, Total Bilirubin 0.4, Aspartate Amino Transf (AST/SGOT) 21, Alanine Aminotransferase (ALT/SGPT) 30, Alkaline Phosphatase 92, Total Protein 5.8, Albumin 3.0 Discharge Home Medications: Active Scripts Active Ondansetron Odt (Ondansetron) 4 Mg Tab.rapdis 4 Mg PO Q6H PRN Polyethylene Glycol 3350 17 Gram Powd.pack 17 Gm PO BID PRN Docusate Sodium 100 Mg Capsule 100 Mg PO BID Acetaminophen 325 Mg Tablet 650 Mg PO Q6H PRN HYDROcodone/APAP 10/325 TABLET (Acetaminophen/Hydrocodone Bitart) 1 Ea Tab 1-2 Ea PO Q4H PRN Cyclobenzaprine HCl 10 Mg Tablet 10 Mg PO Q8H PRN Flomax (Tamsulosin HCl) 0.4 Mg Cap 0.4 Mg PO BID Bethanechol Chloride 25 Mg Tablet 50 Mg PO ACHS Nitrofurantoin [place]-Mcr 100 mg (Nitrofurantoin Monohyd/M-Cryst) 100 Mg Capsule 100 Mg PO BID WITH MEALS Gabapentin 800 Mg Tablet 800 Mg PO TID Reported [Eye-Harvinder Xtra+Lutein] 1 Ea PO DAILY STATES GETS IT FROM [facility] Instructions to patient/family Please see electronic discharge instructions given to patient. Diagnosis/Problems Diagnosis/Problems (1) S/P lumbar fusion (2) Myopathy (3) Bassett catheter in place (4) Neuropathy (5) Urinary retention KEVIN FOX DO Nov 02, 2021 05:25
[2021-11-02] MEDS: BETHANECHOL 25 MG (URECHOLINE) TAB PO SCH (05:44)
[2021-11-02] MEDS: MULTIVIT W/MINERALS TAB (THERAGRAN M) PO SCH (05:44)
[2021-11-02 07:34] VITALS: BP 101/59
[2021-11-02] MEDS: DOCUSATE SODIUM 100 MG (COLACE) CAP PO SCH (08:11)
[2021-11-02] MEDS: NITROFURANTOIN 100 MG (MACROBID) CAPSULE PO SCH (08:11)
[2021-11-02] MEDS: TAMSULOSIN 0.4 MG (FLOMAX) CAP PO SCH (08:11)
[2021-11-02] MEDS: GABAPENTIN 400 MG (NEURONTIN) CAP PO SCH (08:11)
[2021-11-02] MEDS: SENNA W/DOCUSATE (SENOKOT S) TABLET PO SCH (08:11)
[2021-11-02] MEDS: polyethylene glycoL POWDER 17 GM (MIRALAX) PACK PO SCH (08:13)
[2021-11-02 10:56] VITALS: BP 101/59
--- NOTE | 2021-11-02 11:22 | Therapy Team Discharge Summary ---
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 Upon evaluation patient performed rolling and supine <-> sit with max assist, sit <-> stand and transfers max assist, car transfer max assist, ambulated 30' with a rolling walker with min/mod assist (including 10' over an uneven surface), and went up and down 1 step using a rolling walker with max assist. Patient has been performing bed mobility and transfer training, balance and endurance training, functional strengthening, stair training, gait training, and education. 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 Now patient performs rolling with independent, supine to sit with SBA, sit to supine min assist, sit <-> stand min assist, transfers CGA, car transfer mod assist, ambulate 150' with a rolling walker with CGA (including 50' with at least 2 turns of 90 degrees and 10' over an uneven surface), can go up and down 1 step using a rolling walker with min assist, and can picker and sorter load and unload an object from the floor using a clinical specialist medical device with CGA. Patient is discharging from this facility today and will be discharged from PT at this time. Roll Left to Right (QC): 4 Sit to Lying (QC): 6 Lying to Sitting/Side of Bed(Q: 6 Sit to Stand (QC): 4 Chair/[id number]-[id number] Xfer(QC): 4 Toilet Transfer (QC): 1 Car Transfer (QC): 3 Does the Patient Walk: Yes Mode of Locomotion: Walk Anticipated Mode of Locomotion: Walk Walk 10 feet (QC): 4 Walk 50 ft with 2 Turns(QC): 4 Walk 150 ft (QC): 4 Walking 10ft on uneven surface: 4 Distance: 30 Gait Assistive Device: FWW Does the Pt Use a Wheelchair: Yes Wheel 50 ft with 2 turns (QC): 9 Wheel 150 ft (QC): 4 Type of Wheelchair: Manual #of Steps: 1 1 Step (curb) (QC): 3 4 Steps (QC): 88 12 Steps (QC): 88 Walking Assistive Device: Walker Balance Sitting Static: Fair Balance Sitting Dynamic: Fair Balance-Standing Static: Poor Picking up an Object (QC): 4 (CGA using clinical specialist medical device) Occupational Therapy Decreased Activ Tolerance, Decreased Safety Aware, Decreased UE Strength, Impaired Bed Mobility, Impaired Coordination, Impaired Funct Balance, Impaired Self-Care Skills Eating (QC): 6 Oral Hygiene (QC): 6 Shower/Bathe Self (QC): 3 (Min A) Upper Body Dressing (QC): 5 Lower Body Dressing (QC): 2 On/Off Footwear (QC): 3 Toileting Hygiene (QC): 2 PT Material Lister Goals Usp Goals PT Usp Goals Time Frame: Nov 10, 2021 Scoring Section J - Health Conditions 1. Rarely or not at all 2. Occasionally 3. Frequently 4. Almost constantly 8. Unable to answer Roll Left to Right (QC): 6 Sit to Lying (QC): 6 Lying-Sitting on Side/Bed(QC): 6 Sit to Stand (QC): 6 Chair/[id number] Xfer(QC): 6 Car Transfer (QC): 6 Does the Patient Walk: Yes Walk 10 feet (QC): 6 Walk 10ft-Uneven Surface(QC): 6 Walk 50ft with 2 Turns (QC): 6 Walk 150 ft (QC): 4 Wheel 50 feet with 2 turns (QC: 9 1 Step (curb) (QC): 4 4 Steps (QC): 4 12 Steps (QC): 4 Picking up an Object (QC): 4 OT Material Lister Goals Usp Goals Time Frame: Nov 17, 2021 Acute change in mental status: 0 Inattention: 0 Disorganized thinkin Altered level of consciousness: 0 Eating (QC): 6 Oral Hygiene (QC): 6 Toileting Hygiene (QC): 6 Shower/Bathe Self (QC): 5 Upper Body Dressing (QC): 6 Lower Body Dressing (QC): 6 On/Off Footwear (QC): 6 Additional Goals: 1-Demonstrate ADL Tasks, 2-Verbalize Understanding, 3- ImproveStrength/Xander 1=Demonstrate adherence to instructed precautions during ADL tasks. 2=Patient will verbalize/demonstrate understanding of assistive devices/modifications for ADL. 3=Patient will improve strength/tolerance for activity to enable patient to perform ADL's. IRENE MARTIN PT Nov 02, 2021 11:22
== END 2021-11-02 09:15 | DRG 552 ==
PROVIDERS: ADMIT Internal Medicine; ATTEND Internal Medicine
DX: M48.062 Spinal stenosis, lumbar region with neurogenic claudication (principal); Z98.1 Arthrodesis status; G62.9 Polyneuropathy, unspecified; E03.9 Hypothyroidism, unspecified; F41.9 Anxiety disorder, unspecified; R33.9 Retention of urine, unspecified; N40.1 Benign prostatic hyperplasia with lower urinary tract symptoms; L89.152 Pressure ulcer of sacral region, stage 2; R27.0 Ataxia, unspecified; R15.9 Full incontinence of feces; R32 Unspecified urinary incontinence; Z23 Encounter for immunization
CPT/HCPCS: 36415; 80053; 81000; 84443; 85025; 90662; 93970

== ENCOUNTER 2021-10-24 08:05 | Day surgery (SDC) | payer MEDICARE ==
[~2021-10-24 08:05] MED LIST changes: +CYCL10TA25 PO; +DOCU100C37 PO; +HYDR-3820 PO; +LUTEIN PO; +[UNRECOGNIZED DRUG - OTHER] PO
[2021-10-24] MEDS ORDERED: LIDOCAINE UROJET 2% GEL 10 ML PKG TOP ONE (08:15)
== END 2021-10-24 09:00 ==
LOC: SDC 08:05
PROVIDERS: ATTEND Urology
DX: R33.9 Retention of urine, unspecified (principal)